=== PATIENT | male | born 1935 | race Caucasian/White ===

== ENCOUNTER → 2016-07-14 | Outpatient (CLI) | payer MEDICARE ==
[~2016-07-14] MED LIST: ANTI-INFLAMMATORY; ASPI-84; ATOR20TA66 PO; B12 SL; CITA10SO PO; E400C PO; HYDR-3730 PO; LIPITOR; LISI1TAB PO; MAGN250T13 PO; NAPR-243 PO; OMEP40CA36 PO; OMG1KC PO; SIMV40TA4 PO
--- NOTE | 2016-07-14 13:23 | Diagnostic Imaging Report ---
PA and lateral views of the chest. INDICATION: Chronic cough. FINDINGS: The lungs are clear. The heart size is normal. No effusion or pneumothorax. The mediastinum and eugene appear unremarkable. There is elevation of the right hemidiaphragm similar to 07/08/2014. IMPRESSION: Elevated right hemidiaphragm. No acute process. Dictated by: Dictated on workstation # [id number]
== END ==
LOC: RAD 11:10
PROVIDERS: ATTEND Internal Medicine
DX: R05 Cough (principal)
CPT/HCPCS: 71020

== ENCOUNTER 2017-07-27 08:41 | Emergency (ER) | payer MEDICARE ==
[~2017-07-27] VITALS: Ht 172.7 cm; Wt 90.7 kg
[2017-07-27] MEDS ORDERED: NS IV 500 ML 500 ML IV ONE (09:08)
[2017-07-27 09:14] LABS: BASOPHILS % (AUTO) 0 % (0-10); EOSINOPHILS # (AUTO) 0.1 10^3/uL (0.0-0.3); EOSINOPHILS % (AUTO) 1 % (0-10); HEMATOCRIT 41 % (40-54); HEMOGLOBIN 14.3 G/DL (13.3-17.7); LYMPHOCYTES # (AUTO) 3.1 X 10^3 (1.0-4.0); LYMPHOCYTES % (AUTO) 30 % (12-44); MEAN CORPUSCULAR HEMOGLOBIN 34 PG (25-34); MEAN CORPUSCULAR HGB CONC 35 G/DL (32-36); MEAN CORPUSCULAR VOLUME 97 FL (80-99); MEAN PLATELET VOLUME 9.2 FL (7.4-10.4); MONOCYTES # (AUTO) 0.9 X 10^3 (0.0-1.0); MONOCYTES % (AUTO) 9 % (0-12); NEUTROPHILS # (AUTO) 6.1 X 10^3 (1.8-7.8); NEUTROPHILS % (AUTO) 60 % (42-75); PLATELET COUNT 254 10^3/uL (130-400); RED BLOOD COUNT 4.16 10^6/uL (4.35-5.85); RED CELL DISTRIBUTION WIDTH 12.7 % (10.0-14.5); WHITE BLOOD COUNT 10.2 10^3/uL (4.3-11.0)
[2017-07-27] MEDS ORDERED: raNItidine 50 MG/2 ML INJ (ZANTAC) IJ ONE (09:15)
[2017-07-27] MEDS ORDERED: ONDANSETRON 4 MG/2 ML (SDV) Z0FRAN IVP ONE (09:15)
[2017-07-27 09:21] LABS: INR 1.1 (0.8-1.4); PROTHROMBIN TIME PATIENT 14.4 SEC (12.2-14.7)
[2017-07-27 09:29] LABS: ALANINE AMINOTRANSFERASE 23 U/L (0-55); ALBUMIN 3.9 GM/DL (3.2-4.5); ALKALINE PHOSPHATASE 67 U/L (40-136); BILIRUBIN,TOTAL 0.7 MG/DL (0.1-1.0); BUN/CREATININE RATIO 22; CALCIUM 9.1 MG/DL (8.5-10.1); CARBON DIOXIDE 21 MMOL/L (21-32); CHLORIDE 106 MMOL/L (98-107); GFR ESTIMATED > 60; GLUCOSE 168 MG/DL (70-105); POTASSIUM 4.4 MMOL/L (3.6-5.0); SODIUM 137 MMOL/L (135-145)
--- NOTE | 2017-07-27 11:20 | ED GI ---
General Chief Complaint: Abdominal/GI Problems Stated Complaint: PASSING ALOT OF BLOOD Nursing Triage Note: STATES AT APPX 0630 TODAY HE WOKE UP AND PASSED A LARGE AMT OF STOOL IN THE TOILET. STATES THIS HAS HAPPENED X6 SO FAR TODAY. Sepsis Screen: No Definite Risk Source of Information: Patient Exam Limitations: No Limitations History of Present Illness Date Seen by Provider: Jul 27, 2017 Time Seen by Provider: 08:57 Initial Comments This 81-year-old gentleman presents to the emergency room with a large amount of gross rectal bleeding starting at around 06:30. He developed some urgency to have a bowel movement this morning and went to the bathroom. He passed a large amount of bright red blood in the toilet. He had multiple episodes. He reports having some diaphoresis, weakness and nausea associated with this. He is afebrile. He reports having another episode years ago for which he was admitted. No significant pathology was found at that time. Review of patient' s chart notes that he had a colonoscopy 2 years ago. Diagnoses found at that included internal hemorrhoids and diverticulosis. He has a history of rectal polyps but no polyps were found with his colonoscopy 2 years ago. Patient denies any pain. He is no longer nauseated. Dr. Beaver is his surgeon. Allergies and Home Medications Allergies Coded Allergies: Diazepam (Unverified Adverse Reaction, SWEAT,, 07/30/10) Home Medications Atorvastatin Calcium 20 Mg Tablet, 20 MG PO DAILY, (Reported) Citalopram Hydrobromide 10 Mg/5 Ml Solution, 10 MG PO DAILY, (Reported) Hctz/Lisinopril 1 Each Tablet, 1 EACH PO DAILY, (Reported) Hydrocodone/Acetaminophen 1 Each Tablet, 1-2 EACH PO Q6H Prescribed by: PAT BEAVER on 11/07/14 0952 Magnesium Oxide 250 Mg Tablet, 250 MG PO DAILY, (Reported) Omeprazole 40 Mg Capsule., 40 MG PO DAILY, (Reported) Patient Home Medication List Home Medication List Reviewed: Yes Review of Systems Constitutional: see HPI EENTM: No Symptoms Reported Respiratory: No Symptoms Reported Cardiovascular: No Symptoms Reported Gastrointestinal: See HPI Genitourinary: No Symptoms Reported Musculoskeletal: no symptoms reported Skin: no symptoms reported Psychiatric/Neurological: No Symptoms Reported Endocrine: No Symptoms Reported Hematologic/Lymphatic: See HPI Past [id number]-Xsvctr Hx Past Med/Social Hx: Reviewed and Corrections made Patient Social History Alcohol Use: Denies Use Recreational Drug Use: No Smoking Status: Former Smoker Recent Foreign Travel: No Contact w/Someone Who Travel: No Recent Infectious Disease Expo: No Recent Hopitalizations: Yes Seasonal Allergies Seasonal Allergies: No Past Medical History Surgeries: Yes (BACK SURGERY; HEMORRHOID SURGERY; ATTEMPTED TO REMOVE LUMP ON BACK) Abdominal (colonoscopy) Respiratory: No Cardiac: Yes Hypertension Neurological: No Reproductive Disorders: No Sexually Transmitted Disease: No HIV/AIDS: No Gastrointestinal: Yes (GI BLEED) Gastroesophageal Reflux, Diverticulosis, Hemorrhoids, Polyps Musculoskeletal: Yes Endocrine: No 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 Psychosocial: No Integumentary: No Blood Disorders: No Adverse Reaction/Blood Tranf: No Physical Exam Vital Signs Vital Signs - First Documented 07/27/17 08:50 Pulse 79 Resp 18 B/P (MAP) 151/90 (110) Pulse Ox 99 O2 Delivery Room Air Capillary Refill : Less Than 3 Seconds General Appearance: WD/WN, no apparent distress HEENT: PERRL/EOMI, normal ENT inspection, pharynx normal Neck: normal inspection Respiratory: lungs clear, normal breath sounds, no respiratory distress, no accessory muscle use Cardiovascular: regular rate, rhythm, no edema, no murmur Gastrointestinal: normal bowel sounds, non tender, soft Rectal: normal rectal tone; No hemorrhoids, No mass, No tenderness; other ( scant red blood on the skin near the rectum and on the glove with digital rectal exam) Extremities: normal inspection, no pedal edema 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, no motor/sensory deficits, alert, normal mood/affect, oriented x 3 Skin: normal color, warm/dry Progress/Results/Core Measures Results/Orders Lab Results Laboratory Tests Test 07/27/17 09:00 Range/Units White Blood Count 10.2 4.3-11.0 10^3/uL Red Blood Count 4.16 L 4.35-5.85 10^6/uL Hemoglobin 14.3 13.3-17.7 G/DL Hematocrit 41 40-54 % Mean Corpuscular Volume 97 80-99 FL Mean Corpuscular Hemoglobin 34 25-34 PG Mean Corpuscular Hemoglobin Concent 35 32-36 G/DL Red Cell Distribution Width 12.7 10.0-14.5 % Platelet Count 254 130-400 10^3/uL Mean Platelet Volume 9.2 7.4-10.4 FL Neutrophils (%) (Auto) 60 42-75 % Lymphocytes (%) (Auto) 30 12-44 % Monocytes (%) (Auto) 9 0-12 % Eosinophils (%) (Auto) 1 0-10 % Basophils (%) (Auto) 0 0-10 % Neutrophils # (Auto) 6.1 1.8-7.8 X 10^3 Lymphocytes # (Auto) 3.1 1.0-4.0 X 10^3 Monocytes # (Auto) 0.9 0.0-1.0 X 10^3 Eosinophils # (Auto) 0.1 0.0-0.3 10^3/uL Basophils # (Auto) 0.0 0.0-0.1 10^3/uL Prothrombin Time 14.4 12.2-14.7 SEC INR Comment 1.1 0.8-1.4 Activated Partial Thromboplast Time 27 24-35 SEC Sodium Level 137 135-145 MMOL/L Potassium Level 4.4 3.6-5.0 MMOL/L Chloride Level 106 98-107 MMOL/L Carbon Dioxide Level 21 21-32 MMOL/L Anion Gap 10 5-14 MMOL/L Blood Urea Nitrogen 24 H 7-18 MG/DL Creatinine 1.10 0.60-1.30 MG/DL Estimat Glomerular Filtration Rate > 60 BUN/Creatinine Ratio 22 Glucose Level 168 H 70-105 MG/DL Calcium Level 9.1 8.5-10.1 MG/DL Total Bilirubin 0.7 0.1-1.0 MG/DL Aspartate Amino Transf (AST/SGOT) 22 5-34 U/L Alanine Aminotransferase (ALT/SGPT) 23 0-55 U/L Alkaline Phosphatase 67 40-136 U/L Total Protein 7.0 6.4-8.2 GM/DL Albumin 3.9 3.2-4.5 GM/DL My Orders Orders - CELSA HATHAWAY MD Cbc With Automated Diff (07/27/17 09:08) Comprehensive Metabolic Panel (07/27/17 09:08) Protime With Inr (07/27/17 09:08) Partial Thromboplastin Time (07/27/17 09:08) Saline Lock/Iv-Start (07/27/17 09:08) Ns Iv 500 Ml (Sodium Chloride 0.9%) (07/27/17 09:08) Ondansetron Injection (Zofran Injectio (07/27/17 09:15) Ranitidine Injection (Zantac Injection) (07/27/17 09:15) Red Cells Leukocytes Reduced (07/27/17 09:20) Type And Screen (07/27/17 09:20) Medications Given in ED Current Medications Medications Dose Ordered Sig/Quynh Route Start Time Stop Time Status Last Admin Dose Admin Ranitidine HCl 50 mg ONCE ONCE IJ 07/27/17 09:15 07/27/17 09:16 DC 07/27/17 09:26 50 MG Sodium Chloride 500 ml @ 0 mls/hr Q0M ONCE IV 07/27/17 09:08 07/27/17 09:10 DC 07/27/17 09:26 0 MLS/HR Vital Signs/I&O 07/27/17 07/27/17 08:50 11:34 Pulse 79 70 Resp 18 18 B/P (MAP) 151/90 (110) 151/87 Pulse Ox 99 98 O2 Delivery Room Air Room Air Blood Pressure Mean: 110 Progress Progress Note : Progress Note Lab work was essentially unremarkable. Patient had no other passage of blood after being roomed. Vital signs remained stable. He was given a 500 mL normal saline bolus due to his lightheadedness and dizziness. He was asymptomatic at the time of dismissal. I discussed the case with Dr. Beaver who recommended outpatient follow-up. Bleeding is likely secondary to diverticulosis and/or hemorrhoids. High fiber diet and plenty of clear liquids was recommended to help keep stools soft. Follow-up in the outpatient setting was recommended. Return precautions were discussed at length with patient and his . Departure Impression Primary Impression: Rectal bleeding Disposition: 01 HOME, SELF-CARE Condition: Improved Departure-Patient Inst. Decision time for Depature: 11:05 Referrals: KARINA MIR MD (PCP/Family) Primary Care Physician Patient Instructions: Gastrointestinal Bleeding Add. Discharge Instructions: Consume a clear liquid diet for the next 24 hours. Clear liquids include water , sports drinks, clear juices, broth, Jell-O, etc. If you are doing well, you may gradually advance your diet to a high-fiber diet starting tomorrow at lunchtime. When you advance your diet eat plenty of fruits, vegetables, and whole grains to keep your dietary fiber up and stool soft. You may add dietary fiber with a supplement such as Metamucil. Call Dr. Beaver's office today to make a follow-up appointment to be seen within the next week. Please notify his staff you were seen in the ER today for rectal bleeding. Return to the emergency room if you have complications such as lightheadedness, dizziness, shortness of breath, significant weakness, or continued bleeding of significant amounts. I do expect you to have some degree of bleeding over the next 48 hours as the blood clears your colon. The amount of blood passed should become less and darker in color with time. All discharge instructions reviewed with patient and/or family. Voiced understanding. Copy Copies To 1: PAT BEAVER MD, JOSHUA T MD Jul 27, 2017 11:20
[2017-07-27 11:34] VITALS: BP 151/87
== END 2017-07-27 11:34 | disposition home or self-care (01) ==
LOC: EDUNIT# 08:41 → ER 08:43
DX: K62.89 Other specified diseases of anus and rectum (principal); I10 Essential (primary) hypertension; K21.9 Gastro-esophageal reflux disease without esophagitis; Z87.19 Personal history of other diseases of the digestive system; Z85.828 Personal history of other malignant neoplasm of skin; Z87.891 Personal history of nicotine dependence; Z88.6 Allergy status to analgesic agent
CPT/HCPCS: 36415; 80053; 85025; 85610; 85730; 86850; 86900; 86901; 86920; 96361; 96374

== ENCOUNTER 2017-08-03 08:39 | Outpatient (CLI) | payer MEDICARE ==
[~2017-08-03] VITALS: Ht 172.7 cm; Wt 90.7 kg
[2017-08-03] MEDS ORDERED: OMEP40CA36 PO (12:40)
[2017-08-03] MEDS ORDERED: LISI1TAB8 PO (12:40)
[2017-08-03] MEDS ORDERED: CITA10TA7 PO (12:40)
== END 2017-08-03 12:41 ==
LOC: PREOP 08:39
PROVIDERS: ATTEND Surgery
DX: Z01.818 Encounter for other preprocedural examination (principal)

== ENCOUNTER → 2017-08-20 | Outpatient (CLI) | payer MEDICARE ==
[~2017-08-20] MED LIST changes: +CITA10TA7 PO; +LISI1TAB8 PO
--- NOTE | 2017-08-20 12:17 | Diagnostic Imaging Report ---
PROCEDURE: CT maxillofacial without contrast. TECHNIQUE: Multiple contiguous axial images were obtained through the facial bones without the use of intravenous contrast. INDICATION: Ladder fell on left side of face four days ago. Blurred vision and pain. FINDINGS: There is a multipart comminuted fracture involving the left orbital floor. There is depression of fracture fragments up to approximately 1 cm. There is herniated fat. While the inferior rectus muscle does not appear significantly entrapped, there is some asymmetric contour deformity and slight tenting about the muscle. There is also slight asymmetric thickening present. There is presence of retrobulbar gas. The globes appear symmetric in position and configuration. The remaining collins intact. Zygomatic arch and pterygoid plates are maintained. Mandible including temporomandibular joints preserved. Small air-fluid level within the left maxillary sinus. Maxillofacial soft tissue swelling around the left orbit. IMPRESSION: 1. Depressed comminuted left orbital floor fracture. While entrapment of the inferior rectus muscle is not demonstrated, there does appear to be some contour deformity and likely some tenting and retraction of the muscle which also appears to be edematous. Dictated by: Dictated on workstation # [id number]
--- NOTE | 2017-08-20 20:21 | Diagnostic Imaging Report ---
PROCEDURE: CT head and CT cervical spine without contrast. TECHNIQUE: Multiple contiguous axial images were obtained through the brain and cervical spine without the use of intravenous contrast. Sagittal and coronal reformations through the cervical spine were then performed. INDICATION: Ladder fell on face and head 4 days ago EXAMINATION: CT brain, CT cervical spine 08/20/2017 No priors available for comparison. FINDINGS: Brain: There is no acute hemorrhage or infarct. No mass, mass effect or midline shift appreciated. Chronic ischemic changes are noted with a focus of prominent extra-axial collection in the right posterior fossa posterior to the cerebellum. This could represent an arachnoid cyst or other cystic lesion which could be better characterized with MRI non-emergently as this is likely a chronic finding for this patient. The calvarium is intact. The known left facial fractures similar to the previous CT maxillofacial study from earlier today. Adjacent persistent soft tissue swelling about the left globe is again noted. The mastoid air cells clear. IMPRESSION: 1. No acute intracranial process with other findings as above. 2. Prominent extra axial collection on the right in the posterior fossa; see above discussion and recommendations. CT cervical spine: There is minimal grade 1 retrolisthesis C3 on C4 which appears due to degenerative change with minimal grade 1 anterolisthesis at C7-T1 likely also degenerative in nature. No fractures appreciated. Multilevel diffuse degenerative change seen throughout the spine. Lung apices are unremarkable. Prevertebral soft tissues demonstrate fairly marked areas of atherosclerotic disease. Nodularity in the thyroid noted poorly characterized and sonography could better evaluate if clinically warranted on a nonemergent basis. IMPRESSION: 1. Marked diffuse degenerative findings throughout the cervical spine with no acute osseous abnormality appreciated. Other findings as noted above. Dictated by: Dictated on workstation # [id number]
== END ==
LOC: RAD 09:51
PROVIDERS: ATTEND Nurse Practitioner Family
DX: S02.32XA Fracture of orbital floor, left side, initial encounter for closed fracture (principal); I67.82 Cerebral ischemia; M47.812 Spondylosis without myelopathy or radiculopathy, cervical region; M41.23 Other idiopathic scoliosis, cervicothoracic region; W20.8XXA Other cause of strike by thrown, projected or falling object, initial encounter
CPT/HCPCS: 70450; 70486; 72125

== ENCOUNTER → 2017-08-29 | Outpatient (CLI) | payer MEDICARE ==
--- NOTE | 2017-08-29 13:11 | Diagnostic Imaging Report ---
PROCEDURE: CT head without contrast. TECHNIQUE: Multiple contiguous axial images were obtained through the brain without the use of intravenous contrast. INDICATION: Recent fall. COMPARISON: 08/20/2017. FINDINGS: No acute intracranial hemorrhage, mass effect or edema is seen. Lugo-white junction appears preserved. There is moderate atrophy. Prominent CSF collection in the posterior fossa on the right is unchanged and may represent an arachnoid cyst or prominent CSF. This is unchanged and not felt to be acute. Diffuse hypodensities in the white matter are likely related to chronic microvascular ischemic change similar to the prior study. No new acute focal lesion is suspected. Fracture through the left orbital floor is again demonstrated. IMPRESSION: There is no evidence of a new or acute intracranial normality. No significant interval change from the prior study. Left orbit fracture again demonstrated. Dictated by: Dictated on workstation # [id number]
== END ==
LOC: RAD 12:23
PROVIDERS: ATTEND Optometrist
DX: S02.32XA Fracture of orbital floor, left side, initial encounter for closed fracture (principal); W19.XXXA Unspecified fall, initial encounter
CPT/HCPCS: 70450

== ENCOUNTER → 2017-11-09 | Outpatient (CLI) | payer MEDICARE ==
--- NOTE | 2017-11-09 16:04 | Diagnostic Imaging Report ---
PROCEDURE: US carotid duplex, bilateral. TECHNIQUE: Multiple real-time grayscale images were obtained over the carotid arteries in various projections, bilaterally. Additional duplex Doppler and color Doppler images were also obtained. INDICATION: Vertigo. FINDINGS: There is mild plaque in both common carotid arteries and bifurcations extending into the proximal internal and external carotid arteries. Velocities are normal bilaterally. No velocity elevation or stenosis is seen. Both vertebral arteries demonstrate antegrade flow. IMPRESSION: Mild bilateral carotid plaque. There is no evidence of a hemodynamically significant stenosis. Parameters based on the consensus panel Lugo-Scale and Doppler ultrasound criteria published December 2002, Radiology, Volume 229. DOPPLER (peak systolic velocity M/S Right Left CCA .93 .74 ICA Proximal .95 .57 ICA Mid .62 .80 ICA Distal .58 .92 RATIO 1.0 1.2 ECA 1.1 .67 VERT .42 .67 Dictated by: Dictated on workstation # [id number]
== END ==
LOC: RAD 12:45
PROVIDERS: ATTEND Nurse Practitioner
DX: I65.23 Occlusion and stenosis of bilateral carotid arteries (principal)
CPT/HCPCS: 93880

== ENCOUNTER 2018-01-17 05:34 | Outpatient (CLI) | payer MEDICARE ==
[~2018-01-17] VITALS: Ht 172.7 cm; Wt 90.7 kg
== END 2018-01-17 11:43 | disposition home or self-care (01) ==
LOC: PREOP 05:34
PROVIDERS: ATTEND Specialist
DX: Z01.818 Encounter for other preprocedural examination (principal)

== ENCOUNTER 2018-01-18 09:30 | Day surgery (SDC) | payer MEDICARE ==
[~2018-01-18] VITALS: Ht 172.7 cm; Wt 90.7 kg
[2018-01-18] MEDS ORDERED: TIMOLOL MALEATE 0.5% 5 ML (TIMOPTIC) BTL OU PRN (09:45)
[2018-01-18] MEDS ORDERED: POVIDONE (BETADINE) OPHTH SOLN 5% 30 ML OP ONE (09:45)
[2018-01-18] MEDS ORDERED: MOXIFLOXACIN OPHTH SOLN 5 MG/ML 0.3 ML SYRINGE OP ONE (09:45)
[2018-01-18] MEDS ORDERED: LIDOCAINE PF 1% 2 ML AMP IR PRN (09:45)
[2018-01-18] MEDS: TETRACAINE 0.5% OPHTH SOLN 4 ML BTL (SINGLE DOSE ONLY) OU PRN ×4 (09:56→10:14)
[2018-01-18] MEDS: PHENYLEPHRINE 10% OPHTH (NEO-SYN) 5 ML BTL OU SCH ×3 (10:02→10:14)
[2018-01-18] MEDS: CYCLOPENTOLATE 1% (CYCLOGYL) 2 ML DROPS OP SCH ×3 (10:02→10:14)
--- OUTSIDE RECORDS SUMMARY | 2018-01-18 10:03 | XMS REPORT | Continuity of Care Document ---
Author Author [facility] Organization [facility] Address Unknown Phone Unavailable Allergies Active Description Code Type Severity Reaction Onset Reported/Identified Relationship to Patient Clinical Status Yes diazepam [id number] Drug Allergy Unknown SWEAT, 07/30/2010 Medications There is no data. Problems Date Dx Coded Attending Type Code Diagnosis Diagnosed By 08/05/2010 Ot 211.4 BENIGN NEOPL RECTUM/ANUS 08/05/2010 Ot 272.0 PURE HYPERCHOLESTEROLEM 08/05/2010 Ot 272.4 HYPERLIPIDEMIA NEC/NOS 08/05/2010 Ot 401.9 HYPERTENSION NOS 08/05/2010 Ot 535.40 OTH SPECIFIED GASTRITIS,W/O MENTION OF H 08/05/2010 Ot 535.60 DUODENITIS, WITHOUT MENTION OF HEMORRHAG 08/05/2010 Ot 562.10 DIVERTICULOSIS COLON (W/O MENT OF HEMORR 08/05/2010 Ot 578.9 GASTROINTEST HEMORR NOS 08/05/2010 Ot 600.00 HYPERTROPHY (BENIGN) OF PROSTATE W/O URI 08/05/2010 Ot V15.82 HISTORY OF TOBACCO USE 07/08/2014 Ot 285.9 08/13/2014 CLARKE JIMÉNEZ, KARINA Barreto Ot 786.2 08/15/2014 KARINA MIR MD Ot 786.2 11/07/2014 PAT BEAVER MD Ot 455.0 INT HEMORRHOID W/O COMPL 11/07/2014 PAT BEAVER MD Ot 455.3 EXT HEMORRHOID W/O COMPL 11/07/2014 PAT BEAVER MD Ot 553.1 UMBILICAL HERNIA 11/07/2014 PAT BEAVER MD Ot 562.10 DIVERTICULOSIS COLON (W/O MENT OF HEMORR 11/07/2014 PAT BEAVER MD Ot V12.72 PERSONAL HISTORY OF COLONIC POLYPS 07/16/2015 Ot 285.9 ANEMIA NOS 07/16/2015 KARINA MIR MD Ot 786.2 COUGH 07/16/2015 PAT BEAVER MD Ot 553.1 UMBILICAL HERNIA 07/16/2015 SARANYA JIMÉNEZ, PAT Ot V12.72 PERSONAL HISTORY OF COLONIC POLYPS 07/16/2015 SARANYA JIMÉNEZ, PAT Ot V72.84 EXAM PRE-OPERATIVE NOS 07/16/2015 SARANYA JIMÉNEZ, PAT Ot V74.8 SCREEN-BACTERIAL DIS NEC 07/18/2015 CLARKE JIMÉNEZ, KARINA Barreto Ot M19.011 PRIMARY OSTEOARTHRITIS, RIGHT SHOULDER 07/18/2015 CLARKE JIMÉNEZ, KARINA Barreto Ot M50.30 OTHER CERVICAL DISC DEGENERATION, [facility] C 07/18/2015 CLARKE JIMÉNEZ, KARINA Barreto Ot W19.XXXA UNSPECIFIED FALL, INITIAL ENCOUNTER 07/18/2015 CLARKE JIMÉNEZ, KARINA Barreto Ot Y99.8 OTHER EXTERNAL CAUSE STATUS 08/07/2015 KARINA MIR MD Ot M19.011 PRIMARY OSTEOARTHRITIS, RIGHT SHOULDER 08/07/2015 CLARKE JIMÉNEZ, KARINA Barreto Ot M50.30 OTHER CERVICAL DISC DEGENERATION, [facility] C 08/07/2015 KARINA MIR MD Ot W19.XXXA UNSPECIFIED FALL, INITIAL ENCOUNTER 08/07/2015 KARINA MIR MD Ot Y99.8 OTHER EXTERNAL CAUSE STATUS 08/16/2015 KARINA MIR MD Ot M19.011 PRIMARY OSTEOARTHRITIS, RIGHT SHOULDER 08/16/2015 CLARKE JIMÉNEZ, KARINA Barreto Ot M50.30 OTHER CERVICAL DISC DEGENERATION, [facility] 08/16/2015 KARINA MIR MD Ot W19.XXXA UNSPECIFIED FALL, INITIAL ENCOUNTER 08/16/2015 KARINA MIR MD Ot Y99.8 OTHER EXTERNAL CAUSE STATUS 08/17/2015 SHEREEN JIMÉNEZ, ZOHRA Lester Ot R19.7 DIARRHEA, UNSPECIFIED 08/17/2015 SHEREEN JIMÉNEZ, ZOHRA Lester Ot T67.5XXA HEAT EXHAUSTION, UNSPECIFIED, INITIAL EN 08/19/2015 SHEREEN JIMÉNEZ, ZOHRA Lester Ot R19.7 DIARRHEA, UNSPECIFIED 08/19/2015 SHEREEN JIMÉNEZ, ZOHRA Lester Ot T67.5XXA HEAT EXHAUSTION, UNSPECIFIED, INITIAL EN 08/22/2015 ADEEL BAIRES DIETETICS TEACHER Ot R19.7 DIARRHEA, UNSPECIFIED 08/22/2015 ADEEL BAIRES DIETETICS TEACHER Ot T67.1XXA HEAT SYNCOPE, INITIAL ENCOUNTER 09/11/2015 ADEEL BAIRES DIETETICS TEACHER Ot R19.7 DIARRHEA, UNSPECIFIED 09/11/2015 ADEEL BAIRES DIETETICS TEACHER Ot T67.1XXA HEAT SYNCOPE, INITIAL ENCOUNTER 07/20/2016 KARINA MIR MD Ot R05 COUGH 08/02/2016 KARINA MIR MD Ot R05 COUGH 08/04/2016 KARINA MIR MD Ot R05 COUGH 07/27/2017 KARINA MIR MD Ot 786.2 COUGH 07/27/2017 PAT BEAVER MD Ot 553.1 UMBILICAL HERNIA 07/27/2017 PAT BEAVER MD Ot V12.72 PERSONAL HISTORY OF COLONIC POLYPS 07/27/2017 PAT BEAVER MD Ot V72.84 EXAM PRE-OPERATIVE NOS 07/27/2017 PAT BEAVER MD Ot V74.8 SCREEN-BACTERIAL DIS NEC 07/27/2017 KARINA MIR MD Ot M19.011 PRIMARY OSTEOARTHRITIS, RIGHT SHOULDER 07/27/2017 KARINA MIR MD Ot M50.30 OTHER CERVICAL DISC DEGENERATION, [facility] C 07/27/2017 KARINA MIR MD Ot W19.XXXA UNSPECIFIED FALL, INITIAL ENCOUNTER 07/27/2017 KARINA MIR MD Ot Y99.8 OTHER EXTERNAL CAUSE STATUS 07/27/2017 ADEEL BAIRES DIETETICS TEACHER Ot R19.7 DIARRHEA, UNSPECIFIED 07/27/2017 ADEEL BAIRES DIETETICS TEACHER Ot T67.1XXA HEAT SYNCOPE, INITIAL ENCOUNTER 07/27/2017 KARINA MIR MD Ot R05 COUGH 07/27/2017 CELSA HATHAWAY MD, Ot I10 ESSENTIAL (PRIMARY) HYPERTENSION 07/27/2017 CELSA HATHAWAY MD Ot K21.9 GASTRO-ESOPHAGEAL REFLUX DISEASE WITHOUT 07/27/2017 CELSA HATHAWAY MD Ot K62.89 OTHER SPECIFIED DISEASES OF ANUS AND REC 07/27/2017 CELSA HATHAWAY MD Ot Z85.828 PERSONAL HISTORY OF OTHER MALIGNANT NEOP 07/27/2017 CELSA HATHAWAY MD Ot Z87.19 PERSONAL HISTORY OF OTHER DISEASES OF TH 07/27/2017 CELSA HATHAWAY MD, Ot Z87.891 PERSONAL HISTORY OF NICOTINE DEPENDENCE 07/27/2017 CELSA HATHAWAY MD, Ot Z88.6 ALLERGY STATUS TO ANALGESIC AGENT STATUS 07/29/2017 CELSA HATHAWAY MD Ot I10 ESSENTIAL (PRIMARY) HYPERTENSION 07/29/2017 CELSA HATHAWAY MD, Ot K21.9 GASTRO-ESOPHAGEAL REFLUX DISEASE WITHOUT 07/29/2017 CELSA HATHAWAY MD Ot K62.89 OTHER SPECIFIED DISEASES OF ANUS AND REC 07/29/2017 CELSA HATHAWAY MD, Ot Z85.828 PERSONAL HISTORY OF OTHER MALIGNANT NEOP 07/29/2017 CELSA HATHAWAY MD, Ot Z87.19 PERSONAL HISTORY OF OTHER DISEASES OF TH 07/29/2017 CELSA HATHAWAY MD Ot Z87.891 PERSONAL HISTORY OF NICOTINE DEPENDENCE 07/29/2017 CELSA HATHAWAY MD, Ot Z88.6 ALLERGY STATUS TO ANALGESIC AGENT STATUS 08/03/2017 PAT BEAVER MD Ot Z01.818 ENCOUNTER FOR OTHER PREPROCEDURAL EXAMIN 08/04/2017 PAT BEAVER MD, Ot Z01.818 ENCOUNTER FOR OTHER PREPROCEDURAL EXAMIN 08/09/2017 PAT BEAVER MD, Ot Z01.818 ENCOUNTER FOR OTHER PREPROCEDURAL EXAMIN 08/23/2017 NADINE CANTU DIETETICS TEACHER Ot I67.82 CEREBRAL ISCHEMIA 08/23/2017 NADINE CANTU DIETETICS TEACHER Ot 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, CERVICOTHORA 08/23/2017 NADINE CANTU DIETETICS TEACHER Ot M47.812 SPONDYLOSIS W/O MYELOPATHY OR RADICULOPA 08/23/2017 NADINE CANTU DIETETICS TEACHER Ot S02.32XA FRACTURE OF ORBITAL FLOOR, LEFT SIDE, IN 08/23/2017 NADINE CANTU DIETETICS TEACHER Ot W20.8XXA OTH CAUSE OF STRIKE BY THROWN, PROJECTED 08/29/2017 NADINE CANTU DIETETICS TEACHER Ot I67.82 CEREBRAL ISCHEMIA 08/29/2017 NADINE CANTU DIETETICS TEACHER Ot 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, CERVICOTHORA 08/29/2017 NADINE CANTU DIETETICS TEACHER Ot M47.812 SPONDYLOSIS W/O MYELOPATHY OR RADICULOPA 08/29/2017 NADINE CANTU DIETETICS TEACHER Ot S02.32XA FRACTURE OF ORBITAL FLOOR, LEFT SIDE, IN 08/29/2017 NADINE CANTU DIETETICS TEACHER Ot W20.8XXA OTH CAUSE OF STRIKE BY THROWN, PROJECTED 08/29/2017 NADINE CANTU DIETETICS TEACHER Ot I67.82 CEREBRAL ISCHEMIA 08/29/2017 NADINE CANTU DIETETICS TEACHER Ot 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, CERVICOTHORA 08/29/2017 NADINE CANTU DIETETICS TEACHER Ot M47.812 SPONDYLOSIS W/O MYELOPATHY OR RADICULOPA 08/29/2017 NADINE CANTU DIETETICS TEACHER Ot S02.32XA FRACTURE OF ORBITAL FLOOR, LEFT SIDE, IN 08/29/2017 NADINE CANTU DIETETICS TEACHER Ot W20.8XXA OTH CAUSE OF STRIKE BY THROWN, PROJECTED 08/30/2017 YINA PINEDA OD Ot S02.32XA FRACTURE OF ORBITAL FLOOR, LEFT SIDE, IN 08/30/2017 YINA PINEDA OD Ot W19.XXXA UNSPECIFIED FALL, INITIAL ENCOUNTER 09/03/2017 NADINE CANTU DIETETICS TEACHER Ot I67.82 CEREBRAL ISCHEMIA 09/03/2017 NADINE CANTU DIETETICS TEACHER Ot 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, CERVICOTHORA 09/03/2017 NADINE CANTU DIETETICS TEACHER Ot M47.812 SPONDYLOSIS W/O MYELOPATHY OR RADICULOPA 09/03/2017 NADINE CANTU DIETETICS TEACHER Ot S02.32XA FRACTURE OF ORBITAL FLOOR, LEFT SIDE, IN 09/03/2017 NADINE CANTU DIETETICS TEACHER Ot W20.8XXA OTH CAUSE OF STRIKE BY THROWN, PROJECTED 09/03/2017 NADINE CANTU DIETETICS TEACHER Ot I67.82 CEREBRAL ISCHEMIA 09/03/2017 NADINE CANTU DIETETICS TEACHER Ot 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, CERVICOTHORA 09/03/2017 NADINE CANTU DIETETICS TEACHER Ot M47.812 SPONDYLOSIS W/O MYELOPATHY OR RADICULOPA 09/03/2017 NADINE CANTU DIETETICS TEACHER Ot S02.32XA FRACTURE OF ORBITAL FLOOR, LEFT SIDE, IN 09/03/2017 NADINE CANTU DIETETICS TEACHER Ot W20.8XXA OTH CAUSE OF STRIKE BY THROWN, PROJECTED 09/08/2017 NADINE CANTU DIETETICS TEACHER Ot I67.82 CEREBRAL ISCHEMIA 09/08/2017 NADINE CANTU DIETETICS TEACHER Ot 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, CERVICOTHORA 09/08/2017 NADINE CANTU DIETETICS TEACHER Ot M47.812 SPONDYLOSIS W/O MYELOPATHY OR RADICULOPA 09/08/2017 ALONDRA PHILIPPEINDIRA Khadijah DIETETICS TEACHER Ot S02.32XA FRACTURE OF ORBITAL FLOOR, LEFT SIDE, IN 09/08/2017 PHILIPPE CANTUINDIRA Khadijah DIETETICS TEACHER Ot W20.8XXA OTH CAUSE OF STRIKE BY THROWN, PROJECTED 09/08/2017 PHILIPPE CANTUINDIRA Khadijah DIETETICS TEACHER Ot I67.82 CEREBRAL ISCHEMIA 09/08/2017 NADINE CANTU DIETETICS TEACHER Ot 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, CERVICOTHORA 09/08/2017 NADINE CANTU DIETETICS TEACHER Ot M47.812 SPONDYLOSIS W/O MYELOPATHY OR RADICULOPA 09/08/2017 NADINE CANTU DIETETICS TEACHER Ot S02.32XA FRACTURE OF ORBITAL FLOOR, LEFT SIDE, IN 09/08/2017 NADINE CANTU DIETETICS TEACHER Ot W20.8XXA OTH CAUSE OF STRIKE BY THROWN, PROJECTED 09/12/2017 NADINE CANTU DIETETICS TEACHER Ot I67.82 CEREBRAL ISCHEMIA 09/12/2017 NADINE CANTU DIETETICS TEACHER Ot 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, CERVICOTHORA 09/12/2017 NADINE CANTU DIETETICS TEACHER Ot M47.812 SPONDYLOSIS W/O MYELOPATHY OR RADICULOPA 09/12/2017 NADINE CANTU DIETETICS TEACHER Ot S02.32XA FRACTURE OF ORBITAL FLOOR, LEFT SIDE, IN 09/12/2017 NADINE CANTU DIETETICS TEACHER Ot W20.8XXA OTH CAUSE OF STRIKE BY THROWN, PROJECTED 09/14/2017 NADINE CANTU DIETETICS TEACHER Ot I67.82 CEREBRAL ISCHEMIA 09/14/2017 NADINE CANTU DIETETICS TEACHER Ot 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, CERVICOTHORA 09/14/2017 NADINE CANTU DIETETICS TEACHER Ot M47.812 SPONDYLOSIS W/O MYELOPATHY OR RADICULOPA 09/14/2017 NADINE CANTU DIETETICS TEACHER Ot S02.32XA FRACTURE OF ORBITAL FLOOR, LEFT SIDE, IN 09/14/2017 NADINE CANTU DIETETICS TEACHER Ot W20.8XXA OTH CAUSE OF STRIKE BY THROWN, PROJECTED 09/14/2017 NADINE CANTU DIETETICS TEACHER Ot I67.82 CEREBRAL ISCHEMIA 09/14/2017 NADINE CANTU DIETETICS TEACHER Ot 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, CERVICOTHORA 09/14/2017 NADINE CANTU DIETETICS TEACHER Ot M47.812 SPONDYLOSIS W/O MYELOPATHY OR RADICULOPA 09/14/2017 NADINE CANTU DIETETICS TEACHER Ot S02.32XA FRACTURE OF ORBITAL FLOOR, LEFT SIDE, IN 09/14/2017 NADINE CANTU DIETETICS TEACHER Ot W20.8XXA OTH CAUSE OF STRIKE BY THROWN, PROJECTED 09/14/2017 NADINE CANTU DIETETICS TEACHER Ot I67.82 CEREBRAL ISCHEMIA 09/14/2017 NADINE CANTU DIETETICS TEACHER Ot 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, CERVICOTHORA 09/14/2017 NADINE CANTU DIETETICS TEACHER Ot M47.812 SPONDYLOSIS W/O MYELOPATHY OR RADICULOPA 09/14/2017 NADINE CANTU DIETETICS TEACHER Ot S02.32XA FRACTURE OF ORBITAL FLOOR, LEFT SIDE, IN 09/14/2017 NADINE CANTU DIETETICS TEACHER Ot W20.8XXA OTH CAUSE OF STRIKE BY THROWN, PROJECTED 09/20/2017 YINA PINEDA OD Ot S02.32XA FRACTURE OF ORBITAL FLOOR, LEFT SIDE, IN 09/20/2017 YINA PINEDA OD Ot W19.XXXA UNSPECIFIED FALL, INITIAL ENCOUNTER 11/09/2017 CLARKE JIMÉNEZ, KARINA Barreto Ot 786.2 COUGH 11/09/2017 SARANYA JIMÉNEZ, PAT Ot 553.1 UMBILICAL HERNIA 11/09/2017 SARANYA JIMÉNEZ, PAT Ot V12.72 PERSONAL HISTORY OF COLONIC POLYPS 11/09/2017 SARANYA JIMÉNEZ, PAT Ot V72.84 EXAM PRE-OPERATIVE NOS 11/09/2017 SARANYA JIMÉNEZ, PAT Ot V74.8 SCREEN-BACTERIAL DIS NEC 11/09/2017 CLARKE JIMÉNEZ, KARINA Barreto Ot M19.011 PRIMARY OSTEOARTHRITIS, RIGHT SHOULDER 11/09/2017 CLARKE JIMÉNEZ, KARINA Barreto Ot M50.30 OTHER CERVICAL DISC DEGENERATION, UNSP C 11/09/2017 KARINA MIR MD Ot W19.XXXA UNSPECIFIED FALL, INITIAL ENCOUNTER 11/09/2017 KARINA MIR MD Ot Y99.8 OTHER EXTERNAL CAUSE STATUS 11/09/2017 ADEEL BAIRES DIETETICS TEACHER Ot R19.7 DIARRHEA, UNSPECIFIED 11/09/2017 ADEEL BAIRES DIETETICS TEACHER Ot T67.1XXA HEAT SYNCOPE, INITIAL ENCOUNTER 11/09/2017 KARINA MIR MD Ot R05 COUGH 11/09/2017 NADINE CANTU DIETETICS TEACHER Ot I67.82 CEREBRAL ISCHEMIA 11/09/2017 NADINE CANTU DIETETICS TEACHER Ot 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, CERVICOTHORA 11/09/2017 NADINE CANTU DIETETICS TEACHER Ot M47.812 SPONDYLOSIS W/O MYELOPATHY OR RADICULOPA 11/09/2017 NADINE CANTU DIETETICS TEACHER Ot S02.32XA FRACTURE OF ORBITAL FLOOR, LEFT SIDE, IN 11/09/2017 NADINE CANTU DIETETICS TEACHER Ot W20.8XXA OTH CAUSE OF STRIKE BY THROWN, PROJECTED 11/09/2017 YINA PINEDA OD Ot S02.32XA FRACTURE OF ORBITAL FLOOR, LEFT SIDE, IN 11/09/2017 YINA PINEDA OD Ot W19.XXXA UNSPECIFIED FALL, INITIAL ENCOUNTER 11/09/2017 NÉSTOR CASTRO DIETETICS TEACHER Ot R42 DIZZINESS AND GIDDINESS 11/10/2017 NÉSTOR CASTRO DIETETICS TEACHER Ot 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 11/30/2017 NÉSTOR CASTRO DIETETICS TEACHER Ot 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 12/08/2017 NÉSTOR CASTRO DIETETICS TEACHER Ot 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 Procedures Code Description Performed By Performed On 45.16 08/05/2010 48.36 08/05/2010 Results Test Result Range Complete blood count (CBC) with automated white blood cell (WBC) differential - 07/27/17 09:00 Blood leukocytes automated count (number/volume) 10.2 10*3/uL 4.3-11.0 Blood erythrocytes automated count (number/volume) 4.16 10*6/uL 4.35-5.85 Venous blood hemoglobin measurement (mass/volume) 14.3 g/dL 13.3-17.7 Blood hematocrit (volume fraction) 41 % 40-54 Automated erythrocyte mean corpuscular volume 97 [foz_us] 80-99 Automated erythrocyte mean corpuscular hemoglobin (mass per erythrocyte) 34 pg 25-34 Automated erythrocyte mean corpuscular hemoglobin concentration measurement ( mass/volume) 35 g/dL 32-36 Automated erythrocyte distribution width ratio 12.7 % 10.0-14.5 Automated blood platelet count (count/volume) 254 10*3/uL 130-400 Automated blood platelet mean volume measurement 9.2 [foz_us] 7.4-10.4 Automated blood neutrophils/100 leukocytes 60 % 42-75 Automated blood lymphocytes/100 leukocytes 30 % 12-44 Blood monocytes/100 leukocytes 9 % 0-12 Automated blood eosinophils/100 leukocytes 1 % 0-10 Automated blood basophils/100 leukocytes 0 % 0-10 Blood neutrophils automated count (number/volume) 6.1 10*3 1.8-7.8 Blood lymphocytes automated count (number/volume) 3.1 10*3 1.0-4.0 Blood monocytes automated count (number/volume) 0.9 10*3 0.0-1.0 Automated eosinophil count 0.1 10*3/uL 0.0-0.3 Automated blood basophil count (count/volume) 0.0 10*3/uL 0.0-0.1 PT panel in platelet poor plasma by coagulation assay - 07/27/17 09:00 Prothrombin time (PT) in platelet poor plasma by coagulation assay 14.4 s 12.2-14.7 INR in platelet poor plasma or blood by coagulation assay 1.1 0.8-1.4 Activated partial thromboplastin time (aPTT) in platelet poor plasma bycoagulation assay - 07/27/17 09:00 Activated partial thromboplastin time (aPTT) in platelet poor plasma bycoagulation assay 27 s 24-35 Comprehensive metabolic panel - 07/27/17 09:00 Serum or plasma sodium measurement (moles/volume) 137 mmol/L 135-145 Serum or plasma potassium measurement (moles/volume) 4.4 mmol/L 3.6-5.0 Serum or plasma chloride measurement (moles/volume) 106 mmol/L 98-107 Carbon dioxide 21 mmol/L 21-32 Serum or plasma anion gap determination (moles/volume) 10 mmol/L 5-14 Serum or plasma urea nitrogen measurement (mass/volume) 24 mg/dL 7-18 Serum or plasma creatinine measurement (mass/volume) 1.10 mg/dL 0.60-1.30 Serum or plasma urea nitrogen/creatinine mass ratio 22 NRG Serum or plasma creatinine measurement with calculation of estimated glomerular filtration rate > NRG Serum or plasma glucose measurement (mass/volume) 168 mg/dL 70-105 Serum or plasma calcium measurement (mass/volume) 9.1 mg/dL 8.5-10.1 Serum or plasma total bilirubin measurement (mass/volume) 0.7 mg/dL 0.1-1.0 Serum or plasma alkaline phosphatase measurement (enzymatic activity/volume) 67 U/L 40-136 Serum or plasma aspartate aminotransferase measurement (enzymatic activity/ volume) 22 U/L 5-34 Serum or plasma alanine aminotransferase measurement (enzymatic activity/volume ) 23 U/L 0-55 Serum or plasma protein measurement (mass/volume) 7.0 g/dL 6.4-8.2 Serum or plasma albumin measurement (mass/volume) 3.9 g/dL 3.2-4.5 RED CELLS LEUKO REDUCED AS1 - 07/27/17 09:41 RED CELLS LEUKO REDUCED AS1 NOT AVAILABLE NRG Blood type T Indirect antibody screen panel - 07/27/17 09:41 ABO+Rh group OP NRG Transfusion band number [id number] NRG Blood group antibody screen NEGATIVE NRG Encounters ACCT No. Visit Date/Time Discharge Status Pt. Type Provider Facility Loc./Unit Complaint [id number] 11/09/2017 12:45:00 11/09/2017 23:59:59 CLS Outpatient NÉSTOR CASTRO APRN [facility] RAD CHRONIC VERTIGO [id number] 08/29/2017 12:23:00 08/29/2017 23:59:59 CLS Outpatient YINA PINEDA OD [facility] RAD FRACTURE OF ORBITAL FLOOR ,LEFT SIDE SEQUELA [id number] 08/20/2017 09:51:00 08/20/2017 23:59:59 CLS Outpatient NADINE CANTU APRN [facility] RAD FACIAL INJURY [id number] 08/05/2017 12:30:00 08/05/2017 23:59:59 CLS Preadmit PAT BEAVER MD [facility] ENDO RECTAL BLEEDING [id number] 08/03/2017 08:39:00 08/03/2017 12:41:00 DIS Outpatient PAT BEAVER MD [facility] PREOP COLONOSCOPY [id number] 07/27/2017 08:43:00 07/27/2017 11:34:00 DIS Emergency CELSA HATHAWAY MD [facility] ER PASSING ALOT OF BLOOD [id number] 07/14/2016 11:10:00 07/14/2016 23:59:59 CLS Outpatient KARINA MIR MD [facility] RAD COUGH [id number] 08/18/2015 09:37:00 08/18/2015 23:59:59 CLS Outpatient ADEEL BAIRES APRN [facility] LAB [id number] 08/17/2015 13:42:00 08/17/2015 16:37:00 DIS Emergency ZOHRA REGAN MD [facility] ER CHILLS/DIARRHEA [id number] 07/16/2015 11:18:00 07/16/2015 23:59:59 CLS Outpatient KARINA MIR MD [facility] RAD PAIN POST FALL [id number] 11/07/2014 06:57:00 11/07/2014 12:45:00 DIS Outpatient PAT BEAVER MD [facility] UMBILICAL HERNIA [id number] 11/06/2014 09:11:00 11/06/2014 23:59:59 CLS Outpatient PAT BEAVER MD [facility] PREOP UMBILICAL HERNIA [id number] 07/08/2014 16:06:00 07/08/2014 23:59:59 CLS Outpatient KARINA MIR MD [facility] RAD COUGH [id number] 01/18/2018 12:30:00 MAGALIE Kim MD [facility] CATARACT RIGHT EYE [id number] 08/10/2010 08:19:00 Document Registration [id number] 07/30/2010 19:11:00 Document Registration [id number] 08/20/2017 08:30:00 08/20/2017 23:59:59 CLS Outpatient [facility]
--- OUTSIDE RECORDS SUMMARY | 2018-01-18 10:03 | XMS REPORT ---
Author Author NADINE CANTU [facility] Address [address] [place] [address] Care Team Providers Care Horse Breeder Name Role Phone NADINE CANTU Unavailable PROBLEMS Unknown Problems ALLERGIES Substance Reaction Event Type Date Status Valium Unknown Drug Allergy Jul, Active ENCOUNTERS Encounter Location Date Diagnosis [facility] [address] [facility] [id number] [phone] Jul, Facial injury, initial encounter S09.93XA and Closed fracture of orbit, initial encounter S02.80XA IMMUNIZATIONS No Known Immunizations SOCIAL HISTORY Never Assessed REASON FOR VISIT sinus pain- fell on [place] PLAN OF CARE Activity Details Follow Up pending CT results Reason:facial injury VITAL SIGNS Weight 202 lbs 2017-08-20 Temperature 98.0 degrees Fahrenheit 2017-08-20 Heart Rate 66 bpm 2017-08-20 Respiratory Rate 20 2017-08-20 Blood pressure systolic 130 mmHg 2017-08-20 Blood pressure diastolic 90 mmHg 2017-08-20 MEDICATIONS Medication Instructions Dosage Frequency Start Date End Date Duration Status Citalopram Hydrobromide 10 MG Orally Once a day 1 tablet 24h Active Omeprazole 20 MG Orally Once a day 1 capsule 24h Active Atorvastatin Calcium 20 MG Orally Once a day 1 tablet 24h Active Augmentin 875-125 MG Orally every 12 hrs 1 tablet 12h Jul, Aug, 07 days Active Magnesium 250 MG Orally Once a day 1 tablet with a meal 24h Active Lisinopril-Hydrochlorothiazide 20-12.5 MG Orally Once a day 1 tablet 24h Active RESULTS Name Result Date Reference Range CT Scan : Face CT Scan : Head/Brain w/o Contrast CT Scan : Spine, Cervical w/o Contrast PROCEDURES No Known procedures INSTRUCTIONS MEDICATIONS ADMINISTERED No Known Medications
[2018-01-18 10:04] VITALS: BP 151/85
[2018-01-18] MEDS ORDERED: acetaZOLAMIDE ER 500 MG CAP (DIAMOX SEQUELS) PO ONE (10:30)
--- NOTE | 2018-01-18 10:39 | Ophthalmologist Pre-Op Note ---
Pre-Operative Progress Note H&P Reviewed The H&P was reviewed, patient examined and no changes noted. Date H&P Reviewed: Jan 18, 2018 Time H&P Reviewed: 10:38 Pre-Op Dx Cataract, Right Eye MAGALIE MENARD MD Jan 18, 2018 10:39
[2018-01-18] MEDS ORDERED: MIDAZOLAM 2 MG/2 ML (VERSED) VIAL ONE (10:44)
--- NOTE | 2018-01-18 11:11 | Ophthalmology Operative Report ---
Cataract removal/placement IOL PREOPERATIVE DIAGNOSIS: Cataract Right Eye POSTOPERATIVE DIAGNOSIS: Cataract Right Eye PROCEDURE: Cataract removal and placement of posterior chamber implant, right eye SURGEON: Alfred Menard ANESTHESIA: Topical with sedation COMPLICATIONS: None ESTIMATED BLOOD LOSS: Minimal DESCRIPTION OF PROCEDURE: After proper informed consent was obtained, the patient, a 82 male, was taken to the Operating Room and the right eye was anesthetized with tetracaine. The right eye was then prepped and draped in the usual manner. A wire lid speculum was placed. A paracentesis was made at the left hand position. Preservative free lidocaine was injected into the anterior chamber followed by viscoelastic. A clear corneal incision was made in the temporal position. A capsulorrhexis was preformed and the central nuclear and cortical material were removed. The posterior capsule was polished and Augustus [id number] 20.5 IOL was placed into the capsular bag. The residual viscoelastic was aspirated and balanced saline solution was injected into the anterior chamber. Moxifloxacin was injected into the anterior chamber. The wound was checked and found to be water tight. The patient tolerated the procedure well without complications. ALFRED MENARD MD Jan 18, 2018 11:11
[2018-01-18 11:20] VITALS: BP 130/84
--- NOTE | 2018-01-18 14:39 | Anesthesia-General Post-Op ---
MAC Patient Condition Mental Status/LOC: Same as Preop Cardiovascular: Satisfactory Nausea/Vomiting: Absent Respiratory: Satisfactory Pain: Controlled Complications: Absent Post Op Complications Complications None Follow Up Care/Instructions Patient Instructions None needed. Anesthesiology Discharge Order Discharge Order Patient is doing well, no complaints, stable vital signs, no apparent adverse anesthesia problems. No complications reported per nursing. VELMA ALCARAZ CRNA Jan 18, 2018 14:39
== END 2018-01-18 11:20 | disposition home or self-care (01) ==
LOC: SDC 09:30
PROVIDERS: ATTEND Specialist
DX: H25.11 Age-related nuclear cataract, right eye (principal); E78.00 Pure hypercholesterolemia, unspecified; I10 Essential (primary) hypertension; E78.5 Hyperlipidemia, unspecified; K21.9 Gastro-esophageal reflux disease without esophagitis; Z87.891 Personal history of nicotine dependence; Z79.899 Other long term (current) drug therapy

== ENCOUNTER → 2018-04-25 | Outpatient (CLI) | payer MEDICARE ==
[~2018-04-25] MED LIST changes: +GADOBUTROL 10 MMOL/10 ML (GADAVIST) VIAL IV ONE
--- NOTE | 2018-04-25 16:50 | Diagnostic Imaging Report ---
PROCEDURE: MR imaging of the brain with and without contrast. TECHNIQUE: Multiplanar, multisequence MR imaging of the brain was performed with and without contrast. INDICATION: Fall in July 2017 with facial fracture. Patient complains of blurred vision. No prior MRI study of the brain is available for comparison. Ventricles and sulci are prominent consistent with patient's age. There is moderate periventricular and subcortical white matter signal abnormality consistent with chronic microvascular ischemia. 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 No diffusion restriction is identified to suggest acute ischemia. The normal expected flow-voids within the carotid siphons are seen. There is no midline shift. No acute intra-axial or extra-axial hemorrhage is identified. No abnormal enhancement is identified following contrast administration. The corpus callosum is unremarkable. The sella and parasellar structures are unremarkable. Bilateral globes and orbits appear unremarkable. IMPRESSION: Chronic and senescent changes. No acute intracranial process is detected. Dictated by: Dictated on workstation # [id number]
== END ==
LOC: RAD 11:57
PROVIDERS: ATTEND Internal Medicine
DX: H53.8 Other visual disturbances (principal); R54 Age-related physical debility
CPT/HCPCS: 70553

== ENCOUNTER 2018-05-02 10:40 | Outpatient (CLI) | payer MEDICARE ==
[~2018-05-02] VITALS: Ht 172.7 cm; Wt 93.0 kg
[~2018-05-02 10:40] MED LIST changes: -GADOBUTROL 10 MMOL/10 ML (GADAVIST) VIAL IV ONE
== END 2018-05-02 12:34 | disposition home or self-care (01) ==
LOC: PREOP 10:40
PROVIDERS: ATTEND Surgery
DX: Z01.818 Encounter for other preprocedural examination (principal)

== ENCOUNTER 2018-05-03 09:07 | Day surgery (SDC) | payer MEDICARE ==
[~2018-05-03] VITALS: Ht 172.7 cm; Wt 93.0 kg
[2018-05-03] MEDS ORDERED: NS IV 500 ML 500 ML ONE (09:11)
--- OUTSIDE RECORDS SUMMARY | 2018-05-03 09:11 | XMS REPORT | Continuity of Care Document ---
Author Author [facility] Organization [facility] Address Unknown Phone Unavailable Allergies Active Description Code Type Severity Reaction Onset Reported/Identified Relationship to Patient Clinical Status Yes diazepam [id number] Drug Allergy Unknown SWEAT, 01/17/2018 Medications There is no data. Problems Date [...] Barreto Ot M50.30 OTHER CERVICAL DISC DEGENERATION, [facility] 07/18/2015 CLARKE JIMÉNEZ, KARINA Barreto Ot W19.XXXA UNSPECIFIED FALL, INITIAL ENCOUNTER 07/18/2015 CLARKE JIMÉNEZ, KARINA Barreto Ot Y99.8 OTHER EXTERNAL CAUSE STATUS 08/07/2015 KARINA MIR MD Ot M19.011 PRIMARY OSTEOARTHRITIS, RIGHT SHOULDER 08/07/2015 CLARKE JIMÉNEZ, KARINA Barreto Ot M50.30 OTHER CERVICAL DISC DEGENERATION, [facility] 08/07/2015 KARINA MIR MD Ot W19.XXXA UNSPECIFIED FALL, INITIAL ENCOUNTER 08/07/2015 KARINA MIR MD Ot Y99.8 OTHER EXTERNAL CAUSE STATUS 08/16/2015 KARINA MIR MD Ot M19.011 PRIMARY OSTEOARTHRITIS, RIGHT SHOULDER 08/16/2015 CLARKE JIMÉNEZ, KARINA Barreto Ot M50.30 OTHER CERVICAL DISC DEGENERATION, [facility] 08/16/2015 KARINA MIR MD Ot W19.XXXA UNSPECIFIED [...] EXHAUSTION, UNSPECIFIED, INITIAL EN 08/22/2015 ADEEL BAIRES RELIEF OPERATOR Ot R19.7 DIARRHEA, UNSPECIFIED 08/22/2015 ADEEL BAIRES RELIEF OPERATOR Ot T67.1XXA HEAT SYNCOPE, INITIAL ENCOUNTER 09/11/2015 ADEEL BAIRES RELIEF OPERATOR Ot R19.7 DIARRHEA, UNSPECIFIED 09/11/2015 ADEEL BAIRES RELIEF OPERATOR Ot T67.1XXA HEAT SYNCOPE, INITIAL ENCOUNTER 07/20/2016 CLARKE JIMÉNEZ, KARINA Barreto Ot R05 COUGH 08/02/2016 KARINA MIR MD [...] OTHER EXTERNAL CAUSE STATUS 07/27/2017 ADEEL BAIRES RELIEF OPERATOR Ot R19.7 DIARRHEA, UNSPECIFIED 07/27/2017 ADEEL BAIRES RELIEF OPERATOR Ot T67.1XXA HEAT SYNCOPE, INITIAL ENCOUNTER 07/27/2017 [...] HISTORY OF NICOTINE DEPENDENCE 07/27/2017 CELSA HATHAWAY MD Ot Z88.6 ALLERGY STATUS TO ANALGESIC AGENT [...] FOR OTHER PREPROCEDURAL EXAMIN 08/23/2017 NADINE CANTU RELIEF OPERATOR Ot I67.82 CEREBRAL ISCHEMIA 08/23/2017 NADINE CANTU RELIEF OPERATOR Ot 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, CERVICOTHORA 08/23/2017 NADINE CANTU RELIEF OPERATOR Ot M47.812 SPONDYLOSIS W/O MYELOPATHY OR RADICULOPA 08/23/2017 NADINE CANTU RELIEF OPERATOR Ot S02.32XA FRACTURE OF ORBITAL FLOOR, LEFT SIDE, IN 08/23/2017 NADINE CANTU RELIEF OPERATOR Ot W20.8XXA OTH CAUSE OF STRIKE BY THROWN, PROJECTED 08/29/2017 NADINE CANTU RELIEF OPERATOR Ot I67.82 CEREBRAL ISCHEMIA 08/29/2017 NADINE CANTU RELIEF OPERATOR Ot 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, CERVICOTHORA 08/29/2017 NADINE CANTU RELIEF OPERATOR Ot M47.812 SPONDYLOSIS W/O MYELOPATHY OR RADICULOPA 08/29/2017 NADINE CANTU RELIEF OPERATOR Ot S02.32XA FRACTURE OF ORBITAL FLOOR, LEFT SIDE, IN 08/29/2017 NADINE CANTU RELIEF OPERATOR Ot W20.8XXA OTH CAUSE OF STRIKE BY THROWN, PROJECTED 08/29/2017 NADINE CANTU RELIEF OPERATOR Ot I67.82 CEREBRAL ISCHEMIA 08/29/2017 NADINE CANTU RELIEF OPERATOR Ot 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, CERVICOTHORA 08/29/2017 NADINE CANTU RELIEF OPERATOR Ot M47.812 SPONDYLOSIS W/O MYELOPATHY OR RADICULOPA 08/29/2017 NADINE CANTU RELIEF OPERATOR Ot S02.32XA FRACTURE OF ORBITAL FLOOR, LEFT SIDE, IN 08/29/2017 NADINE CANTU RELIEF OPERATOR Ot W20.8XXA OTH CAUSE OF STRIKE BY THROWN, PROJECTED 08/30/2017 YINA PINEDA OD Ot S02.32XA FRACTURE OF ORBITAL FLOOR, LEFT SIDE, IN 08/30/2017 YINA PINEDA OD Ot W19.XXXA UNSPECIFIED FALL, INITIAL ENCOUNTER 09/03/2017 NADINE CANTU RELIEF OPERATOR Ot I67.82 CEREBRAL ISCHEMIA 09/03/2017 NADINE CANTU RELIEF OPERATOR Ot 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, CERVICOTHORA 09/03/2017 NADINE CANTU RELIEF OPERATOR Ot M47.812 SPONDYLOSIS W/O MYELOPATHY OR RADICULOPA 09/03/2017 NADINE CANTU RELIEF OPERATOR Ot S02.32XA FRACTURE OF ORBITAL FLOOR, LEFT SIDE, IN 09/03/2017 NADINE CANTU RELIEF OPERATOR Ot W20.8XXA OTH CAUSE OF STRIKE BY THROWN, PROJECTED 09/03/2017 NADINE CANTU RELIEF OPERATOR Ot I67.82 CEREBRAL ISCHEMIA 09/03/2017 NADINE CANTU RELIEF OPERATOR Ot 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, CERVICOTHORA 09/03/2017 NADINE CANTU RELIEF OPERATOR Ot M47.812 SPONDYLOSIS W/O MYELOPATHY OR RADICULOPA 09/03/2017 NADINE CANTU RELIEF OPERATOR Ot S02.32XA FRACTURE OF ORBITAL FLOOR, LEFT SIDE, IN 09/03/2017 NADINE CANTU RELIEF OPERATOR Ot W20.8XXA OTH CAUSE OF STRIKE BY THROWN, PROJECTED 09/08/2017 NADINE CANTU RELIEF OPERATOR Ot I67.82 CEREBRAL ISCHEMIA 09/08/2017 CANTU, JAIMA A RELIEF OPERATOR Ot 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, CERVICOTHORA 09/08/2017 NADINE CANTU RELIEF OPERATOR Ot M47.812 SPONDYLOSIS W/O MYELOPATHY OR RADICULOPA 09/08/2017 NADINE CANTU RELIEF OPERATOR Ot S02.32XA FRACTURE OF ORBITAL FLOOR, LEFT SIDE, IN 09/08/2017 NADINE CANTU RELIEF OPERATOR Ot W20.8XXA OTH CAUSE OF STRIKE BY THROWN, PROJECTED 09/08/2017 NADINE CANTU RELIEF OPERATOR Ot I67.82 CEREBRAL ISCHEMIA 09/08/2017 NADINE CANTU RELIEF OPERATOR Ot 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, CERVICOTHORA 09/08/2017 NADINE CANTU RELIEF OPERATOR Ot M47.812 SPONDYLOSIS W/O MYELOPATHY OR RADICULOPA 09/08/2017 NADINE CANTU RELIEF OPERATOR Ot S02.32XA FRACTURE OF ORBITAL FLOOR, LEFT SIDE, IN 09/08/2017 NADINE CANTU RELIEF OPERATOR Ot W20.8XXA OTH CAUSE OF STRIKE BY THROWN, PROJECTED 09/12/2017 NADINE CANTU RELIEF OPERATOR Ot I67.82 CEREBRAL ISCHEMIA 09/12/2017 NADINE CANTU RELIEF OPERATOR Ot 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, CERVICOTHORA 09/12/2017 NADINE CANTU RELIEF OPERATOR Ot M47.812 SPONDYLOSIS W/O MYELOPATHY OR RADICULOPA 09/12/2017 NADINE CANTU RELIEF OPERATOR Ot S02.32XA FRACTURE OF ORBITAL FLOOR, LEFT SIDE, IN 09/12/2017 NADINE CANTU RELIEF OPERATOR Ot W20.8XXA OTH CAUSE OF STRIKE BY THROWN, PROJECTED 09/14/2017 NADINE CANTU RELIEF OPERATOR Ot I67.82 CEREBRAL ISCHEMIA 09/14/2017 NADINE CANTU RELIEF OPERATOR Ot 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, CERVICOTHORA 09/14/2017 NADINE CANTU RELIEF OPERATOR Ot M47.812 SPONDYLOSIS W/O MYELOPATHY OR RADICULOPA 09/14/2017 NADINE CANTU RELIEF OPERATOR Ot S02.32XA FRACTURE OF ORBITAL FLOOR, LEFT SIDE, IN 09/14/2017 NADINE CANTU RELIEF OPERATOR Ot W20.8XXA OTH CAUSE OF STRIKE BY THROWN, PROJECTED 09/14/2017 NADINE CANTU RELIEF OPERATOR Ot I67.82 CEREBRAL ISCHEMIA 09/14/2017 NADINE CANTU RELIEF OPERATOR Ot 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, CERVICOTHORA 09/14/2017 NADINE CANTU RELIEF OPERATOR Ot M47.812 SPONDYLOSIS W/O MYELOPATHY OR RADICULOPA 09/14/2017 NADINE CANTU RELIEF OPERATOR Ot S02.32XA FRACTURE OF ORBITAL FLOOR, LEFT SIDE, IN 09/14/2017 NADINE CANTU RELIEF OPERATOR Ot W20.8XXA OTH CAUSE OF STRIKE BY THROWN, PROJECTED 09/14/2017 NADINE CANTU RELIEF OPERATOR Ot I67.82 CEREBRAL ISCHEMIA 09/14/2017 NADINE CANTU RELIEF OPERATOR Ot 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, CERVICOTHORA 09/14/2017 NADINE CANTU RELIEF OPERATOR Ot M47.812 SPONDYLOSIS W/O MYELOPATHY OR RADICULOPA 09/14/2017 NADINE CANTU RELIEF OPERATOR Ot S02.32XA FRACTURE OF ORBITAL FLOOR, LEFT SIDE, IN 09/14/2017 NADINE CANTU RELIEF OPERATOR Ot W20.8XXA OTH CAUSE OF STRIKE BY [...] ENCOUNTER 11/09/2017 CLARKE JIMÉNEZ, KARINA Barreto Ot Y99.8 OTHER EXTERNAL CAUSE STATUS 11/09/2017 ADEEL BAIRES RELIEF OPERATOR Ot R19.7 DIARRHEA, UNSPECIFIED 11/09/2017 ADEEL BAIRES RELIEF OPERATOR Ot T67.1XXA HEAT SYNCOPE, INITIAL ENCOUNTER 11/09/2017 KARINA MIR MD Ot R05 COUGH 11/09/2017 NADINE CANTU RELIEF OPERATOR Ot I67.82 CEREBRAL ISCHEMIA 11/09/2017 NADINE CANTU RELIEF OPERATOR Ot 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, CERVICOTHORA 11/09/2017 NADINE CANTU RELIEF OPERATOR Ot M47.812 SPONDYLOSIS W/O MYELOPATHY OR RADICULOPA 11/09/2017 NADINE CANTU RELIEF OPERATOR Ot S02.32XA FRACTURE OF ORBITAL FLOOR, LEFT SIDE, IN 11/09/2017 NADINE CANTU RELIEF OPERATOR Ot W20.8XXA OTH CAUSE OF STRIKE BY THROWN, PROJECTED 11/09/2017 YINA PINEDA OD Ot S02.32XA FRACTURE OF ORBITAL FLOOR, LEFT SIDE, IN 11/09/2017 YINA PINEDA OD Ot W19.XXXA UNSPECIFIED FALL, INITIAL ENCOUNTER 11/09/2017 NÉSTOR CASTRO RELIEF OPERATOR Ot R42 DIZZINESS AND GIDDINESS 11/10/2017 NÉSTOR CASTRO RELIEF OPERATOR Ot 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 11/30/2017 NÉSTOR CASTRO RELIEF OPERATOR Ot 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 12/08/2017 NÉSTOR CASTRO RELIEF OPERATOR Ot 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 01/17/2018 MAGALIE MENARD MD Ot Z01.818 ENCOUNTER FOR OTHER PREPROCEDURAL EXAMIN 01/18/2018 MAGALIE MENARD MD Ot E78.00 PURE HYPERCHOLESTEROLEMIA, UNSPECIFIED 01/18/2018 MAGALIE MENARD MD Ot E78.5 HYPERLIPIDEMIA, UNSPECIFIED 01/18/2018 MAGALIE MENARD MD Ot H25.11 AGE-RELATED NUCLEAR CATARACT, RIGHT EYE 01/18/2018 MAGALIE MENARD MD Ot I10 ESSENTIAL (PRIMARY) HYPERTENSION 01/18/2018 MAGALIE MENARD MD Ot K21.9 GASTRO-ESOPHAGEAL REFLUX DISEASE WITHOUT 01/18/2018 MAGALIE MENARD MD Ot 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 01/18/2018 MAGALIE MENARD MD Ot Z87.891 PERSONAL HISTORY OF NICOTINE DEPENDENCE 01/19/2018 MAGALIE MENARD MD Ot E78.00 PURE HYPERCHOLESTEROLEMIA, UNSPECIFIED 01/19/2018 MAGALIE MENARD MD Ot E78.5 HYPERLIPIDEMIA, UNSPECIFIED 01/19/2018 MAGALIE MENARD MD Ot H25.11 AGE-RELATED NUCLEAR CATARACT, RIGHT EYE 01/19/2018 MAGALIE MENARD MD Ot I10 ESSENTIAL (PRIMARY) HYPERTENSION 01/19/2018 MAGALIE MENARD MD Ot K21.9 GASTRO-ESOPHAGEAL REFLUX DISEASE WITHOUT 01/19/2018 MAGALIE MENARD MD Ot 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 01/19/2018 MAGALIE MENARD MD Ot Z87.891 PERSONAL HISTORY OF NICOTINE DEPENDENCE 04/25/2018 KARINA MIR MD Ot 786.2 COUGH 04/25/2018 PAT BEAVER MD Ot 553.1 UMBILICAL HERNIA 04/25/2018 PAT BEAVER MD Ot V12.72 PERSONAL HISTORY OF COLONIC POLYPS 04/25/2018 PAT BEAVER MD Ot V72.84 EXAM PRE-OPERATIVE NOS 04/25/2018 PAT BEAVER MD Ot V74.8 SCREEN-BACTERIAL DIS NEC 04/25/2018 KARINA MIR MD Ot M19.011 PRIMARY OSTEOARTHRITIS, RIGHT SHOULDER 04/25/2018 KARINA MIR MD Ot M50.30 OTHER CERVICAL DISC DEGENERATION, UNSP C 04/25/2018 KARINA MIR MD Ot W19.XXXA UNSPECIFIED FALL, INITIAL ENCOUNTER 04/25/2018 KARINA MIR MD Ot Y99.8 OTHER EXTERNAL CAUSE STATUS 04/25/2018 ADEEL BAIRES RELIEF OPERATOR Ot R19.7 DIARRHEA, UNSPECIFIED 04/25/2018 ADEEL BAIRES RELIEF OPERATOR Ot T67.1XXA HEAT SYNCOPE, INITIAL ENCOUNTER 04/25/2018 KARINA MIR MD Ot R05 COUGH 04/25/2018 NADINE CANTU APRN Ot I67.82 CEREBRAL ISCHEMIA 04/25/2018 NADINE CANTU APRN Ot 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, CERVICOTHORA 04/25/2018 NADINE CANTU RELIEF OPERATOR Ot M47.812 SPONDYLOSIS W/O MYELOPATHY OR RADICULOPA 04/25/2018 NADINE CANTU RELIEF OPERATOR Ot S02.32XA FRACTURE OF ORBITAL FLOOR, LEFT SIDE, IN 04/25/2018 NADINE CANTU RELIEF OPERATOR Ot W20.8XXA OTH CAUSE OF STRIKE BY THROWN, PROJECTED 04/25/2018 GONZALEZYINA SMITH OD Ot S02.32XA FRACTURE OF ORBITAL FLOOR, LEFT SIDE, IN 04/25/2018 YNIA PINEDA OD Ot W19.XXXA UNSPECIFIED FALL, INITIAL ENCOUNTER 04/25/2018 NÉSTOR CASTRO RELIEF OPERATOR Ot 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 05/02/2018 CALRKE JIMÉNEZ, KARINA Barreto Ot H53.8 OTHER VISUAL DISTURBANCES 05/02/2018 CLARKE JIMÉNEZ, KARINA Barreto Ot R54 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 Procedures Code Description Performed By Performed On [...] ABO+Rh group OP NRG Transfusion band number [id number] NRG Blood group antibody screen NEGATIVE NRG Encounters ACCT No. Visit Date/Time Discharge Status Pt. Type Provider Facility Loc./Unit Complaint [id number] 05/02/2018 10:40:00 05/02/2018 12:34:00 DIS Outpatient PAT BEAVER MD [facility] PREOP COLONOSCOPY/EGD [id number] 04/25/2018 11:57:00 04/25/2018 23:59:59 CLS Outpatient KARINA MIR MD [facility] RAD VISION CHANGE [id number] 01/18/2018 09:30:00 01/18/2018 11:20:00 DIS Outpatient MAGALIE MENARD MD [facility] SDC CATARACT RIGHT EYE [id number] 01/17/2018 05:34:00 01/17/2018 11:43:00 DIS Outpatient MAGALIE MENARD MD [facility] PREOP CATARACT RIGHT [id number] 11/09/2017 12:45:00 11/09/2017 23:59:59 CLS Outpatient ÉNSTOR CASTRO APRN [facility] RAD CHRONIC VERTIGO [id number] 08/29/2017 12:23:00 08/29/2017 23:59:59 CLS Outpatient YINA PINEDA OD [facility] RAD FRACTURE OF ORBITAL FLOOR ,LEFT SIDE SEQUELA [id number] 08/20/2017 09:51:00 08/20/2017 23:59:59 CLS Outpatient NADINE CANTU APRN [facility] RAD FACIAL INJURY [id number] 08/05/2017 12:30:00 08/05/2017 23:59:59 CLS Preadmit PAT BEAVER MD [facility] ENDO RECTAL BLEEDING [id number] 08/03/2017 08:39:00 08/03/2017 12:41:00 DIS Outpatient PAT BEAVER MD [facility] PREOP COLONOSCOPY [id number] 07/27/2017 08:43:00 07/27/2017 11:34:00 DIS Emergency CELSA HATHAWAY MD [facility] ER PASSING ALOT OF BLOOD [id number] 07/14/2016 11:10:00 07/14/2016 23:59:59 CLS Outpatient KARINA MIR MD [facility] RAD COUGH [id number] 08/18/2015 09:37:00 08/18/2015 23:59:59 CLS Outpatient ADEEL BAIRES APRN [facility] LAB [id number] 08/17/2015 13:42:00 08/17/2015 16:37:00 DIS Emergency ZOHRA REGAN MD [facility] ER CHILLS/DIARRHEA [id number] 07/16/2015 11:18:00 07/16/2015 23:59:59 CLS Outpatient KARINA MIR MD [facility] RAD PAIN POST FALL [id number] 11/07/2014 06:57:00 11/07/2014 12:45:00 DIS Outpatient PAT BEAVER MD [facility] SDC UMBILICAL HERNIA [id number] 11/06/2014 09:11:00 11/06/2014 23:59:59 CLS Outpatient PAT BEAVER MD [facility] PREOP UMBILICAL HERNIA [id number] 07/08/2014 16:06:00 07/08/2014 23:59:59 CLS Outpatient KARINA MIR MD [facility] RAD COUGH [id number] 05/03/2018 15:15:00 PEN Preadmit PAT BEAVER MD [facility] ENDO DARK TARRY STOOLS/RECTAL BLEEDING/REFLUX [id number] 08/10/2010 08:19:00 Document Registration [id number] 07/30/2010 19:11:00 Document Registration [id number] 08/20/2017 08:30:00 08/20/2017 23:59:59 [facility] Outpatient [facility]
[2018-05-03 09:15] VITALS: BP 164/101
--- NOTE | 2018-05-03 09:30 | Conscious Sedation/ASA ---
Conscious Sedation Pre-Proced Time 09:30 ASA Score 2 For ASA 3 and 4: Consider anesthesia and medical clearance. Also, for patients with a history of failed moderate sedation consider anesthesia. Airway Lungs Heart ASA score ASA 1: a normal healthy patient ASA 2: a patient with a mild systemic disease (mid diabetes, controlled hypertension, obesity ASA 3: a patient with a severe systemic disease that limits activity (angina , COPD, prior Myocardial infarction) ASA 4: a patient with an incapacitating disease that is a constant threat to life (CHF, renal failure) ASA 5: a moribund patient not expected to survive 24 hrs. (ruptured aneurysm) ASA 6: a declared brain- patient whose organs are being harvested. For emergent operations, add the letter E after the classification Mallampati Classification Grade 2 Sedation Plan Analgesia, Amnesia, Plan communicated to team members, Discussed options with patient/fam, Discussed risks with patient/fam The patient is an appropriate candidate to undergo the planned procedure, sedation, and anesthesia. The patient immediately re-assessed prior to indication. PAT BEAVER MD May 03, 2018 09:30
--- NOTE | 2018-05-03 09:31 | Progress Note-Pre Operative ---
Pre-Operative Progress Note H&P Reviewed The H&P was reviewed, patient examined and no changes noted. Date Seen by Provider: May 03, 2018 Time Seen by Provider: : Date H&P Reviewed: May 03, 2018 Time H&P Reviewed: :30 Pre-Operative Diagnosis: GERD, rectal bleed, dark tarry stools PAT BEAVER MD May 03, 2018 09:31
--- NOTE | 2018-05-03 09:33 | Discharge Inst-Surgical ---
D/C Lap Instructions-SARANYA Follow Up Activity as tolerated High Fiber Diet 25g or more per day Avoid Alcohol, Caffeine, Spicy Nolic and Acid foods. Drink 64 fluid oz or more of fluids per day. Symptoms to Report: Fever over 101 degree F, Nausea/Vomiting If any problems/questions: Contact your physician or go to Emergency Room PAT BEAVER MD May 03, 2018 09:33
[2018-05-03] MEDS ORDERED: ACETAMINOPHEN 325 MG TABLET PO PRN (09:45)
[2018-05-03] MEDS ORDERED: ONDANSETRON 4 MG/2 ML (SDV) Z0FRAN IV PRN (09:45)
[2018-05-03] MEDS ORDERED: HYDROcodone/APAP 5 MG/325 MG (LORTAB) TAB PO PRN (09:45)
[2018-05-03] MEDS ORDERED: morphine INJ 10 MG/ML 1ML (SYR OR VIAL) IV PRN (09:45)
[2018-05-03] MEDS ORDERED: NS IV 500 ML 500 ML IV PRN (09:52)
[2018-05-03 09:58] LABS: BASOPHILS % (AUTO) 0 % (0-10); EOSINOPHILS # (AUTO) 0.1 10^3/uL (0.0-0.3); EOSINOPHILS % (AUTO) 1 % (0-10); HEMATOCRIT 40 % (40-54); HEMOGLOBIN 13.8 G/DL (13.3-17.7); LYMPHOCYTES # (AUTO) 2.3 X 10^3 (1.0-4.0); LYMPHOCYTES % (AUTO) 30 % (12-44); MEAN CORPUSCULAR HEMOGLOBIN 33 PG (25-34); MEAN CORPUSCULAR HGB CONC 34 G/DL (32-36); MEAN CORPUSCULAR VOLUME 97 FL (80-99); MONOCYTES # (AUTO) 0.8 X 10^3 (0.0-1.0); MONOCYTES % (AUTO) 11 % (0-12); NEUTROPHILS # (AUTO) 4.6 X 10^3 (1.8-7.8); NEUTROPHILS % (AUTO) 59 % (42-75); PLATELET COUNT 283 10^3/uL (130-400); RED CELL DISTRIBUTION WIDTH 12.8 % (10.0-14.5); WHITE BLOOD COUNT 7.7 10^3/uL (4.3-11.0)
[2018-05-03] MEDS ORDERED: fentaNYL INJECTION 100 MCG/2 ML AMP IVP ONE (10:00)
[2018-05-03] MEDS ORDERED: MIDAZOLAM 2 MG/2 ML (VERSED) VIAL IVP ONE (10:00)
[2018-05-03] MEDS ORDERED: LIDOCAINE JELLY 2% 6 ML SYRINGE MM PRN (10:00)
[2018-05-03] MEDS ORDERED: HURRICAINE EXT TUBE (BENZOCAINE) XX PRN (10:00)
[2018-05-03] MEDS ORDERED: fentaNYL INJECTION 100 MCG/2 ML AMP ONE ×2 (12:15→13:16)
[2018-05-03] MEDS ORDERED: LIDOCAINE JELLY 2% 6 ML SYRINGE ONE (12:15)
[2018-05-03] MEDS ORDERED: HURRICAINE EXT TUBE (BENZOCAINE) ONE (12:16)
[2018-05-03] MEDS ORDERED: MIDAZOLAM 2 MG/2 ML (VERSED) VIAL ONE ×3 (12:16)
[2018-05-03 14:00] VITALS: BP 110/57
[2018-05-03 14:35] VITALS: BP 109/61
[2018-05-03 14:50] VITALS: BP 109/61
--- NOTE | 2018-05-03 17:52 | Progress Note-Post Operative ---
Post-Operative Progess Note Surgeon (s)/Instructor Ground Services (s) Surgeon PAT BEAVER MD Instructor Ground Services: none Pre-Operative Diagnosis GERD, rectal bleed, dark tarry stools Post-Operative Diagnosis reflux esophagitis(stage2), moderate HH(3cm), mild gastritis. mild chronic stage 2 ext and int hemorrhoids, taylor-diverticulosis with old maroon blood throughout colon and rectum. no active bleeding identified. mild cecal inflammation. Procedure & Operative Findings Date of Procedure 05/03/18 Procedure Performed/Findings EGD with bx. Colonoscopy with bx. Anesthesia Type CS Estimated Blood Loss Estimated blood loss (mL): minimal Specimens/Packing Specimens Removed ge jxn, antrum, cecum PAT BEAVER MD May 03, 2018 17:52
--- NOTE | 2018-05-03 18:50 | OPERATIVE REPORT ---
DATE OF SERVICE: 05/03/2018 ATTENDING PHYSICIAN: Dr. Dewitt. PREOPERATIVE DIAGNOSIS: Rectal bleeding. POSTOPERATIVE DIAGNOSES: Mild chronic stage II external and internal hemorrhoids, pandiverticulosis with old maroon colored blood throughout the entirety of the colon. There did appear to be some mild mucosal inflammatory changes to the cecum; however, not severe. PROCEDURE: Colonoscopy with biopsy. SURGEON: Pat Beaver MD ANESTHESIA: Conscious sedation. ESTIMATED BLOOD LOSS: Minimal. FINDINGS: Mild chronic stage II external and internal hemorrhoids, pandiverticulosis with old maroon colored blood throughout the entirety of the colon. There did appear to be some mild mucosal inflammatory changes to the cecum; however, not severe. DISPOSITION: The patient tolerated the procedure well. INDICATIONS: The patient is an 82-year-old male, who we have seen before in the past. We had seen him in 07/2017 for episode of rectal bleeding. He had reported a similar episode in 2010. He did have a colonoscopy in 2014, which did show some sigmoid diverticulosis as well as hemorrhoids. He states that he developed a headache and took two regular strength aspirin 325 mg on 2 consecutive days. He then developed six episodes of rectal bleeding. He does report some mild abdominal pain, which does move in different quadrants of the abdomen at times. He does not report any fever nor chills. DESCRIPTION OF PROCEDURE: The patient was brought to the endoscopy suite, laid in left lateral decubitus position. After adequate IV pain and sedative medications and conscious sedation anesthesia, the mouthpiece was applied. The endoscope was placed in the mouth, visualizing the pharynx and the hypopharyngeal region. Vocal cords, epiglottis and vallecula identified and appeared to be normal. Endoscope was then gently intubated. The esophageal opening and esophagus insufflated. The endoscope was then advanced through the first, second and third portions of the esophagus. At the level of the GE junction, a reflux esophagitis stage II identified. There were no ulcers or strictures identified in this region. A significant sized hiatal hernia was identified approximately 3 to 4 cm in size. There were no ulcerations or bleeding identified within the herniated stomach. A mild gastritis was noted. No active bleeding identified. Pylorus and duodenum appeared normal with no ulcerations or any active bleeding. A biopsy was taken of the stomach antrum with forceps with visualization of good hemostasis. The endoscope was then advanced through the first and second portion of the duodenum, which appeared normal. The endoscope was then slowly withdrawn with taking a second look and suctioning of residual air with no additional findings. The patient tolerated this portion of the procedure well. It does not appear this is an upper gastrointestinal source of bleeding. We will recommend that he continues his omeprazole 20 mg daily as well as medical management including small and more frequent meals, avoidance of eating at night as well as head elevation while lying supine. If he does have worsening issues of hiatal hernia, which include dysphagia or regurgitation or upper gastrointestinal bleeding, he may benefit from a hiatal hernia repair. Under the same anesthesia, we then proceeded with the colonoscopy portion of procedure. A digital rectal examination was performed, which revealed chronic stage II external and internal hemorrhoids, not actively edematous nor inflamed and no bleeding. Normal sphincter tone was felt and there were no palpable masses. Prostate gland was slightly prominent; however, there were no palpable masses. The endoscope was then intubated to the anus and rectum gently insufflated. Immediately, there were maroon colored stools throughout the entirety of the colon. There was pandiverticulosis; however, there was no active red blood in any of the areas of the diverticulosis to indicate any active diverticular bleeding. We proceeded through the entirety of the sigmoid colon, descending colon, transverse as well as ascending colon to the cecum. With the same consistency and color, blood was identified. There was no red blood throughout the entirety of the colon or rectum. A mild inflammation was noted at the cecum and a biopsy was taken to rule out any inflammatory bowel disease. The endoscope was then slowly withdrawn while taking a second look and suctioning of residual air with no additional findings. The patient tolerated the procedure well. At this time, we were uncertain of the source of bleeding and due to his active bleeding, this bleeding may be detected on a tagged RBC scan, which we will try to schedule for tomorrow. There is a possibility that this may be a small bowel source as well. Job ID: [id number] DocumentID: [id number] Dictated Date: 05/03/2018 13:44:54 Equipment Planner Date: 05/03/2018 18:49:45 Dictated By: PAT BEAVER MD MTDMary Lou
== END 2018-05-03 14:50 | disposition home or self-care (01) ==
LOC: ENDO 09:07
PROVIDERS: ATTEND Surgery
DX: K57.30 Diverticulosis of large intestine without perforation or abscess without bleeding (principal); K64.1 Second degree hemorrhoids; K44.9 Diaphragmatic hernia without obstruction or gangrene; K29.50 Unspecified chronic gastritis without bleeding; I10 Essential (primary) hypertension; E78.00 Pure hypercholesterolemia, unspecified; F32.9 Major depressive disorder, single episode, unspecified; M10.9 Gout, unspecified; Z87.891 Personal history of nicotine dependence; Z79.899 Other long term (current) drug therapy
CPT/HCPCS: 36415; 85025

== ENCOUNTER → 2018-05-04 | Outpatient (CLI) | payer MEDICARE ==
[~2018-05-04] MED LIST changes: +CATHETER FLUSH 10 ML SYR IV PRN; +HEParin (CENTRAL IV FLUSH) 500 UNIT/5 ML SYR ONE
--- NOTE | 2018-05-04 19:58 | Diagnostic Imaging Report ---
INDICATION: Active GI bleed. The patient was administered 31.8 mCi technetium 99m pertechnetate labeled to the patient's red blood cells and imaging of the abdomen was performed. There is physiologic activity within the vascular system and bladder as well as the kidneys. No abnormal accumulation of activity is identified to suggest active GI bleed. IMPRESSION: Normal GI bleeding scan. Dictated by: Dictated on workstation # [id number]
== END ==
LOC: CARD 11:45
PROVIDERS: ATTEND Surgery
DX: K92.2 Gastrointestinal hemorrhage, unspecified (principal)
CPT/HCPCS: 78278

== ENCOUNTER → 2018-07-25 | Outpatient (CLI) | payer MEDICARE ==
[~2018-07-25] MED LIST changes: -CATHETER FLUSH 10 ML SYR IV PRN; -HEParin (CENTRAL IV FLUSH) 500 UNIT/5 ML SYR ONE; +REGADENOSON 0.4 MG/5 ML SYR (LEXISCAN) IV ONE
[2018-07-25] MEDS: CATHETER FLUSH 10 ML SYR IV PRN ×2 (08:28→09:26)
[2018-07-25 09:23] VITALS: BP 145/77
--- NOTE | 2018-07-26 13:43 | STRESS TEST ---
DATE OF SERVICE: 07/25/2018 RESTING AND POST REGADENOSON TECHNETIUM-99M TETROFOSMIN SPECT CT IMAGING ORDERING PHYSICIAN: Dr. Burden. PRIMARY CARE PHYSICIAN: Dr. Dewitt. CLINICAL DIAGNOSES: Malaise, fatigue, bradycardia, hypertension. Baseline images were carried out after injection of 10.44 mCi of technetium-99m Tetrofosmin. This was followed by 0.4 mg of regadenoson and 31.3 mCi of technetium-99m Tetrofosmin for stress imaging. The electrocardiogram showed sinus rhythm at baseline. The electrocardiogram did not change significantly with the regadenoson infusion. The patient tolerated the procedure well. Review of images at rest and following stress does not indicate any significant perfusion defects consistent with significant myocardial ischemia or infarction. Gated images show normal global left ventricular systolic function with normal regional wall motion. Left ventricular ejection fraction is calculated to be 73%. Left ventricular end diastolic volume is 69 mL. TID is absent (1.01). CONCLUSIONS: 1. No evidence of any significant myocardial ischemia or infarction on this study. 2. Normal regional wall motion. 3. Normal global left ventricular systolic function with a calculated ejection fraction of 73%. Job ID: [id number] DocumentID: [id number] Dictated Date: 07/26/2018 12:36:07 [employer] Date: 07/26/2018 13:42:31 Dictated By: CHARANJIT BURDEN MD, MA, FACP, FACC,
== END ==
LOC: CARD 08:14
PROVIDERS: ATTEND Internal Medicine Cardiovascular Disease
DX: I10 Essential (primary) hypertension (principal); R53.81 Other malaise; R00.1 Bradycardia, unspecified
CPT/HCPCS: 78452; 93017

== ENCOUNTER → 2018-07-31 | Outpatient (CLI) | payer MEDICARE ==
[~2018-07-31] MED LIST changes: -REGADENOSON 0.4 MG/5 ML SYR (LEXISCAN) IV ONE
== END ==
LOC: CARD 08:42
PROVIDERS: ATTEND Internal Medicine Cardiovascular Disease
DX: R53.81 Other malaise (principal); R00.1 Bradycardia, unspecified; I10 Essential (primary) hypertension
CPT/HCPCS: 93306

== ENCOUNTER → 2018-09-13 | Outpatient (CLI) | payer MEDICARE ==
[~2018-09-13] VITALS: Ht 172.7 cm; Wt 93.0 kg
[~2018-09-13] MED LIST changes: +ALLO100T PO; +AZIT500T5 PO; +CEPH-507 PO; +NS IV 1000 ML 1,000 ML IV SCH; +OMEP20CA12 PO
[2018-09-13 10:45] VITALS: BP 121/67
== END ==
LOC: SDC 10:34
PROVIDERS: ATTEND Nurse Practitioner
DX: E86.0 Dehydration (principal); E87.1 Hypo-osmolality and hyponatremia
CPT/HCPCS: 96360

== ENCOUNTER 2018-09-14 14:28 | Outpatient (RCR) | payer MEDICARE ==
[~2018-09-14] VITALS: Ht 172.7 cm; Wt 93.0 kg
[~2018-09-14 14:28] MED LIST changes: -ALLO100T PO; -AZIT500T5 PO; -CEPH-507 PO; -NS IV 1000 ML 1,000 ML IV SCH; -OMEP20CA12 PO
[2018-09-14] MEDS ORDERED: NS IV 1000 ML 1,000 ML ONE (14:37)
[2018-09-14 14:56] VITALS: BP 133/77
[2018-09-14] MEDS ORDERED: NS IV 1000 ML 1,000 ML IV SCH (15:00)
[2018-09-14 15:57] VITALS: BP 133/77
[2018-09-17] MEDS ORDERED: OMEP20CA13 PO (04:37)
[2018-09-17] MEDS ORDERED: ALLO100T PO (04:37)
[2018-09-18] MEDS ORDERED: CEPH-507 PO (12:52)
[2018-09-18] MEDS ORDERED: AZIT500T5 PO (12:52)
== END 2018-12-13 | disposition home or self-care (01) ==
LOC: SDC 14:28
PROVIDERS: ATTEND Nurse Practitioner
DX: E86.0 Dehydration (principal); E87.1 Hypo-osmolality and hyponatremia
CPT/HCPCS: 96360

== ENCOUNTER 2018-09-16 21:45 | Inpatient (IN) | payer MEDICARE ==
[~2018-09-16] VITALS: Ht 172.7 cm; Wt 94.8 kg
--- OUTSIDE RECORDS SUMMARY | 2018-09-16 21:54 | XMS REPORT | Continuity of Care Document ---
Author Organization Unknown Address Unknown Phone Unavailable Allergies Active Description Code Type Severity Reaction Onset Reported/Identified Relationship to Patient Clinical Status Yes diazepam [id number] Drug Allergy Unknown SWEAT, 01/17/2018 Medications There [...] BEAVER MD Ot 553.1 UMBILICAL HERNIA 07/16/2015 PAT BEAVER MD Ot V12.72 PERSONAL HISTORY OF COLONIC POLYPS 07/16/2015 SARANYA JIMÉNEZ, PAT Ot V72.84 EXAM PRE-OPERATIVE NOS 07/16/2015 SARANYA JIMÉNEZ, PAT Ot V74.8 SCREEN-BACTERIAL DIS NEC 07/18/2015 CLARKE JIMÉNEZ, KARINA Barreto Ot M19.011 PRIMARY OSTEOARTHRITIS, RIGHT SHOULDER 07/18/2015 CLARKE JIMÉNEZ, KARINA Barreto Ot M50.30 OTHER CERVICAL DISC DEGENERATION, [facility] 07/18/2015 KARINA MIR MD Ot W19.XXXA UNSPECIFIED FALL, INITIAL ENCOUNTER 07/18/2015 KARINA MIR MD Ot Y99.8 OTHER EXTERNAL CAUSE STATUS 08/07/2015 KARINA MIR MD Ot M19.011 PRIMARY OSTEOARTHRITIS, RIGHT SHOULDER 08/07/2015 KARINA MIR MD Ot M50.30 OTHER CERVICAL DISC DEGENERATION, [facility] 08/07/2015 KARINA MIR MD Ot W19.XXXA UNSPECIFIED FALL, INITIAL ENCOUNTER 08/07/2015 KARINA MIR MD Ot Y99.8 OTHER EXTERNAL CAUSE STATUS 08/16/2015 KARINA MIR MD Ot M19.011 PRIMARY OSTEOARTHRITIS, RIGHT SHOULDER 08/16/2015 KARINA MIR MD Ot M50.30 OTHER CERVICAL DISC DEGENERATION, [facility] 08/16/2015 KARINA MIR MD Ot W19.XXXA [...] EXHAUSTION, UNSPECIFIED, INITIAL EN 08/22/2015 ADEEL BAIRES DRY ROOM OPERATOR Ot R19.7 DIARRHEA, UNSPECIFIED 08/22/2015 ADEEL BAIRES DRY ROOM OPERATOR Ot T67.1XXA HEAT SYNCOPE, INITIAL ENCOUNTER 09/11/2015 ADEEL BAIRES DRY ROOM OPERATOR Ot R19.7 DIARRHEA, UNSPECIFIED 09/11/2015 ADEEL BAIRES DRY ROOM OPERATOR Ot T67.1XXA HEAT SYNCOPE, INITIAL ENCOUNTER [...] OTHER EXTERNAL CAUSE STATUS 07/27/2017 ADEEL BAIRES DRY ROOM OPERATOR Ot R19.7 DIARRHEA, UNSPECIFIED 07/27/2017 ADEEL BAIRES DRY ROOM OPERATOR Ot T67.1XXA HEAT SYNCOPE, INITIAL ENCOUNTER [...] OTHER DISEASES OF TH 07/27/2017 CELSA HATHAWAY MD Ot Z87.891 PERSONAL HISTORY OF NICOTINE DEPENDENCE 07/27/2017 CELSA HATHAWAY MD Ot Z88.6 ALLERGY STATUS TO ANALGESIC AGENT STATUS 07/29/2017 CELSA HATHAWAY MD Ot I10 ESSENTIAL (PRIMARY) HYPERTENSION 07/29/2017 CELSA HATHAWAY MD Ot K21.9 GASTRO-ESOPHAGEAL REFLUX DISEASE WITHOUT 07/29/2017 RIVAS JIMNÉEZ, CELSA Lyle Ot K62.89 OTHER SPECIFIED DISEASES OF ANUS AND REC 07/29/2017 CELSA HATHAWAY MD Ot Z85.828 PERSONAL HISTORY OF OTHER MALIGNANT NEOP 07/29/2017 CELSA HATHAWAY MD, Ot Z87.19 PERSONAL HISTORY OF OTHER DISEASES OF TH 07/29/2017 CELSA HATHAWAY MD Ot Z87.891 PERSONAL HISTORY OF NICOTINE DEPENDENCE 07/29/2017 CELSA HATHAWAY MD, Ot Z88.6 ALLERGY STATUS TO ANALGESIC AGENT STATUS 08/03/2017 SARANYA JIMÉNEZ, PAT Ot Z01.818 ENCOUNTER FOR OTHER PREPROCEDURAL EXAMIN 08/04/2017 PAT BEAVER MD Ot Z01.818 ENCOUNTER FOR OTHER PREPROCEDURAL EXAMIN 08/09/2017 PAT BEAVER MD, Ot Z01.818 ENCOUNTER FOR OTHER PREPROCEDURAL EXAMIN 08/23/2017 NADINE CANTU DRY ROOM OPERATOR Ot I67.82 CEREBRAL ISCHEMIA 08/23/2017 NADINE CANTU DRY ROOM OPERATOR Ot 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, CERVICOTHORA 08/23/2017 NADINE CANTU DRY ROOM OPERATOR Ot M47.812 SPONDYLOSIS W/O MYELOPATHY OR RADICULOPA 08/23/2017 NADINE CANTU DRY ROOM OPERATOR Ot S02.32XA FRACTURE OF ORBITAL FLOOR, LEFT SIDE, IN 08/23/2017 NADINE CANTU APRN Ot W20.8XXA OTH CAUSE OF STRIKE BY THROWN, PROJECTED 08/29/2017 NADINE CANTU DRY ROOM OPERATOR Ot I67.82 CEREBRAL ISCHEMIA 08/29/2017 NADINE CANTU DRY ROOM OPERATOR Ot 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, CERVICOTHORA 08/29/2017 NADINE CANTU DRY ROOM OPERATOR Ot M47.812 SPONDYLOSIS W/O MYELOPATHY OR RADICULOPA 08/29/2017 NADINE CANTU DRY ROOM OPERATOR Ot S02.32XA FRACTURE OF ORBITAL FLOOR, LEFT SIDE, IN 08/29/2017 NADINE CANTU APRN Ot W20.8XXA OTH CAUSE OF STRIKE BY THROWN, PROJECTED 08/29/2017 NADINE CANTU DRY ROOM OPERATOR Ot I67.82 CEREBRAL ISCHEMIA 08/29/2017 NADINE CANTU DRY ROOM OPERATOR Ot 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, CERVICOTHORA 08/29/2017 NADINE CANTU DRY ROOM OPERATOR Ot M47.812 SPONDYLOSIS W/O MYELOPATHY OR RADICULOPA 08/29/2017 NADINE CANTU DRY ROOM OPERATOR Ot S02.32XA FRACTURE OF ORBITAL FLOOR, LEFT SIDE, IN 08/29/2017 NADINE CANTU DRY ROOM OPERATOR Ot W20.8XXA OTH CAUSE OF STRIKE BY THROWN, PROJECTED 08/30/2017 YINA PINEDA OD Ot S02.32XA FRACTURE OF ORBITAL FLOOR, LEFT SIDE, IN 08/30/2017 YINA PINEDA OD Ot W19.XXXA UNSPECIFIED FALL, INITIAL ENCOUNTER 09/03/2017 NADINE CANTU DRY ROOM OPERATOR Ot I67.82 CEREBRAL ISCHEMIA 09/03/2017 NADINE CANTU DRY ROOM OPERATOR Ot 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, CERVICOTHORA 09/03/2017 NADINE CANTU DRY ROOM OPERATOR Ot M47.812 SPONDYLOSIS W/O MYELOPATHY OR RADICULOPA 09/03/2017 NADINE CANTU DRY ROOM OPERATOR Ot S02.32XA FRACTURE OF ORBITAL FLOOR, LEFT SIDE, IN 09/03/2017 NADINE CANTU DRY ROOM OPERATOR Ot W20.8XXA OTH CAUSE OF STRIKE BY THROWN, PROJECTED 09/03/2017 NADINE CANTU DRY ROOM OPERATOR Ot I67.82 CEREBRAL ISCHEMIA 09/03/2017 NADINE CANTU DRY ROOM OPERATOR Ot 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, CERVICOTHORA 09/03/2017 NADINE CANTU DRY ROOM OPERATOR Ot M47.812 SPONDYLOSIS W/O MYELOPATHY OR RADICULOPA 09/03/2017 NADINE CANTU DRY ROOM OPERATOR Ot S02.32XA FRACTURE OF ORBITAL FLOOR, LEFT SIDE, IN 09/03/2017 NADINE CANTU DRY ROOM OPERATOR Ot W20.8XXA OTH CAUSE OF STRIKE BY THROWN, PROJECTED 09/08/2017 NADINE CANTU DRY ROOM OPERATOR Ot I67.82 CEREBRAL ISCHEMIA 09/08/2017 NADINE CANTU DRY ROOM OPERATOR Ot 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, CERVICOTHORA 09/08/2017 NADINE CANTU DRY ROOM OPERATOR Ot M47.812 SPONDYLOSIS W/O MYELOPATHY OR RADICULOPA 09/08/2017 NADINE CANTU DRY ROOM OPERATOR Ot S02.32XA FRACTURE OF ORBITAL FLOOR, LEFT SIDE, IN 09/08/2017 NADINE CANTU DRY ROOM OPERATOR Ot W20.8XXA OTH CAUSE OF STRIKE BY THROWN, PROJECTED 09/08/2017 NADINE CANTU DRY ROOM OPERATOR Ot I67.82 CEREBRAL ISCHEMIA 09/08/2017 NADINE CANTU DRY ROOM OPERATOR Ot 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, CERVICOTHORA 09/08/2017 NADINE CANTU DRY ROOM OPERATOR Ot M47.812 SPONDYLOSIS W/O MYELOPATHY OR RADICULOPA 09/08/2017 NADINE CANTU DRY ROOM OPERATOR Ot S02.32XA FRACTURE OF ORBITAL FLOOR, LEFT SIDE, IN 09/08/2017 NADINE CANTU DRY ROOM OPERATOR Ot W20.8XXA OTH CAUSE OF STRIKE BY THROWN, PROJECTED 09/12/2017 NADINE CANTU DRY ROOM OPERATOR Ot I67.82 CEREBRAL ISCHEMIA 09/12/2017 NADINE CANTU DRY ROOM OPERATOR Ot 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, CERVICOTHORA 09/12/2017 NADINE CANTU DRY ROOM OPERATOR Ot M47.812 SPONDYLOSIS W/O MYELOPATHY OR RADICULOPA 09/12/2017 NADINE CANTU DRY ROOM OPERATOR Ot S02.32XA FRACTURE OF ORBITAL FLOOR, LEFT SIDE, IN 09/12/2017 NADINE CANTU DRY ROOM OPERATOR Ot W20.8XXA OTH CAUSE OF STRIKE BY THROWN, PROJECTED 09/14/2017 NADINE CANTU DRY ROOM OPERATOR Ot I67.82 CEREBRAL ISCHEMIA 09/14/2017 NADINE CANTU DRY ROOM OPERATOR Ot 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, CERVICOTHORA 09/14/2017 NADINE CANTU DRY ROOM OPERATOR Ot M47.812 SPONDYLOSIS W/O MYELOPATHY OR RADICULOPA 09/14/2017 NADINE CANTU DRY ROOM OPERATOR Ot S02.32XA FRACTURE OF ORBITAL FLOOR, LEFT SIDE, IN 09/14/2017 NADINE CANTU DRY ROOM OPERATOR Ot W20.8XXA OTH CAUSE OF STRIKE BY THROWN, PROJECTED 09/14/2017 NADINE CANTU DRY ROOM OPERATOR Ot I67.82 CEREBRAL ISCHEMIA 09/14/2017 NADINE CANTU DRY ROOM OPERATOR Ot 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, CERVICOTHORA 09/14/2017 NADINE CANTU DRY ROOM OPERATOR Ot M47.812 SPONDYLOSIS W/O MYELOPATHY OR RADICULOPA 09/14/2017 NADINE CANTU DRY ROOM OPERATOR Ot S02.32XA FRACTURE OF ORBITAL FLOOR, LEFT SIDE, IN 09/14/2017 NADINE CANTU DRY ROOM OPERATOR Ot W20.8XXA OTH CAUSE OF STRIKE BY THROWN, PROJECTED 09/14/2017 NADINE CANTU DRY ROOM OPERATOR Ot I67.82 CEREBRAL ISCHEMIA 09/14/2017 NADINE CANTU DRY ROOM OPERATOR Ot 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, CERVICOTHORA 09/14/2017 NADINE CANTU DRY ROOM OPERATOR Ot M47.812 SPONDYLOSIS W/O MYELOPATHY OR RADICULOPA 09/14/2017 NADINE CANTU DRY ROOM OPERATOR Ot S02.32XA FRACTURE OF ORBITAL FLOOR, LEFT SIDE, IN 09/14/2017 NADINE CANTU DRY ROOM OPERATOR Ot W20.8XXA OTH CAUSE OF STRIKE BY THROWN, PROJECTED 09/20/2017 YINA PINEDA OD Ot S02.32XA FRACTURE OF ORBITAL FLOOR, LEFT SIDE, IN 09/20/2017 YINA PINEDA OD Ot W19.XXXA UNSPECIFIED FALL, INITIAL ENCOUNTER 11/09/2017 CLARKE JIMÉNEZ, KARINA Barreto Ot 786.2 COUGH 11/09/2017 PAT BEAVER MD Ot 553.1 UMBILICAL HERNIA 11/09/2017 PAT BEAVER MD Ot V12.72 PERSONAL HISTORY [...] OTHER EXTERNAL CAUSE STATUS 11/09/2017 ADEEL BAIRES DRY ROOM OPERATOR Ot R19.7 DIARRHEA, UNSPECIFIED 11/09/2017 ADEEL BAIRES DRY ROOM OPERATOR Ot T67.1XXA HEAT SYNCOPE, INITIAL ENCOUNTER 11/09/2017 CLARKE JIMÉNEZ, KARINA Barreto Ot R05 COUGH 11/09/2017 NADINE CANTU DRY ROOM OPERATOR Ot I67.82 CEREBRAL ISCHEMIA 11/09/2017 NADINE CANTU DRY ROOM OPERATOR Ot 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, CERVICOTHORA 11/09/2017 NADINE CANTU DRY ROOM OPERATOR Ot M47.812 SPONDYLOSIS W/O MYELOPATHY OR RADICULOPA 11/09/2017 NADINE CANTU DRY ROOM OPERATOR Ot S02.32XA FRACTURE OF ORBITAL FLOOR, LEFT SIDE, IN 11/09/2017 NADINE CANTU DRY ROOM OPERATOR Ot W20.8XXA OTH CAUSE OF STRIKE BY THROWN, PROJECTED 11/09/2017 YINA PINEDA OD Ot S02.32XA FRACTURE OF ORBITAL FLOOR, LEFT SIDE, IN 11/09/2017 YINA PINEDA OD Ot W19.XXXA UNSPECIFIED FALL, INITIAL ENCOUNTER 11/09/2017 NÉSTOR CASTRO DRY ROOM OPERATOR Ot R42 DIZZINESS AND GIDDINESS 11/10/2017 NÉSTOR CASTRO DRY ROOM OPERATOR Ot 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 11/30/2017 NÉSTOR CASTRO DRY ROOM OPERATOR Ot 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 12/08/2017 NÉSTOR CASTRO DRY ROOM OPERATOR Ot I65.23 OCCLUSION AND STENOSIS OF [...] 01/18/2018 MAGALIE MENARD MD Ot Z79.899 OTHER [facility] (CURRENT) DRUG THERAPY 01/18/2018 MAGALIE MENARD MD [...] 01/19/2018 MAGALIE MENARD MD Ot Z79.899 OTHER [employer] (CURRENT) DRUG THERAPY 01/19/2018 MAGALIE MENARD MD Ot Z87.891 PERSONAL HISTORY OF NICOTINE DEPENDENCE 04/25/2018 KARINA MIR MD Ot 786.2 COUGH 04/25/2018 SARANYA JIMÉNEZ, PAT Ot 553.1 UMBILICAL HERNIA 04/25/2018 SARANYA JIMÉNEZ, PAT Ot V12.72 PERSONAL HISTORY OF COLONIC POLYPS 04/25/2018 SARANYA JIMÉNEZ, PAT Ot V72.84 EXAM PRE-OPERATIVE NOS 04/25/2018 SARANYA JIMÉNEZ, PAT Ot V74.8 SCREEN-BACTERIAL DIS NEC 04/25/2018 KARINA MIR MD Ot M19.011 PRIMARY OSTEOARTHRITIS, RIGHT SHOULDER 04/25/2018 KARINA MIR MD Ot M50.30 OTHER CERVICAL DISC DEGENERATION, [facility] C 04/25/2018 KARINA MIR MD Ot W19.XXXA UNSPECIFIED FALL, INITIAL ENCOUNTER 04/25/2018 KARINA MIR MD Ot Y99.8 OTHER EXTERNAL CAUSE STATUS 04/25/2018 ADEEL BAIRES APRN Ot R19.7 DIARRHEA, UNSPECIFIED 04/25/2018 ADEEL BAIRES APRN Ot T67.1XXA HEAT SYNCOPE, INITIAL ENCOUNTER 04/25/2018 KARINA MIR MD Ot R05 COUGH 04/25/2018 NADINE CANTU DRY ROOM OPERATOR Ot I67.82 CEREBRAL ISCHEMIA 04/25/2018 NADINE CANTU DRY ROOM OPERATOR Ot 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8 OTHER VISUAL DISTURBANCES 05/02/2018 CLARKE JIMÉNEZ, KARINA Barreto Ot R54 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 05/02/2018 PAT BEAVER MD, Ot Z01.818 ENCOUNTER FOR OTHER PREPROCEDURAL EXAMIN 05/03/2018 PAT BEAVER MD, Ot E78.00 PURE HYPERCHOLESTEROLEMIA, UNSPECIFIED 05/03/2018 PAT BEAVER MD, Ot F32.9 MAJOR DEPRESSIVE DISORDER, SINGLE EPISOD 05/03/2018 PAT BEAVER MD Ot I10 ESSENTIAL (PRIMARY) HYPERTENSION 05/03/2018 PAT BEAVER MD, Ot K29.50 UNSPECIFIED CHRONIC GASTRITIS WITHOUT BL 05/03/2018 PAT BEAVER MD, Ot K29.70 GASTRITIS, UNSPECIFIED, WITHOUT BLEEDING 05/03/2018 PAT BEAVER MD, Ot K44.9 DIAPHRAGMATIC HERNIA WITHOUT OBSTRUCTION 05/03/2018 PAT BEAVER MD, Ot K57.30 DVRTCLOS OF LG INT W/O PERFORATION OR AB 05/03/2018 PAT BEAVER MD, Ot K64.1 SECOND DEGREE HEMORRHOIDS 05/03/2018 PAT BEAVER MD, Ot M10.9 GOUT, UNSPECIFIED 05/03/2018 PAT BEAVER MD, Ot Z79.899 OTHER [facility] (CURRENT) DRUG THERAPY 05/03/2018 PAT BEAVER MD, Ot Z87.891 PERSONAL HISTORY OF NICOTINE DEPENDENCE 05/08/2018 PAT BEAVER MD, Ot K92.2 GASTROINTESTINAL HEMORRHAGE, UNSPECIFIED 05/08/2018 PAT BEAVER MD, Ot E78.00 PURE HYPERCHOLESTEROLEMIA, UNSPECIFIED 05/08/2018 PAT BEAVER MD, Ot F32.9 MAJOR DEPRESSIVE DISORDER, SINGLE EPISOD 05/08/2018 PAT BEAVER MD Ot I10 ESSENTIAL (PRIMARY) HYPERTENSION 05/08/2018 PAT BEAVER MD, Ot K29.50 UNSPECIFIED CHRONIC GASTRITIS WITHOUT BL 05/08/2018 PAT BEAVER MD, Ot K44.9 DIAPHRAGMATIC HERNIA WITHOUT OBSTRUCTION 05/08/2018 PAT BEAVER MD, Ot K57.30 DVRTCLOS OF LG INT W/O PERFORATION OR AB 05/08/2018 PAT BEAVER MD, Ot K64.1 SECOND DEGREE HEMORRHOIDS 05/08/2018 PAT BEAVER MD, Ot M10.9 GOUT, UNSPECIFIED 05/08/2018 PAT BEAVER MD, Ot Z79.899 OTHER [employer] (CURRENT) DRUG THERAPY 05/08/2018 PAT BEAVER MD, Ot Z87.891 PERSONAL HISTORY OF NICOTINE DEPENDENCE 05/17/2018 KARINA MIR MD Ot H53.8 OTHER VISUAL DISTURBANCES 05/17/2018 KARINA MIR MD Ot R54 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 05/24/2018 PAT BEAVER MD, Ot K92.2 GASTROINTESTINAL HEMORRHAGE, UNSPECIFIED 05/24/2018 KARINA MIR MD Ot H53.8 OTHER VISUAL DISTURBANCES 05/24/2018 KARINA MIR MD Ot R54 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 06/02/2018 PAT BEAVER MD, Ot K92.2 GASTROINTESTINAL HEMORRHAGE, UNSPECIFIED 07/20/2018 CHARLOTTE JIMÉNEZ FACC, ALI FACP CCDS Ot R00.1 BRADYCARDIA, UNSPECIFIED 08/03/2018 CHARLOTTE JIMÉNEZ FACC, ALI FACP CCDS Ot I10 ESSENTIAL (PRIMARY) HYPERTENSION 08/03/2018 CHARLOTTE JIMÉNEZ FACC, ALI FACP CCDS Ot R00.1 BRADYCARDIA, UNSPECIFIED 08/03/2018 CHARLOTTE JIMÉNEZ FACC, ALI FACP CCDS Ot R53.81 OTHER MALAISE 08/06/2018 CHARLOTTE JIMÉNEZ FACC, ALI FACP CCDS Ot I10 ESSENTIAL (PRIMARY) HYPERTENSION 08/06/2018 CHARLOTTE JIMÉNEZ FACC, ALI FACP CCDS Ot R00.1 BRADYCARDIA, UNSPECIFIED 08/06/2018 CHARLOTTE JIMÉNEZ [facility], ALI FACP CCDS Ot R53.81 OTHER MALAISE 08/16/2018 CHARLOTTE JIMÉNEZ [facility], ALI FACP CCDS Ot I10 ESSENTIAL (PRIMARY) HYPERTENSION 08/16/2018 CHARLOTTE JIMÉNEZ [facility], ALI FACP CCDS Ot R00.1 BRADYCARDIA, UNSPECIFIED 08/16/2018 CHARLOTTE MD [facility], ALI FACP CCDS Ot R53.81 OTHER MALAISE 08/22/2018 CHARLOTTE MD [facility], ALI FACP CCDS Ot I10 ESSENTIAL (PRIMARY) HYPERTENSION 08/22/2018 CHARLOTTE MD [facility], ALI FACP CCDS Ot R00.1 BRADYCARDIA, UNSPECIFIED 08/22/2018 [place] [facility], ALI FACP CCDS Ot R53.81 OTHER MALAISE 08/23/2018 CHARLOTTE JIMÉNEZ [facility], ALI FACP CCDS Ot I10 ESSENTIAL (PRIMARY) HYPERTENSION 08/23/2018 CHARLOTTE JIMÉNEZ [facility], ALI FACP CCDS Ot R00.1 BRADYCARDIA, UNSPECIFIED 08/23/2018 CHARLOTTE MD [facility], ALI FACP CCDS Ot R53.81 OTHER MALAISE 08/30/2018 CHARLOTTE JIMÉNEZ [facility], ALI FACP CCDS Ot I10 ESSENTIAL (PRIMARY) HYPERTENSION 08/30/2018 CHARLOTTE MD [facility], ALI FACP CCDS Ot R00.1 BRADYCARDIA, UNSPECIFIED 08/30/2018 [place] [facility], ALI FACP CCDS Ot R53.81 OTHER MALAISE Procedures Code Description Performed By Performed On [...] Automated erythrocyte mean corpuscular hemoglobin concentration measurement (mass/volume) 35 g/dL 32-36 Automated erythrocyte distribution width ratio 12.7 % 10.0- 14.5 Automated blood platelet count (count/volume) 254 10*3/uL [...] Blood monocytes automated count (number/volume) 0.9 10*3 0.0- 1.0 Automated eosinophil count 0.1 10*3/uL 0.0-0.3 Automated [...] Serum or plasma aspartate aminotransferase measurement (enzymatic activity/volume) 22 U/L 5-34 Serum or plasma alanine aminotransferase measurement (enzymatic activity/volume) 23 U/L 0-55 Serum or plasma protein measurement (mass/volume) 7.0 g/dL 6.4-8.2 Serum or plasma albumin measurement (mass/volume) 3.9 g/dL 3.2-4.5 RED CELLS LEUKO REDUCED AS1 - 07/27/17 09:41 RED CELLS LEUKO REDUCED AS1 NOT AVAILABLE NR Blood type T Indirect antibody screen panel - 07/27/17 09:41 ABO+Rh group OP NR Transfusion band number [id number] [facility] Blood group antibody screen NEGATIVE [facility] Complete blood count (CBC) with automated white blood cell (WBC) differential - 05/03/18 09:40 Blood leukocytes automated count (number/volume) 7.7 10*3/uL 4.3-11.0 Blood erythrocytes automated count (number/volume) 4.17 10*6/uL 4.35-5.85 Venous blood hemoglobin measurement (mass/volume) 13.8 g/dL 13.3-17.7 Blood hematocrit (volume fraction) 40 % 40-54 Automated erythrocyte mean corpuscular volume 97 [foz_us] 80-99 Automated erythrocyte mean corpuscular hemoglobin (mass per erythrocyte) 33 pg 25-34 Automated erythrocyte mean corpuscular hemoglobin concentration measurement (mass/volume) 34 g/dL 32-36 Automated erythrocyte distribution width ratio 12.8 % 10.0- 14.5 Automated blood platelet count (count/volume) 283 10*3/uL 130-400 Automated blood platelet mean volume measurement 9.0 [foz_us] 7.4-10.4 Automated blood neutrophils/100 leukocytes 59 % 42-75 Automated blood lymphocytes/100 leukocytes 30 % 12-44 Blood monocytes/100 leukocytes 11 % 0-12 Automated blood eosinophils/100 leukocytes 1 % 0-10 Automated blood basophils/100 leukocytes 0 % 0-10 Blood neutrophils automated count (number/volume) 4.6 10*3 1.8-7.8 Blood lymphocytes automated count (number/volume) 2.3 10*3 1.0-4.0 Blood monocytes automated count (number/volume) 0.8 10*3 0.0- 1.0 Automated eosinophil count 0.1 10*3/uL 0.0-0.3 Automated blood basophil count (count/volume) 0.0 10*3/uL 0.0-0.1 Encounters ACCT No. Visit Date/Time Discharge Status Pt. Type Provider Facility Loc./Unit Complaint [id number] 09/13/2018 10:34:00 09/13/2018 23:59:59 CLS Outpatient NÉSTOR CASTRO APRN [facility] SDC DEHYDRATION [id number] 07/31/2018 08:42:00 07/31/2018 23:59:59 CLS Outpatient CHARLOTTE JIMÉNEZ FACC, ALI FACP CCDS [facility] CARD MALAISE FATIGUE,BRADYCARDIA,HTN [id number] 07/25/2018 08:14:00 07/25/2018 23:59:59 CLS Outpatient CHARLOTTE JIMÉNEZ FACC, CHARANJIT FACVarsha CCDS [facility] CARD MALAISE FATIGUE,BRADYCARDIA,HTN [id number] 07/13/2018 06:56:00 07/13/2018 23:59:59 CLS Preadmit CHARLOTTE JIMÉNEZ FACC, ALI FACVarsha CCDS [facility] CARD MALAISE FATIGUE,BRADYCARDIA,HTN [id number] 05/04/2018 11:45:00 05/04/2018 23:59:59 CLS Outpatient PAT BEAVER MD [facility] CARD ACTIVE GL BLEED [id number] 05/03/2018 14:29:00 05/03/2018 23:59:59 CLS Preadmit PAT BEAVER MD [facility] CARD ACTIVE GI BLEED [id number] 05/03/2018 09:07:00 05/03/2018 14:50:00 DIS Outpatient PAT BEAVER MD [facility] ENDO DARK TARRY STOOLS/RECTAL BLEEDING/REFLUX [id number] 05/02/2018 10:40:00 05/02/2018 12:34:00 DIS Outpatient PAT BEAVER MD [facility] PREOP COLONOSCOPY/EGD [id number] 04/25/2018 11:57:00 04/25/2018 23:59:59 CLS Outpatient KARINA MIR MD [facility] RAD VISION CHANGE [id number] 01/18/2018 09:30:00 01/18/2018 11:20:00 DIS Outpatient MAGALIE MENARD MD [facility] SDC CATARACT RIGHT EYE [id number] 01/17/2018 05:34:00 01/17/2018 11:43:00 DIS Outpatient MAGALIE MENARD MD [facility] PREOP CATARACT RIGHT [id number] 11/09/2017 12:45:00 11/09/2017 23:59:59 CLS Outpatient NÉSTOR CASTRO DRY ROOM OPERATOR [facility] RAD CHRONIC VERTIGO [id number] 08/29/2017 12:23:00 08/29/2017 23:59:59 CLS Outpatient YINA PINEDA OD [facility] RAD FRACTURE OF ORBITAL FLOOR,LEFT SIDE SEQUELA [id number] 08/20/2017 09:51:00 08/20/2017 23:59:59 CLS Outpatient NADINE CANTU DRY ROOM OPERATOR [facility] RAD FACIAL INJURY [id number] 08/05/2017 12:30:00 08/05/2017 23:59:59 CLS Preadmit PAT BEAVER MD [facility] ENDO RECTAL BLEEDING [id number] 08/03/2017 08:39:00 08/03/2017 12:41:00 DIS Outpatient PAT BEAVER MD [facility] PREOP COLONOSCOPY [id number] 07/27/2017 08:43:00 07/27/2017 11:34:00 DIS Emergency CELSA HATHAWAY MD [facility] ER PASSING ALOT OF BLOOD [id number] 07/14/2016 11:10:00 07/14/2016 23:59:59 CLS Outpatient KARINA MIR MD [facility] RAD COUGH [id number] 08/18/2015 09:37:00 08/18/2015 23:59:59 CLS Outpatient ADEEL BAIRES APRN [facility] LAB [id number] 08/17/2015 13:42:00 08/17/2015 16:37:00 DIS Emergency ZOHRA REGAN MD [facility] ER CHILLS/DIARRHEA [id number] 07/16/2015 11:18:00 07/16/2015 23:59:59 CLS Outpatient KARINA MIR MD [facility] RAD PAIN POST FALL [id number] 11/07/2014 06:57:00 11/07/2014 12:45:00 DIS Outpatient PAT BEAVER MD [facility] UMBILICAL HERNIA [id number] 11/06/2014 09:11:00 11/06/2014 23:59:59 CLS Outpatient PAT BEAVER MD [facility] PREOP UMBILICAL HERNIA [id number] 07/08/2014 16:06:00 07/08/2014 23:59:59 CLS Outpatient KARINA MIR MD [facility] RAD COUGH [id number] 09/14/2018 14:28:00 ACT Outpatient NÉSTOR CASTRO APRN [facility] DEHYDRATION [id number] 08/10/2010 08:19:00 Document Registration [id number] 07/30/2010 19:11:00 Document Registration
[2018-09-16] MEDS ORDERED: LACTATED RINGERS 1,000 ML IV ONE (22:21)
[2018-09-16 22:33] LABS: BASOPHILS % (AUTO) 0 % (0-10); EOSINOPHILS # (AUTO) 0.1 10^3/uL (0.0-0.3); EOSINOPHILS % (AUTO) 2 % (0-10); HEMATOCRIT 37 % (40-54); HEMOGLOBIN 13.4 G/DL (13.3-17.7); LYMPHOCYTES % (AUTO) 31 % (12-44); MEAN CORPUSCULAR HEMOGLOBIN 30 PG (25-34); MEAN CORPUSCULAR HGB CONC 36 G/DL (32-36); MEAN CORPUSCULAR VOLUME 82 FL (80-99); MEAN PLATELET VOLUME 8.8 FL (7.4-10.4); MONOCYTES # (AUTO) 0.6 X 10^3 (0.0-1.0); MONOCYTES % (AUTO) 18 % (0-12); NEUTROPHILS # (AUTO) 1.6 X 10^3 (1.8-7.8); NEUTROPHILS % (AUTO) 49 % (42-75); PLATELET COUNT 222 10^3/uL (130-400); RED CELL DISTRIBUTION WIDTH 13.1 % (10.0-14.5); WHITE BLOOD COUNT 3.3 10^3/uL (4.3-11.0)
[2018-09-16 22:45] LABS: PROTHROMBIN TIME PATIENT 13.2 SEC (12.2-14.7)
[2018-09-16 22:54] LABS: ALANINE AMINOTRANSFERASE 50 U/L (0-55); ALKALINE PHOSPHATASE 68 U/L (40-136); AMYLASE 54 U/L (25-125); BILIRUBIN,TOTAL 0.7 MG/DL (0.1-1.0); BUN/CREATININE RATIO 13; CALCIUM 9.9 MG/DL (8.5-10.1); CARBON DIOXIDE 19 MMOL/L (21-32); CHLORIDE 82 MMOL/L (98-107); GFR ESTIMATED > 60; GLUCOSE 144 MG/DL (70-105); LIPASE 25 U/L (8-78); MAGNESIUM 1.4 MG/DL (1.8-2.4); POTASSIUM 3.6 MMOL/L (3.6-5.0); TOTAL PROTEIN 7.1 GM/DL (6.4-8.2)
[2018-09-16 23:12] LABS: SODIUM 116 MMOL/L (135-145)
[2018-09-16] MEDS ORDERED: NS IV 1000 ML 1,000 ML IV SCH (23:14)
[2018-09-17] VITALS (8 sets, daily range): BP systolic 130–172; BP diastolic 69–84
[2018-09-17 00:15] LABS: BILIRUBIN,URINE NEGATIVE (NEGATIVE); CLARITY,URINE CLEAR; COLOR,URINE YELLOW; GLUCOSE, URINE (UA) NEGATIVE (NEGATIVE); KETONES,URINE 2+ (NEGATIVE); LEUKOCYTE ESTERASE ,URINE NEGATIVE (NEGATIVE); NITRITE,URINE NEGATIVE (NEGATIVE); PH,URINE 6 (5-9); PROTEIN,URINE NEGATIVE (NEGATIVE); UROBILINOGEN,URINE NORMAL (NORMAL)
[2018-09-17 00:30] LABS: BACTERIA,URINE NEGATIVE /HPF; RBC,URINE 0-2 /HPF; SQUAMOUS EPITHELIAL CELL,UR RARE /HPF
[2018-09-17] MEDS: MAGNESIUM 1 GM/100 ML IVPB 100 ML IV SCH ×2 (00:43→01:31)
[2018-09-17] MEDS ORDERED: AZITHROMYCIN INJECTION 500 MG in NS (IVPB) 250 ML IV ONE (01:45)
[2018-09-17] MEDS ORDERED: cefTRIAXone FOR IV USE 1,000 MG in WATER (STERILE) FOR INJECTION 10 ML IV ONE (01:45)
--- NOTE | 2018-09-17 02:42 | ED General ---
General Chief Complaint: General Problems/Pain Stated Complaint: ALLERGIC REACTION Source of Information: Patient, Spouse History of Present Illness Date Seen by Provider: Sep 16, 2018 Time Seen by Provider: 22:10 Initial Comments PT ARRIVES VIA POV FROM HOME MULTIPLE COMPLAINTS POOR MEMORY FOR THE LAST 2 WEEKS C/O NAUSEA, NO VOMITING NO DIARRHEA OR CONSTIPATION NO ABDOMINAL PAIN HAS BEEN BELCHING ALOT THE LAST FEW DAYS C/O DECREASED APPETITE FOR THE LAST 2 WEEKS C/O MUSCLE CRAMPING OF ENTIRE BODY FOR THE LAST FEW DAYS C/O GENERALIZED WEAKNESS C/O SUBJECTIVE FEVER/SWEATS/CHILLS FOR SEVERAL DAYS. DID CHECK TEMP ONE TIME AND IT WAS > 100. HAS HAD A PRODUCTIVE COUGH WITH CLEAR SPUTUM--WORSE FOR THE LAST SEVERAL DAYS NO SHORTNESS OF BREATH HAS HAD SOME MILD INTERMITTENT LEFT UPPER CHEST PAIN--NOT NOW STATES HE HAS HAD SEVERE BURNING ON URINATION FOR THE LAST 2 WEEKS AND DIFFICULTY URINATING STATES THIS HAS BEEN BETTER THE LAST 2 DAYS HAS BEEN SEEN BY MORGAN CASTRO AT DR. MIR'S OFFICE SEVERAL TIMES INITIALLY HAD AN INFECTED "CYST" ON HIS LOWER BACK--WAS STARTED ON BACTRIM AND TOPICAL ANTIBIOTIC THOUGHT BACTRIM WAS MAKING HIM SICK, SO HE STOPPED IT---TOOK THE MEDICATION FROM 08/31-09/05/18 STATES SYMPTOMS HAVE GOTTEN WORSE SINCE HE STOPPED THE BACTRIM STATES HE HAS HAD LAB DONE ON TUESDAY AND TUESDAY THROUGH DR. MIR'S OFFICE THIS WEEK, AND HAD OUTPATIENT IV FLUIDS ON TUESDAY, AND AGAIN ON TUESDAY. STATES HE MOWED THE YARD A WEEK AGO--WAS VERY HOT OUTSIDE THINKS SYMPTOMS GOT WORSE AFTER THAT. PCP: DR. MIR Allergies and Home Medications Allergies Coded Allergies: diazepam (Unverified Adverse Reaction, Unknown, SWEAT,, 01/17/18) Home Medications Atorvastatin Calcium 20 Mg Tablet, 20 MG PO DAILY, (Reported) Citalopram Hydrobromide 10 Mg Tablet, 10 MG PO DAILY, (Reported) Lisinopril/Hydrochlorothiazide 1 Each Tablet, 1 EACH PO DAILY, (Reported) Magnesium Oxide 250 Mg Tablet, 250 MG PO DAILY, (Reported) Omeprazole 40 Mg Capsule., 40 MG PO DAILY, (Reported) Patient Home Medication List Home Medication List Reviewed: Yes Review of Systems Review of Systems Constitutional: see HPI, chills, diaphoresis, fever, malaise, weakness EENTM: no symptoms reported Respiratory: see HPI, cough, phlegm; No short of breath Cardiovascular: see HPI, chest pain; No edema, No palpitations, No syncope Gastrointestinal: see HPI; No abdominal pain, No constipation, No diarrhea; loss of appetite, nausea; No vomiting Genitourinary: see HPI, dysuria, pain Musculoskeletal: back pain (CHRONIC ) Skin: no symptoms reported Psychiatric/Neurological: See HPI; Denies Headache, Denies Numbness, Denies Paresthesia, Denies Seizure, Denies Tingling, Denies Weakness Hematologic/Lymphatic: No Symptoms Reported Immunological/Allergic: no symptoms reported Past Fmcjdew-Ewgiji-Calohc Hx Past Med/Social Hx: Reviewed and Corrections made Patient Social History Alcohol Use: Rarely Uses Recreational Drug Use: No Smoking Status: Former Smoker (2 PPD, QUIT 1984) Type Used: Cigarettes (2 PPD, QUIT 1984) Former Smoker, Quit: Aug 03, 1984 2nd Hand Smoke Exposure: No Recent Foreign Travel: No Contact w/Someone Who Travel: No Recent Hopitalizations: No Immunizations Up To Date Date of Influenza Vaccine: Nov 21, 2017 Seasonal Allergies Seasonal Allergies: No Past Medical History Surgeries: Yes (BACK SURGERY 2002; HEMORRHOID SURGERY 1986; UMBILICAL HERNIA REPAIR 2014; LEFT INGUINAL HERNIA REPAIR 1997; SKIN CANCER REMOVAL; E GD/COLONOSCOPIES; RIGHT ELBOW ULNAR NERVE TRANSPOSITION 2014) Abdominal, Orthopedic, Rectal Respiratory: No Cardiac: Yes High Cholesterol, Hypertension Neurological: No Reproductive Disorders: No Sexually Transmitted Disease: No HIV/AIDS: No Genitourinary: No Gastrointestinal: Yes (GI BLEED; LEFT INGUINAL AND UMBILICAL HERNIA REPAIRS) Abdominal Hernia, Gastroesophageal Reflux, Gastrointestinal Bleed, Diverticulosis, Hemorrhoids, Polyps Musculoskeletal: Yes (S/P BACK SURGERY; RIGHT ULNAR NERVE TRANSPOSITION; ) Arthritis, Chronic Back Pain, Gout Endocrine: No HEENT: No 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 0.0oz. [id number]; 31.2 BMI Method:Stated General Appearance: No Apparent Distress, WD/WN HEENT: PERRL/EOMI Neck: Normal Inspection Respiratory: Normal Breath Sounds, No Accessory Muscle Use, No Respiratory Distress Cardiovascular: Regular Rate, Rhythm, No Edema, No JVD, No Murmur, Normal Martha pheral Pulses Gastrointestinal: Normal Bowel Sounds, No Organomegaly, No Pulsatile Mass, Soft, Tenderness (MILD SUPRAPUBIC TENDERNESS) Back: Normal Inspection, No CVA Tenderness Extremity: Normal Capillary Refill, Normal Inspection, Normal Range of Motion, Non Tender, No Calf Tenderness, No Pedal Edema Neurologic/Psychiatric: Alert, Oriented x3, No Motor/Sensory Deficits, Normal Mood/Affect, supervisor evaporator II-XII Norm as Tested, Other (DOES NOT APPEAR CONFUSED AT THIS TIME. ) Skin: Normal Color, Warm/Dry Focused Exam Lactate Level 09/16/18 22:24: Lactic Acid Level 1.25 Progress/Results/Core Measures Suspected Sepsis SIRS Temperature: Pulse: Respiratory Rate: Laboratory Tests 09/16/18 22:24: White Blood Count 3.3L Blood Pressure / Mean: 09/16/18 22:24: Lactic Acid Level 1.25 Laboratory Tests 09/16/18 22:24: Creatinine 0.90, INR Comment 1.0, Platelet Count 222, Total Bilirubin 0.7 Results/Orders Lab Results Laboratory Tests Test 09/16/18 22:24 09/17/18 00:00 Range/Units White Blood Count 3.3 L 4.3-11.0 10^3/uL Red Blood Count 4.54 4.35-5.85 10^6/uL Hemoglobin 13.4 13.3-17.7 G/DL Hematocrit 37 L 40-54 % Mean Corpuscular Volume 82 80-99 FL Mean Corpuscular Hemoglobin 30 25-34 PG Mean Corpuscular Hemoglobin Concent 36 32-36 G/DL Red Cell Distribution Width 13.1 10.0-14.5 % Platelet Count 222 130-400 10^3/uL Mean Platelet Volume 8.8 7.4-10.4 FL Neutrophils (%) (Auto) 49 42-75 % Lymphocytes (%) (Auto) 31 12-44 % Monocytes (%) (Auto) 18 H 0-12 % Eosinophils (%) (Auto) 2 0-10 % Basophils (%) (Auto) 0 0-10 % Neutrophils # (Auto) 1.6 L 1.8-7.8 X 10^3 Lymphocytes # (Auto) 1.0 1.0-4.0 X 10^3 Monocytes # (Auto) 0.6 0.0-1.0 X 10^3 Eosinophils # (Auto) 0.1 0.0-0.3 10^3/uL Basophils # (Auto) 0.0 0.0-0.1 10^3/uL Prothrombin Time 13.2 12.2-14.7 SEC INR Comment 1.0 0.8-1.4 Activated Partial Thromboplast Time 32 24-35 SEC Sodium Level 116 *L 135-145 MMOL/L Potassium Level 3.6 3.6-5.0 MMOL/L Chloride Level 82 L 98-107 MMOL/L Carbon Dioxide Level 19 L 21-32 MMOL/L Anion Gap 15 H 5-14 MMOL/L Blood Urea Nitrogen 12 7-18 MG/DL Creatinine 0.90 0.60-1.30 MG/DL Estimat Glomerular Filtration Rate > 60 BUN/Creatinine Ratio 13 Glucose Level 144 H 70-105 MG/DL Lactic Acid Level 1.25 0.50-2.00 MMOL/L Calcium Level 9.9 8.5-10.1 MG/DL Corrected Calcium 9.9 8.5-10.1 MG/DL Magnesium Level 1.4 L 1.8-2.4 MG/DL Total Bilirubin 0.7 0.1-1.0 MG/DL Aspartate Amino Transf (AST/SGOT) 49 H 5-34 U/L Alanine Aminotransferase (ALT/SGPT) 50 0-55 U/L Alkaline Phosphatase 68 40-136 U/L Troponin I < 0.028 <0.028 NG/ML Total Protein 7.1 6.4-8.2 GM/DL Albumin 4.0 3.2-4.5 GM/DL Amylase Level 54 25-125 U/L Lipase 25 8-78 U/L Urine Color YELLOW Urine Clarity CLEAR Urine pH 6 5-9 Urine Specific Clay 1.015 L 1.016-1.022 Urine Protein NEGATIVE NEGATIVE Urine Glucose (UA) NEGATIVE NEGATIVE Urine Ketones 2+ H NEGATIVE Urine Nitrite NEGATIVE NEGATIVE Urine Bilirubin NEGATIVE NEGATIVE Urine Urobilinogen NORMAL NORMAL MG/DL Urine Leukocyte Esterase NEGATIVE NEGATIVE Urine RBC (Auto) NEGATIVE NEGATIVE Urine RBC 0-2 /HPF Urine WBC NONE /HPF Urine Squamous Epithelial Cells RARE /HPF Urine Crystals NONE /LPF Urine Bacteria NEGATIVE /HPF Urine Casts NONE /LPF Urine Mucus SMALL H /LPF Urine Culture Indicated NO My Orders Orders - BERTHA ELDRIDGE DO Ed Iv/Invasive Line Start (09/16/18 22:21) Ekg Tracing (09/16/18 22:21) Monitor-Rhythm Ecg Trace Only (09/16/18 22:21) Chest 1 View, Ap/Pa Only (09/16/18 22:21) Amylase (09/16/18 22:21) Cbc With Automated Diff (09/16/18 22:21) Comprehensive Metabolic Panel (09/16/18 22:21) Lactic Acid Analyzer (09/16/18 22:21) Lipase (09/16/18 22:21) Magnesium (09/16/18 22:21) Protime With Inr (09/16/18 22:21) Partial Thromboplastin Time (09/16/18 22:21) Ua Culture If Indicated (09/16/18 22:21) Blood Culture (09/16/18 22:21) Troponin I (09/16/18 22:21) Ed Iv/Invasive Line Start (09/16/18 22:21) Lactated Ringers (Lr 1000 Ml Iv Solution (09/16/18 22:21) Ct Head Wo (09/16/18 22:21) Ed Iv/Invasive Line Start (09/16/18 23:14) Ns Iv 1000 Ml (Sodium Chloride 0.9%) (09/16/18 23:14) Magnesium 1 Gm/100 Ml Ivpb (Magnesium Mckee (09/16/18 23:15) Ceftriaxone For Iv Use (Rocephin For I (09/17/18 01:45) Azithromycin Injection (Zithromax Inject (09/17/18 01:45) Medications Given in ED Current Medications Medications Dose Ordered Sig/Quynh Route Start Time Stop Time Status Last Admin Dose Admin Lactated Ringer's 1,000 ml @ 0 mls/hr Q0M ONCE IV 09/16/18 22:21 09/16/18 22:24 DC 09/16/18 22:42 1,000 MLS/HR Vital Signs/I&O Capillary Refill : Progress Note : Progress Note NO DETERIORATION IN PT'S CONDITION DURING ER STAY ECG Initial ECG Impression Date: Sep 17, 2018 Initial ECG Impression Time: 00:05 Initial ECG Rate: 64 Initial ECG Rhythm: Normal Sinus Initial ECG Comparisson: No Previous ECG Available Diagnostic Imaging Comments CXR--NO ACUTE PROCESS, PENDING RADIOLOGIST REVIEW CT HEAD--NO ACUTE PROCESS, PER [facility] VIA FAX AT [id number] Reviewed: Reviewed by Me Departure Communication (Admissions) [id number]--SPOKE WITH DR. BAINS, HOSPITALIST. ACCEPTS PT FOR ADMIT. Impression Primary Impression: SEVERE HYPONATREMIA Additional Impressions: Altered mental status Bronchitis Hypomagnesemia Disposition: ADMITTED INPATIENT Condition: Stable Admissions Decision to Admit Reason: Admit from ER (General) Decision to Admit/Date: Sep 17, 2018 Time/Decision to Admit Time: 01:20 Departure-Patient Inst. Referrals: KARINA MIR MD (PCP/Family) Primary Care Physician BERTHA ELDRIDGE DO Sep 17, 2018 02:42
--- OUTSIDE RECORDS SUMMARY | 2018-09-17 03:14 | XMS REPORT | Continuity of Care Document ---
Author Organization Unknown Address Unknown Phone Unavailable Allergies Active Description Code Type Severity Reaction Onset Reported/Identified Relationship to Patient Clinical Status Yes diazepam [id number] Drug Allergy Unknown SWEAT, 01/17/2018 Medications There [...] Barreto Ot M50.30 OTHER CERVICAL DISC DEGENERATION, [facility] 07/18/2015 KARINA MIR MD Ot W19.XXXA UNSPECIFIED FALL, INITIAL ENCOUNTER 07/18/2015 KARINA MIR MD Ot Y99.8 OTHER EXTERNAL CAUSE STATUS 08/07/2015 KARINA MIR MD Ot M19.011 PRIMARY OSTEOARTHRITIS, RIGHT SHOULDER 08/07/2015 KARINA MIR MD Ot M50.30 OTHER CERVICAL DISC DEGENERATION, [facility] 08/07/2015 KARINA MIR MD Ot W19.XXXA UNSPECIFIED FALL, INITIAL ENCOUNTER 08/07/2015 KARINA MIR MD Ot Y99.8 OTHER EXTERNAL CAUSE STATUS 08/16/2015 KARINA MIR MD Ot M19.011 PRIMARY OSTEOARTHRITIS, RIGHT SHOULDER 08/16/2015 KARINA MIR MD Ot M50.30 OTHER CERVICAL DISC DEGENERATION, [facility] 08/16/2015 KARINA MIR MD Ot [...] EXHAUSTION, UNSPECIFIED, INITIAL EN 08/22/2015 ADEEL BAIRES OPTOMETRY TEACHER Ot R19.7 DIARRHEA, UNSPECIFIED 08/22/2015 ADEEL BAIRES OPTOMETRY TEACHER Ot T67.1XXA HEAT SYNCOPE, INITIAL ENCOUNTER 09/11/2015 ADEEL BAIRES OPTOMETRY TEACHER Ot R19.7 DIARRHEA, UNSPECIFIED 09/11/2015 ADEEL BAIRES OPTOMETRY TEACHER Ot T67.1XXA HEAT SYNCOPE, INITIAL ENCOUNTER [...] OTHER EXTERNAL CAUSE STATUS 07/27/2017 ADEEL BAIRES OPTOMETRY TEACHER Ot R19.7 DIARRHEA, UNSPECIFIED 07/27/2017 ADEEL BAIRES OPTOMETRY TEACHER Ot T67.1XXA HEAT SYNCOPE, INITIAL ENCOUNTER [...] K21.9 GASTRO-ESOPHAGEAL REFLUX DISEASE WITHOUT 07/29/2017 RIVAS JIMÉNEZ, CELSA Lyle Ot K62.89 OTHER SPECIFIED DISEASES [...] FOR OTHER PREPROCEDURAL EXAMIN 08/23/2017 NADINE CANTU OPTOMETRY TEACHER Ot I67.82 CEREBRAL ISCHEMIA 08/23/2017 NADINE CANTU OPTOMETRY TEACHER Ot 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, CERVICOTHORA 08/23/2017 NADINE CANTU OPTOMETRY TEACHER Ot M47.812 SPONDYLOSIS W/O MYELOPATHY OR RADICULOPA 08/23/2017 NADINE CANTU OPTOMETRY TEACHER Ot S02.32XA FRACTURE OF ORBITAL FLOOR, LEFT SIDE, IN 08/23/2017 NADINE CANTU APRN Ot W20.8XXA OTH CAUSE OF STRIKE BY THROWN, PROJECTED 08/29/2017 NADINE CANTU OPTOMETRY TEACHER Ot I67.82 CEREBRAL ISCHEMIA 08/29/2017 NADINE CANTU OPTOMETRY TEACHER Ot 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, CERVICOTHORA 08/29/2017 NADINE CANTU OPTOMETRY TEACHER Ot M47.812 SPONDYLOSIS W/O MYELOPATHY OR RADICULOPA 08/29/2017 NADINE CANTU OPTOMETRY TEACHER Ot S02.32XA FRACTURE OF ORBITAL FLOOR, LEFT SIDE, IN 08/29/2017 NADINE CANTU APRN Ot W20.8XXA OTH CAUSE OF STRIKE BY THROWN, PROJECTED 08/29/2017 NADINE CANTU OPTOMETRY TEACHER Ot I67.82 CEREBRAL ISCHEMIA 08/29/2017 NADINE CANTU OPTOMETRY TEACHER Ot 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, CERVICOTHORA 08/29/2017 NADINE CANTU OPTOMETRY TEACHER Ot M47.812 SPONDYLOSIS W/O MYELOPATHY OR RADICULOPA 08/29/2017 NADINE CANTU OPTOMETRY TEACHER Ot S02.32XA FRACTURE OF ORBITAL FLOOR, LEFT SIDE, IN 08/29/2017 NADINE CANTU OPTOMETRY TEACHER Ot W20.8XXA OTH CAUSE OF STRIKE BY THROWN, PROJECTED 08/30/2017 YINA PINEDA OD Ot S02.32XA FRACTURE OF ORBITAL FLOOR, LEFT SIDE, IN 08/30/2017 YINA PINEDA OD Ot W19.XXXA UNSPECIFIED FALL, INITIAL ENCOUNTER 09/03/2017 NADINE CANTU OPTOMETRY TEACHER Ot I67.82 CEREBRAL ISCHEMIA 09/03/2017 NADINE CANTU OPTOMETRY TEACHER Ot 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, CERVICOTHORA 09/03/2017 NADINE CANTU OPTOMETRY TEACHER Ot M47.812 SPONDYLOSIS W/O MYELOPATHY OR RADICULOPA 09/03/2017 NADINE CANTU OPTOMETRY TEACHER Ot S02.32XA FRACTURE OF ORBITAL FLOOR, LEFT SIDE, IN 09/03/2017 NADINE CANTU OPTOMETRY TEACHER Ot W20.8XXA OTH CAUSE OF STRIKE BY THROWN, PROJECTED 09/03/2017 NADINE CANTU OPTOMETRY TEACHER Ot I67.82 CEREBRAL ISCHEMIA 09/03/2017 NADINE CANTU OPTOMETRY TEACHER Ot 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, CERVICOTHORA 09/03/2017 NADINE CANTU OPTOMETRY TEACHER Ot M47.812 SPONDYLOSIS W/O MYELOPATHY OR RADICULOPA 09/03/2017 NADIEN CANTU OPTOMETRY TEACHER Ot S02.32XA FRACTURE OF ORBITAL FLOOR, LEFT SIDE, IN 09/03/2017 NADINE CANTU OPTOMETRY TEACHER Ot W20.8XXA OTH CAUSE OF STRIKE BY THROWN, PROJECTED 09/08/2017 NADINE CANTU OPTOMETRY TEACHER Ot I67.82 CEREBRAL ISCHEMIA 09/08/2017 NADINE CANTU OPTOMETRY TEACHER Ot 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, CERVICOTHORA 09/08/2017 NADINE CANTU OPTOMETRY TEACHER Ot M47.812 SPONDYLOSIS W/O MYELOPATHY OR RADICULOPA 09/08/2017 NADINE CANTU OPTOMETRY TEACHER Ot S02.32XA FRACTURE OF ORBITAL FLOOR, LEFT SIDE, IN 09/08/2017 NADINE CANTU OPTOMETRY TEACHER Ot W20.8XXA OTH CAUSE OF STRIKE BY THROWN, PROJECTED 09/08/2017 NADINE CANTU OPTOMETRY TEACHER Ot I67.82 CEREBRAL ISCHEMIA 09/08/2017 NADINE CANTU OPTOMETRY TEACHER Ot 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, CERVICOTHORA 09/08/2017 NADINE CANTU OPTOMETRY TEACHER Ot M47.812 SPONDYLOSIS W/O MYELOPATHY OR RADICULOPA 09/08/2017 NADINE CANTU OPTOMETRY TEACHER Ot S02.32XA FRACTURE OF ORBITAL FLOOR, LEFT SIDE, IN 09/08/2017 NADINE CANTU OPTOMETRY TEACHER Ot W20.8XXA OTH CAUSE OF STRIKE BY THROWN, PROJECTED 09/12/2017 NADINE CANTU OPTOMETRY TEACHER Ot I67.82 CEREBRAL ISCHEMIA 09/12/2017 NADINE CANTU OPTOMETRY TEACHER Ot 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, CERVICOTHORA 09/12/2017 NADINE CANTU OPTOMETRY TEACHER Ot M47.812 SPONDYLOSIS W/O MYELOPATHY OR RADICULOPA 09/12/2017 NADINE CANTU OPTOMETRY TEACHER Ot S02.32XA FRACTURE OF ORBITAL FLOOR, LEFT SIDE, IN 09/12/2017 NADINE CANTU OPTOMETRY TEACHER Ot W20.8XXA OTH CAUSE OF STRIKE BY THROWN, PROJECTED 09/14/2017 NADINE CANTU OPTOMETRY TEACHER Ot I67.82 CEREBRAL ISCHEMIA 09/14/2017 NADINE CANTU OPTOMETRY TEACHER Ot 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, CERVICOTHORA 09/14/2017 NADINE CANTU OPTOMETRY TEACHER Ot M47.812 SPONDYLOSIS W/O MYELOPATHY OR RADICULOPA 09/14/2017 NADINE CANTU OPTOMETRY TEACHER Ot S02.32XA FRACTURE OF ORBITAL FLOOR, LEFT SIDE, IN 09/14/2017 NADINE CANTU OPTOMETRY TEACHER Ot W20.8XXA OTH CAUSE OF STRIKE BY THROWN, PROJECTED 09/14/2017 NADINE CANTU OPTOMETRY TEACHER Ot I67.82 CEREBRAL ISCHEMIA 09/14/2017 NADINE CANTU OPTOMETRY TEACHER Ot 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, CERVICOTHORA 09/14/2017 NADINE CANTU OPTOMETRY TEACHER Ot M47.812 SPONDYLOSIS W/O MYELOPATHY OR RADICULOPA 09/14/2017 NADINE CANTU OPTOMETRY TEACHER Ot S02.32XA FRACTURE OF ORBITAL FLOOR, LEFT SIDE, IN 09/14/2017 NADINE CANTU OPTOMETRY TEACHER Ot W20.8XXA OTH CAUSE OF STRIKE BY THROWN, PROJECTED 09/14/2017 NADINE CANTU OPTOMETRY TEACHER Ot I67.82 CEREBRAL ISCHEMIA 09/14/2017 NADINE CANTU OPTOMETRY TEACHER Ot 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, CERVICOTHORA 09/14/2017 NADINE CANTU OPTOMETRY TEACHER Ot M47.812 SPONDYLOSIS W/O MYELOPATHY OR RADICULOPA 09/14/2017 NADINE CANTU OPTOMETRY TEACHER Ot S02.32XA FRACTURE OF ORBITAL FLOOR, LEFT SIDE, IN 09/14/2017 NADINE CANTU OPTOMETRY TEACHER Ot W20.8XXA OTH CAUSE OF STRIKE [...] OTHER EXTERNAL CAUSE STATUS 11/09/2017 ADEEL BAIRES OPTOMETRY TEACHER Ot R19.7 DIARRHEA, UNSPECIFIED 11/09/2017 ADEEL BAIRES OPTOMETRY TEACHER Ot T67.1XXA HEAT SYNCOPE, INITIAL ENCOUNTER 11/09/2017 CLARKE JIMÉNEZ, KARINA Barreto Ot R05 COUGH 11/09/2017 NADINE CANTU OPTOMETRY TEACHER Ot I67.82 CEREBRAL ISCHEMIA 11/09/2017 NADINE CANTU OPTOMETRY TEACHER Ot 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, CERVICOTHORA 11/09/2017 NADINE CATNU OPTOMETRY TEACHER Ot M47.812 SPONDYLOSIS W/O MYELOPATHY OR RADICULOPA 11/09/2017 NADINE CANTU OPTOMETRY TEACHER Ot S02.32XA FRACTURE OF ORBITAL FLOOR, LEFT SIDE, IN 11/09/2017 NADINE CANTU OPTOMETRY TEACHER Ot W20.8XXA OTH CAUSE OF STRIKE BY THROWN, PROJECTED 11/09/2017 YINA PINEDA OD Ot S02.32XA FRACTURE OF ORBITAL FLOOR, LEFT SIDE, IN 11/09/2017 YINA PINEDA OD Ot W19.XXXA UNSPECIFIED FALL, INITIAL ENCOUNTER 11/09/2017 NÉSTOR CASTRO OPTOMETRY TEACHER Ot R42 DIZZINESS AND GIDDINESS 11/10/2017 NÉSTOR CASTRO OPTOMETRY TEACHER Ot 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 11/30/2017 NÉSTOR CASTRO OPTOMETRY TEACHER Ot 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 12/08/2017 NÉSTOR CASTRO OPTOMETRY TEACHER Ot I65.23 OCCLUSION AND STENOSIS OF [...] 01/18/2018 MAGALIE MENARD MD Ot Z79.899 OTHER CORRECTION (CURRENT) DRUG THERAPY 01/18/2018 MAGALIE MENARD MD [...] 01/19/2018 MAGALIE MENARD MD Ot Z79.899 OTHER HAND BOOKED FOLDER AND STITCHER (CURRENT) DRUG THERAPY 01/19/2018 MAGALIE MENARD MD Ot Z87.891 PERSONAL HISTORY OF NICOTINE DEPENDENCE 04/25/2018 KARINA MIR MD Ot 786.2 COUGH 04/25/2018 SARANYA JIMÉNEZ, PAT Ot 553.1 UMBILICAL HERNIA 04/25/2018 SARANYA JIMÉNEZ, PAT Ot V12.72 PERSONAL HISTORY OF COLONIC POLYPS 04/25/2018 SARANYA JIMÉNEZ, PAT Ot V72.84 EXAM PRE-OPERATIVE NOS 04/25/2018 SARNAYA JIMÉNEZ, PAT Ot V74.8 SCREEN-BACTERIAL DIS NEC [...] MD Ot R05 COUGH 04/25/2018 NADINE CANTU OPTOMETRY TEACHER Ot I67.82 CEREBRAL ISCHEMIA 04/25/2018 NADINE CANTU OPTOMETRY TEACHER Ot 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, CERVICOTHORA 04/25/2018 NADINE CANTU OPTOMETRY TEACHER Ot M47.812 SPONDYLOSIS W/O MYELOPATHY OR RADICULOPA 04/25/2018 NADINE CANTU OPTOMETRY TEACHER Ot S02.32XA FRACTURE OF ORBITAL FLOOR, LEFT SIDE, IN 04/25/2018 NADINE CANTU OPTOMETRY TEACHER Ot W20.8XXA OTH CAUSE OF STRIKE BY THROWN, PROJECTED 04/25/2018 YINA PINEDA R OD Ot S02.32XA FRACTURE OF ORBITAL FLOOR, LEFT SIDE, IN 04/25/2018 YINA PINEDA OD Ot W19.XXXA UNSPECIFIED FALL, INITIAL ENCOUNTER 04/25/2018 NÉSTOR CASTRO OPTOMETRY TEACHER Ot I65.23 OCCLUSION AND STENOSIS OF [...] 05/03/2018 PAT BEAVER MD, Ot Z79.899 OTHER CORRECTION (CURRENT) DRUG THERAPY 05/03/2018 PAT BEAVER MD, [...] 05/08/2018 PAT BEAVER MD, Ot Z79.899 OTHER HAND BOOKED FOLDER AND STITCHER (CURRENT) DRUG THERAPY 05/08/2018 PAT BEAVER MD, [...] Ot R00.1 BRADYCARDIA, UNSPECIFIED 08/06/2018 CHARLOTTE JIMÉNEZ [facility], ALI FACP CCDS Ot R53.81 OTHER MALAISE 08/16/2018 CHARLOTTE JIMÉNEZ [facility], ALI FACP CCDS Ot I10 ESSENTIAL (PRIMARY) HYPERTENSION 08/16/2018 CHARLOTTE JIMÉNEZ [facility], ALI FACP CCDS Ot R00.1 BRADYCARDIA, UNSPECIFIED 08/16/2018 CHARLOTTE MD [facility], ALI FACP CCDS Ot R53.81 OTHER MALAISE 08/22/2018 CHARLOTTE MD [facility], ALI FACP CCDS Ot I10 ESSENTIAL (PRIMARY) HYPERTENSION 08/22/2018 CHARLOTTE MD [facility], ALI FACP CCDS Ot R00.1 BRADYCARDIA, UNSPECIFIED 08/22/2018 CHARLOTTE [facility], ALI FACP CCDS Ot R53.81 OTHER MALAISE 08/23/2018 CHARLOTTE JIMÉNEZ [facility], ALI FACP CCDS Ot I10 ESSENTIAL (PRIMARY) HYPERTENSION 08/23/2018 CHARLOTTE JIMÉNEZ [facility], ALI FACP CCDS Ot R00.1 BRADYCARDIA, UNSPECIFIED 08/23/2018 CHARLOTTE MD [facility], ALI FACP CCDS Ot R53.81 OTHER MALAISE 08/30/2018 CHARLOTTE JIMÉNZE [facility], ALI FACP CCDS Ot I10 ESSENTIAL (PRIMARY) HYPERTENSION 08/30/2018 CHARLOTTE MD [facility], ALI FACP CCDS Ot R00.1 BRADYCARDIA, UNSPECIFIED 08/30/2018 CHARLOTTE [facility], ALI FACP CCDS Ot R53.81 OTHER [...] ABO+Rh group OP NR Transfusion band number [id number] [facility] Blood group antibody screen NEGATIVE [facility] Complete blood count (CBC) with automated white [...] blood basophil count (count/volume) 0.0 10*3/uL 0.0-0.1 Complete blood count (CBC) with automated white blood cell (WBC) differential - 09/16/18 22:24 Blood leukocytes automated count (number/volume) 3.3 10*3/uL 4.3-11.0 Blood erythrocytes automated count (number/volume) 4.54 10*6/uL 4.35-5.85 Venous blood hemoglobin measurement (mass/volume) 13.4 g/dL 13.3-17.7 Blood hematocrit (volume fraction) 37 % 40-54 Automated erythrocyte mean corpuscular volume 82 [foz_us] 80-99 Automated erythrocyte mean corpuscular hemoglobin (mass per erythrocyte) 30 pg 25-34 Automated erythrocyte mean corpuscular hemoglobin concentration measurement (mass/volume) 36 g/dL 32-36 Automated erythrocyte distribution width ratio 13.1 % 10.0- 14.5 Automated blood platelet count (count/volume) 222 10*3/uL 130-400 Automated blood platelet mean volume measurement 8.8 [foz_us] 7.4-10.4 Automated blood neutrophils/100 leukocytes 49 % 42-75 Automated blood lymphocytes/100 leukocytes 31 % 12-44 Blood monocytes/100 leukocytes 18 % 0-12 Automated blood eosinophils/100 leukocytes 2 % 0-10 Automated blood basophils/100 leukocytes 0 % 0-10 Blood neutrophils automated count (number/volume) 1.6 10*3 1.8-7.8 Blood lymphocytes automated count (number/volume) 1.0 10*3 1.0-4.0 Blood monocytes automated count (number/volume) 0.6 10*3 0.0- 1.0 Automated eosinophil count 0.1 10*3/uL 0.0-0.3 Automated blood basophil count (count/volume) 0.0 10*3/uL 0.0-0.1 Blood lactic acid measurement (moles/volume) - 09/16/18 22:24 Blood lactic acid measurement (moles/volume) 1.25 mmol/L 0.50- 2.00 PT panel in platelet poor plasma by coagulation assay - 09/16/18 22:24 Prothrombin time (PT) in platelet poor plasma by coagulation assay 13.2 s 12.2-14.7 INR in platelet poor plasma or blood by coagulation assay 1.0 0.8-1.4 Activated partial thromboplastin time (aPTT) in platelet poor plasma bycoagulation assay - 09/16/18 22:24 Activated partial thromboplastin time (aPTT) in platelet poor plasma bycoagulation assay 32 s 24-35 Comprehensive metabolic panel - 09/16/18 22:24 Serum or plasma sodium measurement (moles/volume) 116 mmol/L 135-145 Serum or plasma potassium measurement (moles/volume) 3.6 mmol/L 3.6-5.0 Serum or plasma chloride measurement (moles/volume) 82 mmol/L 98-107 Carbon dioxide 19 mmol/L 21-32 Serum or plasma anion gap determination (moles/volume) 15 mmol/L 5-14 Serum or plasma urea nitrogen measurement (mass/volume) 12 mg/dL 7-18 Serum or plasma creatinine measurement (mass/volume) 0.90 mg/dL 0.60-1.30 Serum or plasma urea nitrogen/creatinine mass ratio 13 NRG Serum or plasma creatinine measurement with calculation of estimated glomerular filtration rate > NRG Serum or plasma glucose measurement (mass/volume) 144 mg/dL 70-105 Serum or plasma calcium measurement (mass/volume) 9.9 mg/dL 8.5-10.1 Serum or plasma total bilirubin measurement (mass/volume) 0.7 mg/dL 0.1-1.0 Serum or plasma alkaline phosphatase measurement (enzymatic activity/volume) 68 U/L 40-136 Serum or plasma aspartate aminotransferase measurement (enzymatic activity/volume) 49 U/L 5-34 Serum or plasma alanine aminotransferase measurement (enzymatic activity/volume) 50 U/L 0-55 Serum or plasma protein measurement (mass/volume) 7.1 g/dL 6.4-8.2 Serum or plasma albumin measurement (mass/volume) 4.0 g/dL 3.2-4.5 CALCIUM CORRECTED 9.9 mg/dL 8.5-10.1 Magnesium - 09/16/18 22:24 Magnesium 1.4 mg/dL 1.8-2.4 Serum or plasma troponin i.cardiac measurement (mass/volume) - 09/16/18 22:24 Serum or plasma troponin i.cardiac measurement (mass/volume) < ng/mL <0.028 Serum or plasma amylase measurement (enzymatic activity/volume) - 09/16/18 22:24 Serum or plasma amylase measurement (enzymatic activity/volume) 54 U/L 25-125 Lipase - 09/16/18 22:24 Lipase 25 U/L 8-78 Complete urinalysis with reflex to culture - 09/17/18 00:00 Urine color determination YELLOW NRG Urine clarity determination CLEAR NRG Urine pH measurement by test strip 6 5-9 Specific gravity of urine by test strip 1.015 1.016-1.022 Urine protein assay by test strip, semi-quantitative NEGATIVE NEGATIVE Urine glucose detection by automated test strip NEGATIVE NEGATIVE Erythrocytes detection in urine sediment by light microscopy NEGATIVE NEGATIVE Urine ketones detection by automated test strip 2+ NEGATIVE Urine nitrite detection by test strip NEGATIVE NEGATIVE Urine total bilirubin detection by test strip NEGATIVE NEGATIVE Urine urobilinogen measurement by automated test strip (mass/volume) NORMAL NORMAL Urine leukocyte esterase detection by dipstick NEGATIVE NEGATIVE Automated urine sediment erythrocyte count by microscopy (number/high power field) [HPF] NRG Automated urine sediment leukocyte count by microscopy (number/high power field) NONE NRG Bacteria detection in urine sediment by light microscopy NEGATIVE NRG Squamous epithelial cells detection in urine sediment by light microscopy RARE NRG Crystals detection in urine sediment by light microscopy NONE NRG Casts detection in urine sediment by light microscopy NONE NRG Mucus detection in urine sediment by light microscopy SMALL NRG Complete urinalysis with reflex to culture NO NRG Encounters ACCT No. Visit Date/Time Discharge Status Pt. Type Provider Facility Loc./Unit Complaint [id number] 09/13/2018 10:34:00 09/13/2018 23:59:59 CLS Outpatient NÉSTOR CASTRO APRN [facility] SDC DEHYDRATION [id number] 07/31/2018 08:42:00 07/31/2018 23:59:59 CLS Outpatient CHARLOTTE JIMÉNEZ FACC, CHARANJIT KHANNA CCDS [facility] CARD MALAISE FATIGUE,BRADYCARDIA,HTN [id number] 07/25/2018 08:14:00 07/25/2018 23:59:59 CLS Outpatient CHARLOTTE JIMÉNEZ FACC, CHARANJIT KHANNA CCDS [facility] CARD MALAISE FATIGUE,BRADYCARDIA,HTN [id number] 07/13/2018 06:56:00 07/13/2018 23:59:59 CLS Preadmit CHARLOTTE JIMÉNEZ FACMahendra, CHARANJIT KHANNA CCDS [facility] CARD MALAISE FATIGUE,BRADYCARDIA,HTN [id number] 05/04/2018 11:45:00 05/04/2018 23:59:59 CLS Outpatient PAT BEAVER MD [facility] CARD ACTIVE GL BLEED [id number] 05/03/2018 14:29:00 05/03/2018 23:59:59 CLS Preadmit PAT BEAVER MD [facility] CARD ACTIVE GI BLEED [id number] 05/03/2018 09:07:00 05/03/2018 14:50:00 DIS Outpatient PAT BEAVER MD [facility] ENDO DARK TARRY STOOLS/RECTAL BLEEDING/REFLUX [id number] 05/02/2018 10:40:00 05/02/2018 12:34:00 DIS Outpatient PAT BEAVER MD [facility] PREOP COLONOSCOPY/EGD [id number] 04/25/2018 11:57:00 04/25/2018 23:59:59 CLS Outpatient KARINA MIR MD [facility] RAD VISION CHANGE [id number] 01/18/2018 09:30:00 01/18/2018 11:20:00 DIS Outpatient MAGALIE MENARD MD [facility] SDC CATARACT RIGHT EYE [id number] 01/17/2018 05:34:00 01/17/2018 11:43:00 DIS Outpatient MAGALIE MENARD MD [facility] PREOP CATARACT RIGHT [id number] 11/09/2017 12:45:00 11/09/2017 23:59:59 CLS Outpatient NÉSTOR CASTRO APRN [facility] RAD CHRONIC VERTIGO [id number] 08/29/2017 12:23:00 08/29/2017 23:59:59 CLS Outpatient YINA PINEDA OD [facility] RAD FRACTURE OF ORBITAL FLOOR,LEFT SIDE SEQUELA [id number] 08/20/2017 09:51:00 08/20/2017 23:59:59 CLS Outpatient NADINE CANTU OPTOMETRY TEACHER [facility] RAD FACIAL INJURY [id number] 08/05/2017 12:30:00 08/05/2017 23:59:59 CLS Preadmit PAT BEAVER MD [facility] ENDO RECTAL BLEEDING [id number] 08/03/2017 08:39:00 08/03/2017 12:41:00 DIS Outpatient PAT BEAVER MD [facility] PREOP COLONOSCOPY [id number] 07/27/2017 08:43:00 07/27/2017 11:34:00 DIS Emergency RIVAS JIMÉNEZ, CELSA Lyle [facility] ER PASSING ALOT OF BLOOD [id number] 07/14/2016 11:10:00 07/14/2016 23:59:59 CLS Outpatient KARINA MIR MD [facility] RAD COUGH [id number] 08/18/2015 09:37:00 08/18/2015 23:59:59 CLS Outpatient ADEEL BAIRES OPTOMETRY TEACHER [facility] LAB [id number] 08/17/2015 13:42:00 08/17/2015 16:37:00 DIS Emergency ZOHRA REGAN MD [facility] ER CHILLS/DIARRHEA [id number] 07/16/2015 11:18:00 07/16/2015 23:59:59 CLS Outpatient KARINA MIR MD [facility] RAD PAIN POST FALL [id number] 11/07/2014 06:57:00 11/07/2014 12:45:00 DIS Outpatient PAT BEAVER MD [facility] SDC UMBILICAL HERNIA [id number] 11/06/2014 09:11:00 11/06/2014 23:59:59 CLS Outpatient PAT BEAVER MD [facility] PREOP UMBILICAL HERNIA [id number] 07/08/2014 16:06:00 07/08/2014 23:59:59 CLS Outpatient KARINA MIR MD [facility] RAD COUGH [id number] 09/16/2018 22:37:00 Document Registration [id number] 09/14/2018 14:28:00 ACT Outpatient NÉSTOR CASTRO APRN [facility] SDC DEHYDRATION [id number] 08/10/2010 08:19:00 Document Registration [id number] 07/30/2010 19:11:00 Document Registration
[2018-09-17] MEDS ORDERED: NS IV 1000 ML 1,000 ML ONE (03:49)
--- NOTE | 2018-09-17 03:52 | NUR ---
SINDY LEBRON admitted to room 425, with an admitting diagnosis of AMS/HYPONATREMIA/ BRONCITIS , on 09/17/18 from ED via WC, accompanied by STAFF AND FAMILY. SINDY LEBRON introduced to surroundings, call light, bed controls, phone, TV, temperature control, lights, meal times, smoking policy, visitor policy, side rail policy, bathrooms and showers. Patient Rights given to patient in the handbook.SINDY LEBRON verbalizes understanding that [facility] is not responsible for the loss or damage to any personal effects or valuables that are kept in the patients posession during their hospitalization.
[2018-09-17] MEDS: NS IV 1000 ML 1,000 ML IV SCH ×5 (03:55→21:51)
[2018-09-17 04:10] LABS: BASOPHILS % (AUTO) 0 % (0-10); EOSINOPHILS % (AUTO) 1 % (0-10); HEMATOCRIT 34 % (40-54); HEMOGLOBIN 12.4 G/DL (13.3-17.7); LYMPHOCYTES # (AUTO) 1.2 X 10^3 (1.0-4.0); LYMPHOCYTES % (AUTO) 32 % (12-44); MEAN CORPUSCULAR HEMOGLOBIN 30 PG (25-34); MEAN CORPUSCULAR HGB CONC 36 G/DL (32-36); MEAN CORPUSCULAR VOLUME 83 FL (80-99); MEAN PLATELET VOLUME 8.8 FL (7.4-10.4); MONOCYTES # (AUTO) 0.7 X 10^3 (0.0-1.0); MONOCYTES % (AUTO) 18 % (0-12); NEUTROPHILS # (AUTO) 1.9 X 10^3 (1.8-7.8); NEUTROPHILS % (AUTO) 49 % (42-75); PLATELET COUNT 204 10^3/uL (130-400); RED CELL DISTRIBUTION WIDTH 13.2 % (10.0-14.5); WHITE BLOOD COUNT 3.9 10^3/uL (4.3-11.0)
[2018-09-17 04:29] LABS: ALANINE AMINOTRANSFERASE 45 U/L (0-55); ALBUMIN 3.7 GM/DL (3.2-4.5); ALKALINE PHOSPHATASE 61 U/L (40-136); BILIRUBIN,TOTAL 0.5 MG/DL (0.1-1.0); BUN/CREATININE RATIO 12; CALCIUM 9.1 MG/DL (8.5-10.1); CARBON DIOXIDE 19 MMOL/L (21-32); CHLORIDE 86 MMOL/L (98-107); CREATININE SERUM 0.81 MG/DL (0.60-1.30); GFR ESTIMATED > 60; GLUCOSE 113 MG/DL (70-105); POTASSIUM 3.7 MMOL/L (3.6-5.0); TOTAL PROTEIN 6.4 GM/DL (6.4-8.2)
[2018-09-17] MEDS ORDERED: OMEP20CA12 PO ×2 (04:37)
[2018-09-17] MEDS ORDERED: ALLO100T PO ×2 (04:37)
[2018-09-17] MEDS ORDERED: ACETAMINOPHEN 500 MG TAB (TYLENOL) PO PRN (05:00)
[2018-09-17 05:08] LABS: SODIUM 116 MMOL/L (135-145)
[2018-09-17] MEDS ORDERED: RT-ALBUTEROL/IPRATROPIUM 3 ML (DUONEB) VIAL INH PRN (05:15)
[2018-09-17] MEDS: ONDANSETRON 4 MG/2 ML (SDV) Z0FRAN IVP PRN ×2 (08:57→14:30)
--- NOTE | 2018-09-17 09:26 | Diagnostic Imaging Report ---
PROCEDURE: CT head without contrast. TECHNIQUE: Multiple contiguous axial images were obtained through the brain without the use of intravenous contrast. Auto Exposure Controls were utilized during the CT exam to meet ALARA standards for radiation dose reduction. INDICATION: Allergic reaction. Dizziness. COMPARISON: MRI brain without and with IV contrast 04/25/2018. 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 No CT evidence of acute territorial infarction. No intracranial hemorrhage, mass effect, hydrocephalus, or extra-axial fluid collections. Osseous structures are intact. The visualized paranasal sinuses and mastoids are clear. IMPRESSION: No acute intracranial CT findings. Dictated by: Dictated on workstation # [id number]
--- NOTE | 2018-09-17 09:26 | Diagnostic Imaging Report ---
EXAM: CHEST 1 VIEW, AP/PA ONLY INDICATION: Allergic reaction. Shortness of breath. COMPARISON: Chest radiograph 07/14/2016. FINDINGS: Normal heart size and pulmonary vascularity. No dense consolidation, pleural effusion or pneumothorax. No acute osseous findings. IMPRESSION: Negative chest. Dictated by: Dictated on workstation # [id number]
[2018-09-17] MEDS: RT-ALBUTEROL/IPRATROPIUM 3 ML (DUONEB) VIAL INH SCH ×2 (10:22→20:28)
[2018-09-17] MEDS ORDERED: KCL 10 MEQ TAB (MICRO K) PO ONE (14:00)
[2018-09-17] MEDS ORDERED: FUROSEMIDE 40 MG/4 ML INJ (LASIX) IVP ONE (14:00)
--- NOTE | 2018-09-17 14:15 | History & Physical-Hospitalist ---
History of Present Illness HPI/Chief Complaint the patient is an 82-year-old white male who reports he was feeling well up until around 31 August when he noticed an inflamed area on his back that was draining some purulent material. He went into his primary care provider's office and at that time Bactrim DS was initiated. He reported nausea shortly after starting the antibiotic but continued it for a week. He then developed a rash some more around 1 week and therapy. He discontinued the antibiotic but continued to feel weak with significant diminishment in balance as well as strength and some apparent mild confusion. For this reason was brought into the emergency room murmurs noted of the sodium level was 116. He was subsequently admitted for treatment of hyponatremia. There've been no other new medications noted. The patient does chronically take citalopram in addition to lisinopril HCT with of which can contribute to hyponatremia. He reports she been in his usual state of health with negative review of systems up until the onset of the draining sore on his back. He had one previous episode of drainage in the same location a year ago. This did not require antibiotics. He is not aware of any previous utilization of sulfa medications. He states that his rash for the most part on his chest and trunk area has nearly resolved. He denies any mucous membrane involvement sore mouth throat or conjunctivitis symptoms. He has no history of seizure disorder and there has been no reported loss of consciousness confirmed by his at the bedside. He has no previous history of hyponatremia that he is aware of. Date Seen 09/17/18 Time Seen by a Provider: 10:00 Attending Physician Cirilo Dewitt MD PCP Cirilo Dewitt MD Referring Physician Date of Admission Sep 17, 2018 at 01:25 Home Medications & Allergies Home Medications Reviewed patient Home Medication Reconciliation performed by pharmacy medication reconciliations equipment technician and/or nursing. Patients Allergies have been reviewed. Allergies Allergies Coded Allergies diazepam (Unverified Adverse Reaction, Unknown, SWEAT,, 01/17/18) Past Aqgioqt-Scpxat-Kkhwwl Hx Past Med/Social Hx: Reviewed and Corrections made Patient Social History Alcohol Use: Rarely Uses Recreational Drug Use: No Smoking Status: Former Smoker (2 PPD, QUIT 1984) Former Smoker, Quit: Aug 03, 1984 Type Used: Cigarettes (2 PPD, QUIT 1984) 2nd Hand Smoke Exposure: No Recent Foreign Travel: No Contact w/other who traveled: No Recent Hopitalizations: No Recent Infectious Disease Expo: No Immunizations Up To Date Date of Pneumonia Vaccine: Feb 21, 2003 Date of Influenza Vaccine: Nov 21, 2017 Seasonal Allergies Seasonal Allergies: No Past Medical History Surgeries: Abdominal, Orthopedic, Rectal Cardiac: High Cholesterol, Hypertension Reproductive: No Sexually Transmitted Disease: No HIV/AIDS: No Gastrointestinal: Abdominal Hernia, Gastroesophageal Reflux, Gastrointestinal Bleed, Diverticulosis, Hemorrhoids, Polyps Musculoskeletal: Arthritis, Chronic Back Pain, Gout Loss of Vision: Bilateral Hearing Impairment: Bilateral Hearing Aide Cancer: Skin What Type of Treatment Did You: Surgical Intervention Psychosocial: Depression History of Blood Disorders: No Adverse Reaction to Blood Berg: No Family History Patient reports no known family medical history. Review of Systems Constitutional: see HPI Physical Exam Physical Exam Vital Signs Vital Signs - First Documented 09/16/18 21:59 Temp 99.6 Pulse 67 Resp 20 B/P (MAP) 196/104 (134) Pulse Ox 97 O2 Delivery Nasal Cannula Capillary Refill : Less Than 3 Seconds Height, Weight, BMI Height: 5'8.00" Weight: 209lbs. 0.0oz. 94.476029ck; 31.8 BMI Method:Stated General Appearance: No Apparent Distress, WD/WN Neck: Normal Inspection Respiratory: Chest Non Tender, Lungs Clear, Normal Breath Sounds, No Accessory Muscle Use, No Respiratory Distress Cardiovascular: Regular Rate, Rhythm, No Edema, No Gallop, No JVD, No Murmur, Normal Peripheral Pulses Gastrointestinal: Normal Bowel Sounds, No Organomegaly, No Pulsatile Mass, Non Tender, Soft Extremity: Normal Capillary Refill, Normal Inspection, Normal Range of Motion, Non Tender, No Calf Tenderness, Other (trace pedal edema noted no erythema or ulceration.) Neurologic/Psychiatric: Other (fatigued-appearing but alert and oriented 2) Skin: Normal Color, Warm/Dry Lymphatic: No Adenopathy Results Results/Procedures Labs Laboratory Tests 09/16/18 22:24 09/17/18 04:00 Patient resulted labs reviewed. Assessment/Plan Admission Diagnosis 1. Hyponatremia no reported evidence for fluid over consumption but suspect combination of poor by mouth intake from recent sulfa allergy aggravated by lisinopril HCT and possibly citalopram. We'll hold both of these medications continue normal saline at 200 mL/h with Lasix 20 mg IV now and every morning daily. We'll add 10 local was potassium daily monitor fluid intake and the sodium level was not increasing he will need fluid restriction. either history or physical examination or x-ray evaluation suggest paraneoplastic syndrome at this time. 2. History of hypertension holding antihypertensive medication at this time. 3. History of hyperlipidemia continue atorvastatin 20 mg at bedtime. 4. Reported history of gout continue allopurinol 100 mg daily Admission Status: Inpatient Order (span 2 midnights) Reason for Inpatient Admission: See admission diagnosis Clinical Quality Measures DVT/VTE Risk/Contraindication: Risk Factor Score Per Nursin RFS Level Per Nursing on Admit: 2=Moderate ZOHRA BAINS MD Sep 17, 2018 14:15
[2018-09-17] MEDS ORDERED: ATORVASTATIN 40 MG (LIPITOR) TABLET PO SCH (21:00)
[2018-09-17] MEDS ORDERED: ALLOPURINOL 100 MG (ZYLOPRIM) TAB PO SCH (21:00)
[2018-09-18] MEDS ORDERED: cefTRIAXone FOR IV USE 1,000 MG in WATER (STERILE) FOR INJECTION 10 ML IV SCH ×2 (01:45→02:48)
[2018-09-18] MEDS ORDERED: AZITHROMYCIN INJECTION 500 MG in NS (IVPB) 250 ML IV SCH ×2 (01:45→03:57)
[2018-09-18] MEDS: NS IV 1000 ML 1,000 ML IV SCH ×2 (02:35→07:48)
[2018-09-18 04:00] VITALS: BP 142/74
[2018-09-18 05:29] LABS: BASOPHILS % (AUTO) 0 % (0-10); EOSINOPHILS % (AUTO) 1 % (0-10); HEMATOCRIT 33 % (40-54); HEMOGLOBIN 11.4 G/DL (13.3-17.7); LYMPHOCYTES # (AUTO) 1.2 X 10^3 (1.0-4.0); LYMPHOCYTES % (AUTO) 27 % (12-44); MEAN CORPUSCULAR HEMOGLOBIN 30 PG (25-34); MEAN CORPUSCULAR HGB CONC 35 G/DL (32-36); MEAN CORPUSCULAR VOLUME 85 FL (80-99); MEAN PLATELET VOLUME 9.2 FL (7.4-10.4); MONOCYTES # (AUTO) 0.8 X 10^3 (0.0-1.0); MONOCYTES % (AUTO) 19 % (0-12); NEUTROPHILS # (AUTO) 2.2 X 10^3 (1.8-7.8); NEUTROPHILS % (AUTO) 52 % (42-75); PLATELET COUNT 196 10^3/uL (130-400); RED CELL DISTRIBUTION WIDTH 13.4 % (10.0-14.5); WHITE BLOOD COUNT 4.2 10^3/uL (4.3-11.0)
[2018-09-18 05:53] LABS: ALANINE AMINOTRANSFERASE 46 U/L (0-55); ALBUMIN 3.3 GM/DL (3.2-4.5); ALKALINE PHOSPHATASE 49 U/L (40-136); BILIRUBIN,TOTAL 0.5 MG/DL (0.1-1.0); BUN/CREATININE RATIO 9; CALCIUM 8.4 MG/DL (8.5-10.1); CARBON DIOXIDE 20 MMOL/L (21-32); CHLORIDE 100 MMOL/L (98-107); CREATININE SERUM 0.88 MG/DL (0.60-1.30); GFR ESTIMATED > 60; GLUCOSE 91 MG/DL (70-105); POTASSIUM 3.8 MMOL/L (3.6-5.0); SODIUM 128 MMOL/L (135-145); TOTAL PROTEIN 5.6 GM/DL (6.4-8.2)
[2018-09-18] MEDS ORDERED: KCL 10 MEQ TAB (MICRO K) PO SCH (07:00)
[2018-09-18] MEDS: RT-ALBUTEROL/IPRATROPIUM 3 ML (DUONEB) VIAL INH SCH (08:03)
[2018-09-18 08:36] VITALS: BP 147/79
[2018-09-18] MEDS ORDERED: FUROSEMIDE 40 MG/4 ML INJ (LASIX) IVP SCH (09:00)
--- NOTE | 2018-09-18 12:10 | NUR ---
Pt is Ten[facility] and ready for discharge. Property Appraiser offered blessing.
[2018-09-18 12:17] VITALS: BP 110/64
[2018-09-18] MEDS ORDERED: AZIT500T5 PO ×2 (12:52)
[2018-09-18] MEDS ORDERED: CEPH-507 PO ×2 (12:52)
--- NOTE | 2018-09-18 12:56 | Discharge Inst-Simple/Standard ---
Discharge Inst-Standard Discharge Medications New, Converted or Re-Newed RX: Transmitted to Pharmacy Patient Instructions/Follow Up Plan of Care/Instructions/FU: Please continue to take your medications Activity as Tolerated: Yes Discharge Diet: No Restrictions Return to The Hospital For: Shortness of breath, chest pain, confusion, if you feel you are getting worse. CARRIE GALLO MD Sep 18, 2018 12:56
--- NOTE | 2018-09-18 12:57 | Discharge Summary ---
Diagnosis/Chief Complaint Date of Admission Sep 17, 2018 at 01:25 Date of Discharge Discharge Date: Sep 18, 2018 Admission Diagnosis 1. Hyponatremia 2. History of hypertension 3. History of hyperlipidemia 4. Reported history of gout Discharge Summary Discharge Physical Exam Allergies: Coded Allergies: diazepam (Unverified Adverse Reaction, Unknown, SWEAT,, 01/17/18) Vitals & I&Os Vital Signs Date Time Temp Pulse Resp B/P (MAP) Pulse Ox O2 Delivery O2 Flow Rate FiO2 09/18/18 13:41 62 18 110/64 97 Room Air 09/18/18 12:17 97.2 General Appearance: No Apparent Distress, WD/WN Cardiovascular: Regular Rate, Rhythm, No Murmur Neurologic/Psychiatric: Alert, Oriented x3 Hospital Course Pt was admitted for hyponatremia. He was started on IVF and a fluid restriction and his sodium increased from 116- to 128 over two days without complication. On day of discharge he was requesting discharge home. I called and spoke with Joseph Rivas APRN for Dr Mir who patient follows with to inform him of this hospital stay and need for outpatient labs this week. He will follow up this week with Dr Mir's office. Strict return precautions were discussed with patient and his and they expressed understanding. Labs (last 24 hrs) Microbiology 09/16/18 Blood Culture - Preliminary, Resulted No growth Patient resulted labs reviewed. Pending Labs Discussion & Recommendations Discharge Planning: >30 minutes discharge planning Discharge Home Medications: Active Scripts Active Azithromycin 500 Mg Tablet 500 Mg PO DAILY Keflex (Cephalexin) 500 Mg Capsule 500 Mg PO BID Reported Allopurinol 100 Mg Tablet 100 Mg PO DAILY Omeprazole 20 Mg Capsule.dr 20 Mg PO DAILY Citalopram HBr (Citalopram Hydrobromide) 10 Mg Tablet 10 Mg PO DAILY Magnesium (Magnesium Oxide) 250 Mg Tablet 250 Mg PO DAILY Atorvastatin Calcium 20 Mg Tablet 20 Mg PO DAILY Instructions to patient/family Please see electronic discharge instructions given to patient. Clinical Quality Measures DVT/VTE Risk/Contraindication: Risk Factor Score Per Nursin RFS Level Per Nursing on Admit: 2=Moderate Copy Copies To 1: KARINA MIR MD, KATELYN M MD Sep 18, 2018 12:57
[2018-09-18 13:41] VITALS: BP 110/64
[2018-09-19] MEDS ORDERED: AZITHROMYCIN INJECTION 500 MG in NS (IVPB) 250 ML IV SCH (04:00)
== END 2018-09-18 14:10 | disposition home or self-care (01) | DRG 641 ==
LOC: EDUNIT# 21:45 → ER 21:47 → ICU 09-17 01:25 → 4TH 09-17 04:38
PROVIDERS: ADMIT Internal Medicine; ATTEND Internal Medicine
DX: E87.1 Hypo-osmolality and hyponatremia (principal); E83.42 Hypomagnesemia; I10 Essential (primary) hypertension; E78.5 Hyperlipidemia, unspecified; M10.9 Gout, unspecified; R41.82 Altered mental status, unspecified; J40 Bronchitis, not specified as acute or chronic; E78.00 Pure hypercholesterolemia, unspecified; K21.9 Gastro-esophageal reflux disease without esophagitis; M54.9 Dorsalgia, unspecified; M19.91 Primary osteoarthritis, unspecified site; F32.9 Major depressive disorder, single episode, unspecified; Z86.010 Personal history of colon polyps; Z85.828 Personal history of other malignant neoplasm of skin; Z87.19 Personal history of other diseases of the digestive system; Z88.2 Allergy status to sulfonamides; Z87.891 Personal history of nicotine dependence
CPT/HCPCS: 36415; 70450; 71045; 80053; 81000; 82150; 83605; 83690; 83735; 84484; 85025; 85610; 85730; 87040; 93005; 93041; 94640; 94760; 96361; 96365; 96366; 96375

== ENCOUNTER → 2018-09-20 | Outpatient (CLI) | payer MEDICARE ==
[~2018-09-20] MED LIST changes: +ALLO100T PO; +AZIT500T5 PO; +CEPH-507 PO; +OMEP20CA12 PO
--- NOTE | 2018-09-20 11:15 | Diagnostic Imaging Report ---
Patient History: F/U HOSPITALIZATION, COUGH. Technique: Two views of the chest Comparison: 09/16/2018 FINDINGS: The lung volumes are normal. No focal consolidation is seen. No large pleural effusion or pneumothorax is seen. The cardiomediastinal silhouette is normal in size and contour. There is calcified aortic atherosclerotic plaque. No acute osseous abnormality is seen. IMPRESSION: No acute pulmonary abnormality seen. Dictated by: Dictated on workstation # [id number]
== END ==
LOC: RAD 10:38
PROVIDERS: ATTEND Internal Medicine
DX: Z09 Encounter for follow-up examination after completed treatment for conditions other than malignant neoplasm (principal); R05 Cough
CPT/HCPCS: 71046

== ENCOUNTER → 2018-09-20 | Outpatient (CLI) | payer MEDICARE ==
[~2018-09-20] VITALS: Ht 172.7 cm; Wt 94.8 kg
== END | disposition home or self-care (01) ==
LOC: PREOP 05:48
PROVIDERS: ATTEND Specialist
DX: Z01.818 Encounter for other preprocedural examination (principal)

== ENCOUNTER 2018-10-08 13:41 | Emergency (ER) | payer MEDICARE ==
[~2018-10-08] VITALS: Ht 175.3 cm; Wt 87.1 kg
[~2018-10-08 13:41] MED LIST changes: -OMEP20CA12 PO; +OMEP20CA13 PO
--- NOTE | 2018-10-08 13:47 | NUR ---
Per Dr. Cantu, pt is not a candidate for TPA due to NIH of 1 with improving symptoms, and pt reports occassional rectal bleeding.
--- NOTE | 2018-10-08 13:55 | NUR ---
return from CT, portable xray done in room.
--- NOTE | 2018-10-08 14:00 | Diagnostic Imaging Report ---
PROCEDURE: CT head wo r/o stroke. TECHNIQUE: Multiple contiguous axial images were obtained through the brain without the use of intravenous contrast. Auto Exposure Controls were utilized during the CT exam to meet ALARA standards for radiation dose reduction. INDICATION: Left-sided weakness. COMPARISON: Study compared 09/16/2018. 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 There is some atrophy and periventricular white matter small vessel disease stable. There is no ghada hydrocephalus. There is no evidence for intracranial hemorrhage. 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 There is substantial intracranial atherosclerotic vascular calcifications, chronic. No sulcal effacement. No focal or generalized cerebral edema is apparent. An old area of right frontal lobe white matter ischemia is a stable chronic finding. IMPRESSION: Stable chronic findings. No change from previous. No hemorrhage, edema or acute appearing abnormalities identified. Dictated by: Dictated on workstation # [id number]
--- NOTE | 2018-10-08 14:15 | Diagnostic Imaging Report ---
INDICATION: Right-sided weakness. COMPARISON: Exam compared to 09/20/2008. FINDINGS: Elevated right diaphragm, chronic. Some patchy medial basilar opacities as new findings without significant volume loss. While this could be partial atelectasis, developing pneumonia in the appropriate clinical scenario could not be excluded. IMPRESSION: Elevation of the right diaphragm. New basilar pulmonary opacities medially, infiltrates versus atelectasis. No failure pattern. No acute pleural abnormality. Dictated by: Dictated on workstation # [id number]
[2018-10-08 14:18] LABS: BASOPHILS % (AUTO) 1 % (0-10); EOSINOPHILS # (AUTO) 0.2 10^3/uL (0.0-0.3); EOSINOPHILS % (AUTO) 4 % (0-10); HEMATOCRIT 40 % (40-54); HEMOGLOBIN 13.4 G/DL (13.3-17.7); LYMPHOCYTES # (AUTO) 2.1 X 10^3 (1.0-4.0); LYMPHOCYTES % (AUTO) 37 % (12-44); MEAN CORPUSCULAR HEMOGLOBIN 31 PG (25-34); MEAN CORPUSCULAR HGB CONC 33 G/DL (32-36); MEAN CORPUSCULAR VOLUME 93 FL (80-99); MEAN PLATELET VOLUME 8.9 FL (7.4-10.4); MONOCYTES # (AUTO) 0.7 X 10^3 (0.0-1.0); MONOCYTES % (AUTO) 13 % (0-12); NEUTROPHILS # (AUTO) 2.6 X 10^3 (1.8-7.8); NEUTROPHILS % (AUTO) 46 % (42-75); PLATELET COUNT 245 10^3/uL (130-400); RED CELL DISTRIBUTION WIDTH 15.3 % (10.0-14.5); WHITE BLOOD COUNT 5.7 10^3/uL (4.3-11.0)
--- NOTE | 2018-10-08 14:26 | NUR ---
Stroke page activated at [id number]
[2018-10-08 14:29] LABS: FIBRIN DEGRADATION PRODUCTS 0.73 UG/ML (0.00-0.49); INR 1.1 (0.8-1.4); PROTHROMBIN TIME PATIENT 14.2 SEC (12.2-14.7)
[2018-10-08] MEDS ORDERED: IOHEXOL 350 MG/ML 100 ML (OMNIPAQUE 350) VIAL IV ONE (14:30)
[2018-10-08] MEDS ORDERED: HOLD METFORMIN - RECEIVED CONTRAST 20 ML VIAL IV SCH (14:30)
[2018-10-08] MEDS ORDERED: NS 100 ML (IVPB) BAG IV ONE (14:30)
[2018-10-08 14:34] LABS: BILIRUBIN,URINE NEGATIVE (NEGATIVE); CLARITY,URINE CLEAR; COLOR,URINE YELLOW; GLUCOSE, URINE (UA) NEGATIVE (NEGATIVE); KETONES,URINE NEGATIVE (NEGATIVE); LEUKOCYTE ESTERASE ,URINE NEGATIVE (NEGATIVE); NITRITE,URINE NEGATIVE (NEGATIVE); PH,URINE 6 (5-9); PROTEIN,URINE NEGATIVE (NEGATIVE); UROBILINOGEN,URINE NORMAL (NORMAL)
[2018-10-08 14:37] LABS: ALANINE AMINOTRANSFERASE 32 U/L (0-55); ALKALINE PHOSPHATASE 73 U/L (40-136); BILIRUBIN,TOTAL 0.4 MG/DL (0.1-1.0); BUN/CREATININE RATIO 13; CALCIUM 9.3 MG/DL (8.5-10.1); CARBON DIOXIDE 23 MMOL/L (21-32); CHLORIDE 103 MMOL/L (98-107); CREATININE SERUM 1.05 MG/DL (0.60-1.30); GFR ESTIMATED > 60; GLUCOSE 151 MG/DL (70-105); POTASSIUM 3.5 MMOL/L (3.6-5.0); SODIUM 137 MMOL/L (135-145); TOTAL PROTEIN 7.3 GM/DL (6.4-8.2)
--- NOTE | 2018-10-08 14:49 | ED Neurological Problem ---
General Chief Complaint: Neuro-Stroke Like Symptoms Stated Complaint: STROKE LIKE SYMPTOMS Nursing Triage Note: Pt to ED via EMS. EMS reports pt was at [employer] and was reaching for a piece of cake when pt began to feel tightness and L sided weakness with mild facial droop. EMS reports improvement enroute to ED Nursing Sepsis Screen: No Definite Risk Source: patient, family, EMS Exam Limitations: no limitations History of Present Illness Date Seen by Provider: Oct 08, 2018 Time Seen by Provider: 13:42 Initial Comments This 82-year-old gentleman presents to the emergency room via EMS with strokelike symptoms consisting of left sided arm weakness and tightness as if somebody was pulling on his arm. This was accompanied by facial droop on the left. Patient's states his left arm was nearly flaccid. Onset was sudden at approximately 13:00 when he was reaching for a piece of cake at his [employer]. Patient is alert and oriented. Symptoms have been improving since onset and are now very mild. Stroke activation was paged and patient was taken promptly to CT. Allergies and Home Medications Allergies Coded Allergies: sulfamethoxazole (Unverified Allergy, Unknown, 10/08/18) trimethoprim (Unverified Allergy, Unknown, 10/08/18) diazepam (Unverified Adverse Reaction, Unknown, SWEAT,, 01/17/18) Home Medications Allopurinol 100 Mg Tablet, 100 MG PO DAILY, (Reported) Atorvastatin Calcium 20 Mg Tablet, 20 MG PO DAILY, (Reported) Citalopram Hydrobromide 10 Mg Tablet, 10 MG PO DAILY, (Reported) Magnesium Oxide 250 Mg Tablet, 250 MG PO DAILY, (Reported) Omeprazole 20 Mg Capsule.dr, 20 MG PO DAILY, (Reported) Patient Home Medication List Home Medication List Reviewed: Yes Review of Systems Review of Systems Constitutional: no symptoms reported Eyes: No Symptoms Reported Ears, Nose, Mouth, Throat: no symptoms reported Respiratory: no symptoms reported Cardiovascular: no symptoms reported Gastrointestinal: no symptoms reported Genitourinary: no symptoms reported Musculoskeletal: no symptoms reported Skin: no symptoms reported Psychiatric/Neurological: See HPI Endocrine: No Symptoms Reported Hematologic/Lymphatic: No Symptoms Reported Past Qhjcait-Tszhaj-Cphvbb Hx Past Med/Social Hx: Reviewed Nursing Past Med/Soc Hx Patient Social History Alcohol Use: Denies Use Recreational Drug Use: No Type Used: Cigarettes Former Smoker, Quit: Aug 03, 1984 2nd Hand Smoke Exposure: No Recent Foreign Travel: No Contact w/Someone Who Travel: No Recent Infectious Disease Expo: No Recent Hopitalizations: No Physical Abuse: No Sexual Abuse: No Immunizations Up To Date Date of Pneumonia Vaccine: Feb 21, 2003 Date of Influenza Vaccine: Nov 21, 2017 Seasonal Allergies Seasonal Allergies: No Past Medical History Surgeries: Yes Abdominal, Orthopedic, Rectal Respiratory: No Cardiac: Yes High Cholesterol, Hypertension Neurological: No Reproductive Disorders: No Sexually Transmitted Disease: No HIV/AIDS: No Genitourinary: No Gastrointestinal: Yes (GI BLEED; LEFT INGUINAL AND UMBILICAL HERNIA REPAIRS) Abdominal Hernia, Gastroesophageal Reflux, Gastrointestinal Bleed, Diverticulosis, Hemorrhoids, Polyps Musculoskeletal: Yes (S/P BACK SURGERY; RIGHT ULNAR NERVE TRANSPOSITION; ) Arthritis, Chronic Back Pain, Gout Endocrine: No HEENT: No 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 What Type of Treatment Did You: Surgical Intervention Psychosocial: Yes Depression Integumentary: No Blood Disorders: No Adverse Reaction/Blood Tranf: No Family Medical History Patient reports no known family medical history. Physical Exam Vital Signs Vital Signs - First Documented 10/08/18 13:41 Temp 97.4 Pulse 70 Resp 16 B/P (MAP) 186/97 (126) Pulse Ox 98 O2 Delivery Room Air Capillary Refill : Less Than 3 Seconds Height, Weight, BMI Height: 5'9.00" Weight: 192lbs. 1.0oz. 87.629559av; 31.8 BMI Method:Stated General Appearance: WD/WN, no apparent distress HEENT: PERRL/EOMI, normal ENT inspection, pharynx normal, other (facial droop on the left) Neck: normal inspection Respiratory: normal breath sounds, no respiratory distress Cardiovascular: regular rate, rhythm, no edema Gastrointestinal: normal bowel sounds, non tender, soft Extremities: normal inspection Neurologic/Psychiatric: alert, normal mood/affect Crainal Nerves: normal hearing, normal speech, PERRL, facial asymmetry, facial droop Coordination/Gait: normal finger to nose, normal gait Motor/Sensory: no sensory deficit, other (very subtle left upper extremity motor deficit) Skin: normal color, warm/dry Stroke NIH Stroke Scale Assessment Level of Consciousness: 0=Alert (0), Level of Consciousness-Questions: 0=Answers both month/age (0), LOC Commands: 0=Performs both tasks (0), Visual Davis: 0=No visual loss (0), Facial Movement (Facial Paresis): 1=Minor paralysis (1), Motor Function-Arms Right: 0=No drift (0), Motor Function-Arms Left: 0=No drift (0), Motor Function-Legs Right: 0=No drift (0), Motor Function-Legs Left: 0=No drift (0), Limb Ataxia: 0=Absent (0), Sensory: 0=Normal:no loss (0), Best Language: 0=No aphasia (0), Dysarthria: 0=Normal (0), Extinction & Inattention: 0=No abnormality (0), Total: 1 Progress/Results/Core Measures Results/Orders Lab Results Laboratory Tests Test 10/08/18 14:08 10/08/18 14:15 10/08/18 14:25 Range/Units White Blood Count 5.7 4.3-11.0 10^3/uL Red Blood Count 4.32 L 4.35-5.85 10^6/uL Hemoglobin 13.4 13.3-17.7 G/DL Hematocrit 40 40-54 % Mean Corpuscular Volume 93 80-99 FL Mean Corpuscular Hemoglobin 31 25-34 PG Mean Corpuscular Hemoglobin Concent 33 32-36 G/DL Red Cell Distribution Width 15.3 H 10.0-14.5 % Platelet Count 245 130-400 10^3/uL Mean Platelet Volume 8.9 7.4-10.4 FL Neutrophils (%) (Auto) 46 42-75 % Lymphocytes (%) (Auto) 37 12-44 % Monocytes (%) (Auto) 13 H 0-12 % Eosinophils (%) (Auto) 4 0-10 % Basophils (%) (Auto) 1 0-10 % Neutrophils # (Auto) 2.6 1.8-7.8 X 10^3 Lymphocytes # (Auto) 2.1 1.0-4.0 X 10^3 Monocytes # (Auto) 0.7 0.0-1.0 X 10^3 Eosinophils # (Auto) 0.2 0.0-0.3 10^3/uL Basophils # (Auto) 0.0 0.0-0.1 10^3/uL Prothrombin Time 14.2 12.2-14.7 SEC INR Comment 1.1 0.8-1.4 Activated Partial Thromboplast Time 32 24-35 SEC D-Dimer 0.73 H 0.00-0.49 UG/ML Sodium Level 137 135-145 MMOL/L Potassium Level 3.5 L 3.6-5.0 MMOL/L Chloride Level 103 98-107 MMOL/L Carbon Dioxide Level 23 21-32 MMOL/L Anion Gap 11 5-14 MMOL/L Blood Urea Nitrogen 14 7-18 MG/DL Creatinine 1.05 0.60-1.30 MG/DL Estimat Glomerular Filtration Rate > 60 BUN/Creatinine Ratio 13 Glucose Level 151 H 70-105 MG/DL Calcium Level 9.3 8.5-10.1 MG/DL Corrected Calcium 9.3 8.5-10.1 MG/DL Total Bilirubin 0.4 0.1-1.0 MG/DL Aspartate Amino Transf (AST/SGOT) 29 5-34 U/L Alanine Aminotransferase (ALT/SGPT) 32 0-55 U/L Alkaline Phosphatase 73 40-136 U/L Troponin I < 0.028 <0.028 NG/ML Total Protein 7.3 6.4-8.2 GM/DL Albumin 4.0 3.2-4.5 GM/DL Glucometer 159 H 70-110 MG/DL Urine Color YELLOW Urine Clarity CLEAR Urine pH 6 5-9 Urine Specific Harrison 1.010 L 1.016-1.022 Urine Protein NEGATIVE NEGATIVE Urine Glucose (UA) NEGATIVE NEGATIVE Urine Ketones NEGATIVE NEGATIVE Urine Nitrite NEGATIVE NEGATIVE Urine Bilirubin NEGATIVE NEGATIVE Urine Urobilinogen NORMAL NORMAL MG/DL Urine Leukocyte Esterase NEGATIVE NEGATIVE Urine RBC (Auto) NEGATIVE NEGATIVE Urine RBC NONE /HPF Urine WBC NONE /HPF Urine Crystals NONE /LPF Urine Bacteria NEGATIVE /HPF Urine Casts NONE /LPF Urine Mucus NEGATIVE /LPF Urine Culture Indicated NO My Orders Orders - CELSA HATHAWAY MD Ct Head Wo-R/O Stroke (10/08/18 13:44) Chest 1 View, Ap/Pa Only (10/08/18 13:44) Cbc With Automated Diff (10/08/18 13:50) Protime With Inr (10/08/18 13:50) Partial Thromboplastin Time (10/08/18 13:50) Comprehensive Metabolic Panel (10/08/18 13:50) Fibrin Degradation Products (10/08/18 13:50) Troponin I (10/08/18 13:50) Ua Culture If Indicated (10/08/18 13:50) Ekg Tracing (10/08/18 13:50) Nothing By Mouth (10/08/18 Dinner) Accucheck Stat ONCE (10/08/18 13:50) Ed Iv/Invasive Line Start (10/08/18 13:50) Ed Iv/Invasive Line Start (10/08/18 13:50) Vital Signs Stroke Patient Q15M (10/08/18 13:50) O2 (10/08/18 13:50) Intake & Output 06,14,22 (10/08/18 13:50) Monitor-Rhythm Ecg Trace Only (10/08/18 13:50) Dysphagia Screening Tool (10/08/18 13:50) Post Thrombolytic Adminstratio (10/08/18 13:50) Ct Angio Head/Neck (10/08/18 14:24) Iohexol Injection (Omnipaque 350 Mg/Ml 1 (10/08/18 14:30) Received Contrast (Hold Metformin- Contr (10/08/18 14:30) Ns (Ivpb) (Sodium Chloride 0.9% Ivpb Bag (10/08/18 14:30) Medications Given in ED Current Medications Medications Dose Ordered Sig/Quynh Route Start Time Stop Time Status Last Admin Dose Admin Iohexol 75 ml ONCE ONCE IV 10/08/18 14:30 10/08/18 14:31 DC 10/08/18 14:43 75 ML Sodium Chloride 100 ml ONCE ONCE IV 10/08/18 14:30 10/08/18 14:31 DC 10/08/18 14:43 80 ML Vital Signs/I&O 10/08/18 10/08/18 13:41 17:50 Temp 97.4 97.4 Pulse 70 93 Resp 16 16 B/P (MAP) 186/97 (126) 155/82 (106) Pulse Ox 98 98 O2 Delivery Room Air Room Air Blood Pressure Mean: 126 FSBG Bedside Testing Finger Stick Blood Glucose: 159 Blood Glucose Action Taken: rn notified Progress Progress Note #1: Time: 14:44 Progress Note Patient was seen and examined immediately upon arrival. Symptoms were already significantly improved. NIH stroke score was 1 for facial droop. Patient did have some measurable weakness of the left arm but the weakness was not significant enough to register on the NIH scoring. He was able to ambulate independently and safely. He was taken directly to CT upon arrival. Initial CT was negative. I discussed risks and benefits of TPA with the patient and his . Symptoms were relatively minor and improving. NIH stroke score was only 1. The patient and I agree that risks of TPA likely outweigh benefits. Also, patient reports having had some occasional problems with rectal bleeding which would also increase risk with TPA use. Case was discussed with Dr. Hutchinson, stroke neurologist at [facility]. He agrees with the decision to forego thrombolytics at this time. CT angiogram was recommended for further evaluation. This is being performed now. Progress Note #2: Time: 16:52 Progress Note Patient's condition remained stable. His deficits of facial droop and left upper extremity weakness continued to improve and had nearly resolved. However, CT angiogram demonstrated significant internal carotid stenosis bilaterally with is much as 90 percent stenosis on the right. Given this degree of stenosis accompanied by corresponding deficits on the left, further evaluation and a comprehensive stroke center with vascular surgery services was deemed appropr iate. I discussed the situation with the patient and his family. He agrees with transfer. Transfer is pending to [facility] to the service of Dr. Hutchinson. Initial ECG Impression Date: Oct 08, 2018 Initial ECG Impression Time: 14:05 Initial ECG Rate: 68 Initial ECG Rhythm: Normal Sinus Comment Sinus rhythm with no ST elevation or depression. No abnormal intervals. Borderline left axis deviation. Diagnostic Imaging Diagonstic Imaging: CT Plain Films/CT/US/NM/MRI: head Comments CT head viewed by me and report reviewed. See report below: NAME: SINDY LEBRON [facility] REC#: [id number] PT STATUS: REG ER : 1935 PHYSICIAN: CELSA HATHAWAY MD ADMIT DATE: 10/08/18/ER Signed Date of Exam: 10/08/18 CT HEAD WO-R/O STROKE PROCEDURE: CT head wo r/o stroke. TECHNIQUE: Multiple contiguous axial images were obtained through the brain without the use of intravenous contrast. Auto Exposure Controls were utilized during the CT exam to meet ALARA standards for radiation dose reduction. INDICATION: Left-sided weakness. COMPARISON: Study compared 09/16/2018. 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 There is some atrophy and periventricular white matter small vessel disease stable. There is no ghdaa hydrocephalus. There is no evidence for intracranial hemorrhage. 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 There is substantial intracranial atherosclerotic vascular calcifications, chronic. No sulcal effacement. No focal or generalized cerebral edema is apparent. An old area of right frontal lobe white matter ischemia is a stable chronic finding. IMPRESSION: Stable chronic findings. No change from previous. No hemorrhage, edema or acute appearing abnormalities identified. Dictated by: Dictated on workstation # [id number] Dict: 10/08/18 1353 Trans: 10/08/18 143 Interpreted by: CATALINO RAMIREZ Electronically signed by: CATALINO RAMIREZ 10/08/181431 Diagonstic Imaging: Xray Plain Films/CT/US/NM/MRI: chest Comments NAME: SINDY LEBRON MED REC#: [id number] PT STATUS: REG ER : 1935 PHYSICIAN: CELSA HATHAWAY MD ADMIT DATE: 10/08/18/ER Signed Date of Exam: 10/08/18 CHEST 1 VIEW, AP/PA ONLY INDICATION: Right-sided weakness. COMPARISON: Exam compared to 09/20/2008. FINDINGS: Elevated right diaphragm, chronic. Some patchy medial basilar opacities as new findings without significant volume loss. While this could be partial atelectasis, developing pneumonia in the appropriate clinical scenario could not be excluded. IMPRESSION: Elevation of the right diaphragm. New basilar pulmonary opacities medially, infiltrates versus atelectasis. No failure pattern. No acute pleural abnormality. Dictated by: Dictated on workstation # [id number] Dict: 10/08/18 1358 Trans: 10/08/18 143 Interpreted by: CATALINO RAMIREZ Electronically signed by: CATALINO RAMIREZ 10/08/181431 Diagonstic Imaging: CT Plain Films/CT/US/NM/MRI: other (angiogram head and neck) Comments NAME: BERNARDINOSINDY Khadijah MED REC#: [id number] PT STATUS: REG ER : 1935 PHYSICIAN: CELSA HATHAWAY MD ADMIT DATE: 10/08/18/ER Signed Date of Exam: 10/08/18 CT ANGIO HEAD/NECK PROCEDURE: CT angiography of the head and CT angiography of the neck with and without contrast. TECHNIQUE: Contiguous noncontrast images were obtained from the skull base through the vertex. After intravenous contrast administration, helical CT angiography of the neck was performed. Source data was reformatted into 3D MIP projections. Delayed post contrast acquisition was also obtained. Auto Exposure Controls were utilized during the CT exam to meet ALARA standards for radiation dose reduction. INDICATION: Left-sided weakness. FINDINGS: CT angio neck: The branching pattern of the great vessels is normal. Cervical vertebral arteries are nonfocal and relatively codominant. The bilateral common carotid arteries reveal substantial mixed calcified and noncalcified plaque, greatest at the bulbs and bifurcations. This results in roughly 70% left and near 90% right proximal ICA stenoses. Cervical vertebral arteries above that level appeared nonfocal and patent and iso-enhancing. CT angio head: The intradural vertebral arteries are patent. The basilar is patent. The bilateral posterior cerebral arterial segments are patent. There is calcified plaque at the cavernous and supraclinoid segments of the intracranial ICAs. There is near 50% stenosis of the right supraclinoid ICA. The A1 segments bilaterally appeared unremarkable. The anterior cerebral arteries are unremarkable. I am unable to identify the ACOM. The major branches and primary segments of the right middle cerebral artery appeared patent. No large vessel occlusion or intraluminal thrombus. Left middle cerebral arterial segments and primary branches are also patent. No LVO. No aneurysm, branch occlusion, or vascular malformation. There is enhancement of the major intracranial dural venous sinuses. IMPRESSION: 1. Likely bilateral carotid bifurcation and proximal ICA hemodynamically significant stenoses on an atherosclerotic basis, greater right. No cervical arterial occlusion. The posterior circulation is normal. 2. Intracranial atherosclerosis in the anterior circulation but no large vessel occlusion, thrombus, aneurysm, or vascular malformation identified. Dictated by: Dictated on workstation # [id number] Dict: 10/08/18 1503 Trans: 10/08/18 1558 Interpreted by: CATALINO RAMIREZ Electronically signed by: CATALINO RAMIREZ 10/08/18 1558 Departure Impression Primary Impression: Acute CVA (cerebrovascular accident) Additional Impressions: Left arm weakness Facial droop Stenosis of both internal carotid arteries Disposition: 02 XFER SHT-TRM HOSP Condition: Improved Admissions Decision to Admit Reason: Admit from ER (General) Transfer Time Spoke to Accepting Phy: 14:12 Transfer Progress Notes Transfer accepted by Dr. Hutchinson Transfer Time: 17:50 Transfer Facility: [facility] Method of Transfer: EMS Departure-Patient Inst. Referrals: KARINA MIR MD (PCP/Family) Primary Care Physician CELAS HATHAWAY MD Oct 08, 2018 14:48
[2018-10-08 14:51] LABS: BACTERIA,URINE NEGATIVE /HPF
--- NOTE | 2018-10-08 15:36 | NUR ---
Pt denies needs at this time. Pt sitting up in bed talking with family.
--- NOTE | 2018-10-08 15:44 | Diagnostic Imaging Report ---
PROCEDURE: CT angiography of the head and CT angiography of the neck with and without contrast. TECHNIQUE: Contiguous noncontrast images were obtained from the skull base through the vertex. After intravenous contrast administration, helical CT angiography of the neck was performed. Source data was reformatted into 3D MIP projections. Delayed post contrast acquisition was also obtained. Auto Exposure Controls were utilized during the CT exam to meet ALARA standards for radiation dose reduction. INDICATION: Left-sided weakness. FINDINGS: CT angio neck: The branching pattern of the great vessels is normal. Cervical vertebral arteries are nonfocal and relatively codominant. The bilateral common carotid arteries reveal substantial mixed calcified and noncalcified plaque, greatest at the bulbs and bifurcations. This results in roughly 70% left and near 90% right proximal ICA stenoses. Cervical vertebral arteries above that level appeared nonfocal and patent and iso-enhancing. CT angio head: The intradural vertebral arteries are patent. The basilar is patent. The bilateral posterior cerebral arterial segments are patent. There is calcified plaque at the cavernous and supraclinoid segments of the intracranial ICAs. There is near 50% stenosis of the right supraclinoid ICA. The A1 segments bilaterally appeared unremarkable. The anterior cerebral arteries are unremarkable. I am unable to identify the ACOM. The major branches and primary segments of the right middle cerebral artery appeared patent. No large vessel occlusion or intraluminal thrombus. Left middle cerebral arterial segments and primary branches are also patent. No LVO. No aneurysm, branch occlusion, or vascular malformation. There is enhancement of the major intracranial dural venous sinuses. IMPRESSION: 1. Likely bilateral carotid bifurcation and proximal ICA hemodynamically significant stenoses on an atherosclerotic basis, greater right. No cervical arterial occlusion. The posterior circulation is normal. 2. Intracranial atherosclerosis in the anterior circulation but no large vessel occlusion, thrombus, aneurysm, or vascular malformation identified. Dictated by: Dictated on workstation # [id number]
--- NOTE | 2018-10-08 16:50 | NUR ---
Captain called for transportation to by ANAID Huston
--- NOTE | 2018-10-08 16:51 | NUR ---
Dispatch called for transportation to by ANAID Huston.
--- NOTE | 2018-10-08 16:58 | NUR ---
EMS paged out over scanner.
[2018-10-08 17:50] VITALS: BP 155/82
== END 2018-10-08 17:50 | disposition short-term general hospital (02) ==
LOC: EDUNIT# 13:41 → ER 13:42
DX: I63.233 Cerebral infarction due to unspecified occlusion or stenosis of bilateral carotid arteries (principal); I10 Essential (primary) hypertension; E78.00 Pure hypercholesterolemia, unspecified; F32.9 Major depressive disorder, single episode, unspecified; K21.9 Gastro-esophageal reflux disease without esophagitis; M10.9 Gout, unspecified; H54.7 Unspecified visual loss; Z85.828 Personal history of other malignant neoplasm of skin; Z87.19 Personal history of other diseases of the digestive system; Z88.2 Allergy status to sulfonamides; Z88.1 Allergy status to other antibiotic agents; Z88.8 Allergy status to other drugs, medicaments and biological substances; Z87.891 Personal history of nicotine dependence
CPT/HCPCS: 36415; 70450; 70496; 70498; 71045; 80053; 81000; 82962; 84484; 85025; 85379; 85610; 85730; 93005; 93041

== ENCOUNTER 2018-12-21 09:15 | Outpatient (CLI) | payer MEDICARE ==
[~2018-12-21] VITALS: Ht 172 cm; Wt 90.9 kg
== END 2018-12-21 09:27 | disposition home or self-care (01) ==
LOC: PREOP 09:15
PROVIDERS: ATTEND Specialist
DX: Z01.818 Encounter for other preprocedural examination (principal)

== ENCOUNTER 2018-12-22 07:30 | Day surgery (SDC) | payer MEDICARE ==
[~2018-12-22] VITALS: Ht 172.7 cm; Wt 90.9 kg
[~2018-12-22 07:30] MED LIST changes: -AZIT500T5 PO; +AZIT500T9 PO; +LISI1TAB25 PO; -LISI1TAB8 PO; +OMEP-280 PO; -OMEP20CA13 PO; +OMEP40CA27 PO
[2018-12-22 07:55] VITALS: BP 128/71
[2018-12-22] MEDS: TETRACAINE 0.5% OPHTH SOLN 4 ML BTL (SINGLE DOSE ONLY) OU PRN ×3 (07:59→08:09)
[2018-12-22] MEDS ORDERED: PHENYLEPHRINE 10% OPHTH (NEO-SYN) 5 ML BTL OU PRN (08:00)
[2018-12-22] MEDS ORDERED: TROPICAMIDE 1% OPH SOLN (MYDRIACYL) 15 ML BTL OU PRN (08:00)
--- NOTE | 2018-12-22 08:38 | Ophthalmologist Pre-Op Note ---
Pre-Operative Progress Note H&P Reviewed The H&P was reviewed, patient examined and no changes noted. Date H&P Reviewed: Dec 22, 2018 Time H&P Reviewed: 08:38 Pre-Op Dx Secondary Cataract, Right Eye MAGALIE MENARD MD Dec 22, 2018 08:38 POS
[2018-12-22 08:45] VITALS: BP 128/71
--- NOTE | 2018-12-22 08:45 | Ophthalmology Operative Report ---
YAG Capsulotomy PREOPERATIVE DIAGNOSIS: Secondary Cataract Left Eye POSTOPERATIVE DIAGNOSIS: Secondary Cataract Left Eye PROCEDURE: YAG Capsulotomy, left eye SURGEON: Alfred Menard ANESTHESIA: Topical anesthesia COMPLICATIONS: None ESTIMATED BLOOD LOSS: Minimal DESCRIPTION OF PROCEDURE: After proper informed consent was obtained, the patient's, a 83 male left eye received one drop of Tropicamide and one drop of Tetracaine. The patient was then placed at the YAG laser and using a power of [ 3.2] millijoules and [ 11] bursts were used to fashion a central capsulotomy. The patient tolerated the procedure well without complications. ALFRED MENARD MD Dec 22, 2018 08:45 POS
--- OUTSIDE RECORDS SUMMARY | 2019-01-14 21:28 | XMS REPORT | Clinical Summary ---
Author Author [facility] POS Organization [facility] SP Address Unknown SP Phone Unavailable SP Care Team Providers Care Overlock Collar Setter Name Role Phone POS Cirilo Dewitt MD PCP SP Source Comments Some departments are not documenting in the electronic medical record. If you d o not see the information that you expected, contact Release of Information in [facility] Information Management department at [phone] for further assistan ce in locating additional records.[facility] Allergies Comments POS Active Allergy Reactions Severity Noted Date SP SP Patient reports when taking it "made illness worse" Sulfamethoxazole-Trimetho SEE COMMENTS Low 09/21 SP prim SP SP Put patient "in another world", Shaking and sweating. Diazepam SEE COMMENTS Low 2018 SP Medications End Date Status POS Medication Sig Dispensed Refills Start SP Date SP Active SP allopurinol (ZYLOPRIM) Take 100 mg 0 SP 100 mg tablet by mouth SP daily. Take SP with food. SP Active SP citalopram (CELEXA) 10 mg Take 10 mg by 0 SP tablet mouth daily. SP Active SP Magnesium 250 mg tab Take 1 tablet 0 SP by mouth SP daily. SP Active SP biotin 5,000 mcg TbDi Dissolve 1 0 SP tablet by SP mouth daily. SP Active SP Omeprazole (PRILOSEC) 20 Take 20 mg by 0 SP mg tablet mouth daily SP with SP breakfast. SP Active SP Carboxymethylcellulose Apply 1 drop 0 SP Sodium (REFRESH LIQUIGEL) to both eyes SP 1 % dlgl at bedtime SP daily. SP Active SP Carboxymethylcellulose Apply 1 drop 0 SP Sodium (REFRESH TEARS) to both eyes SP 0.5 % drop every 6 hours SP as needed. SP Active SP atorvastatin (LIPITOR) 80 Take one 30 tablet 1 SP mg tablet tablet by 9 SP mouth at SP bedtime SP daily. SP Active SP lisinopril-hydrochlorothi Take two 90 tablet 3 SP azide (PRINZIDE, tablets by 9 SP ZESTORETIC) 20-12.5 mg mouth every SP tablet morning. SP Additional SP information SP Patient SP taking SP differently: SP 1.5 tablet SP Oral EVERY SP MORNING, SP Reported on SP 11/08/2018 SP 10:06 AM SP Active SP aspirin EC 325 mg tablet Take one 90 tablet 3 0 SP tablet by 9 SP mouth daily. SP Take with SP food. SP Active SP tamsulosin (FLOMAX) 0.4 Take one 30 capsule 3 SP mg capsule capsule by 9 SP mouth daily SP after SP breakfast. Do SP not crush, SP chew or open SP capsules. SP Take 30 SP minutes SP following the SP same meal SP each day. SP Active SP finasteride (PROSCAR) 5 Take 5 mg by 0 SP mg tablet mouth daily. 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% (Primary SP 11/08/2018 Office Visit Neurosurgery SP Alessandro Santos MD SP 10/17/2018 Telephone Neurosurgery SP Alessandro Santos MD Surgical Followup SP 10/17/2018 Telephone Neurosurgery SP SP Shane Hutchinson DO Pendurthi, Aparna, MD Ebersole, Koji, MD Stroke (HCC) SP 10/08/2018 Hospital SP - Encounter SP 10/16/2018 SP from Last 3 Months Social History Date POS Tobacco Use Types Packs/Day Years Used SP Quit: 1961 SP Former Smoker Cigarettes SP Smokeless Tobacco: Never SP Used SP Sex Assigned at Date Recorded SP Not on file SP Industry POS Job Start Date Occupation SP Not on file SP Not on file Not on file SP Travel End POS Travel History Travel Start SP No recent travel history available. SP Last Filed Vital Signs Reading Time Taken Comments POS Vital Sign SP 124/67 11/08/2018 9:59 AM CDT SP Blood Pressure SP 58 11/08/2018 9:59 AM CDT SP Pulse SP 37.1 C (98.8 F) 10/16/2018 8:17 AM CDT SP Temperature SP - - SP Respiratory Rate SP 94% 10/16/2018 8:17 AM CDT SP Oxygen Saturation SP - - SP Inhaled Oxygen SP Concentration SP 87.1 kg (192 lb) 11/08/2018 9:59 AM CDT SP Weight SP 175.3 cm (5' 9.02") 10/13/2018 6:00 AM CDT SP Height SP 28.34 10/13/2018 6:00 AM CDT SP Body Mass Index SP Plan of Treatment Health Maintenance Due Date Last Done Comments POS MEDICARE ANNUAL WELLNESS 1935 SP VISIT SP DTAP/TDAP VACCINES (1 - 10/10/1955 SP Tdap) SP PHYSICAL (COMPREHENSIVE) 10/10/1955 SP EXAM SP SHINGLES RECOMBINANT 10/10/1987 SP VACCINE (1 of 2) SP PNEUMONIA (PCV13/PPSV23) 2002 SP VACCINES (1 of 2 - PCV13) SP INFLUENZA VACCINE 09/21/2018 SP Goals Goal Patient Associated Recent Progress Patient-Stat Aut hor POS Goal Type Problems ed? SP GOAL General Yes Radha Bañuelos SP RN SP Note: SP "To stay as healthy as I can SP and as active as I should" SP Implants Device Identifier Shelf Expiration Date Model / Serial / L ot POS Implanted Type Area Manufactur SP er SP 03/23/2020 [id number] (1) / SP [id number] / SP [id number] SP Patch Vascular 75x8x.41mm Hemagard Right: Carotid GE TINGE SP Carotid Bovine Type I - [id number] Artery [facility] SP Implanted: Qty: 1 on 10/13/2018 by [employer] Alessandro Santos MD at [facility] SP Procedures Comments POS Procedure Name Priority Date/Time Associated Diag nosis SP SP IONIZED CALCIUM Routine 10/16/2018 SP 4:55 AM CDT SP SP PHOSPHORUS Routine 10/16/2018 SP 4:55 AM CDT SP SP MAGNESIUM Routine 10/16/2018 SP 4:55 AM CDT SP SP BASIC METABOLIC PANEL Routine 10/16/2018 SP 4:55 AM CDT SP SP CBC Routine 10/16/2018 SP 4:55 AM CDT SP SP IONIZED CALCIUM STAT 10/15/2018 SP 2:36 AM CDT SP SP PHOSPHORUS STAT 10/15/2018 SP 2:36 AM CDT SP SP MAGNESIUM Routine 10/15/2018 SP 2:36 AM CDT SP SP BASIC METABOLIC PANEL STAT 10/15/2018 SP 2:36 AM CDT SP SP CBC STAT 10/15/2018 SP 2:36 AM CDT SP SP IONIZED CALCIUM STAT 10/14/2018 SP 8:06 AM CDT SP SP PHOSPHORUS STAT 10/14/2018 SP 8:00 AM CDT SP SP MAGNESIUM Routine 10/14/2018 SP 8:00 AM CDT SP SP BASIC METABOLIC PANEL STAT 10/14/2018 SP 8:00 AM CDT SP SP CBC STAT 10/14/2018 SP 8:00 AM CDT SP from Last 3 Months Results * CBC (10/16/2018 4:55 AM CDT) Only the most recent of 3 results within the time period is included. Pathologist POS Signature SP White Blood 7.0 4.5 - 11.0 K/UL [facility] SP Cells SP RBC 3.67 (L) 4.4 - 5.5 M/UL [facility] SP Hemoglobin 11.6 (L) 13.5 - 16.5 GM/DL [facility] SP Hematocrit 34.9 (L) 40 - 50 % [facility] SP MCV 94.9 80 - 100 FL [facility] SP MCH 31.7 26 - 34 PG [facility] SP MCHC 33.4 32.0 - 36.0 G/DL [facility] SP RDW 16.8 (H) 11 - 15 % [facility] SP Platelet Count 227 150 - 400 K/UL [facility] SP MPV 7.0 7 - 11 FL [facility] SP Specimen SP Blood SP Performing Organization Address [facility] Ph one Number SP [facility] [address] [place] [address] SP * PHOSPHORUS (10/16/2018 4:55 AM CDT) Only the most recent of 3 results within the time period is included. Pathologist SP Signature SP Phosphorus 2.4Comment: NOTE NEW REFERENCE 2.0 - 4.5 MG/DL [facility] SP RANGES SP Specimen SP Blood SP Performing Organization Address [facility] Ph one Number SP [facility] [address] [place] [address] SP * MAGNESIUM (10/16/2018 4:55 AM CDT) Only the most recent of 3 results within the time period is included. Pathologist SP Signature SP Magnesium 2.0 1.6 - 2.6 mg/dL [facility] SP Specimen SP Blood SP Performing Organization Address [facility] Ph one Number SP [facility] [address] [place] [address] SP * IONIZED CALCIUM (10/16/2018 4:55 AM CDT) Only the most recent of 3 results within the time period is included. Pathologist SP Signature SP Ionized Calcium 1.14 1.0 - 1.3 MMOL/L [facility] SP Specimen SP Blood SP Performing Organization Address [facility] one Number SP [facility] [address] [place] [id number] SP * BASIC METABOLIC PANEL (10/16/2018 4:55 AM CDT) Only the most recent of 3 results within the time period is included. Pathologist SP Signature SP Sodium 137 137 - 147 MMOL/L [facility] SP Potassium 3.8 3.5 - 5.1 MMOL/L [facility] SP Chloride 103 98 - 110 MMOL/L [facility] SP CO2 28 21 - 30 MMOL/L [facility] SP Anion Gap 6 3 - 12 [facility] SP Glucose 114 (H) 70 - 100 MG/DL [facility] SP Blood Urea 9 7 - 25 MG/DL [facility] SP Nitrogen SP Creatinine 0.89 0.4 - 1.24 MG/DL [facility] SP Calcium 8.8 8.5 - 10.6 MG/DL [facility] SP eGFR Non >60 >60 mL/min [facility] SP Comment: SP Ukrainian The eGFR is not validated f or SP use in drug dosing SP adjustments.Continue to SP use SP estimated creatinine SP clearance per dosing reference SP text.Please contact the SP Clinical Pharmacist for SP questions. SP eGFR >60 >60 mL/min [facility] SP Ukrainian Comment: SP The eGFR is not validated for SP use in drug dosing SP adjustments.Continue to SP use SP estimated creatinine SP clearance per dosing reference SP text.Please contact the SP Clinical Pharmacist for SP questions. SP Specimen SP Blood SP Performing Organization Address City/State/Zipcode Ph one Number SP [facility] [address] [place] [address] SP from Last 3 Months Insurance Type POS Payer Benefit Subscriber ID Effective Phone Address SP Plan / Dates SP Group SP Medicare SP MEDICARE MEDICARE xxxxxxxxxxx 2002-P SP PART A AND resent SP B SP Medicare SP BCBS OMAR BCBS xxxxxxxxxxxx 2018-P SP SUPPLEMENT resent SP -[id number] SP Advance Directives Patient Staff Design Engineer Explanation POS Type Date Recorded SP SP Advance 2018 6:48 AM SP Directive/DPOA SP Date Inactivated Comments POS Code Status Date Activated SP 10/16/2018 1:38 PM SP Full Code 10/08/2018 9:25 PM SP Provider has discussed Code Status No, more discussi on SP w/Patient or Family? needed SP
--- OUTSIDE RECORDS SUMMARY | 2019-01-14 21:28 | XMS REPORT | Encounter Summary ---
Author Author [facility] POS Organization [facility] SP Address Unknown SP Phone Unavailable SP Care Team Providers Care Training Developer Name Role Phone POS Cirilo Dewitt MD PCP SP Reason for Visit * Reason Comments POS Surgical Followup SP Encounter Details Care Team Description POS Date Type Department SP SP Alessandro Reyes MD [address] Ortho/[facility] [place] Lvl [address] [place] [address] Surgical Followup SP 10/17/2018 Telephone [facility] SP [address] SP Level [address] [place] [phone] SP [phone] SP Social History Date POS Tobacco Use Types [...] SP No recent travel history available. SP documented as of this encounter Functional Status Date of Assessment POS Functional Status Response SP 2018 SP Does the patient have a hearing impairment: Yes SP documented as of this encounter Plan of Treatment Not on filedocumented as of this encounter Goals Goal Patient Associated Recent Progress Patient-Stat Aut hor POS Goal Type Problems ed? SP GOAL General Yes Radha Bañuelos SP RN SP Note: SP "To stay as healthy as I can SP and as active as I should" SP documented as of this encounter Visit Diagnoses Not on filedocumented in this encounter
--- OUTSIDE RECORDS SUMMARY | 2019-01-14 21:28 | XMS REPORT | Encounter Summary ---
Author Author [facility] POS Organization [facility] SP Address Unknown SP Phone Unavailable SP Care Team Providers Care Shirt Sewer Name Role Phone POS Cirilo Dewitt MD PCP SP Encounter Details Care Team Description POS Date Type Department SP SP Alessandro Reyes MD [address] Ortho[facility]Med [facility] [address]vl [address] [place] [address] SP 10/17/2018 Telephone [facility] SP [address] SP Level 2 [place] [phone] SP [phone] SP Social History Date POS Tobacco Use [...] Yes SP documented as of this encounter Miscellaneous Notes * Telephone Encounter - Betzaida Roy RN - 10/17/2018 1:12 PM CDT Ld returned my phone call, is pleased to say he is doing "just fine" since r eturning home yesterday. He states he had 1 episode of his face feeling hot, li ke his BP was up, only lasted a few minutes but had 30 minutes of nausea afterwa rd. His checked BP and it was fine. He has no questions regarding dischar ge paperwork or recommendations. He states his incision looks fine, no swelling or difficulty swallowing/breathing reported. He is taking it easy until Thursd ay, he will see his PCP regarding voiding trial to d/c hopper catheter. Appointm ents and clinic number provided to patient for future needs. Betzaida Roy RN Clinical Nurse Coordinator Neurosurgery Office: [phone] documented in this encounter Plan of Treatment Not on [...]
--- OUTSIDE RECORDS SUMMARY | 2019-01-14 21:28 | XMS REPORT | Encounter Summary ---
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 SP documented as of this encounter Last Filed Vital Signs Reading Time Taken Comments POS Vital Sign SP 124/67 11/08/2018 9:59 AM CDT SP Blood Pressure SP 58 11/08/2018 9:59 AM CDT SP Pulse SP - - SP Temperature SP - - SP Respiratory Rate SP - - SP Oxygen Saturation SP - - SP Inhaled Oxygen SP Concentration SP 87.1 kg (192 lb) 11/08/2018 9:59 AM CDT SP Weight SP - - SP Height SP 28.34 10/13/2018 6:00 AM CDT SP Body Mass Index SP documented in this encounter Functional Status Date of Assessment POS Functional Status Response SP 2018 SP Does the patient have a hearing impairment: Yes SP documented as of this encounter Progress Notes * Alessandro Reyes MD - 11/08/2018 11:15 AM CDT s/p CEA after stroke right hemisphere. Fortunately stroke symptoms were quite mild and excellent clinical recovery has followed. There has been no new neurologic events. Tolerated CEA without substantial lan, although he reports frustration with h is energy level and aches and pains. Incision well healed. On ASA 325mg daily and medical mgmt for stroke prevention. Carotid US 3-6 months. Please feel free to contact me with any concern regarding the neurosurgical [place] gement of this patient. Dictated but not read. I spent 15 minutes on the care of this patient, over half in direct consultation . * Florence Montejo - 11/08/2018 11:15 AM CDT Ld returns to the clinic for a post operative FUV. No new imaging was ordere d for today's exam. He is s/p RIGHT INTERNAL CAROTID ENDARTERECTOMY (Right) with patch graft on 10/13/18. Incision is C/D/I without redness, swelling, or drainag e. Edges are well approximated. He reports that he is feeling well and has no sp ecific NS complaints. documented in this encounter Miscellaneous Notes * Addendum Note - Florence Montejo - 11/08/2018 11:15 AM CDT Addended by: FLORENCE MONTEJO on: 11/08/2018 10:40 AM Modules accepted: Orders documented in this encounter Plan of Treatment Order Schedule POS Name Type Priority Associated Diag noses SP Expected: 11/08/2018 (Approximate), Expi res: 11/09/2019 SP US DUPLEX SCAN CAROTID Imaging Routine Stenosi s of right carotid SP BILATERAL artery greater than 50% SP documented as of this encounter Goals Goal Patient Associated Recent Progress Patient-Stat Aut hor POS Goal Type Problems ed? SP GOAL General Yes Radha Bañuelos, SP RN SP Note: SP "To stay as healthy as I can SP and as active as I should" SP documented as of this encounter Visit Diagnoses Diagnosis POS Stenosis of right carotid artery greate r than 50% - Primary SP documented in this encounter
--- OUTSIDE RECORDS SUMMARY | 2019-01-14 21:30 | XMS REPORT | Encounter Summary ---
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 Name Role Phone POS Cirilo Dewitt MD PCP SP Reason for Visit * Auth/Cert Referred By Contact Referred To Contact POS Status Reason Specialty Diagnoses / SP Procedures SP SP SP Diagnoses SP Stroke (HCC) SP Stroke SP Encounter Details Care Team Description POS Date Type Department SP SP Shane Hutchinson DO [address] [place] [address] [phone] Barbara Jenkins MD [address] [place] [address] [phone] Alessandro Reyes MD [address] [facility] Ortho/Med Pavilion [address] [place] [address] [phone] Stroke (HCC) SP 10/08/2018 [facility] SP - Encounter Health System SP 10/16/2018 [address] [place] [address] SP [phone] SP Social History Date POS Tobacco Use [...] Time Taken Comments POS Vital Sign SP 110/59 10/16/2018 9:42 AM CDT SP Blood Pressure SP 77 10/16/2018 9:42 AM CDT SP Pulse SP 37.1 C (98.8 F) 10/16/2018 8:17 AM CDT SP Temperature SP - - SP Respiratory Rate SP 94% 10/16/2018 8:17 AM CDT SP Oxygen Saturation SP - - SP Inhaled Oxygen SP Concentration SP 88 kg (194 lb) 10/13/2018 6:00 AM CDT SP Weight SP 175.3 cm (5' 9.02") 10/13/2018 6:00 AM CDT SP Height SP 28.64 10/13/2018 6:00 AM CDT SP Body Mass Index SP documented in this encounter Functional Status Date of Assessment POS Functional Status Response SP 2018 SP Does the patient have a hearing impairment: Yes SP documented as of this encounter Discharge Summaries * Juliann Diallo APRN - 10/16/2018 11:38 AM CDT Physician Discharge Summary Name: Ld Del Toro Date Of : 1935 Age: 82 years Admit date: 10/08/2018 Discharge date: 10/16/2018 Attending Physician: Alessandro Reyes MD Service: Surgery-Neuro Physician Summary completed by: Juliann Diallo APRN Reason for hospitalization: Carotid stenosis Significant PMH: Medical History: Diagnosis Date Anxiety CVA (cerebral vascular accident) (HCC) DM (diabetes mellitus) (HCC) GERD (gastroesophageal reflux disease) HLD (hyperlipidemia) HTN (hypertension) Allergies: Bactrim [sulfamethoxazole-trimethoprim] and Valium [diazepam] Admission Physical Exam notable for: 83yo M w/ PMH HTN, HLD who presents as transfer from OSH with acute onset L side d weakness, L facial droop which rapidly improved (NIHSS 5 initially). CTA perfo rmed at OSH notable for severe carotid artery stenosis (~90% stenosis) so pt was transferred to [facility] for observation and possible neurosurgical intervention. NI HSS on admission 1 for L facial droop. No new imaging was obtained on arrival du e to stable neurologic examination. 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 Admission Lab/Radiology studies notable for: CTA head Brief Hospital Course: The patient was admitted and the following issues were a ddressed during this hospitalization: (with pertinent details). Admitted to hospital by Neurology stroke team 10/08/18. Neurosurgery consulted fo r possible CEA, he was seen in consultation and found to be an appropriate vishal date for surgery. He had resolution of his symptoms upon arrival for admission. OR 10/13/18 Right internal carotid endarterectomy, intraoperatively hemovac drain placed. Drain was removed POD 2 without issue. Patient worked with PT/OT and de monstrated a return to his baseline level of function. Incision remained C/D/I w ithout redness or drainage throughout admission. POD 1 patient experienced urina ry rentention, he was difficult to straight cath, decision made to replace johnson . Nursing staff experienced physical resistance and Urology came to bedside to a ssist, 20FCoude johnson placed. Nurse case management assist with coordinating fol ey prime and pull and voiding trial with the patient's primary care provider-Dr. Hill. Detailed discharge instructions provided to patient and family, all que stions answered. Discharge to home 10/16/18. 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 Moving around can help prevent blood clots, lung infection (pneumonia) an d other problems. Gradually increasing the number of times you are up moving ar ound will help you return to your normal activity level more quickly. Continue to increase the number of times you are up to the chair and walking daily to ret urn to your normal activity level. Begin to work toward your normal activity lev el at discharge. As tolerated; No driving until cleared by your surgeon at [facility] w up appointment. Avoid pulling, pushing or lifting greater than 10 pounds. Stroke Information F.A.S.T. is an easy way to remember the sudden signs of a stroke. F - face drooping A - arm weakness S - speech difficulty T - TIME TO CALL 911 If the person shows any of theses signs, even if the signs go away, call 10-22- I MMEDIATELY. Check the time so you will know when the first sign started. Traits and lifestyle habits that increase your risk for stroke include prior str hector/TIA, age, gender, heredity/race, high blood pressure, carotid or other arter y disease and high cholesterol. Continue your medications as ordered after discharge. These medications will hel p reduce your risk of another stroke. Your most recent cholesterol levels, if taken during your stay, will display bel ow. LDL is called "bad" cholesterol because it can stick to your artery collins an d block blood flow. Your LDL should be below 100. HDL is called the "good" bia sterol. Your HDL should be greater than 40. Your lab results on 2018: HDL 32 MG/DL* (Ref range: >40 MG/DL); LDL 78 MG/DL (Ref range: <100 MG/DL). It is important that you follow-up with your primary care physician 4 to 6 weeks after discharge. Be sure to keep all follow-up appointments. Please bring your discharge instructions with you to your follow-up appointments. Should you have any questions once you have returned home, please feel free to c justinoact the Recycling Attendant at [phone]. Your last blood pressure was BP: 110/59, Your target blood pressure is less than 140/88 If you have diabetes, even if treated, you are at an increased risk of stroke. Many people with diabetes also have high blood pressure, high cholesterol or are overweight. This increases your risk even more. Smoking doubles your risk of stroke. Quitting can greatly reduce your risk. Fo griffin more information on smoking cessation call or visit www.smokefr ee.gov. Report These Signs and Symptoms Please contact your doctor if you have any of the following symptoms: Call if t emperature greater than 101, incision red, drainage or odor noted from incision, pain that is uncontrolled with pain medication, numbness or weakness, vision ch anges, trouble with speech or slurring of speech, or any questions/concerns. Questions About Your Stay For questions or concerns regarding your hospital stay, call [phone]. Discharging attending physician: ALESSANDRO REYES [[id number]] Regular Diet You have no dietary restriction. Please continue with a healthy balanced diet. Incision Care *Keep your incision clean and dry. *May get incision wet, gently wash and pat dry. Keep incision out of the main st ream of the shower water. *Do not submerge incision in tub, pool, hot tub, or gamez for 6 weeks. *Your incision should gradually look better each day. If you notice unusual swel ling, redness, drainage, have increasing pain at the site, or have a fever great er than 100 degrees, notify your physician immediately. Current Discharge Medication List START taking these medications Details aspirin EC 325 mg tablet Take one tablet by mouth daily. Take with food. Qty: 90 tablet, Refills: 3 PRESCRIPTION TYPE: Normal HYDROcodone/acetaminophen (NORCO) 5/325 mg tablet Take one tablet to two tablets by mouth every 6 hours as needed Qty: 15 tablet, Refills: 0 PRESCRIPTION TYPE: Print tamsulosin (FLOMAX) 0.4 mg capsule Take one capsule by mouth daily after breakfa st. Do not crush, chew or open capsules. Take 30 minutes following the same meal each day. Qty: 30 capsule, Refills: 3 PRESCRIPTION TYPE: Normal CONTINUE these medications which have been CHANGED or REFILLED Details atorvastatin (LIPITOR) 80 mg tablet Take one tablet by mouth at bedtime daily. Qty: 30 tablet, Refills: 1 PRESCRIPTION TYPE: Normal lisinopril-hydrochlorothiazide (PRINZIDE, ZESTORETIC) 20-12.5 mg tablet Take two tablets by mouth every morning. Qty: 90 tablet, Refills: 3 PRESCRIPTION TYPE: Normal CONTINUE these medications which have NOT CHANGED Details allopurinol (ZYLOPRIM) 100 mg tablet Take 100 mg by mouth daily. Take with food. PRESCRIPTION TYPE: Historical Med biotin 5,000 mcg TbDi Dissolve 1 tablet by mouth daily. PRESCRIPTION TYPE: Historical Med Carboxymethylcellulose Sodium (REFRESH LIQUIGEL) 1 % dlgl Apply 1 drop to both e yes at bedtime daily. PRESCRIPTION TYPE: Historical Med Carboxymethylcellulose Sodium (REFRESH TEARS) 0.5 % drop Apply 1 drop to both ey es every 6 hours as needed. PRESCRIPTION TYPE: Historical Med citalopram (CELEXA) 10 mg tablet Take 10 mg by mouth daily. PRESCRIPTION TYPE: Historical Med Magnesium 250 mg tab Take 1 tablet by mouth daily. PRESCRIPTION TYPE: Historical Med Omeprazole (PRILOSEC) 20 mg tablet Take 20 mg by mouth daily with breakfast. PRESCRIPTION TYPE: Historical Med Scheduled appointments: Nov 08, 2018 11:15 AM CDT Post - Op with Alessandro Reyes MD [facility] (NeuroSurgery) [address] [place] [address] [phone] Additional appointment instructions: You have an appointment with your primary care physician on , 10/19/18, a t 1015, to have your urinary catheter removed: Also discuss need for cervical MRI to work up your symptoms of bilateral finger numbness and clumsiness. Recommend you continue with the flomax you are being sent home on as you relayed urinary difficulties prior to admission Your lisinopril/hctz was increased during this admission to 2 tabs daily- if you blood pressure is improved at home, or low, please return to your prior to hosp ital dose. Please follow up with Dr. Dewitt of these changes. Dr. Cirilo Dewitt [phone] Pending items needing follow up: none. Signed: Juliann Diallo APRN 10/17/2018 cc: Primary Care Physician: Cirilo Dewitt Verified Referring physicians: Sivakumar Cantu MD Additional provider(s): documented in this encounter Discharge Instructions * Appointments* Juliann Diallo APRN - 10/16/2018 8:21 AM CDT You have an appointment with your primary care physician on , 10/19/18, a t 1015, to have your urinary catheter removed: Also discuss need for cervical MRI to work up your symptoms of bilateral finger numbness and clumsiness. Recommend you continue with the flomax you are being sent home on as you relayed urinary difficulties prior to admission Your lisinopril/hctz was increased during this admission to 2 tabs daily- if you blood pressure is improved at home, or low, please return to your prior to hosp ital dose. Please follow up with Dr. Dewitt of these changes. Dr. Cirilo Dewitt [phone] * Additional Instructions* Betzaida Roy RN - 10/13/2018 3:10 PM CDT Ld Del Toro Right Internal Carotid Endarterectomy with Patch graft on 10/13/[address] Finesse larkin Neurosurgery Discharge Instructions Contact information: ? Please feel free to call Neurosurgery at any time if you have questions or are experiencing problems at discharge [phone]. Post-operative wound care: ? Your incision has dissolvable sutures and glue in place. This can be open to a ir. ? Use baby shampoo to gently cleanse incision daily, pat dry, leave open to air. ? Do not submerge (pool/tub) for 4 weeks. ? Bruising and swelling are normal at incision site. ? Please only touch your incision with clean, dry hands. Activity restrictions: ? Avoid pushing, pulling, lifting or bending more than 10 pounds (about a gallon of milk) until follow up. This includes excessive bending, stooping, or stair climbing for 2 days. ? Do NOT drive if you are taking pain medications or vision is not normal. Post-operative pain and medications: ? Please use your pain medications as prescribed. ? Pain medications can make you constipated. You may take a stool softener with miralax. ? Do NOT take Ibuprofen or NSAIDS until your follow your appointment. ? Take your Aspirin daily, do not miss a dose ? *Please ensure that you are drinking 2 Liters of non-caffeinated beverages jes day* Follow up appointment: ? 11/08/18 @ 11:[address] Reyes for surgical follow up. ? Please update your primary care physician of your surgery and any medication c hanges. Please contact Neurosurgery if you develop any of the following: ? Numbness, abnormal sensations of your face, arms or legs, especially on one si de. These are signs of stroke. Act FAST: Facial droop, Arm weakness, Speech slu rred=Time Call 911, seek immediate medical attention at nearest ER facility. ? Fever 101 or greater. Redness, swelling, continuous oozing, fluid collection, warmth or bad odor near the incision site. ? Difficulty breathing or difficulty swallowing. documented in this encounter Medications at Time of Discharge Start Date End Date POS Medication Sig Dispensed Refills SP SP allopurinol (ZYLOPRIM) Take 100 mg 0 SP 100 mg tablet by mouth SP daily. Take SP with food. SP 10/17/2018 SP aspirin EC 325 mg tablet Take one 90 tablet 3 SP tablet by SP mouth daily. SP Take with SP food. SP 10/16/2018 SP atorvastatin (LIPITOR) 80 Take one 30 tablet 1 SP mg tablet tablet by SP mouth at SP bedtime SP daily. SP SP biotin 5,000 mcg TbDi Dissolve 1 0 SP tablet by SP mouth daily. SP SP Carboxymethylcellulose Apply 1 drop 0 SP Sodium (REFRESH LIQUIGEL) to both eyes SP 1 % dlgl at bedtime SP daily. SP SP Carboxymethylcellulose Apply 1 drop 0 SP Sodium (REFRESH TEARS) to both eyes SP 0.5 % drop every 6 hours SP as needed. SP SP citalopram (CELEXA) 10 mg Take 10 mg by 0 SP tablet mouth daily. SP 10/16/2018 SP lisinopril-hydrochlorothi Take two 90 tablet 3 SP azide (PRINZIDE, tablets by SP ZESTORETIC) 20-12.5 mg mouth every SP tablet morning. SP SP Magnesium 250 mg tab Take 1 tablet 0 SP by mouth SP daily. SP SP Omeprazole (PRILOSEC) 20 Take 20 mg by 0 SP mg tablet mouth daily SP with SP breakfast. SP 10/17/2018 SP tamsulosin (FLOMAX) 0.4 Take one 30 capsule 3 SP mg capsule capsule by SP mouth daily SP after SP breakfast. Do SP not crush, SP chew or open SP capsules. SP Take 30 SP minutes SP following the SP same meal SP each day. SP 10/16/2018 11/08/2018 SP HYDROcodone/acetaminophen Take one 15 tablet 0 SP (NORCO) 5/325 mg tablet tablet to two SP tablets by SP mouth every 6 SP hours as SP needed SP documented as of this encounter Progress Notes * Michelle Shafer RN - 10/16/2018 11:38 AM CDT I have reviewed the notes, assessment, and/or procedures performed by ANAID Lugo and concur with her/his documentation unless otherwise noted. * Brittney Prescott RN - 10/16/2018 11:30 AM CDT RN educated patient on activity, diet, medications, and signs and symptoms to [facility] out for. Patient has been educated on johnson catheter care. Patient verbalize d understanding/signed discharge paperwork. All of the patients questions/concer ns have been addressed and answered. PIV removed without complication. RX given to patient. Patinet has all belongings. Patient left via wheelchair. * Juliann Diallo APRN - 10/16/2018 7:49 AM CDT Neurosurgery Progress Note Admission Date: 10/08/2018 LOS: 8 days S: and daughter at bedside, discussed plan for home today. Voiding trial wi th their PCP discussed. They were with several primary care questions, upon disc ussion has been having difficult time getting stream started for some time with weak stream and low output requiring several ongoing attempts to void. Also ment ions numbness in finger tips, and at times dropping items. 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 Otherwise, doing well and feels ready for discharge. O: Vital Signs: 24 Hour Range BP: (112-169)/(61-84) Temp: [36.6 C (97.8 F)-37.1 C (98.8 F)] Pulse: [74-95] Respirations: [14 PER MINUTE-19 PER MINUTE] SpO2: [92 %-98 %] Physical Exam: Alert and oriented Moving all 4 5/5 Incision CDI no evidence of hematoma -dressing at old drain site removed. A/P: 83 y.o. male Active Problems: Stroke (HCC) OR 10/13 for R CEA Regular diet Normalize BP goals, slightl elevation of blood pressure, dose increased this AM. Education provided to patient and , who checks his blood pressure regularly, discussed follow up with PCP. Also discussed if blood pressure becomes to low at home to reduce to LIC[employer] HEALTH AGENT dosing. Continue johnson. Nursing to provide education prior to dc. Home today Please call [phone] with any questions. Juliann Diallo APRN [id number] or Voalte * Shantelle Martinez RN - 10/15/2018 2:10 PM CDT Patient arrived to room #7101 via wheelchair accompanied by ICU nursing staff. P atient transferred to the chair without assistance. Bedside safety checks comple robbie. Initial patient assessment completed. Refer to flowsheet for details. Admission skin assessment completed with: ANAID Dexter Pressure injury present on arrival?: No 1. Head/Face/Neck: No 2. Trunk/Back: No 3. Upper Extremities: No 4. Lower Extremities: No 5. Pelvic/Coccyx: No 6. Assessed for device associated injury? Yes 7. Malnutrition Screening Tool (Nursing Nutrition Assessment) Completed? Yes See Doc Flowsheet for additional wound details. INTERVENTIONS: None * Dawit Gill MD - 10/15/2018 11:16 AM CDT Neurosurgery Progress Note Admission Date: 10/08/2018 LOS: 7 days S: Patient require replacement of johnson cathter yesterday. Discussed need for pa tient to have BM and cathter removal plan for when patient returns to [place]. Lengthy discussion but patient ultimately agreeable. O: Vital Signs: 24 Hour Range BP: (105-173)/(57-92) Temp: [36.7 C (98.1 F)-36.9 C (98.5 F)] Pulse: [56-80] Respirations: [10 PER MINUTE-24 PER MINUTE] SpO2: [80 %-97 %] Physical Exam: Alert and oriented Moving all 4 5/5 Subjective numbness in the 4th and 5th digits on the right - improved Incision CDI no evidence of hematoma - drain output serosanguenous and minimal A/P: 83 y.o. male Active Problems: Stroke (HCC) OR 10/13 for R CEA Regular diet Normalize BP goals Floor status likely dc tomorrow with johnson plan Speech seen with clearance for regular thins with swallow guidance Please call [phone] with any questions. Dawit Gill MD Pager or Voalte * Sumit Burr RN - 10/14/2018 7:10 PM CDT RN attempted johnson insertion at 1800 due to urinary retention. RN met resistance with ghada red blood in the tube. RN notified Nolan Chaves of Neuro surgery and ordered a coudet catheter to retry insertion. RN was unsuccessful with second cathter insertion attempt and notified Dr.s Hima lewis. Urology was consulted. RN is continuing to monitor. * Dawit Hunt, MARK - 10/14/2018 1:37 PM CDT PHYSICAL THERAPY RE-ASSESSMENT MOBILITY: Progressive Mobility Level: Walk laps Distance Walked (feet): 225 ft Level of Assistance: Assist X1 Assistive Device: None Time Tolerated: 11-30 minutes Activity Limited By: Fatigue SUBJECTIVE: Significant hospital events: 83yo M w/ PMH HTN, HLD who presents as transfer fro m OSH with acute onset L sided weakness, L facial droop which rapidly improved ( NIHSS 5 initially). CTA performed at OSH notable for severe carotid artery steno sis (~90% stenosis). s/p CEA 10/13 Mental / Cognitive Status: Alert;Oriented;Cooperative Pain: Patient has no complaint of pain Ambulation Assist: Independent Mobility in Community without Device Patient Owned Equipment: None Home Situation: Lives with Family Type of Home: House Entry Stairs: 3-5 Stairs;Rail on 1 Side In-Home Stairs: No Stairs Comments: Pt denies any recent falls. Pt reports he does get lightheaded when st anding and has to do so slowly. Pt reports he is otherwise very active at [facility] and likes to work around the home and do yardwork. ROM: ROM Position Assessed: Seated ROM Method: Active LE ROM: WFL STRENGTH: R LE WNL: Yes L LE WNL: Yes Strength Comment: 06/25 bilaterally POSTURE/NEURO: Head Control: Independent Posture: No Postural Deviations LLE Sensation/Proprioception: No Deficits Noted RLE Sensation/Proprioception: No Deficits Noted BED MOBILITY/TRANSFERS: Comments: Pt in bedside chair at beginning and end of session. Transfer Type: Sit to/from Stand Transfer: Assistance Level: Standby Assist;To/From;Bed Side Chair Transfer: Assistive Device: None Transfers: Type Of Assistance: For Safety Considerations End Of Activity Status: Up in Chair;Nursing Notified;Instructed Patient to Reque st Assist with Mobility;Instructed Patient to Use Call Light(bed alarm on) Comments: Pt denies dizziness with transfers. BALANCE: Standing Balance: Dynamic Standing Balance;Standby Assist;No UE support GAIT: Gait Distance: 225 feet Gait: Assistance Level: Minimal Assist(Contact guard assist) Gait: Assistive Device: None Gait: Descriptors: Pace: Normal;Swing-Through Gait;No balance loss;Pathway devia tions Comments: Pt ambulates in [place] with contact guard assist. Swing through gait pat tern with slight unsteadiness but no balance loss noted. Pt able to perform head turns with slowed gait but with no loss of balance. Pt denies dizziness or ligh theadedness throughout. Pt requires minimal verbal cues for pathfinding and redi recting patient to task (pt stated he was going to ambulate to bathroom then sta rted to walk toward the door to room, RN notified and aware). Activity Limited By: Complaint of Fatigue EDUCATION: Persons Educated: Patient Patient Barriers To Learning: None Noted Teaching Methods: Verbal Instruction Patient Response: Verbalized Understanding Topics: Plan/Goals of PT Interventions;Mobility Progression;Up with Assist Only; Importance of Increasing Activity;Ambulate With Nursing;Equipment Recommendation s;Recommend Continued Therapy;Therapy Schedule ASSESSMENT/PROGRESS: Impaired Mobility Due To: Decreased Activity Tolerance;Deconditioning Assessment/Progress: Should Improve w/ Continued PT Comments: Pt limited by decreased muscular endurance, fatigue. Pt will benefit f rom continued skilled therapy to progress endurance. Turning from your back to your side while in a flat bed without using bed rails: None Moving from lying on your back to sitting on the side of a flatbed without using bedrails : None Moving to and from a bed to a chair (including a wheelchair): A Little Standing up from a chair using your arms (e.g. wheelchair, or bedside chair): A Little To walk in hospital room: A Little Climbing 3-5 steps with a railing: A Little Raw Score: 20 Standardized (T-scale) Score: 43.99 Basic Mobility CMS 0-100%: 33.32 CMS G Code Modifier for Basic Mobility: CJ GOALS: Goal Formulation: With Patient/Family Time For Goal Achievement: 3 days Patient Will Go Supine To/From Sit: Independently Patient Will Ambulate: Greater than 200 Feet, w/ No Device, Independently Patient Will Go Up / Down Stairs: 1-2 Flights, Independently PLAN: Treatment Interventions: Mobility Training;Endurance Training Plan Frequency: 3-5 Days per Week PT Plan for Next Visit: Progress ambulation distance, functional gait assessment , dual tasking RECOMMENDATIONS: Recommendation: Home with consistent supervision/assistance Recommendation for Therapy Post Discharge: Home health Patient Currently Requires Supervision For: Mobility Patient Currently Requires Equipment: None Therapist: Dawit Hunt PT, DPT Date: 10/14/2018 * Sumit Burr RN - 10/14/2018 12:01 PM CDT pt retaining 315 ml of urine after voiding 150 at this time. verbal orders given to bladder scan/straight cath in one hour per Jose Fay. RN will continue to monitor. * Sumit Burr RN - 10/14/2018 12:00 PM CDT pt was getting back to his chair after urination at 1145 and stated, "my arm fee ls weak and numb just like when I had the stroke." RN asked the pt to smile. pt more dramatic left sided facial droop than observed at baseline. pt also present ed with drift in his left upper extremity. Neuro ICU and Neuro surgery were page d. pt's BP was 171/78. Upon re-assessment symptoms seemed to have resolved with an NIH of 0. RN will co ntinue to monitor pt especially when urinating for vasovagal response. * Kellen Pena MA,CCC-ASSISTANT KITCHEN MANAGER - 10/14/2018 10:50 AM CDT SPEECH-LANGUAGE PATHOLOGY CLINICAL SWALLOW ASSESSMENT EVALUATION SUMMARY Functional oropharyngeal swallow appreciated this date w/ no overt clinical s/s of aspiration noted w/ any solids or thin liquids this date. Pt does report he has episode of coughing earlier where he felt like he had thick secretions he h ad difficulty clearing, but denies specific globus sensation or difficulty w/ fo ods or liquids. Pt reports that this is the only instance of this, and denies ot her difficulty w/ mucous. Provided instruction to contact physician if he feels like he begins to have coughing or globus sensation w/ PO. Additionally, pt and instructed to let dr know if pain when swallowing worsens. Pt and voic ed understanding. No concerns voiced for changes in cognition or speech/langauge skills at this time. Swallow Recommendations* PO: Regular, Thin Liquids Swallow Strategies: Small Bites/Sips, Slow Rate of Intake, Alternate Solids and Liquids, up in chair for meals Medications by mouth as tolerated No further Speech therapy intervention required at this time, ST to sign-off Oral Stage Summary*: Withdrawal WFL. Mastication and oral transit appears WFL. No anterior spillage or oral residues noted. Functional oral phase appreciated. Pharyngeal Stage Summary*: Palpable laryngeal elevation noted upon deglutition. Swallow appears timely. No overt clinical s/s of aspiration appreciated w/ 8 ou nces of thin liquids, pureed/mechanical soft/regular solids. Pt denies globus s ensation. No change in vocal quality. Functional pharyngeal phase appreciated. Pt continues to reports mild odynophagia w/ deglutition, suspect this is from c oughing in attempt to clear mucous earlier in addition to possible irritation s/ p procedure. Plan: Patient Functioning at Baseline. No Further Speech Therapy Indicated at th is Time. Prognosis: Good NOMS Dysphagia Ratin-Normal -Ability to eat indep not limited by swallow fun ction. Swallow safe/efficient for all consistencies. Compensatory strategies eff ectively used when needed. Results Reported to Physician: Yes(via EMR) Objective* Relevant Med Background: Ld Del Toro is a 83 y.o. male with HTN, HLD, Depre ssion, Gout s/p right internal carotid endarterectomy admitted to NICU on 9. MRI head-10/14/18 IMPRESSION 1. Scattered tiny and small acute or early subacute right cerebral internal and external border zone distribution infarcts, favored for hypoperfusion injury-sequelae of severe right ICA origin stenosis. Right ICA territory embolic infarcts could appear similar. 2. Small old lateral right orbitofrontal and inferior right cerebellar infarcts and old right thalamic and suarez radiata lacunar type infarcts. 3. Mild generalized cerebral volume loss and mild nonspecific white matter disease, likely due to chronic microvascular ischemia. 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 Pt endorses odynopha nneka s/p procedure and following "coughing spell" he had earlier when attempting to cough up phlegm. Left sided lower quadrant facial droop @ rest, reports this has been his baseline for "years" but does report it was worse s/p stroke after initially admitted but has returned to baseline. Equal labial and lingual ROM noted. Strong volitional cough/thoat clear. Natrual dentition. Palate/velum WFL. Swallow Strategies Small Bites and Sips: Effective Slow Rate of Intake: Effective Alternate Solids / Liquids: Effective Education* Persons Educated: Pt/Family Barriers To Learning: Hearing Interventions: Staff Educated, Family Educated, Repetition of Instructions, Prov ided Written Education Teaching Methods: Verbal, Demonstration, Printed Topics: Dysphagia Patient Response: Verbalized Understanding, Return Demonstration Goal Formulation: With Pt/Family Speech Discharge Recommendations Recommendation: No further ST recommended at this time Therapist:Kellen Pena MA,L/CCC-ASSISTANT KITCHEN MANAGER Voalte: [id number] Date:10/14/2018 * Dawit Gill MD - 10/14/2018 8:45 AM CDT Neurosurgery Progress Note Admission Date: 10/08/2018 LOS: 6 days S: Patient doing well is asking about going home. No BM at this time and has no ambulated. Patient notes some difficulty swallowing and left hand numbness in the ulnar distribution O: Vital Signs: 24 Hour Range BP: (105-155)/(62-87) ABP: (121-183)/(39-77) Temp: [36.7 C (98 F)-36.9 C (98.5 F)] Pulse: [62-89] Respirations: [10 PER MINUTE-23 PER MINUTE] SpO2: [90 %-98 %] Physical Exam: Alert and oriented Moving all 4 5/5 Subjective numbness in the 4th and 5th digits on the right\\ Incision CDI no evidence of hematoma - drain output serosanguenous and minimal A/P: 83 y.o. male Active Problems: Stroke (HCC) OR 10/13 for R CEA Regular diet Normalize BP goals Speech to see for swallow To floor today possible discharge soon Please call [phone] with any questions. Dawit Gill MD Pager or Voalte * Toño Ayoub MD - 10/14/2018 8:39 AM CDT Critical Care Progress Note Today's Date: 10/14/2018 Name: Ld Del Toro Admission Date: 10/08/2018 LOS: 6 days Assessment/Plan: Active Problems: Stroke (HCC) 83 yo M with recent CVA and found to have right carotid stenosis and underwent C EA on 10/13. Prior to event he was healthy with history of htn and hld. He was active and functional Neuro: Prn pain meds, having some soreness at surgical site, received norco x1 o vernight for pain. MARIELENA at surgical site. 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 Cardiac: History of hypertension, on home lisinopril and hctz, will resume today . Continuous telemetry, currently sinus rhythm, no bradycardia. Pulmonary: Tolerating room air, continue. FEN: ADAT, bowel regimen. PPI at home, continue ID: No active infection, prophylactic ancef course complete Renal: Johnson removed today, normal baseline kidney functions. Continue to monit or I/Os. Heme: ASA for antiplatelet, SQH for dvt ppx Endo: Glucose well controlled, no history of diabetes. Prophylaxis: HOB>40, PPI, DVT prophylaxis per primary team Disposition/Family: Transition to telemetry today. __ Subjective: Ld Del Toro is a 83 y.o. male. Overnight Events: PRIYANKA overnight. Objective: Medications: Scheduled Meds: aspirin EC tablet 325 mg 325 mg Oral QDAY atorvastatin (LIPITOR) tablet 80 mg 80 mg Oral QDAY citalopram (CELEXA) tablet 10 mg 10 mg Oral QDAY docusate (COLACE) capsule 100 mg 100 mg Oral BID hydroCHLOROthiazide (HYDRODIURIL) tablet 18.75 mg 18.75 mg Oral QDAY lisinopril (PRINIVIL; ZESTRIL) tablet 30 mg 30 mg Oral QDAY omeprazole DR(+) (PRILOSEC) capsule 20 mg 20 mg Oral QDAY after breakfast polyethylene glycol 3350 (MIRALAX) packet 17 g 1 packet Oral QDAY Continuous Infusions: PRN and Respiratory Meds:bisacodyl QDAY PRN, fentaNYL citrate PF Q1H PRN, HYDROc odone/acetaminophen Q6H PRN, labetalol (NORMODYNE; TRANDATE) injection Q1H PRN Vital Signs: Last Filed Vital Signs: 24 Hour Ra nge BP: 140/73 (10/14 08) ABP: 182/71 (10/15 799) Temp: 36.7 C (98 F) (10/15 799) Pulse: 71 (10/15 799) Respirations: 15 PER MINUTE (10/15 799) SpO2: 96 % (10/15 799) BP: (105-155)/(62-87) ABP: (121-183)/(39-77) Temp: [36.7 C (98 F)-36.9 C (98.5 F)] Pulse: [62-89] Respirations: [10 PER MINUTE-23 PER MINUTE] SpO2: [90 %-98 %] Intensity Pain Scale (Self Report): (not recorded) Vitals: 10/08/18 2131 10/09/18 1128 10/13/18 0600 Weight: 88.2 kg (194 lb 7.1 oz) 88 kg (194 lb) 88 kg (194 lb) Critical Care Vitals: ICP Monitoring: PA Catheter: Hemodynamics/Oxycalcs: Intake/Output Summary: (Last 24 hours) Intake/Output Summary (Last 24 hours) at 10/14/2018 0839 Last data filed at 10/14/2018 0700 Gross per 24 hour Intake 2612.5 ml Output 2160 ml Net 452.5 ml Physical Exam: General: no distress, appears stated age, right neck incision c lean ,dry, intact with MARIELENA attached to tube at bottom of incision. Lungs: Clear to auscultation bilaterally CV: RRR Abdomen: Soft, non-tender. Bowel sounds normal. No masses. No organomegaly. Extremities: Extremities normal, atraumatic, no cyanosis or edema Neurologic: CNII - XII intact. PERRL Prophylaxis Review: Lines: DC today Urinary Catheter: DC today Antibiotic Usage: Prophylactic VTE: none Lab Review: Pertinent labs reviewed Point of Care Testing: (Last 24 hours): Glucose: (!) 145 (10/13/18 1115) Radiology and Other Diagnostic Procedures Review: Pertinent radiology reviewed. I have seen, examined and reviewed data concerning this patient. I discussed th e findings and plan of care with the ICU team. Toño Ayoub MD Qa Manager Anesthesiology and Critical Care * Jose Fay APRN - 10/14/2018 7:32 AM CDT Neuro Critical Care Progress Note Ld Del Toro Admission Date: 10/08/2018 LOS: 6 days Full Code ASSESSMENT/PLAN Patient Active Problem List Diagnosis Date Noted Stroke (HCC) 10/08/2018 Ld Del Toro is a 83 y.o. male with HTN, HLD, Depression, Gout s/p right int ernal carotid endarterectomy admitted to NICU on 10/13/18. Hospital and ICU course: 10/13: admitted to NICu post right CEA Neuro: Stenosis of right carotid artery R CEA CVA - CTA head and neck ordered - ASA 325 mg - MARIELENA drain in place, plan to DC per NS - PT/OT Sedation/Pain Management: Anxiety - PRN Fentanyl, PRN [place] - Assess for delirium daily - [employer] Celexa restarted Cardiac: HTN HLD - SBP goal: < 140 - [employer] Lipitor 80 mg restarted - Lisinopril /HCTZ 30/18.75 will restart Respiratory: Former smoker - Stable on RA GI: GERD - [employer] prilosec restarted - Feeding: regular diet - neurosurgery bowel regimen, ensure daily BM Heme: - assess for coagulopathy, maintain platelets above 100k, INR <1.5 - ASA 325 mg ID: - POst op Ancef X 3 doses - aim for normothermia, Temp <38.3 celsius, normothermia protocol if febrile Renal: - Johnson in place, will remove - Aim for normovolemia - I/O +1 lt/24 hours Endocrine: DM - Blood glucose goal 100-180mg/dl FEN: - IVF:will DC - Magnesium goal >2.0, i-Bryson goal > 1.0, Potassium goal >4.0 mEq/L Prophylaxis Review: A)GI: PPI/[id number] B) Lines: will remove C) Urinary Catheter: will remove D) Antibiotic Usage: No E) VTE: Mechanical prophylaxis; Sequential compression device F) Isolation: no G)Seizures: no I) Restraints: Patient assessed for need for restraints. Disposition/Family: ICU care Primary service: NSG Consults: NICU SUBJECTIVE Ld Del Toro is a 83 y.o. male. Overnight Events: No new events noted. OBJECTIVE Vital Signs: Last Filed Vital Signs: 24 Hour Ra nge BP: 123/64 (10/14 599) ABP: 143/58 (10/14 599) Temp: 36.9 C (98.5 F) (10/14 0400) Pulse: 62 (10/14 599) Respirations: 12 PER MINUTE (10/14 599) SpO2: 93 % (10/14 599) BP: (105-155)/(62-87) ABP: (121-183)/(39-77) Temp: [36.7 C (98.1 F)-36.9 C (98.5 F)] Pulse: [62-89] Respirations: [10 PER MINUTE-23 PER MINUTE] SpO2: [90 %-98 %] Intensity Pain Scale (Self Report): (not recorded) Vitals: 10/08/18 2131 10/09/18 1128 10/13/18 0600 Weight: 88.2 kg (194 lb 7.1 oz) 88 kg (194 lb) 88 kg (194 lb) Artificial airway: None Ventilator/ Respiratory Therapy: No Vent weaning trial: Not applicable Lines: Peripheral Line Drains: J-vac Drain: Critical Care Vitals: ICP Monitoring: Hemodynamics/Oxycalcs: Intake/Output Summary: (Last 24 hours) Intake/Output Summary (Last 24 hours) at 10/14/2018 0733 Last data filed at 10/14/2018 0600 Gross per 24 hour Intake 3212.5 ml Output 2110 ml Net 1102.5 ml Physical Exam: Blood pressure 123/64, pulse 62, temperature 36.9 C (98.5 F), height 175.3 c m (69.02"), weight 88 kg (194 lb), SpO2 93 %. [place] coma score: E: 4 - Opens eyes on own M: 6 - Follows simple motor commands V: 5 - Alert and oriented Neuro: Mental Status: alert/oriented X 4. Follows commands in all four ext remities. Motor: RUE: Strength: 4/5; RLE: Strength: 4/5; LUE: Strength: 4/5; LLE: Strength: 4/5; Lungs: clear to auscultation bilaterally Pulmonary: Respiratory status: Stable Heart: regular rate and rhythm, S1, S2 normal, no murmur, click, rub or gallop Abdomen: soft, non-tender. Bowel sounds normal. No masses, no organomegaly Extremities: extremities normal, atraumatic, no cyanosis or edema Skin: Skin color, texture, turgor normal. No rashes or lesions Point of Care Testing: (Last 24 hours) Glucose: (!) 145 (10/13/18 1115) Lab Review: Pertinent labs reviewed Radiology and Other Diagnostic Procedures Review: Pertinent radiologic and diag nostic procedures reviewed. Jose Fay APRN Date: 10/14/[phone] I spent 40 minutes managing the care of this patient. Mr Del Toro is critically i ll s/p CEA. Cares included: detailed neurologic and systems exam, medication rev iew, laboratory data review and interpretation, electrolyte management, review o f available imaging, DVT/PE prophylaxis review, diet review, activity review, an d coordination of care with consulted teams * Toño Ayoub MD - 10/13/2018 10:00 PM CDT Critical Care Progress Note Today's Date: 10/13/2018 Name: Ld Del Toro Admission Date: 10/08/2018 LOS: 5 days Assessment/Plan: Active Problems: Stroke (HCC) 83 yo M with recent CVA and found to have right carotid stenosis and underwent C EA on 10/13. Prior to event he was healthy with history of htn and hld. He was active and functional Neuro: Prn pain meds, having some soreness at surgical site. MARIELENA at surgical site . Monitor for development of stroke symptoms, new neru deficits, hematoma or bl eeding complication from surgery. Cardiac: History of hypertension, on home lisinopril and hctz, currently being h eld. Goal SBP < 140 and can use PRN labetalol and hydralazine, if hypertensive would start PO antihypertensive in the morning. Continuous telemetry, currently sinus rhythm, no bradycardia. Pulmonary: Tolerating room air. FEN: ADAT, bowel regimen. PPI at home, would start here. ID: No active infection, prophylactic ancef Renal: Johnson in place, normal baseline kidney function. Heme: ASA for antiplatelet, SQH for dvt ppx Endo: Glucose well controlled, no history of diabetes. Prophylaxis: HOB>40, PPI, DVT prophylaxis per primary team Disposition/Family: Needs ICU immediately post op from CEA. __ Subjective: Ld Del Toro is a 83 y.o. male. Overnight Events: Admitted post CEA for blo od pressure control, monitoring post op for complications. Objective: Medications: Scheduled Meds: aspirin EC tablet 325 mg 325 mg Oral QDAY atorvastatin (LIPITOR) tablet 80 mg 80 mg Oral QDAY ceFAZolin (ANCEF) IVP 2 g 2 g Intravenous Q8H* citalopram (CELEXA) tablet 10 mg 10 mg Oral QDAY docusate (COLACE) capsule 100 mg 100 mg Oral BID FENTANYL CITRATE (PF) 50 MCG/ML IJ SOLN (Cabinet Override) NOW heparin (porcine) 5,000 Units in sodium chloride 0.9% (NS) 500 mL IJ SOLN Irrig ation Pipe Assembly Worker to OR omeprazole DR(+) (PRILOSEC) capsule 20 mg 20 mg Oral QDAY after breakfast polyethylene glycol 3350 (MIRALAX) packet 17 g 1 packet Oral QDAY Continuous Infusions: niCARdipine (cardENE) 20 mg/NS 200 mL infusion (std conc)(premade) Stopped (10/13/18 1420) sodium chloride 0.9 % infusion Stopped (10/13/18 1159) PRN and Respiratory Meds:bisacodyl QDAY PRN, fentaNYL citrate PF Q1H PRN, HYDROc odone/acetaminophen Q6H PRN, labetalol (NORMODYNE; TRANDATE) injection Q1H PRN Vital Signs: Last Filed Vital Signs: 24 Hour Ra nge BP: 131/70 (10/13 2099) ABP: 173/60 (10/13 2099) Temp: 36.8 C (98.3 F) (10/14 1999) Pulse: 84 (10/13 2099) Respirations: 16 PER MINUTE (10/13 2099) SpO2: 94 % (10/13 2099) Height: 175.3 cm (69.02") (10/13 599) Weight: 88 kg (194 lb) (10/13 599) BP: (105-171)/(64-95) ABP: (121-182)/(39-69) Temp: [36.5 C (97.7 F)-36.8 C (98.3 F)] Pulse: [52-89] Respirations: [10 PER MINUTE-23 PER MINUTE] SpO2: [90 %-99 %] Intensity Pain Scale (Self Report): (not recorded) Vitals: 10/08/18 2131 10/09/18 1128 10/13/18599 Weight: 88.2 kg (194 lb 7.1 oz) 88 kg (194 lb) 88 kg (194 lb) Critical Care Vitals: ICP Monitoring: PA Catheter: Hemodynamics/Oxycalcs: Intake/Output Summary: (Last 24 hours) Intake/Output Summary (Last 24 hours) at 10/13/2018 220 Last data filed at 10/13/2018 2100 Gross per 24 hour Intake 1712.5 ml Output 1110 ml Net 602.5 ml Physical Exam: General: no distress, appears stated age, right neck incision c lean ,dry, intact with MARIELENA attached to tube at bottom of incision. Lungs: Clear to auscultation bilaterally CV: RRR Abdomen: Soft, non-tender. Bowel sounds normal. No masses. No organomegaly. Extremities: Extremities normal, atraumatic, no cyanosis or edema Neurologic: CNII - XII intact. PERRL Prophylaxis Review: Lines: Yes; Arterial Line; Indication: Frequent blood draws and Continuous BP monitoring; Location: Radial Urinary Catheter: Yes; Retain johnson due to: Need for accurate Intake and Outpu t Antibiotic Usage: Prophylactic VTE: none Lab Review: Pertinent labs reviewed Point of Care Testing: (Last 24 hours): Glucose: (!) 145 (10/13/18 1115) Radiology and Other Diagnostic Procedures Review: Pertinent radiology reviewed. I have seen, examined and reviewed data concerning this patient. I discussed th e findings and plan of care with the ICU team. I spent 41 minutes in critical ca re time, excluding procedures today. Toño Ayoub MD Qa Manager Anesthesiology and Critical Care * Juliann Diallo APRN - 10/12/2018 9:23 AM CDT Neurosurgery Progress Note Admission Date: 10/08/2018 LOS: 4 days S: No acute events noted. Feels ready for OR tomorrow O: Vital Signs: 24 Hour Range BP: (142-152)/(57-82) Temp: [36.2 C (97.2 F)-36.6 C (97.9 F)] Pulse: [51-67] Respirations: [16 PER MINUTE-18 PER MINUTE] SpO2: [96 %-99 %] Physical Exam: Alert and oriented Following commands in all extremites A/P: 83 y.o. male Active Problems: Stroke (HCC) Continue current care per primary team Plan for OR on October 13 @ 0715 Pre-op completed Will continue to follow Please call [phone] with any questions. Juliann Diallo APRN Pager [phone] or Voalte * Carlos Mckeon DO - 10/12/2018 8:11 AM CDT Neurology Progress Note Ld Del Toro Admission Date: 10/08/2018 LOS: 4 days Assessment/Plan: Active Problems: Stroke (HCC) - MRI Brain WO= - Scattered tiny and small acute or early subacute rig ht cerebral internal and external border zone distribution infarct s, favored for hypoperfusion injury-sequelae of severe right ICA orig in stenosis. Right ICA territory embolic infarcts could appear similar. -Small old lateral right orbitofrontal and inferior right cerebellar infarcts and old right thalamic and suarez radiata [place] type infarcts. -Mild generalized cerebral volume loss and mild nons pecific white matter disease, likely due to chronic microvascular is chemia. - Permissive HTN (<180/120) - has been within range during hospital stay - 2D echo - no vegetations, nointeratrial shunting -LDL=78 will up atorvastatin to 80 mg - A1C=6.1 - Continue Aspirin - PT/OT/ASSISTANT KITCHEN MANAGER/Rehab Consults -[facility] [place]. Reyes has seen patient.Surgery scheduled for 6:30 a.m tomorrow HTN, HLD - holding [employer] HE[employer] AGENT lisinopril - continue [employer] HE[employer] AGENT atorvastatin, increased to 80 mg Depression - on [employer]ENT citalopram Gout - on [employer] HE[employer]ENT allopurinol FEN: IVF, monitor and replete electrolytes prn, Cardiac Diet (NPO at mid night) Ppx:Heparin Status: Full code Disposition:Intervention for ICA stenosis Patient seen and plan of care discussed with Subjective: Ld Del Torois a 83 y.o.male. Patient seen and examined. No acute overni ght events reported. Patientpresented to from outlying facility where he wa s found to have initial NIHSS of 5 with L sided weakness and L sided facial droo p, CTA was performed and was told he had 90% occlusionof R ICA. On transfer pepper lama states his weakness improved, when he arrived at his NIHSS was 1. No TP A was given. Patient states he is ambulating well compared to baseline. No reoccurrence of nu mbness or weakness on L side. Patient stated that Docusate and Miralax have help ed with his BMs. Had BM last night. No complaints of fever, chills, headache, chest pain, dyspnea, abdominal pain, n ausea, vomiting, diarrhea, constipation. Objective: Vital Signs: Last Filed Vital Signs: 24 Hour Range BP: 144/82 (10/12 542) Temp: 36.6 C (97.8 F) (10/12 542) Pulse: 67 (10/12 542) Respirations: 16 PER MINUTE (10/12 542) SpO2: 99 % (10/12 542) BP: (142-152)/(57-82) Temp: [36.2 C (97.2 F)-36.6 C (97.9 F)] Pulse: [51-67] Respirations: [16 PER MINUTE-18 PER MINUTE] SpO2: [96 %-99 %] Intensity Pain Scale (Self Report): (not recorded) Medications: Scheduled Meds: aspirin EC tablet 325 mg 325 mg Oral QDAY atorvastatin (LIPITOR) tablet 80 mg 80 mg Oral QDAY citalopram (CELEXA) tablet 10 mg 10 mg Oral QDAY docusate (COLACE) capsule 100 mg 100 mg Oral BID heparin (porcine) PF syringe 5,000 Units 5,000 Units Subcutaneous Q8H omeprazole DR(+) (PRILOSEC) capsule 20 mg 20 mg Oral QDAY after breakfast polyethylene glycol 3350 (MIRALAX) packet 17 g 1 packet Oral QDAY Continuous Infusions: PRN and Respiratory Meds:bisacodyl QDAY PRN General Physical Examination: Head/Neck: NC/AT Eyes: no conjunctival injection, no discharge ENT: no rhinorrhea, moist mucus membranes Chest: nonlabored respirations, chest rise equal b/l CV: regular rate and rhythm, no murmur appreciated, strong distal pulses, brisk capillary refill Pulmonary: LCTAB Abdomen: bowel sounds present, soft, nontender, nondistended Psych: appropriate affect Skin: no rash Neurological Exam: Mental status: awake, alert, interacting appropriately, cooperative with exam Speech: Fluent, with normal naming, comprehension, articulation and repetition CN: Visual vega intact. PERRL EOMI, no nystagmus; sensation intact on the face bilaterally; - L sided facial droop hearing is grossly intact; voice is normal, symmetric palatal elevation, uvula is midline; strong shoulder shrug; tongue is midline without fasciculationMotor: normal muscle bulk and tone, normal strength throughout, 5/5. abnormal movements- none. Reflexes: 2+ and symmetric reflexespatellas and ankles; toes are downgoing; no c lonus Sensation: Light touch: grossly intact in the bilateral upper and lower extrem ities Prorprioception: intact Cerebellar function: [id number], heel-meza movements without dysmetria; no pronator drift Gait: normal toe, heel and tandem gait with good balance, normal rise from a sit ting position Laboratory Review: Lab Results Component Value Date HGB 12.5 (L) 10/11/2018 HCT 36.5 (L) 10/11/2018 PLTCT 250 10/11/2018 WBC 4.9 10/11/2018 Lab Results Component Value Date NA 139 10/11/2018 K 3.9 10/11/2018 CL 106 10/11/2018 CO2 27 10/11/2018 GAP 6 10/11/2018 BUN 15 10/11/2018 CR 1.08 10/11/2018 GLU 96 10/11/2018 CA 9.0 10/11/2018 MG 2.0 10/11/2018 PO4 3.0 10/11/2018 Pertinent radiology, labs, and diagnostic testing personally reviewed. Carlos Mckeon Emergency Medicine PGY1 Associated attestation - Barbara Jenkins MD - 10/12/2018 3:33 PM CDT Neurology Attending Attestation Patient has been seen and evaluated on attending rounds; santiago elements of the his tory and physical examination were repeated in order to confirm findings. Goals and plan of care was discussed with the patient. I have reviewed the above note and generally agree with the findings, plan and documentation. I spent a total of 40 minutes in patient care today, with 25 minutes spent counseling the patien t and coordinating care. Stable this AM, plan for CEA at earliest possible availability given his critica l ICA stenosis, likely tomorrow by NSG team--Dr. Reyes. Pt is amenable to malik gical intervention this hospitalization given his acute stroke and risk for deco mpensation. Improved bowel movements with medications, is in good spirits. No neurological f luctuations overnight. NPO at midnight for surgery in AM. All questions answered at bedside with patie nt/. Barbara Jenkins MD Vascular Neurology * Carlos Mckeon DO - 10/11/2018 12:54 PM CDT Neurology Progress Note Ld Del Toro Admission Date: 10/08/2018 LOS: 3 days Assessment/Plan: Active Problems: Stroke (HCC) - MRI Brain WO= - Scattered tiny and small acute or early subacute rig ht cerebral internal and external border zone distribution infarct s, favored for hypoperfusion injury-sequelae of severe right ICA orig in stenosis. Right ICA territory embolic infarcts could appear similar. -Small old lateral right orbitofrontal and inferior right cerebellar infarcts and old right thalamic and suarez radiata lac unar type infarcts. -Mild generalized cerebral volume loss and mild nons pecific white matter disease, likely due to chronic microvascular is chemia. 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 HTN, HLD - holding [employer]ENT lisinopril - continue [employer] HE[employer] AGENT atorvastatin 80 mg Depression - on [employer] HEALTH AGENT citalopram Gout - on [employer] HE[employer] AGENT allopurinol FEN: IVF, monitor and replete electrolytes prn, Cardiac Diet Ppx:Heparin Status: Full code Disposition: Surgery Tuesday.m Patient seen and plan of care discussed with Dr. Jenkins Subjective: Ld Del Toro is a 83 y.o. male. Patient seen and examined. No acute overnigh t events reported. Patient states numbness his L hand from 2 nights ago has completely subsided. Pepper lama reports no difficulty with ambulation. L sided facial droop still present however as documented prior believe this was present prior to recent acute stroke. Unchanged from baseline No complaints of fever, chills, headache, chest pain, dyspnea, abdominal pain, n ausea, vomiting, diarrhea, constipation. Objective: Vital Signs: Last Filed Vital Signs: 24 Hour Range BP: 148/71 (10/11 613) Temp: 36.7 C (98.1 F) (10/11 613) Pulse: 52 (10/11 613) Respirations: 18 PER MINUTE (10/11 613) SpO2: 99 % (10/11 613) BP: (147-173)/(68-82) Temp: [36.2 C (97.1 F)-36.8 C (98.2 F)] Pulse: [48-63] Respirations: [16 PER MINUTE-18 PER MINUTE] SpO2: [96 %-99 %] Intensity Pain Scale (Self Report): (not recorded) Medications: Scheduled Meds: aspirin EC tablet 325 mg 325 mg Oral QDAY atorvastatin (LIPITOR) tablet 80 mg 80 mg Oral QDAY citalopram (CELEXA) tablet 10 mg 10 mg Oral QDAY docusate (COLACE) capsule 100 mg 100 mg Oral BID heparin (porcine) PF syringe 5,000 Units 5,000 Units Subcutaneous Q8H [START ON 10/12/2018] omeprazole DR(+) (PRILOSEC) capsule 20 mg 20 mg Oral QDAY a fter breakfast polyethylene glycol 3350 (MIRALAX) packet 17 g 1 packet Oral QDAY Continuous Infusions: PRN and Respiratory Meds:bisacodyl QDAY PRN General Physical Examination: Head/Neck: NC/AT Eyes: no conjunctival injection, no discharge ENT: no rhinorrhea, moist mucus membranes Chest: nonlabored respirations, chest rise equal b/l CV: regular rate and rhythm, no murmur appreciated, strong distal pulses, brisk capillary refill Pulmonary: LCTAB Abdomen: bowel sounds present, soft, nontender, nondistended Psych: appropriate affect Skin: no rash Neurological Exam: Mental status: awake, alert, interacting appropriately, cooperative with exam Speech: Fluent, with normal naming, comprehension, articulation and repetition CN: Visual vega intact. PERRL EOMI, no nystagmus; sensation intact on the face bilaterally; - L sided facial droop hearing is grossly intact; voice is normal, symmetric palatal elevation, uvula is midline; strong shoulder shrug; tongue is midline without fasciculationMotor: normal muscle bulk and tone, normal strength throughout, 5/5. abnormal movements- none. Reflexes: 2+ and symmetric reflexes at the biceps, triceps, brachioradialis, pat ellas and ankles; toes are downgoing; no clonus Sensation: Light touch: grossly intact in the bilateral upper and lower extrem ities Prorprioception: intact Cerebellar function: [id number], heel-meza movements without dysmetria n ormal rapid alternating movements; no pronator drift Gait: normal toe, heel and tandem gait with good balance, normal rise from a sit ting position Laboratory Review: Lab Results Component Value Date HGB 12.5 (L) 10/11/2018 HCT 36.5 (L) 10/11/2018 PLTCT 250 10/11/2018 WBC 4.9 10/11/2018 Lab Results Component Value Date NA 139 10/11/2018 K 3.9 10/11/2018 CL 106 10/11/2018 CO2 27 10/11/2018 GAP 6 10/11/2018 BUN 15 10/11/2018 CR 1.08 10/11/2018 GLU 96 10/11/2018 CA 9.0 10/11/2018 MG 2.0 10/11/2018 PO4 3.0 10/11/2018 Pertinent radiology, labs, and diagnostic testing personally reviewed. Carlos Mckeon Emergency Medicine PGY1 Associated attestation - Barbara Jenkins MD - 10/12/2018 3:31 PM CDT Neurology Attending Attestation Patient has been seen and evaluated on attending rounds; santiago elements of the his tory and physical examination were repeated in order to confirm findings. Goals and plan of care was discussed with the patient. I have reviewed the above note and generally agree with the findings, plan and documentation. I spent a total of 40 minutes in patient care today, with 25 minutes spent counseling the patien t and coordinating care. Stable this AM, plan for CEA at earliest possible availability given his critica l ICA stenosis, likely this Tuesday by NSG team--Dr. Reyes. Pt is amenable to surgical intervention this hospitalization given his acute stroke and risk for d ecompensation. Notes having bowel issues since last Tuesday, will initiate more a ggressive bowel regimen. All questions answered at bedside with patient/. Barbara Jenkins MD Vascular Neurology * Kalani Duran APRN - 10/11/2018 10:07 AM CDT Neurosurgery Progress Note Admission Date: 10/08/2018 LOS: 3 days S: No acute events noted. Family in room. Updated on OR timing; questions answer ed. O: Vital Signs: 24 Hour Range BP: (147-173)/(68-82) Temp: [36.2 C (97.1 F)-36.8 C (98.2 F)] Pulse: [48-63] Respirations: [16 PER MINUTE-18 PER MINUTE] SpO2: [96 %-99 %] Physical Exam: Alert and oriented Following commands in all extremites A/P: 83 y.o. male Active Problems: Stroke (HCC) Continue current care per primary team Plan for OR on October 13 Will continue to follow Please call [phone] with any questions. Kalani Duran APRN Pager [phone] or Voalte * Giovani Denise PT - 10/11/2018 8:45 AM CDT PHYSICAL THERAPY NOTE Patient endorses no concerns with mobility at this time. Currently, the patient is ambulating on unit without difficulty. Encouraged patient to continue mobilization while in the hospital and discussed the mobility plan with the bedside nursing staff. Physical therapy services will continue to monitor and reevaluate patient following scheduled OR on 10/13. Therapist: Giovani Denise PT, DPT Date: 10/11/2018 * Meliton Bajwa RN - 10/11/2018 5:34 AM CDT I have reviewed the notes, assessment, and/or procedures performed by Griffin Fulton and concur with her/his documentation unless otherwise noted. * Candace Lorenzo - 10/10/2018 1:54 PM CDT CLINICAL NUTRITION Clinical Nutrition Education Summary NAME:Ld Del Toro :1935 AGE: 83 y.o. ADMISSION DATE: 10/08/2018 DAYS ADMITTED: LOS: 2 days Comments: Stroke protocol pt seen today for stroke nutrition therapy. Ld Del Toro is an 83 y.o. male who presents with acute onset L sided weakness, L facial droop. Symptoms began at 1500 while at his [employer]. Pt was eating when he herrera ddenly began to feel weak and mouth began to droop on L side. Symptoms improved after presented to OSH but CTA there revealed 90% stenosis of R ICA. On arrival to NIHSS was 1 for L facial droop. No new images were obtained as pt was stab le on arrival. No obvious signs of TIA or stroke present. Head CT reveals possib le chronic small infarcts likely 2/2 to right ICA stenosis. BMI is 28.65 and LD L WNL at 78. Pt with other staff at visit today. No food allergies noted in EMR. 100% of one documented meal consumed so far this admission. No GI complaints ex pressed. LBM was 8/18. Wt is -0.2 kg since admission. No wt history available in EMR. 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 No pr essure injuries or edema noted. Pt is not currently at nutritional risk. Will co ntinue to monitor. Recommendation: Continue Cardiac diet. SHILPA Camargo-NDTR, [facility] Voalte:[phone] Office: [phone] * Carlos Mckeon DO - 10/10/2018 8:44 AM CDT Neurology Progress Note Ld Del Toro Admission Date: 10/08/2018 LOS: 2 days Assessment/Plan: Active Problems: Stroke (HCC) - MRI Brain WO= - Scattered tiny and small acute or early subacute right cerebral internal and external border zone distribution infarcts, favored fo r hypoperfusion injury-sequelae of severe right ICA origin stenosis. Right ICA territory embolic infarcts could appear similar. -Small old lateral right orbitofrontal and inferior right cerebel lar infarcts and old right thalamic and suarez radiata lacunar type inf arcts. -Mild generalized cerebral volume loss and mild nonspecific white matter disease, likely due to chronic microvascular ischemia. 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 Reyes will be seeing patient today. Agreed with need for surgical intervention. HTN, HLD - holding [employer] HE[employer]ENT lisinopril - continue [employer] HE[employer]ENT atorvastatin, increase to 80 mg Depression - on [employer] HEALTH AGENT citalopram Gout - on [employer] HEALTH AGENT allopurinol FEN: IVF, monitor and replete electrolytes prn, Cardiac Diet (NPO at [facility] t if surgery is scheduled for tomorrow) Ppx: Heparin Status: Full code Disposition: Intervention for ICA stenosis Patient seen and plan of care discussed with Dr. Jenkins Subjective: Ld Del Toro is a 83 y.o. male. Patient seen and examined. No acute overnigh t events reported. [facility] have initial NIHSS of 5 with L sided weakness and L sided facial droop, CTA was performed and was told he had 90% occlusion of R ICA. On transfer patien t states his weakness improved, when he arrived at his NIHSS was 1. No TPA wa s given. Patient states that he feels as if his symptoms have significantly improved. Onl y complains of mild weakness when ambulating. States L sided weakness has improv ed and is back to baseline. Discussed further complaint about memory loss/ foggy thought process, patient st ates this had been going on prior to stroke and cognition is unchanged from base line, and daughter in room agree. L sided facial droop still present however patient and state this was prese nt prior to stroke this weekend. and is unchanged from baseline No complaints of fever, chills, headache, chest pain, dyspnea, abdominal pain, n ausea, vomiting, diarrhea, constipation. Objective: Vital Signs: Last Filed Vital Signs: 24 Hour Range BP: 133/68 (10/10 558) Temp: 36.4 C (97.6 F) (10/10 558) Pulse: 54 (10/10 558) Respirations: 18 PER MINUTE (10/10 558) SpO2: 96 % (10/10 558) Height: 175.3 cm (69") (10/09 1128) BP: (133-174)/(68-106) Temp: [36.2 C (97.2 F)-36.6 C (97.8 F)] Pulse: [49-88] Respirations: [16 PER MINUTE-18 PER MINUTE] SpO2: [96 %-97 %] Intensity Pain Scale (Self Report): (not recorded) Medications: Scheduled Meds: aspirin chewable tablet 81 mg 81 mg Oral QDAY atorvastatin (LIPITOR) tablet 80 mg 80 mg Oral QDAY citalopram (CELEXA) tablet 10 mg 10 mg Oral QDAY heparin (porcine) PF syringe 5,000 Units 5,000 Units Subcutaneous Q8H General Physical Examination: Head/Neck: NC/AT Eyes: no conjunctival injection, no discharge ENT: no rhinorrhea, moist mucus membranes Chest: nonlabored respirations, chest rise equal b/l CV: regular rate and rhythm, no murmur appreciated, strong distal pulses, brisk capillary refill Pulmonary: LCTAB Abdomen: bowel sounds present, soft, nontender, nondistended Psych: appropriate affect Skin: no rash Neurological Exam: Mental status: awake, alert, interacting appropriately, cooperative with exam Speech: Fluent, with normal naming, comprehension, articulation and repetition CN: Visual vega intact. PERRL EOMI, no nystagmus; sensation intact on the face bilaterally; - L sided facial droop hearing is grossly intact; voice is normal, symmetric palatal elevation, uvula is midline; strong shoulder shrug; tongue is midline without fasciculationMotor: normal muscle bulk and tone, normal strength throughout, 5/5. abnormal movements- none. Reflexes: 2+ and symmetric reflexes at the biceps, triceps, brachioradialis, pat ellas and ankles; toes are downgoing; no clonus Sensation: Light touch: grossly intact in the bilateral upper and lower extremities Prorprioception: intact Cerebellar function: [id number]-[id number]-[id number], heel-meza movements without dysmetria n ormal rapid alternating movements; no pronator drift Gait: normal toe, heel and tandem gait with good balance, normal rise from a sit ting position Laboratory Review: Lab Results Component Value Date HGB 12.7 (L) 10/10/2018 HCT 37.8 (L) 10/10/2018 PLTCT 245 10/10/2018 WBC 5.0 10/10/2018 Lab Results Component Value Date NA 138 10/10/2018 K 3.9 10/10/2018 CL 105 10/10/2018 CO2 27 10/10/2018 GAP 6 10/10/2018 BUN 14 10/10/2018 CR 0.98 10/10/2018 GLU 99 10/10/2018 CA 9.0 10/10/2018 MG 2.0 10/10/2018 PO4 3.4 10/10/2018 Pertinent radiology, labs, and diagnostic testing personally reviewed. Carlos Mckeon Emergency Medicine PGY1 Associated attestation - Barbara Jenkins MD - 10/10/2018 2:32 PM CDT Neurology Attending Attestation Patient has been seen and evaluated on attending rounds; santiago elements of the his tory and physical examination were repeated in order to confirm findings. Goals and plan of care was discussed with the patient. I have reviewed the above note and generally agree with the findings, plan and documentation. I spent a total of 40 minutes in patient care today, with 25 minutes spent counseling the patien t and coordinating care. Undergoing NSG evaluation for intervention on his symptomatic severe right ICA s tenosis, discussed with NSG faculty this AM with plans for surgical intervention this hospitalization. ASA 325 daily, high dose atorvastatin regardless of LDL if patient can tolerate given multifocal atherosclerotic disease. All questions answered at bedside this AM. Barbara Jenkins MD Vascular Neurology * Meliton Bajwa RN - 10/10/2018 6:20 AM CDT I have reviewed the notes, assessment, and/or procedures performed by Griffin Fulton and concur with her/his documentation unless otherwise noted. * Katie Jefferson, OT - 2018 10:48 AM CDT OCCUPATIONAL THERAPY NO TREATMENT NOTE Based on discussion with Physical therapy, patient's current level of function s uggests that patient will progress with one discipline. Occupational therapy mayra l sign off at this time. Please re-consult if change in functional status occurs . Therapist: ANA Akins/Wilmer [id number] Date: 2018 * Niesha Barker RN - 2018 10:13 AM CDT BP 176/104. Dr Pace made aware. No new orders at this time. Patient having ECHO at bedside at this time. * Giovani Denise, PT - 2018 9:09 AM CDT PHYSICAL THERAPY ASSESSMENT MOBILITY: Progressive Mobility Level: Walk laps Distance Walked (feet): 500 ft Level of Assistance: Stand by assistance Assistive Device: None Time Tolerated: 11-30 minutes Activity Limited By: Fatigue SUBJECTIVE: Significant hospital events: 83yo M w/ PMH HTN, HLD who presents as transfer fro OSH with acute onset L sided weakness, L facial droop which rapidly improved ( NIHSS 5 initially). CTA performed at OSH notable for severe carotid artery steno sis (~90% stenosis) so pt was transferred to [facility] for observation and possible n eurosurgical intervention. Mental / Cognitive Status: Alert;Oriented;Cooperative Pain: Patient has no complaint of pain Ambulation Assist: Independent Mobility in Community without Device Patient Owned Equipment: None Home Situation: Lives with Family Type of Home: House Entry Stairs: 3-5 Stairs;Rail on 1 Side In-Home Stairs: No Stairs Comments: Patient denies any falls in the last 3 months. He states he has to "ta ke it slow" when standing due to occasional lightheadedness. ROM: ROM Position Assessed: Seated ROM Method: Active LE ROM: WFL STRENGTH: R LE WNL: Yes L LE WNL: Yes POSTURE/NEURO: Head Control: Independent Posture: No Postural Deviations LLE Sensation/Proprioception: No Deficits Noted RLE Sensation/Proprioception: No Deficits Noted Posture/Neuro Comments: Pt reports feeling of numbness of LLE has improved. BED MOBILITY/TRANSFERS: Bed Mobility: Supine to Sit: Standby Assist;Bed Flat;No Rail Bed Mobility: Sit to Supine: Standby Assist;Bed Flat;No Rail Transfer Type: Sit to/from Stand Transfer: Assistance Level: To/From;Bed;Standby Assist Transfer: Assistive Device: None Transfers: Type Of Assistance: For Safety Considerations End Of Activity Status: In Bed;Instructed Patient to Request Assist with Mobilit y;Instructed Patient to Use Call Light(bed alarm on) Comments: Patient denies dizziness with change in position BALANCE: Standing Balance: Dynamic Standing Balance;Standby Assist;No UE support Functional Gait Assessment: Assessed Gait level surface: Normal Change in gait speed: Normal Gait with horizontal head turns: Normal Gait with vertical head turns: Normal Gait and pivot turn: Normal Step over obstacle: Normal Gait with narrow base of support: Mild Impairment Gait with eyes closed: Normal Ambulating backwards: Mild Impairment Steps: Mild Impairment Functional Gait Assessment Score:: 27 GAIT: Gait Distance: 500 feet Gait: Assistance Level: Standby Assist Gait: Assistive Device: None Gait: Descriptors: Pace: Normal;Swing-Through Gait;No balance loss Stairs: Number Climbed: 3 Stairs: Descriptors: Ascend;Descend;Reciprocal Stairs: Assistance Level: Ascend;Descend;Standby Assist Stairs: Assistive Device: One Rail Activity Limited By: Complaint of Fatigue EDUCATION: Persons Educated: Patient Patient Barriers To Learning: None Noted Teaching Methods: Verbal Instruction Patient Response: Verbalized Understanding Topics: Plan/Goals of PT Interventions;Mobility Progression;Up with Assist Only; Importance of Increasing Activity;Ambulate With Nursing;Equipment Recommendation s;Recommend Continued Therapy;Therapy Schedule ASSESSMENT/PROGRESS: Impaired Mobility Due To: Decreased Activity Tolerance;Deconditioning Assessment/Progress: Should Improve w/ Continued PT Comments: Patient is able to complete all mobility activitites with stand by ass ist. He is not a high fall risk, as shown by score on functional gait assessment . The patient will benefit from continued therapy to progress endurance and ensu re safe mobility. Turning from your back to your side while in a flat bed without using bed rails: None Moving from lying on your back to sitting on the side of a flatbed without using bedrails : None Moving to and from a bed to a chair (including a wheelchair): A Little Standing up from a chair using your arms (e.g. wheelchair, or bedside chair): A Little To walk in hospital room: A Little Climbing 3-5 steps with a railing: A Little Raw Score: 20 Standardized (T-scale) Score: 43.99 Basic Mobility CMS 0-100%: 33.32 CMS G Code Modifier for Basic Mobility: CJ GOALS: Goal Formulation: With Patient/Family Time For Goal Achievement: 3 days Patient Will Go Supine To/From Sit: Independently Patient Will Ambulate: Greater than 200 Feet, w/ No Device, Independently Patient Will Go Up / Down Stairs: 1-2 Flights, Independently PLAN: Treatment Interventions: Mobility Training;Endurance Training Plan Frequency: 3-5 Days per Week PT Plan for Next Visit: Progress ambulation distance for endurance RECOMMENDATIONS: Recommendation: Home with intermittent supervision/assistance Patient Currently Requires Supervision For: Mobility Patient Currently Requires Equipment: None Therapist: Giovani Denise PT, DPT Date: 2018 * Lesvia Schmidt - 2018 7:47 AM CDT SPEECH-LANGUAGE PATHOLOGY NO TREATMENT NOTE Per review of EMR and discussion with RN, pt has passed RN stroke dysphagia scre en. Formal swallow evaluation is no longer warranted. ASSISTANT KITCHEN MANAGER will s/o; please re-co nsult if assistance can be provided in the future. Therapist: Wilmer Lamb/STEVE-ASSISTANT KITCHEN MANAGER (Pager [phone]; Voalte: [phone]) Date: 2018 * Carlos Mckeon DO - 2018 7:31 AM CDT Neurology Progress Note Ld Del Toro Admission Date: 10/08/2018 LOS: 1 day Assessment/Plan: Mr. Del Toro is a 83yo M w/ PMH HTN, HLD who presents as transfer from OSH with a cute onset L sided weakness, L facial droop which rapidly improved (NIHSS 5 init ially). CTA performed at OSH notable for severe carotid artery stenosis (~90% st enosis) so pt was transferred to [facility] for observation and possible neurosurgical intervention. NIHSS on admission 1 for L facial droop. Active Problems: Stroke (HCC) Acute Ischemic Stroke - MRI Brain WO= - Scattered tiny and small acute or early subacute right cerebral internal and external border zone distribution infarcts, favored for hypoperfusion injury-sequelae of severe right ICA origin stenosis. Right ICA territory embolic infarcts could appear similar. -Small old lateral right orbitofrontal and inferior right cerebellar infarcts and old right thalamic and suarez radiata lacunar type infarcts. -Mild generalized cerebral volume loss and mild nonspecific white matter disease, likely due to chronic microvascular ischemia. - Permissive HTN (<220/120) - 2D echo - no vegetations, no interatrial shunting - LDL=78 will up atorvastatin to 80 mg - A1C=6.1 - Start Aspirin - PT/OT/ASSISTANT KITCHEN MANAGER/Rehab Consults - Discussed patient with NSG, pending CEA/DIANE evaluation HTN, HLD - holding [employer] HE[employer] AGENT lisinopril - continue [employer] HEALTH AGENT atorvastatin, increase to 80 mg Depression - on L[employer] AND HEALTH AGENT citalopram Gout - on [employer] HEALTH AGENT allopurinol FEN: IVF, monitor and replete electrolytes prn, Cardiac Diet Ppx: Heparin Status: Full code Disposition: Intervention for ICA stenosis Patient seen and plan of care discussed with Dr. Jenkins Subjective: Ld Del Toro is a 83 y.o. male. Patient seen and examined. No acute overnigh t events reported. Patient presented to from outlying facility where he was f ound to have initial NIHSS of 5 with L sided weakness and L sided facial droop, CTA was performed and was told he had 90% occlusion of R ICA. On transfer patien t states his weakness improved, when he arrived at his NIHSS was 1. No TPA wa s given. Patient states that he still feels mild weakness on his L side, but has had sign ificantly improved from yesterday. Able to ambulate. Patient has L sided facial droop however patient states that he thinks he may always have this. No complaints of fever, chills, headache, chest pain, dyspnea, abdominal pain, n ausea, vomiting, diarrhea, constipation. Objective: Vital Signs: Last Filed Vital Signs: 24 Hour Range BP: 174/106 (10/09 1128) Temp: 36.2 C (97.2 F) (10/09 0950) Pulse: 57 (10/09 1010) Respirations: 18 PER MINUTE (10/09 0950) SpO2: 97 % (10/09 0950) Height: 175.3 cm (69") (10/09 1128) BP: (112-174)/(64-106) Temp: [36.2 C (97.2 F)-36.7 C (98 F)] Pulse: [57-90] Respirations: [16 PER MINUTE-18 PER MINUTE] SpO2: [97 %] Intensity Pain Scale (Self Report): (not recorded) Medications: Scheduled Meds: aspirin chewable tablet 81 mg 81 mg Oral QDAY [START ON 10/10/2018] atorvastatin (LIPITOR) tablet 80 mg 80 mg Oral QDAY citalopram (CELEXA) tablet 10 mg 10 mg Oral QDAY heparin (porcine) PF syringe 5,000 Units 5,000 Units Subcutaneous Q8H Continuous Infusions: none General Physical Examination: Head/Neck: NC/AT Eyes: no conjunctival injection, no discharge ENT: no rhinorrhea, moist mucus membranes Chest: nonlabored respirations, chest rise equal b/l CV: regular rate and rhythm, no murmur appreciated, strong distal pulses, brisk capillary refill Pulmonary: LCTAB Abdomen: bowel sounds present, soft, nontender, nondistended Psych: appropriate affect Skin: no rash Neurological Exam: Mental status: awake, alert, interacting appropriately, cooperative with exam Speech: Fluent, with normal naming, comprehension, articulation and repetition CN: ; Visual vega intact. PERRL EOMI, no nystagmus; sensation intact on the fa ce bilaterally; - L sided facial droop hearing is grossly intact; voice is normal, symmetric palatal elevation, uvula is midline; strong shoulder shrug; tongue is midline without fasciculation Motor: normal muscle bulk and tone, normal strength throughout, 5/5. abnormal movements- none. Reflexes: +1 Patellar reflex on L side, +2 on R; toes are downgoing; no clonus Sensation: Light touch: grossly intact in the bilateral upper and lower extremities Prorprioception: intact Cerebellar function: suljez-xgqe-xiwdak, heel-meza movements without dysmetria n ormal rapid alternating movements; no pronator drift Laboratory Review: Lab Results Component Value Date HGB 12.6 (L) 2018 HCT 37.0 (L) 2018 PLTCT 255 2018 WBC 5.7 2018 Lab Results Component Value Date NA 138 2018 K 3.8 2018 CL 105 2018 CO2 26 2018 GAP 7 2018 BUN 11 2018 CR 0.94 2018 GLU 106 (H) 2018 CA 9.1 2018 MG 2.0 2018 PO4 2.9 2018 Pertinent radiology, labs, and diagnostic testing personally reviewed. Carlos Mckeon Emergency Medicine PGY1 Associated attestation - Barbara Jenkins MD - 2018 2:05 PM CDT Neurology Attending Attestation Patient has been seen and evaluated on attending rounds; santiago elements of the his tory and physical examination were repeated in order to confirm findings. Goals and plan of care was discussed with the patient. I have reviewed the above note and generally agree with the findings, plan and documentation. I spent a total of 70 minutes in patient care today, with 35 minutes spent counseling the patien t and coordinating care. 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 -Strongly favor acute intervention during this hospitalization, will consult NSG for CEA. -Pt has rectal bleeding history and notes concern for being on antiplatelet medi cation, though we discussed the minimum of ASA 81 mg started today. -Symptomatically stable, will continue to allow permissive pressures given his s tenosis and hypoperfusion injury. Did discuss with patient and the possibil ity of symptom fluctuations in the next few days. -Already on statin with LDL nearly at goal < 70. Will increase to maximize medical treatment, though this may not be an effective group home strategy as he does endorse history of lower extremity cramping. Barbara Jenkins MD Vascular Neurology documented in this encounter H&P Notes * Alessandro Reyes MD - 10/13/2018 5:40 AM CDT History and Physical Update Note Allergies: Bactrim [sulfamethoxazole-trimethoprim] and Valium [diazepam] Lab/Radiology/Other Diagnostic Tests: 24-hour labs: Results for orders placed or performed during the hospital encounter of 10/08/18 (from the past 24 hour(s)) TYPE & CROSSMATCH Collection Time: 10/12/18 11:30 AM Result Value Ref Range Units Ordered 2 Crossmatch Expires 10/15/2018 Record Check 2ND TYPE REQUIRED ABO/RH(D) O POS Antibody Screen NEG BLOOD TYPE CONFIRMATION - ORDER ONLY IF REQUESTED BY LAB Collection Time: 10/12/18 1:44 PM Result Value Ref Range ABO/RH(D) O POS , Mg and PO4: Lab Results Component Value Date MG 2.0 10/11/2018 and HgbA1C: Lab Results Component Value Date HGBA1C 6.1 10/08/2018 Point of Care Testing: (Last 24 hours): I have examined the patient, and there are no significant changes in their condi tion, from the previous H&P performed on 10/08/18. ASA 325mg replaced 81mg 10/10, as requested for planned surgery today. Patient remains agreeable for surgery today. Juliann Diallo APRN Pager [phone] Neurosurgery Consult History and Physical Examination Ld Del Toro Admission Date: 10/08/2018 Assessment/Plan: Ld Del Toro is a 83 y.o. male who presents with acute onset L sided weaknes s, L facial droop concerning for an acute stroke. -No acute neurosurgical intervention indicated. -CTA performed at OSH notable for severe R ICA stenosis (~90% stenosis) -CT Head today. Demonstrated scattered tiny and small acute or early subacute ri ght cerebral internal and external border zone distribution infarcts, favored f or hypoperfusion injury-sequelae of severe right ICA origin stenosis. -Will review patient's exam imaging with Dr. Reyes. __ Chief Complaint: L weakness and L facial droop concerning for stroke. History of Present Illness: Ld Del Toro is a 83 y.o. male who presents with acute onset L sided weaknes s, L facial droop. Symptoms began at 1500while at his own birthday republican.Pt was eating when he suddenly began to feel weak and mouth began to droop on L miki e.Symptoms improved after presented to OSH but CTA thererevealed 90% stenosi s of R ICA. On arrival to NIHSS was 1 for L facial droop. No new images were obtained as pt was stable on arrival. -Upon examination this morning, patient states that he is doing much better. He has able to ambulate and has no facial droop. He is neurologically intact. No ob vious signs of TIA or stroke present this morning. Head CT obtained this morning reveals possible chronic small infarcts likely 2/2 to right ICA stenosis. Past Medical History: History reviewed. No pertinent past medical history. Past Surgical History: History reviewed. No pertinent surgical history. Social History: Social History Tobacco Use Smoking status: Not on file Substance Use Topics Alcohol use: Not on file Drug use: Not on file Family History: History reviewed. No pertinent family history. Allergies: Patient has no known allergies. Medications: No medications prior to admission. Review of Systems: Full 10 point review of systems negative except for HPI Physical Exam: Vital Signs: Last Filed In 24 Hours Vital Signs: 24 Hour Range BP: 174/106 (10/09 1128) Temp: 36.2 C (97.2 F) (10/09 0950) Pulse: 57 (10/09 1010) Respirations: 18 PER MINUTE (10/09 0950) SpO2: 97 % (10/09 0950) Height: 175.3 cm (69") (10/09 1128) BP: (112-174)/(64-106) Temp: [36.2 C (97.2 F)-36.7 C (98 F)] Pulse: [57-90] Respirations: [16 PER MINUTE-18 PER MINUTE] SpO2: [97 %] General appearance: No acute distress Lungs: Clear to auscultation bilaterally Heart: Regular rate and rhythm Gastrointestinal: Soft, non-tender. Bowel sounds normal. no masses, no organome lisbeth Musculoskeletal: No edema, redness or tenderness in the calves or thighs Skin: Integument intact without major lesion. Psychiatric: Normal affect Neurologic Exam: Mental Status: Awake, alert and oriented x 4, fluent speech, normal cognition, 3 /3 5 min recall Pupils: Pupils equal round and reactive to light Cranial Nerves: CN II-XII individually tested and found to be intact, gag not te sted Motor: AA EF EE WF WE FF FE FA G HF KF KE DF PF EHL Left 5 5 5 5 5 5 5 5 5 5 5 5 5 5 5 Right 5 5 5 5 5 5 5 5 5 5 5 5 5 5 5 Normal muscle bulk and tone No pronator drift Sensation: Sensation intact to light touch, pinprick and proprioception througho ut Deep Tendon Reflexes: Tr Bi Br Pa Ac Left 2 2 2 2 2 Right 2 2 2 2 2 Plantar responses toes downgoing bilaterally No clonus bilaterally No poe's sign bilaterally Gait: Normal gait, with tandem, heel, and toe walk Cerebellar: No dysmetria, No dysdiadochokinesia Rectal: Not assessed Lab Tests: Hematology: Lab Results Component Value Date HGB 12.6 2018 HCT 37.0 2018 PLTCT 255 2018 WBC 5.7 2018 MCV 91.8 2018 MCHC 34.0 2018 MPV 6.8 2018 RDW 16.6 2018 General Chemistry: Lab Results Component Value Date NA 138 2018 K 3.8 2018 CL 105 2018 CO2 26 2018 BUN 11 2018 CR 0.94 2018 GLU 106 2018 CA 9.1 2018 MG 2.0 2018 PO4 2.9 2018 General Chemistry: Lab Results Component Value Date GAP 7 2018 Radiology and other Diagnostics Review: CT Head w/o Contrast (10/09/18) IMPRESSION 1. Scattered tiny and small acute or early subacute right cerebral internal and external border zone distribution infarcts, favored for hypoperfusion injury-s equelae of severe right ICA origin stenosis. Right ICA territory embolic infarc ts could appear similar. 2. Small old lateral right orbitofrontal and inferior right cerebellar infarcts and old right thalamic and suarez radiata lacunar type infarcts. 3. Mild generalized cerebral volume loss and mild nonspecific white matter disease, likely due to chronic microvascular ischemia. Tom Jara MD [id number] documented in this encounter Procedure Notes * Estefanía Vazquez MD - 10/15/2018 8:17 AM CDT Neurology intra-Operating Monitoring report (IOM) Date of procedure:10/13/2018 Diagnosis: Stenosis of right carotid artery Procedure: Right CEA, with patch graft Surgeon: Alessandro Reyes MD Baseline acquisition time: 8:22 Monitoring start time: 8:20 Incision time: 8:29 Closing started at: 11:17 Monitoring stop time: 11:33 Clamp placed :10:03 Clamp off ;11:03 . SSEP: Somatosensory Evoked Potentials: Post induction baseline somatosensory evoked potentials from bilateral ulnar and posterior tibial nerves were obtained and were reproducible with left ulnar kary wing reduced amplitude from the right ulnar, lower were symmetric. There were no changes during the surgery. The data from neurophysiological monitoring of soma tosensory evoked potentials showed no evidence to suggest change in the posterio r column-medial lemniscus cortical pathways as a consequence of this surgery. Repetitive Nerve Stimulation: TO4 (train of 4) was frequently run throughout the procedure to monitor for neur omuscular blockade. A nerve was repetitively stimulation and the compound motor action potentials (CMAPs) recorded from a distal motor group. TO4 was assessed d uring critical periods of surgery and demonstrated that neuromuscular blockade w as not present while monitoring EMGs and TcMEP. EEG: Electroencephalography: Post induction EEG was monitorable with interhemispheric symmetry. EEG was cont inuously monitored throughout the procedure. No significant changes in the EEG w ere observed. I remotely monitored and supervised this case in real-time, online via a secure HIPAA-compliant network. Estefanía Vazquez MD Head Of Ict Department of Neurology documented in this encounter Consult Notes * Sebastian Jean MD - 10/14/2018 7:52 PM CDT Associated Order(s): CONSULT UROLOGY PHYSICIAN [facility] Urology Consult 10/14/2018 Patient: Ld Del Toro Admission Date: 10/08/2018, LOS: 6 days Admission Diagnosis: Stroke (HCC) [I63.9] Date of Service: October 14, 2018 Reason for Consult: "Traumatic johnson insertion failed, now with clotted hematuri a" Referring Provider: Alessandro Reyes MD Attending Surgeon: Jey Holland MD Consult Performed by: Sebastian Jean MD ASSESSMENT: 83 y.o. male with HTN, HLD, Depression, Gout with acute stroke s/p r ight internal carotid endarterectomy admitted to NICU on 10/13/18 now with urinar y retention with difficult johnson. PLAN: - 20Fr Coude placed with ease with 10cc in balloon - immediate return of clear y ellow urine - would recommend maintaining catheter for at least 3 days given recent traumati c catheterization - in general, would recommend limiting any sedating/constipating medications (herrera ch as anticholinergics). - increase activity/ambulation as much as possible to encourage return of bladde r function - recommend bowel regimen to ensure soft, daily bowel movements if constipated. - Will discuss staff regarding follow up with urology as outpatient for voiding trial and evaluation for etiology of urinary retention which could be the result of recent stroke vs BPH - Urology signing off. We will make appointment for patient's follow up with us which will be populated in future appointments and patient will be contacted wit h date and time. Discussed plan of care with staff surgeon, Dr. Holland, who directed plan of care. Sebastian Jean MD URO PGY3 Please page Urology dispersion mixer with questions. __ HPI: Ld Del Toro is a 83 y.o. male with HTN, HLD, Depression, Gout with acu te stroke s/p right internal carotid endarterectomy admitted to NICU on 10/13/18 now with urinary retention with difficult johnson. Patient experienced acute onset L sided weakness, L facial droop at 1500on 10/13 while at his own birthday par ty. Symptoms improved after presented to OSH but CTA thererevealed 90% stenosi s of R ICA. On arrival to NIHSS was 1 for L facial droop. Patient underwent r ight internal carotid endarterectomy and has been having urinary retention after the procedure after catheter was removed. Bladder scan this evening > 500cc. RN on floor unable to place catheter due to resistance around prostate, was getting blood back. Patient reports he's been told he has an enlarged prostate by PCP. Has never been on any medications such as flomax or finasteride. States he voids frequently throughout the day, usually small amounts and with straining at times. ROS: 14 point ROS performed. Pertinent items listed in HPI and PMH. Otherwise negativ e. Medical History: Diagnosis Date Anxiety CVA (cerebral vascular accident) (HCC) DM (diabetes mellitus) (HCC) GERD (gastroesophageal reflux disease) HLD (hyperlipidemia) HTN (hypertension) Surgical History: Procedure Laterality Date BACK SURGERY CATARACT REMOVAL ELBOW SURGERY Medications: No current facility-administered medications on file prior to encounter. Current Outpatient Medications on File Prior to Encounter Medication Sig Dispense Refill allopurinol (ZYLOPRIM) 100 mg tablet Take 100 mg by mouth daily. Take with f ood. atorvastatin (LIPITOR) 40 mg tablet Take 20 mg by mouth at bedtime daily. biotin 5,000 mcg TbDi Dissolve 1 tablet by mouth daily. Carboxymethylcellulose Sodium (REFRESH LIQUIGEL) 1 % dlgl Apply 1 drop to mark th eyes at bedtime daily. Carboxymethylcellulose Sodium (REFRESH TEARS) 0.5 % drop Apply 1 drop to bot h eyes every 6 hours as needed. citalopram (CELEXA) 10 mg tablet Take 10 mg by mouth daily. lisinopril-hydrochlorothiazide (PRINZIDE, ZESTORETIC) 20-12.5 mg tablet Take 1.5 tablets by mouth every morning. Magnesium 250 mg tab Take 1 tablet by mouth daily. Omeprazole (PRILOSEC) 20 mg tablet Take 20 mg by mouth daily with breakfast. Allergies: Bactrim [sulfamethoxazole-trimethoprim] and Valium [diazepam] Social History Socioeconomic History Marital status: Spouse name: Not on file Number of children: Not on file Years of education: Not on file Highest education level: Not on file Occupational History Not on file Tobacco Use Smoking status: Former Smoker Types: Cigarettes Last attempt to quit: 1961 Years since quittin.0 Smokeless tobacco: Never Used Substance and Sexual Activity Alcohol use: Not on file Drug use: Not on file Sexual activity: Not on file Other Topics Concern Not on file Social History Narrative Retired about 30 years ago. Lives with his of 61 years. Used to work as [employer]. Has 3 children. They live in [facility], owusu they spend in [place]. Tr dea with RV History reviewed. No pertinent family history. Vitals: Vital Signs: Last Filed In 24 Hours Vital Signs: 24 Hour Range BP: 173/92 (10/14 1800) Temp: 36.7 C (98.1 F) (10/14 1600) Pulse: 70 (10/14 1900) Respirations: 19 PER MINUTE (10/14 1900) SpO2: 96 % (10/14 1900) SpO2 Pulse: 70 (10/14 1900) BP: (123-173)/(62-92) ABP: (143-183)/(58-77) Temp: [36.7 C (98 F)-36.9 C (98.5 F)] Pulse: [56-89] Respirations: [10 PER MINUTE-23 PER MINUTE] SpO2: [92 %-97 %] Intensity Pain Scale (Self Report): 2 (10/14/18 0000) Physical Exam: General: well nourished, alert and oriented, no acute distress Head/Eyes/Ears/Nose/Throat: normocephalic, atraumatic, extraocular movements int act Cardiovascular: regular rate/rhythm, palpable symmetric radial pulses Abdomen: soft, nontender, nondistended Genito-urinary: blood around meatus from previous catheter attempts Extremities: no clubbing, cyanosis, edema Neuro: cranial nerves III-XII grossly intact, no focal deficits, moves all extre mities Psych: normal mood, affect, and thought process Intake/Output: Intake/Output Summary (Last 24 hours) at 10/14/20181951 Last data filed at 10/14/2018 1830 Gross per 24 hour Intake 1676 ml Output 2695 ml Net -1019 ml Lab/Radiology/Other Diagnostic Tests: Recent Labs 10/13/18 1115 10/14/18 0800 HGB -- 11.8* HCT -- 35.2* WBC -- 9.5 PLTCT -- 261 NA 139 137 K 4.2 3.5 CL -- 103 CO2 -- 25 BUN -- 12 CR -- 0.81 GLU 145* 190* CA -- 8.9 MG -- 1.8 PO4 -- 3.0 Glucose: (!) 190 (10/14/18 0800) Associated attestation - Jey Holland MD - 10/15/2018 8:40 AM CDT ATTESTATION I discussed the case with the resident, and concur with documentation of history , physical examination, assessment, and treatment plan unless otherwise noted. Jey Holland MD 10/15/2018 8:40 AM * Jose Fay APRN - 10/13/2018 1:18 PM CDT Associated Order(s): CONSULT NEURO CRITICAL CARE PHYSICIAN Neuro Critical Care History and Physical Ld Khadijah Warneranda Admission Date: 10/08/2018 LOS: 5 days Full Code ASSESSMENT/PLAN Patient Active Problem List Diagnosis Date Noted Stroke (HCC) 10/08/2018 Ld Del Toro is a 83 y.o. male with HTN, HLD, Depression, Gout s/p right int ernal carotid endarterectomy admitted to NICU on 10/13/18. Hospital and ICU course: 10/13: admitted to NICu post right CEA Neuro: Stenosis of right carotid artery R CEA CVA - CTA head and neck ordered - ASA 325 mg - MARIELENA drain in place - PT/OT Sedation/Pain Management: Anxiety - PRN Fentanyl, PRN [place] - Assess for delirium daily - [employer] Celexa restarted Cardiac: HTN HLD - SBP goal: < 140 - [employer] Lipitor 80 mg restarted - Lisinipril/HCTZ - PRN Cardene gtt Respiratory: Former smoker - Stable on RA GI: GERD - [employer] prilosec restarted - Feeding: regular diet - neurosurgery bowel regimen, ensure daily BM Heme: - assess for coagulopathy, maintain platelets above 100k, INR <1.5 - ASA 325 mg ID: - POst op Ancef X 3 doses - aim for normothermia, Temp <38.3 celsius, normothermia protocol if febrile Renal: - Johnson in place - Aim for normovolemia Endocrine: DM - Blood glucose goal 100-180mg/dl FEN: - IVF: - Magnesium goal >2.0, i-Bryson goal > 1.0, Potassium goal >4.0 mEq/L Prophylaxis Review: A)GI: PPI/N1Jumicry B) Lines: Yes; Arterial Line; Indication: Frequent blood draws; Location: Rad ial C) Urinary Catheter: Yes; Retain johnson due to: Need for accurate Intake and Ou tput D) Antibiotic Usage: No E) VTE: Mechanical prophylaxis; Sequential compression device F) Isolation: no G)Seizures: no I) Restraints: Patient assessed for need for restraints. Disposition/Family: ICU care Primary service: HIREN Consults: NICU SUBJECTIVE Chief Complaint: S/p R CEA History of Present Illness: Ld Del Toro is a 83 y.o. male with HTN, HLD, De pression, Gout s/p right internal carotid endarterectomy admitted to NICU on 09/22 05/09. On 10/08/2018 he was transferred from OSH with acute onset L sided weakness, L fa cial droop with rapid improvement. CTA at OSH showed 90 % stenosis of R ICA. Dec ision was made to perform a right CEA. Medical History: Diagnosis Date Anxiety CVA (cerebral vascular accident) (HCC) DM (diabetes mellitus) (HCC) GERD (gastroesophageal reflux disease) HLD (hyperlipidemia) HTN (hypertension) Surgical History: Procedure Laterality Date BACK SURGERY CATARACT REMOVAL ELBOW SURGERY Family history reviewed; non-contributory Social History Social History Narrative Retired about 30 years ago. Lives with his of 61 years. Used to work as [employer]. Has 3 children. They live in [facility], owusu they spend in [place]. Alden malin with RV Code Status: Full Code Decision Maker: Immunizations (includes history and patient reported): There is no immunization history on file for this patient. Allergies: Bactrim [sulfamethoxazole-trimethoprim] and Valium [diazepam] Medications Prior to Admission Medication Sig allopurinol (ZYLOPRIM) 100 mg tablet Take 100 mg by mouth daily. Take with f ood. atorvastatin (LIPITOR) 40 mg tablet Take 20 mg by mouth at bedtime daily. biotin 5,000 mcg TbDi Dissolve 1 tablet by mouth daily. Carboxymethylcellulose Sodium (REFRESH LIQUIGEL) 1 % dlgl Apply 1 drop to mark th eyes at bedtime daily. Carboxymethylcellulose Sodium (REFRESH TEARS) 0.5 % drop Apply 1 drop to bot h eyes every 6 hours as needed. citalopram (CELEXA) 10 mg tablet Take 10 mg by mouth daily. lisinopril-hydrochlorothiazide (PRINZIDE, ZESTORETIC) 20-12.5 mg tablet Take 1.5 tablets by mouth every morning. Magnesium 250 mg tab Take 1 tablet by mouth daily. Omeprazole (PRILOSEC) 20 mg tablet Take 20 mg by mouth daily with breakfast. Review of Systems: All other systems reviewed and are negative. OBJECTIVE Vital Signs: Last Filed Vital Signs: 24 [facility] BP: 148/78 (10/13 1200) ABP: 127/39 (10/13 1215) Temp: 36.8 C (98.2 F) (10/13 1200) Pulse: 71 (10/13 121) Respirations: 14 PER MINUTE (10/13 121) SpO2: 92 % (10/13 1214) Height: 175.3 cm (69.02") (10/13 06) Weight: 88 kg (194 lb) (10/13 06) BP: (127-171)/(53-95) ABP: (127-135)/(39-40) Temp: [36.3 C (97.4 F)-36.8 C (98.2 F)] Pulse: [52-72] Respirations: [14 PER MINUTE-21 PER MINUTE] SpO2: [92 %-99 %] Intensity Pain Scale (Self Report): (not recorded) Vitals: 10/08/18 2131 10/09/18 1128 10/13/18 0600 Weight: 88.2 kg (194 lb 7.1 oz) 88 kg (194 lb) 88 kg (194 lb) Artificial airway: None Ventilator/ Respiratory Therapy: No Vent weaning trial: Not applicable Lines: Peripheral Line Drains: Jamir-Loaiza Drain: Critical Care Vitals: ICP Monitoring: Hemodynamics/Oxycalcs: Intake/Output Summary: (Last 24 hours) Intake/Output Summary (Last 24 hours) at 10/13/2018 1318 Last data filed at 10/13/2018 1200 Gross per 24 hour Intake 2200 ml Output 655 ml Net 1545 ml Physical Exam: Blood pressure 148/78, pulse 71, temperature 36.8 C (98.2 F), height 175.3 c m (69.02"), weight 88 kg (194 lb), SpO2 92 %. Rashaad coma score: E: 4 - Opens eyes on own M: 6 - Follows simple motor commands V: 5 - Alert and oriented Neuro: Mental Status: alert/oriented X 4. Follows commands in all four extremities. Motor: RUE: Strength: 4/5; RLE: Strength: 4/5; LUE: Strength: 4/5; LLE: Strength: 4/5; Lungs: clear to auscultation bilaterally Pulmonary: Respiratory status: Stable Heart: regular rate and rhythm, S1, S2 normal, no murmur, click, rub or gallop Abdomen: soft, non-tender. Bowel sounds normal. No masses, no organomegaly Extremities: extremities normal, atraumatic, no cyanosis or edema Skin: Skin color, texture, turgor normal. No rashes or lesions Point of Care Testing: (Last 24 hours): Glucose: (!) 145 (10/13/18 1115) Lab Review: Pertinent labs reviewed Radiology and Other Diagnostic Procedures Review: Pertinent radiologic and diag nostic procedures reviewed. Jose Fay, HAT BRIM CURLER Date: 10/13/[phone] I spent 40 minutes managing the care of this patient. Mr Del Toro is critically i ll s/p CEA. Cares included: detailed neurologic and systems exam, medication rev iew, laboratory data review and interpretation, electrolyte management, review o f available imaging, DVT/PE prophylaxis review, diet review, activity review, an d coordination of care with consulted teams * Bravo Omalley DO - 2018 2:03 PM CDT Associated Order(s): CONSULT REHABILITATION MEDICINE PHYSICIAN Physical Medicine & Rehabilitation Consult Note Date of Service: 2018 Ld Del Toro is a 83 y.o. male. : 1935 MRN#: [id number] Primary Insurance: MEDICARE Financial Class: Medicare Date of Admission: 10/08/2018 Referring Physician: Barbara Jenkins MD Reason for Consult: evaluate for Post-Acute Rehab/Placement Precautions: Fall Weight bearing Precautions: WBAT Active Problems Stroke Carotid Stenosis Assessment & Plan Ld Del Toro is a 83 y.o. male admitted to [facility] on 10/08/2018 with the following issues: stroke Post-acute care rehabilitation needs: Patient currently does not have goals or medical complexity to warrant post-acut e care rehabilitation. He is most appropriate for home discharge at this time. S hould patient undergo CEA and develop symptoms post-operatively, please reach ou t to Rehab Consult service to re-evaluate. Bravo Omalley DO Rehab Consult Pager: [phone] History of Present Illness 83yo M w/ PMH HTN, HLD who presents as transfer from OSH with acute onset L miki ed weakness, L facial droop which rapidly improved (NIHSS 5 initially). CTA perf ormed at OSH notable for severe carotid artery stenosis (~90% stenosis). Transfe rred to [facility] for observation and possible neurosurgical intervention. NIHSS on a dmission 1 for L facial droop. MRI Head tiny and small acute/early subacute righ t cerebral internal and external border zone distribution infarcts. NSGY consult w/o need for surgical intervention. Past Medical History History reviewed. No pertinent past medical history. Past Surgical History History reviewed. No pertinent surgical history. Family\\Social History Social History Socioeconomic History Marital status: Spouse name: Not on file Number of children: Not on file Years of education: Not on file Highest education level: Not on file Occupational History Not on file Tobacco Use Smoking status: Former Smoker Types: Cigarettes Last attempt to quit: 1961 Years since quittin.0 Smokeless tobacco: Never Used Substance and Sexual Activity Alcohol use: Not on file Drug use: Not on file Sexual activity: Not on file Other Topics Concern Not on file Social History Narrative Not on file Family history reviewed; non-contributory Medications: aspirin chewable tablet 81 mg 81 mg Oral QDAY [START ON 10/10/2018] atorvastatin (LIPITOR) tablet 80 mg 80 mg Oral QDAY citalopram (CELEXA) tablet 10 mg 10 mg Oral QDAY heparin (porcine) PF syringe 5,000 Units 5,000 Units Subcutaneous Q8H PRN Medications: Allergies: Allergies Allergen Reactions Bactrim [Sulfamethoxazole-Trimethoprim] SEE COMMENTS Patient reports when taking it "made illness worse" Valium [Diazepam] SEE COMMENTS Put patient "in another world", Shaking and sweating. Prior Level of Function Self-Care/ADLs: Overall goal is Independent Mobility: Overall goal is Independent No device Home Environment: Home Situation: Lives with Family (2018 9:00 AM) Patient Owned Equipment: None (2018 9:00 AM) Type of Home: House (2018 9:00 AM) Entry Stairs: 3-5 Stairs;Rail on 1 Side (2018 9:00 AM) In-Home Stairs: No Stairs (2018 9:00 AM) Comments: Patient denies any falls in the last 3 months. He states he has to "ta ke it slow" when standing due to occasional lightheadedness. (2018 9:00 A M) No data recorded Current Level of Function Physical Therapy: BED MOBILITY/TRANSFERS: Bed Mobility: Supine to Sit: Standby Assist;Bed Flat;No Rail Bed Mobility: Sit to Supine: Standby Assist;Bed Flat;No Rail Transfer Type: Sit to/from Stand Transfer: Assistance Level: To/From;Bed;Standby Assist Transfer: Assistive Device: None Transfers: Type Of Assistance: For Safety Considerations End Of Activity Status: In Bed;Instructed Patient to Request Assist with Mobilit y;Instructed Patient to Use Call Light(bed alarm on) Comments: Patient denies dizziness with change in position BALANCE: Standing Balance: Dynamic Standing Balance;Standby Assist;No UE support Functional Gait Assessment: Assessed Gait level surface: Normal Change in gait speed: Normal Gait with horizontal head turns: Normal Gait with vertical head turns: Normal Gait and pivot turn: Normal Step over obstacle: Normal Gait with narrow base of support: Mild Impairment Gait with eyes closed: Normal Ambulating backwards: Mild Impairment Steps: Mild Impairment Functional Gait Assessment Score:: 27 GAIT: Gait Distance: 500 feet Gait: Assistance Level: Standby Assist Gait: Assistive Device: None Gait: Descriptors: Pace: Normal;Swing-Through Gait;No balance loss Stairs: Number Climbed: 3 Stairs: Descriptors: Ascend;Descend;Reciprocal Stairs: Assistance Level: Ascend;Descend;Standby Assist Stairs: Assistive Device: One Rail Activity Limited By: Complaint of Fatigue Occupational Therapy: Based on discussion with Physical therapy, patient's current level of function s uggests that patient will progress with one discipline. Occupational therapy mayra l sign off at this time. Please re-consult if change in functional status occurs . Speech Therapy: Per review of EMR and discussion with RN, pt has passed RN stroke dysphagia scre en. Formal swallow evaluation is no longer warranted. ASSISTANT KITCHEN MANAGER will s/o; please re-co nsult if assistance can be provided in the future. Review of Systems All other systems reviewed and are negative. Physical Exam BP: 150/105 (10/09 1332) Temp: 36.4 C (97.5 F) (10/09 1332) Pulse: 72 (10/09 1332) Respirations: 18 PER MINUTE (10/09 1332) SpO2: 97 % (10/09 1332) Height: 175.3 cm (69") (10/09 1128) Body mass index is 28.65 kg/m. General: No acute distress Head: Non-traumatic Eyes: without scleral icterus, extra ocular movements intact ENT: moist mucous membranes Chest: adequate peripheral perfusion without cyanosis Lungs: not in respiratory distress, no accessory muscle use Abdomen: non-distended Skin: warm and dry Extremities: without clubbing or cyanosis MSK: 5/5 MMT throughout Neuro: CN 2-12 grossly intact, proprioceptive scoring in BLE without impairment, H2S and F2N w/o impairment Intake/Output Summary: Intake/Output Summary (Last 24 hours) at 2018 1404 Last data filed at 2018 1000 Gross per 24 hour Intake 0 ml Output Net 0 ml No data recorded No data recorded No data recorded No data recorded No data recorded No data recorded No data recorded Basic Metabolic Profile Lab Results Component Value Date/Time NA 138 2018 05:19 AM K 3.8 2018 05:19 AM CA 9.1 2018 05:19 AM CL 105 2018 05:19 AM CO2 26 2018 05:19 AM Lab Results Component Value Date/Time BUN 11 2018 05:19 AM CR 0.94 2018 05:19 AM GLU 106 (H) 2018 05:19 AM CBC w diff Lab Results Component Value Date/Time WBC 5.7 2018 05:19 AM RBC 4.02 (L) 2018 05:19 AM HGB 12.6 (L) 2018 05:19 AM HCT 37.0 (L) 2018 05:19 AM MCV 91.8 2018 05:19 AM MCH 31.2 2018 05:19 AM RDW 16.6 (H) 2018 05:19 AM PLTCT 255 2018 05:19 AM MPV 6.8 (L) 2018 05:19 AM No results found for: NEUT, ANC, LYMA, ALC, LUL, AMC, EOSA, AEC, BASA, ABC Radiology: MRI Head 1. Scattered tiny and small acute or early subacute right cerebral internal and external border zone distribution infarcts, favored for hypoperfusion injury-sequelae of severe right ICA origin stenosis. Right ICA territory embolic infarcts could appear similar. 2. Small old lateral right orbitofrontal and inferior right cerebellar infarcts and old right thalamic and suarez radiata lacunar type infarcts. 3. Mild generalized cerebral volume loss and mild nonspecific white matter disease, likely due to chronic microvascular ischemia. Associated attestation - Dio Fitch MD - 10/10/2018 9:38 AM CDT Rehabilitation Medicine Attending Physician Attestation: I personally performed santiago portions of the history and exam. I discussed the diane e with the resident and agree with the resident's documentation of history, phys ical assessment and treatment plan unless otherwise noted. Thank you for allowing us to participate in the care of this patient. Dio Fitch MD 10/10/2018 9:38 AM Attending physician * Tom Jara MD - 2018 11:37 AM CDT Neurosurgery Consult History and Physical Examination Ld Del Toro Admission Date: 10/08/2018 Assessment/Plan: Ld Del Toro is a 83 y.o. male who presents with acute onset L sided weaknes s, L facial droop concerning for an acute stroke. -No acute neurosurgical intervention indicated. -CTA performed at OSH notable for severe R ICA stenosis (~90% stenosis) -CT Head today. Demonstrated scattered tiny and small acute or early subacute ri ght cerebral internal and external border zone distribution infarcts, favored f or hypoperfusion injury-sequelae of severe right ICA origin stenosis. -Will review patient's exam imaging with Dr. Reyes. __ Chief Complaint: L weakness and L facial droop concerning for stroke. History of Present Illness: Ld Del Toro is a 83 y.o. male who presents with acute onset L sided weaknes s, L facial droop. Symptoms began at 1500 while at his own [employer]. Pt wa s eating when he suddenly began to feel weak and mouth began to droop on L side. Symptoms improved after presented to OSH but CTA there revealed 90% stenosis of R ICA. On arrival to NIHSS was 1 for L facial droop. No new images were obta ined as pt was stable on arrival. -Upon examination this morning, patient states that he is doing much better. He has able to ambulate and has no facial droop. He is neurologically intact. No ob vious signs of TIA or stroke present this morning. Head CT obtained this morning reveals possible chronic small infarcts likely 2/2 to right ICA stenosis. Past Medical History: History reviewed. No pertinent past medical history. Past Surgical History: History reviewed. No pertinent surgical history. Social History: Social History Tobacco Use Smoking status: Not on file Substance Use Topics Alcohol use: Not on file Drug use: Not on file Family History: History reviewed. No pertinent family history. Allergies: Patient has no known allergies. Medications: No medications prior to admission. Review of Systems: Full 10 point review of systems negative except for HPI Physical Exam: Vital Signs: Last Filed In 24 Hours Vital Signs: 24 Hour Range BP: 174/106 (10/09 1128) Temp: 36.2 C (97.2 F) (10/09 0950) Pulse: 57 (10/09 1010) Respirations: 18 PER MINUTE (10/09 0950) SpO2: 97 % (10/09 0950) Height: 175.3 cm (69") (10/09 1128) BP: (112-174)/(64-106) Temp: [36.2 C (97.2 F)-36.7 C (98 F)] Pulse: [57-90] Respirations: [16 PER MINUTE-18 PER MINUTE] SpO2: [97 %] General appearance: No acute distress Lungs: Clear to auscultation bilaterally Heart: Regular rate and rhythm Gastrointestinal: Soft, non-tender. Bowel sounds normal. no masses, no organome lisbeth Musculoskeletal: No edema, redness or tenderness in the calves or thighs Skin: Integument intact without major lesion. Psychiatric: Normal affect Neurologic Exam: Mental Status: Awake, alert and oriented x 4, fluent speech, normal cognition, 3 /3 5 min recall Pupils: Pupils equal round and reactive to light Cranial Nerves: CN II-XII individually tested and found to be intact, gag not te sted Motor: AA EF EE WF WE FF FE FA G HF KF KE DF PF EHL Left 5 5 5 5 5 5 5 5 5 5 5 5 5 5 5 Right 5 5 5 5 5 5 5 5 5 5 5 5 5 5 5 Normal muscle bulk and tone No pronator drift Sensation: Sensation intact to light touch, pinprick and proprioception througho ut Deep Tendon Reflexes: Tr Bi Br Pa Ac Left 2 2 2 2 2 Right 2 2 2 2 2 Plantar responses toes downgoing bilaterally No clonus bilaterally No poe's sign bilaterally Gait: Normal gait, with tandem, heel, and toe walk Cerebellar: No dysmetria, No dysdiadochokinesia Rectal: Not assessed Lab Tests: Hematology: Lab Results Component Value Date HGB 12.6 2018 HCT 37.0 2018 PLTCT 255 2018 WBC 5.7 2018 MCV 91.8 2018 MCHC 34.0 2018 MPV 6.8 2018 RDW 16.6 2018 General Chemistry: Lab Results Component Value Date NA 138 2018 K 3.8 2018 CL 105 2018 CO2 26 2018 BUN 11 2018 CR 0.94 2018 GLU 106 2018 CA 9.1 2018 MG 2.0 2018 PO4 2.9 2018 General Chemistry: Lab Results Component Value Date GAP 7 2018 Radiology and other Diagnostics Review: CT Head w/o Contrast (10/09/18) IMPRESSION 1. Scattered tiny and small acute or early subacute right cerebral internal and external border zone distribution infarcts, favored for hypoperfusion injury-s equelae of severe right ICA origin stenosis. Right ICA territory embolic infarc ts could appear similar. 2. Small old lateral right orbitofrontal and inferior right cerebellar infarcts and old right thalamic and suarez radiata lacunar type infarcts. 3. Mild generalized cerebral volume loss and mild nonspecific white matter disease, likely due to chronic microvascular ischemia. Tom Jara MD [id number] Associated attestation - Alessandro Reyes MD - 11/13/2018 10:02 AM CDT I have personally seen and examined the patient and developed the management mike n as above. Symptomatic severe CALISTA stenosis. Revascularization is the consensus recommendation. CEA remains the gold standard. Spoke at length regarding risks and benefits of operation. Patient and family understand and agree. Will arrange OR scheduling. documented in this encounter Miscellaneous Notes * Care Plan - Brittney Prescott RN - 10/16/2018 11:30 AM CDT Problem: Discharge Planning Goal: Participation in plan of care Outcome: Goal Achieved Date Met: 10/16/18 Pt is an active member in plan of care Problem: Neurological Status, Impaired/Altered Goal: Progress toward maximizing functional outcomes Outcome: Goal Achieved Date Met: 10/16/18 Pt has been A&OX4 this shift Problem: Mobility/Activity Intolerance Goal: Maximize functional ADL's and mobility outcomes Outcome: Goal Achieved Date Met: 10/16/18 Pt is moving around the room by himself this shift Problem: Infection, Risk of, Urinary Catheter-Associated Urinary Tract Infection Goal: Absence of urinary catheter-associated infection Outcome: Goal Achieved Date Met: 10/16/18 Pt has been educated on johnson catheter care at home * Case Mgmt DC Plan - Hannah Jarrett RN - 10/16/2018 8:20 AM CDT Case Management Progress Note NAME:Ld Del Toro :[birth year] AGE: 83 y.o. ADMISSION DATE: 10/08/2018 DAYS ADMITTED: LOS: 8 days Todays Date: 10/16/2018 Plan Make appointment for patient Follow up PT/OT recommendations Interventions ? Support * Current PT recommendations: Home with consistent supervision/assistance; Home health * Current OT recommendations: Signed off * Current ST recommendations: Signed off Patient was discussed in AM team meeting, and per MORGAN Humphreys he does not wish to have home health or outpatient PT - WEEKEND CAREGIVER is comfortable with those choices, and pepper lama has consistent supervision/assistance at home. ? Info or Referral Information or Referral to Community Resources: Other(PCP Appointment) NCM was requested by WEEKEND CAREGIVER to make appointment for patient with his PCP, either Tue or Tuesday, to have his urinary catheter removed. * Spoke with Dr. Dewitt's staff, and appointment was scheduled for , 09/22 9, at 1015. * Notified WEEKEND CAREGIVER of appointment; placed in patient's AVS in the Return Appointments tab. * At PCP staff request, faxed clinical and AVS to PCP's office via [employer] at [phone]. ? Discharge Planning ? Medication Needs ? Financial ? Legal ? Other Disposition ? Expected Discharge Date Expected Discharge Date: 10/16/18 Expected Discharge Time: 1200 ? Transportation Does the patient need discharge transport arranged?: No Transportation Name, Phone and Availability #1: Todd Louis (daughter) ? Next Level of Care (Acute Psych discharges only) ? Discharge Disposition Durable Medical Equipment No service has been selected for the patient. Destination No service has been selected for the patient. Home Care No service has been selected for the patient. Dialysis/Infusion No service has been selected for the patient. BRANDI Osei, RN, ACM-felt strip finisher Nurse Salt Plant Operator [phone], *[phone] * Anesthesia Post Op Day 1 - Nell Galvan, ZEE - 10/14/2018 11:50 AM CDT Anesthesia Follow-Up Evaluation: Post-Procedure Day One Name: Ld Del Toro : 1935 Age: 83 y.o. Sex: male Procedure Date: 10/13/2018 Procedure: Procedure(s) with comments: RIGHT INTERNAL CAROTID ENDARTERECTOMY - CASE LENGTH 5 HOURS, NEUROMONITORING, RE QUEST 0715 START Physical Assessment Height: 175.3 cm (69.02") Weight: 88 kg (194 lb) Vital Signs (Last Filed in 24 hours) BP: 164/73 (10/14 1200) Temp: 36.8 C (98.3 F) (10/14 1200) Pulse: 61 (10/14 1200) Respirations: 15 PER MINUTE (10/14 1200) SpO2: 94 % (10/14 1200) SpO2 Pulse: 61 (10/14 1200) Patient History Allergies Allergies Allergen Reactions Bactrim [Sulfamethoxazole-Trimethoprim] SEE COMMENTS Patient reports when taking it "made illness worse" Valium [Diazepam] SEE COMMENTS Put patient "in another world", Shaking and sweating. Medications Scheduled Meds: allopurinol (ZYLOPRIM) tablet 100 mg 100 mg Oral QDAY aspirin EC tablet 325 mg 325 mg Oral QDAY atorvastatin (LIPITOR) tablet 80 mg 80 mg Oral QDAY citalopram (CELEXA) tablet 10 mg 10 mg Oral QDAY docusate (COLACE) capsule 100 mg 100 mg Oral BID hydroCHLOROthiazide (HYDRODIURIL) tablet 18.75 mg 18.75 mg Oral QDAY lisinopril (PRINIVIL; ZESTRIL) tablet 30 mg 30 mg Oral QDAY omeprazole DR(+) (PRILOSEC) capsule 20 mg 20 mg Oral QDAY after breakfast polyethylene glycol 3350 (MIRALAX) packet 17 g 1 packet Oral QDAY Continuous Infusions: PRN and Respiratory Meds:bisacodyl QDAY PRN, fentaNYL citrate PF Q1H PRN, HYDROc odone/acetaminophen Q6H PRN, labetalol (NORMODYNE; TRANDATE) injection Q1H PRN Diagnostic Tests Hematology: Lab Results Component Value Date HGB 11.8 10/14/2018 HCT 35.2 10/14/2018 PLTCT 261 10/14/2018 WBC 9.5 10/14/2018 MCV 93.4 10/14/2018 MCH 31.4 10/14/2018 MCHC 33.6 10/14/2018 MPV 7.1 10/14/2018 RDW 16.9 10/14/2018 General Chemistry: Lab Results Component Value Date NA 137 10/14/2018 K 3.5 10/14/2018 CL 103 10/14/2018 CO2 25 10/14/2018 GAP 9 10/14/2018 BUN 12 10/14/2018 CR 0.81 10/14/2018 GLU 190 10/14/2018 CA 8.9 10/14/2018 OBSCA 1.14 10/14/2018 MG 1.8 10/14/2018 PO4 3.0 10/14/2018 Coagulation: No results found for: PT, PTT, INR Follow-Up Assessment Patient location during evaluation: ICU Anesthetic Complications: Anesthetic complications: The patient did not experience any anesthestic complic ations. Pain: Score: 2 (Surgical site.) Management:satisfactory to patient Level of Consciousness: awake and alert Hydration:acceptable Airway Patency: patent Respiratory Status: acceptable, spontaneous ventilation and room air Cardiovascular Status:acceptable and hemodynamically stable Regional/Neuroaxial: Comments: Pt c/o LEFT arm/hand numbness and tingling; RN @ bedside and on phone with neuro. Pt alert and oriented X4, stable VS. * Care Coordination-Inpatient - Betzaida Roy RN - 10/13/2018 3:09 PM CDT Ld Del Toro Right Internal Carotid Endarterectomy with Patch graft on 10/13/[address] Finesse larkin Neurosurgery Discharge Instructions Contact information: ? Please feel free to call Neurosurgery at any time if you have questions or are experiencing problems at discharge [phone]. Post-operative wound care: ? Your incision has dissolvable sutures and glue in place. This can be open to a ir. ? Use baby shampoo to gently cleanse incision daily, pat dry, leave open to air. ? Do not submerge (pool/tub) for 4 weeks. ? Bruising and swelling are normal at incision site. ? Please only touch your incision with clean, dry hands. Activity restrictions: ? Avoid pushing, pulling, lifting or bending more than 10 pounds (about a gallon of milk) until follow up. This includes excessive bending, stooping, or stair climbing for 2 days. ? Do NOT drive if you are taking pain medications or vision is not normal. Post-operative pain and medications: ? Please use your pain medications as prescribed. ? Pain medications can make you constipated. You may take a stool softener with miralax. ? Do NOT take Ibuprofen or NSAIDS until your follow your appointment. ? Take your Aspirin daily, do not miss a dose ? *Please ensure that you are drinking 2 Liters of non-caffeinated beverages jes* Follow up appointment: ? 11/08/18 @ 11:[address] Reyes for surgical follow up. ? Please update your primary care physician of your surgery and any medication c hanges. Please contact Neurosurgery if you develop any of the following: ? Numbness, abnormal sensations of your face, arms or legs, especially on one si de. These are signs of stroke. Act FAST: Facial droop, Arm weakness, Speech slu rred=Time Call 911, seek immediate medical attention at nearest ER facility. ? Fever 101 or greater. Redness, swelling, continuous oozing, fluid collection, warmth or bad odor near the incision site. ? Difficulty breathing or difficulty swallowing. Betzaida Roy RN Clinical Nurse Coordinator Neurosurgery Office: [phone] * Procedures (Immed Post or Bedside) - Dawit Gill MD - 10/13/2018 11:43 AM CDT Brief Operative Note Name: Ld Del Toro is a 83 y.o. male : 1935 MRN#: [id number] DATE OF OPERATION: 10/13/2018 Date: 10/13/2018 Preoperative Dx: Stenosis of right carotid artery [I65.21] Post-op Diagnosis * Stenosis of right carotid artery [I65.21] Procedure(s) (LRB): RIGHT INTERNAL CAROTID ENDARTERECTOMY (Right) Anesthesia Type: General Surgeon(s) and Role: * Alessandro Reyes MD - Primary * Dawit Gill MD - Resident - Assisting Findings: Large significant R CEA calcified plaque removed with placement of pa tch graft Estimated Blood Loss: 100 ml Specimen(s) Removed/Disposition: * No specimens in log * Complications: None Implants: Hemogard Carotid patch knitted Drains: Jamir-Loaiza Drain: #1=0 mL Disposition: ICU - stable Dawit Gill MD Pager [phone] * Operative Report (Direct Entry) - Alessandro Reyes MD - 10/13/2018 8:27 AM CDT OPERATIVE REPORT Name: Ld Del Toro : 1935 DATE OF OPERATION: 10/13/18 Surgeon(s) and Role: Alessandro Reyes MD - Primary- Attending Dawit Gill MD - Resident - Assisting Preoperative Diagnosis: Stenosis of right carotid artery [I65.21] Post-op Diagnosis: Post-op Diagnosis * Stenosis of right carotid artery [I65.21] Procedure(s) Performed: Procedure(s) (LRB): RIGHT INTERNAL CAROTID ENDARTERECTOMY (Right) with patch graft Anesthesia Type: General Indications for operative procedure: Please see full H&P for further details. Briefly, Ld Del Toro is a 83 y.o. male with recent left sided weakness and was found to have 90% stenosis on the right ICA. Options were given to the patient and all agreed to perform a Right CEA Description and Findings of Operative Procedure: The patient was brought back to the operating room. The patient was intubated b y the anesthesia service and placed under general anesthesia. The patient was t hen connected to neuromonitoring for EEG and SSEP. All readings had good baseli ne data. The right side of the neck was then cleansed with chlorhexidine, alcoh ol, and duraprep. A linear standard carotid endarterectomy incision was then pl anned. The patient was then draped in the standard sterile dressing. A timeout was performed prior to skin incision. The skin was infiltrated with 1% Lidocaine with epinephrine. Skin incision was made with a 10-blade scalpel. Hemostasis was achieved with monopolar electrocau leydi. Dissection was carried down through the subcutaneous tissue to the level of the platysma. The platysma was sharply incised with a 10-blade scalpel. Nex t using a Metzenbaum scissors, sharp and blunt dissection was used to dissect th e plane just medial to the sternocleidal mastoid muscle. The internal jugular a nd facial vein were identified. The facial vein was suture with 2-0 silk ties a nd cut. The internal jugular vein was then reflected laterally. The carotid sh eath was then visible. This was opened with Metzenbaum scissors. The common ca rotid, internal carotid, and external carotid were dissected free using the [place] enbaum scissors.. Care was taken to minimally manipulate the vessel. At comple tion of dissection the hypoglossal, vagus, common carotid, internal carotid, ext ernal carotid, superoir thyroid artery, and ansa were clearly visualized. The A nsa was taken. The patient was given 5000 U of systemic heparin. Next a right angle was used t o dissected 360 degrees surrounding the three vessels. Vessel loops were then p laced around the common carotid, external carotid, and internal carotid. There was a small vessel taking off superiorly from the carotid body, an aneurysm clip was then placed on this vessel. The blood pressure was raised to greater than 170. A vessel clamp was then placed on the internal carotid artery. Next a Fog arty clamp was placed on the common carotid. Careful inspection was taken to id entify the vagus nerve underlying the carotid to prevent injury. Finally a Bull dog clip was placed on the external carotid. An 11-blade scalpel was then used to make an incision in the common carotid. Th is was extended superiorly into the internal carotid. There was significant mike que within the vessel. A 4-[place]or[place] was used to carefully dissect the plaque fr ee from the vessel wall. Next using a Tenotomy scissors, the plaque was cut fro m the common carotid. Next gentle retraction was placed on the plaque going int o the external carotid and this was carefully dissected with a 4-[place] until removed. Finally the plaque was carefully removed from the internal carotid art marcell. Care was taken to be sure the end was feathered. Next using heparinized irrigation, small threads of plaque were carefully remove d. There appeared to be some partially flapping plaque near the end of the inte rnal carotid. Next 6-0 prolene was used to suture the vessel closed with a patc h. The vessel was then covered with gelfoam and Surgicel. The aneurysm clip wa s removed from the small vessel off of the carotid body. The Bulldog was remove d from the ECA. Next the Matti clap was removed from the common carotid. Fin ally the clamp was removed from the ICA. Gentle ressure and irrigation were use d to stop the bleeding. Fibrilar was then placed over the entire area and hemos tasis was achieved with bipolar cautery. Next a 10-[place] Hemovac drain was mike pratima through a separate stab incision. The area was copiously irrigated with nicole itracin irrigation. Next attention was turned to closure. The subcutaneous and platysma layer was closed with interrupted 2-0 Vicryl suture. Finally a subcuticular 4-0 Monocryl with Dermabond was used to close skin. All sponge counts, needle counts, and in strument counts were corrected at the end of the case x2. Estimated Blood Loss: 150 mL Specimen(s) Removed/Disposition: None * No specimens in log * Drains: MARIELENA Implants: Hemogard knitted carotid patch Complications: none. Disposition: ICU - stable Patient was accompanied to the next level of care. A verbal handoff of the eleme nts of the post-procedure note including orders and instructions was completed. Post-operative Instructions: Ancef, SBP < 140, CTA head and neck, ASA 325mg Dictated by: Dawit Gill MD [email or web address] ATTESTATION I performed this procedure with a resident. Staff name: Alessandro Reyes MD Date: 11/03/2018 * Case Mgmt DC Plan - Elena Keyes - 10/13/2018 7:30 AM CDT Case Management Progress Note NAME:Ld Del Toro :[birth year] AGE: 83 y.o. ADMISSION DATE: 10/08/2018 DAYS ADMITTED: LOS: 5 days Todays Date: 10/13/2018 Plan Anticipate d/c home with family assistance this weekend vs Tuesday pending pt sta bildaxa. Interventions SW reviewed EMR and met with Neuro team for huddle. CEA today with [facility]. PT/OT re cs home. ? Support Support: Pt/Family Updates re:POC or DC Plan ? Info or Referral ? Discharge Planning Discharge Planning: Independent/Assisted Living ? Medication Needs ? Financial ? Legal ? Other Disposition ? Expected Discharge Date Expected Discharge Date: 10/15/18 ? Transportation Does the patient need discharge transport arranged?: No Transportation Name, Phone and Availability #1: Todd Louis (daughter) ? Next Level of Care (Acute Psych discharges only) ? Discharge Disposition Durable Medical Equipment No service has been selected for the patient. Destination No service has been selected for the patient. Home Care No service has been selected for the patient. Dialysis/Infusion No service has been selected for the patient. Elena Keyes LMSW Phone: [phone] Pager: [phone] * Case Mgmt DC Plan - Michelle Logan RN - 2018 3:09 PM CDT Case Management Progress Note NAME:Ld Del Toro :[birth year] AGE: 83 y.o. ADMISSION DATE: 10/08/2018 DAYS ADMITTED: LOS: 1 day Todays Date: 2018 Plan Discharge Planning for Home Anticipated PT recommends home with intermittent supervision OT DCd Regular diet Neurosurgery following for possible CEA Interventions ? Support Support: Pt/Family Updates re:POC or DC Plan Reviewed EMR. Discussed plan of care in Neurology huddle. This CM met with pt for assessment on this date. Provided contact information and explanation of SW /NCM roles. Reviewed [facility], Preparing for Discharge, and Preferred Provider Network hand-outs. Provided opportunity for questions and discussion. Pt/family encouraged to contact Case Management team with questions and concern s during hospitalization and until patient is able to transition back to the pat ient's primary care physician. ? Info or Referral CM met with patient and provided Stroke & Brain Injury Resource List for community resources including self-care, support groups, local and national organizations, rehabilitation options, respite care, and financial assistance. Reviewed resource list and provided opportunity for questions. Patient and were encouraged to contact case management with questions and concerns during hospitalization, and until patient is able to transition back to the patient's primary care physician. ? Discharge Planning ? Medication Needs ? Financial ? Legal ? Other Disposition ? Expected Discharge Date Expected Discharge Date: 10/10/18 ? Transportation Does the patient need discharge transport arranged?: No Transportation Name, Phone and Availability #1: Todd Louis (daughter) ? Next Level of Care (Acute Psych discharges only) ? Discharge Disposition Durable Medical Equipment No service has been selected for the patient. Destination No service has been selected for the patient. Home Care No service has been selected for the patient. Dialysis/Infusion No service has been selected for the patient. Michelle Glover RN, BSN, ACM Integrated Nurse Salt Plant Operator Neurology Service Pager: [phone] * Case Mgmt DC Plan - Michelle Logan RN - 2018 3:05 PM CDT Case Management Admission Assessment NAME:Ld Del Toro :[birth year] AGE: 83 y.o. ADMISSION DATE: 10/08/2018 DAYS ADMITTED: LOS: 1 day Todays Date: 2018 Source of Information: Patient, and daughter Todd Problem 83 y.o. male who presents with acute onset L sided weakness, L facial droop concerning for an acute stroke. Plan Plan: Case Management Assessment, Assist PRN with SW/NCM Services, Discharge Miek nning for Home Anticipated PT recommends home with intermittent supervision OT DCd Regular diet Neurosurgery following for possible CEA Patient Address/Phone [facility] [phone] Emergency Contact Extended Emergency Contact Information Primary Emergency Contact: Valeria Del Toro Mobile Relation: Spouse Secondary Emergency Contact: Todd Louis Mobile Relation: Daughter Healthcare Directive Healthcare Directive: No, patient does not have a healthcare directive Would patient like to fill out a (a new) Healthcare Directive?: No, patient decl ined Psych Advance Directive (Psych unit only): No, patient does not have a Psych Adv ance Directive Transportation Does the patient need discharge transport arranged?: No Transportation Name, Phone and Availability #1: Todd Louis (daughter) Expected Discharge Date Expected Discharge Date: 10/10/18 Living Situation Prior to Admission ? Living Arrangements Type of Residence: Home, independent Living Arrangements: Spouse/significant other Bathroom Shower / Tub: Tub/Shower Unit, Walk-in Shower(patient reports he built the house many years ago and made the walk-in shower too small stating it is a 3 2 x 32 inch shower) How many levels in the residence?: 1 Can patient live on one level if needed?: Yes Does residence have entry and/or side stairs?: Yes("a few") Assistance needed prior to admit or anticipated on discharge: No Who provides assistance or could if needed?: is retired and in good health Are they in good health?: Yes Can support system provide 24/7 care if needed?: Yes ? Level of Function Prior level of function: Independent(patient endorses full independence LICENSED LIFE AND HEALTH AGENT; amb ulates without assist, performs all ADLs without assist) ? Cognitive Abilities Cognitive Abilities: Alert and Oriented, Engages in problem solving and planning , Participates in decision making, Recognizes impact of health condition on life style, Understands nature of health condition Financial Resources ? Coverage Primary Insurance: Medicare(A&B) Secondary Insurance: Commercial insurance([facility]) Additional Coverage: None(patient reports having no Rx coverage but his prescrip tions have been affordable and are filled at [facility] in [place]) ? Source of Income Source Of Income: Other long-term income ? Financial Assistance Needed? No Psychosocial Needs ? Mental Health Mental Health History: No(denies all MHI) ? Substance Use History Substance Use History Screen: No ? Other N/a Current/Previous Services ? PCP Dr. Cirilo Dewitt [phone] / fax [phone] Patient last had an appointment with PCP about one week ago. He has been a patient of this provider since Dr. Dewitt took over the service from his [id number]. ? Pharmacy [facility] #[id number] [facility] [address] [facility] [address] [facility] [id number] [facility] [address] [place], [place] [id number] [place] [id number] ? Durable Medical Equipment Durable Medical Equipment at home: Single Point Cane(does not use) ? Home Health Receiving home health: No ? Hemodialysis or Peritoneal Dialysis Undergoing hemodialysis or peritoneal dialysis: No ? Tube/Enteral Feeds Receive tube/enteral feeds: No ? Infusion Receive infusions: No ? Private Duty Private duty help used: No ? Home and Community Based Services Home and community based services: No ? Uriel Reinaldo Uriel White: N/A ? Hospice Hospice: No ? Outpatient Therapy PT: No OT: No ASSISTANT KITCHEN MANAGER: No ? Half-Way Facility/Care Home SNF: No NH: No ? Inpatient Rehab IPR: No ? Long-Term Acute Care Hospital LTACH: No ? Acute Hospital Stay Acute Hospital Stay: In the past Was patient's stay within the last 30 days?: Yes Name of Hospital: Other (comment)(one week ago at [facility]) Michelle Glover RN, BSN, ACM Integrated Nurse Salt Plant Operator Neurology Service Pager: [phone] * Acute Stroke Response - Khadijah Mcrae RN - 10/08/2018 9:52 PM CDT RN Stroke Activation Summary Date of Service: 10/08/2018 Ld Del Toro is a 82 y.o. male. : 1935 Allergies: Patient has no allergy information on record. Clinical Presentation: Left facial droop Total Stroke Scale Score: 1 Signs & Symptoms: Onset of Symptoms Onset of Symptoms - Date: 10/08/18 Onset of Symptoms - Time: 1500 Dysphagia screen: Did Patient Pass The Swallow Screen Part I?: Yes Did Patient Pass The Swallow Screen Part II: Yes Did Patient Pass The Swallow Screen: Yes Assessment & Plan Summary: 82 year old man presented to ED following acute onset of Left sided we akness in upper and lower extremeties and facial droop at around 1500 this after noon. Family noticed symptoms and called EMS. Upon arrival to ED at OSH, NIHSS w as a 1 for facial droop. His left sided weakness had resolved. tPA was not give n r/t to hx. He was transferred to [facility] for further evaluation. CT was only to b e repeated if symptoms were worse and score was greater than 1. When pt arrived, he only had mild facial droop. Stroke RN accompanied resident, EMS and pt to [place] [id number]. Radiology/Interventional Delay Decision to IR: No N/A Plan: Admit to floor for further management of care. Call Completion: 2004 RN handoff: Fredrick WORRELL History of Present Illness No past medical history on file. No past surgical history on file. Social History Socioeconomic History Marital status: Not on file Spouse name: Not on file Number of children: Not on file Years of education: Not on file Highest education level: Not on file Occupational History Not on file Tobacco Use Smoking status: Not on file Substance and Sexual Activity Alcohol use: Not on file Drug use: Not on file Sexual activity: Not on file Other Topics Concern Not on file Social History Narrative Not on file Khadijah Mcrae RN * Advanced Care Planning/Resuscitation Status - Cory Dinero MD - 10/08/2018 9:42 PM CDT Advance Care Planning/Resuscitation Status Conversation Individuals present for advance care planning conversation: patient and resident /fellow physician Pertinent details of conversation (including direct quotes from patient or surro gate): FULL Outcome of conversation: Full Code Documents completed as a result of this conversation: None Other documents present, which outline patient/surrogate wishes: None * Acute Stroke Response - Cory Dinero MD - 10/08/2018 5:24 PM CDT Stroke Activation and H&P Note Admission Date: 10/08/2018 LOS: 0 days [id number] Reason for Stroke Activation: L Sided Weakness, Dysarthria Consult type: H&P ASSESSMENT: Mr. Del Toro is a 83yo M w/ PMH HTN, HLD who presents as transfer from OSH with a cute onset L sided weakness, L facial droop which rapidly improved (NIHSS 5 init ially). CTA performed at OSH notable for severe carotid artery stenosis (~90% st enosis) so pt was transferred to [facility] for observation and possible neurosurgical intervention. NIHSS on admission 1 for L facial droop. No new imaging was obtai bjorn on arrival due to stable neurologic examination. Last Known Well Time: 1500 t-PA Given: no, NIHSS 1 BP on Arrival: 159/90 CTA Head (OSH): 90% stenosis of R ICA Suspected Etiology: small vessel Suspected Localization: L Subcortex Pre-Event mRS: 0 Acute Ischemic Stroke - MRI Brain WO - Permissive HTN (<220/120) - 2D Echocardiogram - obtain HbA1c and Fasting Lipid Panel - Start Aspirin - PT/OT/ASSISTANT KITCHEN MANAGER/Rehab Consults - consult NSG for CEA/DIANE evaluation HTN, HLD - holding LICENSED LIFE AND HEALTH AGENT lisinopril - continue LICENSED LIFE AND HEALTH AGENT atorvastatin Depression - on LICENSED LIFE AND HEALTH AGENT citalopram Gout - on LICENSED LIFE AND HEALTH AGENT allopurinol FEN: NPO until passes bedside swallow, replace lytes PRN PPx: enoxaparin Code: FULL Dispo: admit to stroke Patient discussed with Dr. Evangelina Dinero MD Neurology Resident, PGY-4 *[id number] History of Present Illness: Mr. Del Toro presents with acute onset L sided weakness, L facial droop. Symptoms began at 1500 while at his own birthday republic[employer]. Pt was eating when he suddenly b sneha to feel weak and mouth began to droop on L side. Symptoms improved after pr esented to OSH but CTA there revealed 90% stenosis of R ICA. On arrival to [facility] HSS was 1 for L facial droop. No new images were obtained as pt was stable on ar rival. Pt denies headache, vertigo, double vision, loss of vision, sensory changes, dif ficulty swallowing/speaking. 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 Vital Signs: Last Filed in 24 hours Vital Signs: 24 hour Range BP: 159/90 (10/08 2130) Temp: 36.7 C (98 F) (10/08 2130) Pulse: 68 (10/08 2130) Respirations: 17 PER MINUTE (10/08 2130) SpO2: 97 % (10/08 2130) Height: 175.3 cm (69") (10/08 2130) BP: (159)/(90) Temp: [36.7 C (98 F)] Pulse: [68] Respirations: [17 PER MINUTE] SpO2: [97 %] General Physical Examination: Gen: alert, active, attentive HEENT: normocephalic, eyes open with no discharge, nares patent, oropharynx yessenia r-no lesions, no bruits Chest: normal configuration, chest rise equal b/l, non labored breathing CV: regular rate and rhythm, no murmur, distal pulses palpable Pulmonary: lungs are clear bilaterally, no wheezes/crackles/rales Abd: soft, non-tender, no masses, no organomegaly Neurological Examination: Mental status: Patient is alert and oriented to time, place, person and situatio n. Speech: Fluent, with normal naming, comprehension, articulation and repetition CN II-XII: Visual vega intact to confrontation, PERRL (4->2), EOMI, facial sensation intact. Mild L lower facial droop. Hearing grossly intact. Strong cough, elevates palate, uvula midline. Strong shoulder shrug. Tongue midline. Motor: Normal tone and bulk. No abnormal movement, fasciculation or pronator dri ft. SA EF EE WE WF FF HF KF KE DF PF R 5 5 5 5 5 5 5 5 5 5 5 L 5 5 5 5 5 5 5 5 5 5 5 Sensory: intact light touch, pin prick, proprioception, and vibration. Reflexes: No clonus, chente, cross adductor. Babinski negative. Right Left Triceps 2 2 Biceps 2 2 Brachioradialis 2 2 Patella 2 2 Ankle 2 2 Plantar flexor flexor Coordination/ fine movement: normal finger to nose, heel to meza Gait: deferred NIH Stroke Scale NIH Stroke Scale Item Scoring Definition Score 1a. LOC 0=alert and responsive 1=arousable to minor stimulation 2=arousable only to painful stimulation 3=reflex responses or unrousable 0 1b. LOC questions-as patients age and month. Must be exact. 0=both correct 1=one correct (or dysarthria, intubated, foreign language) 2=neither correct 0 1c. Commands-open/close eyes, fig caprifier and release non-paretic hand (other 1 step co mmands or mimic OK) 0=both correct (ok if impaired by weakness) 1=one correct 2=neither correct 0 2. Best Gaze-horizontal EOM by voluntary or Dolls 0=normal 1=partial gaze palsy (abnormal gaze in one or both eyes) 2=forced eye deviation or total paresis which cannot be overcome by Dolls 0 3. Visual Field-use visual threat if necessary. If monocular, score field of goo d eye 0=no visual loss 1=partial hemianopia, quadrantanopia, extinction 2=complete hemianopia 3=bilateral hemianopia or blindness 0 4. Facial Palsy-if stuporous, check symmetry of grimace to pain 0=normal 1=minor paralysis, flat NLF, asymm smile 2=partial paralysis (lower face=UMN) 3=complete paralysis (upper and lower face) 1 5. Motor Arm-arms outstretched 90 deg (sitting) or 45 deg (supine) for 10 second s. Encourage best effort. 0=no drift x 10 seconds 1=drift but doesnt hit bed 2=some antigravity effort, but cant sustain 3=no antigravity effort, but even minimal mvt counts 4=no movement at all X=unable to assess due to amputation, fusion, etc L/R 0/0 6. Motor Leg-raise leg to 30 degrees supine x 5 seconds 0=no drift x 5 seconds 1=drift but doesnt hit bed 2=some antigravity effort, but cant sustain 3=no antigravity effort, but even minimal mvt counts 4=no movement at all X=unable to assess due to amputation, fusion, etc L/R 0/0 7. Limb Ataxia-check [id number]-pgdy-lkdint; heel-meza; and score only if out of pro portion to paralysis 0=no ataxia (or aphasic, hemiplegic) 1=ataxia in upper or lower extremity 2=ataxia in upper AND lower extremity X=unable to assess due to amputation, fusion, etc L/R 0/0 8. Sensory-use safety pin. Check grimace or withdrawal if stuporous. Score only stroke-related losses 0=normal 1=mild-mod unilateral loss but patient aware of touch or aphasic, confused) 2=total loss, pt unaware of touch. Coma, bilateral loss 0 9. Best Language-describe cookie jar picture, name objects, read sentences. May use repeating, writing, stereognosis 0=normal 1=mild-mod aphasia (diff but partly comprehensible) 2=severe aphasia (almost no info exchanged) 3=mute, global aphasia, coma. No 1 step commands 0 10. Dysarthria-read list of words 0=normal 1=mild-mod; slurred but intelligible 2=severe; unintelligible or mute 0 11. Extinction/Neglect-simultaneously touch patient on both hands, show fingers in both visual vega, ask about deficit, left hand 0=normal, none detected. (vi sual loss alone) 1=neglects or extinguishes to double simult stimulation in any modality 2=profound neglect in more than one modality 0 Score 1 Page Received: 1924 Patient Arrival Time: 1934 Acute Stroke Response Team Arrival: 1934 NIHSS Completion: 1938 Labs: Pertinent Laboratory Findings Were Reviewed and Discussed Above Radiology: Pertinent Imaging Reviewed and Discussed Above Associated attestation - Barbara Jenkins MD - 2018 2:00 PM CDT Neurology Attending Attestation Patient has been seen and evaluated on attending rounds; santiago elements of the his tory and physical examination were repeated in order to confirm findings. Goals and plan of care was discussed with the patient. I have reviewed the above note and generally agree with the findings, plan and documentation. I spent a total of 70 minutes in patient care today, with 35 minutes spent counseling the patien t and coordinating care. 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 -Strongly favor acute intervention during this hospitalization, will consult NSG for CEA. -Pt has rectal bleeding history and notes concern for being on antiplatelet medi cation, though we discussed the minimum of ASA 81 mg started today. -Symptomatically stable, will continue to allow permissive pressures given his s tenosis and hypoperfusion injury. Did discuss with patient and the possibil ity of symptom fluctuations in the next few days. Barbara Jenkins MD Vascular Neurology documented in this encounter Plan of Treatment Not on filedocumented as of this encounter Goals Goal Patient Associated Recent Progress Patient-Stat Aut hor POS Goal Type Problems ed? SP GOAL General Yes Radha Bañuelos SP RN SP Note: SP "To stay as healthy as I can SP and as active as I should" SP documented as of this encounter Procedures Comments POS Procedure Name Priority Date/Time Associated Diag nosis SP SP CBC Routine 10/16/2018 SP 4:55 AM CDT SP SP PHOSPHORUS Routine 10/16/2018 SP 4:55 AM CDT SP SP MAGNESIUM Routine 10/16/2018 SP 4:55 AM CDT SP SP IONIZED CALCIUM Routine 10/16/2018 SP 4:55 AM CDT SP SP BASIC METABOLIC PANEL Routine 10/16/2018 SP 4:55 AM CDT SP SP CBC STAT 10/15/2018 SP 2:36 AM CDT SP SP PHOSPHORUS STAT 10/15/2018 SP 2:36 AM CDT SP SP MAGNESIUM Routine 10/15/2018 SP 2:36 AM CDT SP SP IONIZED CALCIUM STAT 10/15/2018 SP 2:36 AM CDT SP SP BASIC METABOLIC PANEL STAT 10/15/2018 SP 2:36 AM CDT SP SP IONIZED CALCIUM STAT 10/14/2018 SP 8:06 AM CDT SP SP CBC STAT 10/14/2018 SP 8:00 AM CDT SP SP PHOSPHORUS STAT 10/14/2018 SP 8:00 AM CDT SP SP MAGNESIUM Routine 10/14/2018 SP 8:00 AM CDT SP SP BASIC METABOLIC PANEL STAT 10/14/2018 SP 8:00 AM CDT SP SP CTA NECK WO/W Routine 10/13/2018 SP CONTRAST+POST P 8:44 PM CDT SP SP CTA HEAD WO/W CONTR+POST Routine 10/13/2018 SP PRO 8:44 PM CDT SP SP GLUCOSE,BG STAT 10/13/2018 SP 11:15 AM CDT SP SP SODIUM,BG STAT 10/13/2018 SP 11:15 AM CDT SP SP POTASSIUM, BG STAT 10/13/2018 SP 11:15 AM CDT SP SP LACTIC ACID (BG - RAPID STAT 10/13/2018 SP LACTATE) 11:15 AM CDT SP SP IONIZED CALCIUM,BG STAT 10/13/2018 SP 11:15 AM CDT SP SP HEMOGLOBIN & HEMATOCRIT, STAT 10/13/2018 SP BG 11:15 AM CDT SP SP BLOOD GASES, ARTERIAL STAT 10/13/2018 SP 11:15 AM CDT SP SP ENDARTERECTOMY CAROTID 10/13/2018 Stenosis of ri ght carotid SP ARTERY 7:15 AM CDT artery SP Special SP Needs SP 10/10 SP ACCORDING SP TO DEPOT SP HIM SP STATUS, SP SURGEON ON SP SCHEDULING SP HOLD FOR SP OP RPTS, SP SPOKE SP W/DANIELLE IN SP CLINIC - SP CKARLIE JONES RN SP [phone] SP SPOKE SP W/TRANSCRI KARLIE PTIONDR KARLIE SP IS OK TO SP SCHEDULE SP BUT NOT SP AFTER 3 SP P.M. TODAY SP - CKARLIE JONES RN SP [phone]/10 SP PER PHONE SP CONV WITH KARLIE [place] START TIME SP REQUESTING SP [id number] - CKARLIE JONES RN ([id number]) SP SP ECG-SCAN 10/13/2018 SP 12:00 AM CDT SP SP BLOOD TYPE CONFIRMATION - Routine 10/12/2018 SP ORDER ONLY IF REQUESTED 1:44 PM CDT SP BY LAB SP SP TYPE & CROSSMATCH Routine 10/12/2018 SP 11:30 AM CDT SP SP CBC Routine 10/11/2018 SP 6:11 AM CDT SP SP PHOSPHORUS Routine 10/11/2018 SP 6:11 AM CDT SP SP MAGNESIUM Routine 10/11/2018 SP 6:11 AM CDT SP SP BASIC METABOLIC PANEL Routine 10/11/2018 SP 6:11 AM CDT SP SP CBC Routine 10/10/2018 SP 5:49 AM CDT SP SP PHOSPHORUS Routine 10/10/2018 SP 5:49 AM CDT SP SP MAGNESIUM Routine 10/10/2018 SP 5:49 AM CDT SP SP BASIC METABOLIC PANEL Routine 10/10/2018 SP 5:49 AM CDT SP SP CONSULT IV THERAPY TEAM Routine 2018 SP 5:53 PM CDT SP SP 2-D + DOPPLER Routine 2018 SP ECHOCARDIOGRAM 11:28 AM CDT SP SP MRI HEAD WO CONTRAST Routine 2018 SP 6:38 AM CDT SP SP CBC Routine 2018 SP 5:19 AM CDT SP SP PHOSPHORUS Routine 2018 SP 5:19 AM CDT SP SP MAGNESIUM Routine 2018 SP 5:19 AM CDT SP SP LIPID PROFILE Routine 2018 SP 5:19 AM CDT SP SP BASIC METABOLIC PANEL Routine 2018 SP 5:19 AM CDT SP SP CBC Routine 10/08/2018 SP 10:00 PM CDT SP SP PHOSPHORUS Routine 10/08/2018 SP 10:00 PM CDT SP SP MAGNESIUM Routine 10/08/2018 SP 10:00 PM CDT SP SP HEMOGLOBIN A1C Routine 10/08/2018 SP 10:00 PM CDT SP SP BASIC METABOLIC PANEL Routine 10/08/2018 SP 10:00 PM CDT SP SP TELEMETRY STRIPS-SCAN 10/08/2018 SP 12:00 AM CDT SP SP TELEMETRY STRIPS-SCAN 10/08/2018 SP 12:00 AM CDT SP documented in this encounter Results * IONIZED CALCIUM (10/16/2018 4:55 AM CDT) Pathologist POS Signature SP Ionized Calcium 1.14 1.0 - 1.3 MMOL/L [facility] SP Specimen SP Blood SP Performing Organization Address [facility] Ph one Number SP [facility] [address] [place] [address] SP * PHOSPHORUS (10/16/2018 4:55 AM CDT) Pathologist SP Signature SP Phosphorus 2.4Comment: NOTE NEW REFERENCE 2.0 - 4.5 MG/DL [facility] SP RANGES SP Specimen SP Blood SP Performing Organization Address [facility] Ph one Number SP [facility] [address] [place] [address] SP * MAGNESIUM (10/16/2018 4:55 AM CDT) Pathologist SP Signature SP Magnesium 2.0 1.6 - 2.6 mg/dL [facility] SP Specimen SP Blood SP Performing Organization Address [facility] Ph one Number SP [facility] [address] [place] [address] SP * BASIC METABOLIC PANEL (10/16/2018 4:55 AM CDT) Pathologist SP Signature SP Sodium 137 137 [...] mL/min [facility] SP Comment: SP [place] The eGFR is not validated f or SP use in drug dosing SP adjustments.Continue to SP use SP estimated creatinine SP clearance per dosing reference SP text.Please contact the SP Clinical Pharmacist for SP questions. SP eGFR >60 >60 mL/min [facility] SP [place] Comment: SP The eGFR is not validated for SP use in drug dosing SP adjustments.Continue to SP use SP estimated creatinine SP clearance per dosing reference SP text.Please contact the SP Clinical Pharmacist for SP questions. SP Specimen SP Blood SP Performing Organization Address [facility] Ph one Number SP [facility] [address] [place] [address] SP * CBC (10/16/2018 4:55 AM CDT) Pathologist SP Signature SP White Blood 7.0 4.5 - [...] Specimen SP Blood SP Performing Organization Address [facility] one Number SP [facility] [address] [place] [address] SP * IONIZED CALCIUM (10/15/2018 2:36 AM CDT) Pathologist SP Signature SP Ionized Calcium 1.14 1.0 - 1.3 MMOL/L [facility] SP Specimen SP Blood SP Performing Organization Address [facility] Ph one Number SP [facility] [address] [place] [address] SP * PHOSPHORUS (10/15/2018 2:36 AM CDT) Pathologist SP Signature SP Phosphorus 2.8Comment: NOTE NEW REFERENCE 2.0 - 4.5 MG/DL [facility] SP RANGES SP Specimen SP Blood SP Performing Organization Address [facility] Ph one Number SP [facility] [address] [place] [address] SP * MAGNESIUM (10/15/2018 2:36 AM CDT) Pathologist SP Signature SP Magnesium 1.8 1.6 - 2.6 mg/dL [facility] SP Specimen SP Blood SP Performing Organization Address [facility] Ph one Number SP [facility] [address] [place] [address] SP * BASIC METABOLIC PANEL (10/15/2018 2:36 AM CDT) Pathologist SP Signature SP Sodium 135 (L) 137 - 147 MMOL/L [facility] SP Potassium 3.9 3.5 - 5.1 MMOL/L [facility] SP Chloride 103 98 - 110 MMOL/L [facility] SP CO2 27 21 - 30 MMOL/L [facility] SP Anion Gap 5 3 - 12 [facility] SP Glucose 113 (H) 70 - 100 MG/DL [facility] SP Blood Urea 9 7 - 25 MG/DL [facility] SP Nitrogen SP Creatinine 0.85 0.4 - 1.24 MG/DL [facility] SP Calcium 8.8 8.5 - 10.6 MG/DL [facility] SP eGFR Non >60 >60 mL/min [facility] SP Comment: SP [place] The eGFR is not validated f or SP use in drug dosing SP adjustments.Continue to SP use SP estimated creatinine SP clearance per dosing reference SP text.Please contact the SP Clinical Pharmacist for SP questions. SP eGFR >60 >60 mL/min [facility] SP [place] Comment: SP The eGFR is not validated for SP use in drug dosing SP adjustments.Continue to SP use SP estimated creatinine SP clearance per dosing reference SP text.Please contact the SP Clinical Pharmacist for SP questions. SP Specimen SP Blood SP Performing Organization Address City/[facility] Ph one Number SP [facility] [address] [place] [address] SP * CBC (10/15/2018 2:36 AM CDT) Pathologist SP Signature SP White Blood 7.8 4.5 - 11.0 K/UL [facility] SP Cells SP RBC 3.55 (L) 4.4 - 5.5 M/UL [facility] SP Hemoglobin 11.0 (L) 13.5 - 16.5 GM/DL [facility] SP Hematocrit 32.5 (L) 40 - 50 % [facility] SP MCV 91.7 80 - 100 FL [facility] SP MCH 31.1 26 - 34 PG [facility] SP MCHC 33.9 32.0 - 36.0 G/DL [facility] SP RDW 16.5 (H) 11 - 15 % [facility] SP Platelet Count 225 150 - 400 K/UL [facility] SP MPV 6.8 (L) 7 - 11 FL [facility] SP Specimen SP Blood SP Performing Organization Address [facility] Ph one Number SP [facility] [address] [place] [address] SP * IONIZED CALCIUM (10/14/2018 8:06 AM CDT) Pathologist SP Signature SP Ionized Calcium 1.14 1.0 - 1.3 MMOL/L [facility] SP Specimen SP Blood SP Performing Organization Address [facility] Ph one Number SP [facility] [address] [place] [id number] SP * PHOSPHORUS (10/14/2018 8:00 AM CDT) Pathologist SP Signature SP Phosphorus 3.0Comment: NOTE NEW REFERENCE 2.0 - 4.5 MG/DL [facility] SP RANGES SP Specimen SP Blood SP Performing Organization Address [facility] Ph one Number SP [facility] [address] [place] [address] SP * MAGNESIUM (10/14/2018 8:00 AM CDT) Pathologist SP Signature SP Magnesium 1.8 1.6 - 2.6 mg/dL [facility] SP Specimen SP Blood SP Performing Organization Address [facility] Ph one Number SP [facility] [address] [place] [address] SP * BASIC METABOLIC PANEL (10/14/2018 8:00 AM CDT) Pathologist SP Signature SP Sodium 137 137 - 147 MMOL/L [facility] SP Potassium 3.5 3.5 - 5.1 MMOL/L [facility] SP Chloride 103 98 - 110 MMOL/L [facility] SP CO2 25 21 - 30 MMOL/L [facility] SP Anion Gap 9 3 - 12 [facility] SP Glucose 190 (H) 70 - 100 MG/DL [facility] SP Blood Urea 12 7 - 25 MG/DL [facility] SP Nitrogen SP Creatinine 0.81 0.4 - 1.24 MG/DL [facility] SP Calcium 8.9 8.5 - 10.6 MG/DL [facility] SP eGFR Non >60 >60 mL/min [facility] SP Comment: SP [place] The eGFR is not validated f or SP use in drug dosing SP adjustments.Continue to SP use SP estimated creatinine SP clearance per dosing reference SP text.Please contact the SP Clinical Pharmacist for SP questions. SP eGFR >60 >60 mL/min [facility] SP [place] Comment: SP The eGFR is not validated for SP use in drug dosing SP adjustments.Continue to SP use SP estimated creatinine SP clearance per dosing reference SP text.Please contact the SP Clinical Pharmacist for SP questions. SP Specimen SP Blood SP Performing Organization Address City/[facility] Ph one Number SP [facility] [address] [place] [address] SP * CBC (10/14/2018 8:00 AM CDT) Pathologist SP Signature SP White Blood 9.5 4.5 - 11.0 K/UL [facility] SP Cells SP RBC 3.77 (L) 4.4 - 5.5 M/UL [facility] SP Hemoglobin 11.8 (L) 13.5 - 16.5 GM/DL [facility] SP Hematocrit 35.2 (L) 40 - 50 % [facility] SP MCV 93.4 80 - 100 FL [facility] SP MCH 31.4 26 - 34 PG [facility] SP MCHC 33.6 32.0 - 36.0 G/DL [facility] SP RDW 16.9 (H) 11 - 15 % [facility] SP Platelet Count 261 150 - 400 K/UL [facility] SP MPV 7.1 7 - 11 FL [facility] SP Specimen SP Blood SP Performing Organization Address [facility] one Number SP [facility] [address] [place] [address] SP * CTA NECK WO/W CONTRAST+POST P (10/13/2018 8:44 PM CDT) Specimen SP Impressions Performed At SP CTA head: [facility] SP 1.Patent major intracranial arteria l vasculature without focal branch SP occlusion or aneurysm. SP 2.Several scattered small recent ri ght hemispheric infarcts are better SP demonstrated on prior MRI. 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 SP 4.No acute intracranial hemorrhage. SP CTA neck: SP 1.Postsurgical changes of recent ri ght carotid endarterectomy. There is a SP focal luminal irregularity and small fo bryson dissection within the mid to upper SP right common carotid artery which may b e due to postsurgical or due to chronic SP small dissection. SP 2.Marked calcified and noncalcified plaque of the proximal left internal SP carotid artery resulting in 50% luminal diameter stenosis. SP 3.Widely patent bilateral vertebral arteries. SP By my electronic signature, I attest th at I have personally reviewed the images SP for this examination and formulated the interpretations and opinions expressed SP in this report SP Finalized by Leonardo Higgins M.D. on 7:36 AM. Dictated by Joceline Naranjo M.D. on 10/14/2018 6:18 AM. SP Narrative Performed At SP EXAM: CTA HEAD AND NECK [facility] RES[facility] SP HISTORY: SP 83-year-old male, recent right carotid endarterectomy SP TECHNIQUE: Multiple contiguous axial im ages were obtained of the brain and neck SP following the administration of Omnipaq ue 350 IV contrast. Precontrast axial SP images were also obtained of the brain. CTA maximum density projection images SP were obtained of the brain and neck wit h image post processing. SP Comparison: MRI head 2018 SP FINDINGS: SP CTA head: SP Mild generalized cerebral volume loss. Minimal lacey-white matter interface SP blurring within the region of recent in farcts within the right temporoparietal SP occipital junction with several additio nal scattered small recent right SP hemispheric infarcts better demonstrate d on recent MRI. Old right cerebellar SP scattered right hemispheric infarcts. A dditional mild scattered foci of SP low-attenuation throughout the supraten torial white matter. There is no midline SP shift or mass effect. There is no evide nce of acute intracranial hemorrhage. SP basal cisterns are patent. The calvariu m is intact. SP The distal internal carotid, vertebral, and basilar arteries are patent without SP focal narrowing or occlusion. Mild athe rosclerotic calcification of the SP cavernous portions of the internal tiwari tid artery. The anterior, middle, and SP posterior cerebral arteries are patent without focal narrowing. No aneurysm or SP arteriovenous malformation is identifie d. SP There is an old left orbital floor frac ture deformity. SP CTA neck: SP The aortic arch vessel origins are wide ly patent with moderate atherosclerotic SP plaque involving the aortic arch. SP Postsurgical changes of recent right ca rotid endarterectomy with moderate SP subcutaneous gas and a percutaneous malik gical drain in place. There is a focal SP area of luminal irregularity of the rig ht common carotid artery with a small SP anterolateral flap and outpouching (ser ies 3 image 202). Additional minimal SP focal luminal narrowing is noted near t he carotid bulb (series 3 image 230). SP The left common carotid is widely paten t with moderate to marked calcified and SP noncalcified atherosclerotic plaque inv olving the proximal left internal SP artery, which results in approximately 50% stenosis. The cervical portions of SP the vertebral arteries are patent witho ut focal narrowing according to NASCET SP criteria. SP Mild fluid distention of the upper esop hagus. The paranasal sinus and mastoid SP air cells are clear. The lung apices ar e clear. The remaining portions of the SP extracranial internal carotid artery ar e patent. SP Procedure Note POS SP Interface, Radiant Results - 10/14/2018 7:39 AM CDT EXAM: CTA HEAD AND NECK HISTORY: 83-year-old male, recent right carotid e ndarterectomy SP TECHNIQUE: Multiple contiguous axial images were obtained of the brain and neck following the administration of Omnipaque 350 IV contrast. Precontrast axial images were also obtained of the brain. CTA maximum density projection images were obtained of the brain and neck with image post processing. Comparison: MRI head 2018 FINDINGS: CTA head: Mild generalized cerebral volume loss. Minimal lacey-white matter interface blurring within the region of recent infarcts within the right temporoparietal occipital junction with several additional scattered small recent right hemispheric infarcts better demonstrated on recent MRI. Old right cerebellar and scattered right hemispheric infarcts. Additional mild scattered foci of low- attenuation throughout the supratentorial white matter. There is no midline shift or mass effect. There is no evidence of acute intracranial hemorrhage. The basal cisterns are patent. The calvarium is intact. The distal internal carotid, vertebral, and basilar arteries are patent without focal narrowing or occlusion. Mild atherosclerotic calcification of the cavernous portions of the internal carotid artery. The anterior, middle, and posterior cerebral arteries are patent without focal narrowing. No aneurysm or arteriovenous malformation is identified. There is an old left orbital floor fracture deformity. CTA neck: The aortic arch vessel origins are widely patent with moderate atherosclerotic plaque involving the aortic arch. Postsurgical changes of recent right carotid endarterectomy with moderate subcutaneous gas and a percutaneous surgical drain in place. There is a focal area of luminal irregularity of the right common carotid artery with a small anterolateral flap and outpouching (series 3 image 202). Additional minimal focal luminal narrowing is noted near the carotid bulb (series 3 image 230). The left common carotid is widely patent with moderate to marked calcified and noncalcified atherosclerotic plaque involving the proximal left internal carotid artery, which results in approximately 50% stenosis. The cervical portions of the vertebral arteries are patent without focal narrowing according to NASCET criteria. Mild fluid distention of the upper esophagus. The paranasal sinus and mastoid air cells are clear. The lung apices are clear. The remaining portions of the extracranial internal carotid artery are patent. IMPRESSION CTA head: 1. Patent major intracranial arterial v asculature without focal branch SP or aneurysm. 2. Several scattered small recent right hemispheric infarcts are better SP on prior MRI. 3. 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 SP 4. No acute intracranial hemorrhage. SP CTA neck: 1. Postsurgical changes of recent right carotid endarterectomy. There is a SP luminal irregularity and small focal dissection within the mid to upper right common carotid artery which may be due to postsurgical or due to chronic small dissection. 2. Marked calcified and noncalcified pl aque of the proximal left internal SP artery resulting in 50% luminal diameter stenosis. 3. Widely patent bilateral vertebral ar teries. SP By my electronic signature, I attest that I have personally reviewed the images for this examination and formulated the interpretations and opinions expressed in this report Finalized by Leonardo Higgins M.D. on 10/14/2018 7:36 AM. Dictated by Joceline Naranjo M.D. on 10/14/2018 6:18 AM. Performing Organization Address City/State/Zipcode Ph one Number SP [facility] SP * CTA HEAD WO/W CONTR+POST PRO (10/13/2018 8:44 PM CDT) Specimen SP Impressions Performed At CTA head: [facility] SP 1.Patent major intracranial arteria l vasculature without focal branch SP occlusion or aneurysm. SP 2.Several scattered small recent ri ght hemispheric infarcts are better SP demonstrated on prior MRI. 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 SP 4.No acute intracranial hemorrhage. SP CTA neck: SP 1.Postsurgical changes of recent ri ght carotid endarterectomy. There is a SP focal luminal irregularity and small fo bryson dissection within the mid to upper SP right common carotid artery which may b e due to postsurgical or due to chronic SP small dissection. SP 2.Marked calcified and noncalcified plaque of the proximal left internal SP carotid artery resulting in 50% luminal diameter stenosis. SP 3.Widely patent bilateral vertebral arteries. SP By my electronic signature, I attest th at I have personally reviewed the images SP for this examination and formulated the interpretations and opinions expressed SP in this report SP Finalized by Leonardo Higgins M.D. on 7:36 AM. Dictated by Joceline Naranjo M.D. on 10/14/2018 6:18 AM. SP Narrative Performed At SP EXAM: CTA HEAD AND NECK [facility] RES[facility] SP HISTORY: SP 83-year-old male, recent right carotid endarterectomy SP TECHNIQUE: Multiple contiguous axial im ages were obtained of the brain and neck SP following the administration of Omnipaq ue 350 IV contrast. Precontrast axial SP images were also obtained of the brain. CTA maximum density projection images SP were obtained of the brain and neck wit h image post processing. SP Comparison: MRI head 2018 SP FINDINGS: SP CTA head: SP Mild generalized cerebral volume loss. Minimal lacey-white matter interface SP blurring within the region of recent in farcts within the right temporoparietal SP occipital junction with several additio nal scattered small recent right SP hemispheric infarcts better demonstrate d on recent MRI. Old right cerebellar SP scattered right hemispheric infarcts. A dditional mild scattered foci of SP low-attenuation throughout the supraten torial white matter. There is no midline SP shift or mass effect. There is no evide nce of acute intracranial hemorrhage. SP basal cisterns are patent. The calvariu m is intact. SP The distal internal carotid, vertebral, and basilar arteries are patent without SP focal narrowing or occlusion. Mild athe rosclerotic calcification of the SP cavernous portions of the internal twiari tid artery. The anterior, middle, and SP posterior cerebral arteries are patent without focal narrowing. No aneurysm or SP arteriovenous malformation is identifie d. SP There is an old left orbital floor frac ture deformity. SP CTA neck: SP The aortic arch vessel origins are wide ly patent with moderate atherosclerotic SP plaque involving the aortic arch. SP Postsurgical changes of recent right ca rotid endarterectomy with moderate SP subcutaneous gas and a percutaneous malik gical drain in place. There is a focal SP area of luminal irregularity of the rig ht common carotid artery with a small SP anterolateral flap and outpouching (ser ies 3 image 202). Additional minimal SP focal luminal narrowing is noted near t he carotid bulb (series 3 image 230). SP The left common carotid is widely paten t with moderate to marked calcified and SP noncalcified atherosclerotic plaque inv olving the proximal left internal SP artery, which results in approximately 50% stenosis. The cervical portions of SP the vertebral arteries are patent witho ut focal narrowing according to NASCET SP criteria. SP Mild fluid distention of the upper esop hagus. The paranasal sinus and mastoid SP air cells are clear. The lung apices ar e clear. The remaining portions of the SP extracranial internal carotid artery ar e patent. SP Procedure Note POS SP Interface, Radiant Results - 10/14/2018 7:39 AM CDT EXAM: CTA HEAD AND NECK HISTORY: 83-year-old male, recent right carotid e ndarterectomy SP TECHNIQUE: Multiple contiguous axial images were obtained of the brain and neck following the administration of Omnipaque 350 IV contrast. Precontrast axial images were also obtained of the brain. CTA maximum density projection images were obtained of the brain and neck with image post processing. Comparison: MRI head 2018 FINDINGS: CTA head: Mild generalized cerebral volume loss. Minimal lacey-white matter interface blurring within the region of recent infarcts within the right temporoparietal occipital junction with several additional scattered small recent right hemispheric infarcts better demonstrated on recent MRI. Old right cerebellar and scattered right hemispheric infarcts. Additional mild scattered foci of low- attenuation throughout the supratentorial white matter. There is no midline shift or mass effect. There is no evidence of acute intracranial hemorrhage. The basal cisterns are patent. The calvarium is intact. The distal internal carotid, vertebral, and basilar arteries are patent without focal narrowing or occlusion. Mild atherosclerotic calcification of the cavernous portions of the internal carotid artery. The anterior, middle, and posterior cerebral arteries are patent without focal narrowing. No aneurysm or arteriovenous malformation is identified. There is an old left orbital floor fracture deformity. CTA neck: The aortic arch vessel origins are widely patent with moderate atherosclerotic plaque involving the aortic arch. Postsurgical changes of recent right carotid endarterectomy with moderate subcutaneous gas and a percutaneous surgical drain in place. There is a focal area of luminal irregularity of the right common carotid artery with a small anterolateral flap and outpouching (series 3 image 202). Additional minimal focal luminal narrowing is noted near the carotid bulb (series 3 image 230). The left common carotid is widely patent with moderate to marked calcified and noncalcified atherosclerotic plaque involving the proximal left internal carotid artery, which results in approximately 50% stenosis. The cervical portions of the vertebral arteries are patent without focal narrowing according to NASCET criteria. Mild fluid distention of the upper esophagus. The paranasal sinus and mastoid air cells are clear. The lung apices are clear. The remaining portions of the extracranial internal carotid artery are patent. IMPRESSION CTA head: 1. Patent major intracranial arterial v asculature without focal branch SP or aneurysm. 2. Several scattered small recent right hemispheric infarcts are better SP on prior MRI. 3. 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 SP 4. No acute intracranial hemorrhage. SP CTA neck: 1. Postsurgical changes of recent right carotid endarterectomy. There is a SP luminal irregularity and small focal dissection within the mid to upper right common carotid artery which may be due to postsurgical or due to chronic small dissection. 2. Marked calcified and noncalcified pl aque of the proximal left internal SP artery resulting in 50% luminal diameter stenosis. 3. Widely patent bilateral vertebral ar teries. SP By my electronic signature, I attest that I have personally reviewed the images for this examination and formulated the interpretations and opinions expressed in this report Finalized by Leonardo Higgins M.D. on 10/14/2018 7:36 AM. Dictated by Joceline Naranjo M.D. on 10/14/2018 6:18 AM. Performing Organization Address [facility] one Number SP KU RAD RESULTS SP * LACTIC ACID (BG - RAPID LACTATE) (10/13/2018 11:15 AM CDT) Pathologist SP Signature SP Lactic Acid,BG 0.8 0.5 - 2.0 MMOL/L K[facility] MAIN LAB SP Specimen SP Blood SP Performing Organization Address [facility]/Zipcode Ph one Number SP KU MAIN LAB [address] [place] [address] SP * POTASSIUM, BG (10/13/2018 11:15 AM CDT) Pathologist SP Signature SP Potassium 4.2 3.5 - 5.1 MMOL/L K[facility] MAIN LAB SP Specimen SP Blood SP Performing Organization Address City/[facility] Ph one Number SP KU MAIN LAB [address] [place] [address] SP * SODIUM,BG (10/13/2018 11:15 AM CDT) Pathologist SP Signature SP Sodium 139 137 - 147 MMOL/L [facility] MAIN [facility] SP Specimen SP Blood SP Performing Organization Address City/[facility] Ph one Number SP [facility] MA[facility] [address] [place] [address] SP * IONIZED CALCIUM,BG (10/13/2018 11:15 AM CDT) Pathologist SP Signature SP Ionized Calcium 1.22 1.0 - 1.3 MMOL/L [facility]IN [facility] SP Specimen SP Blood SP Performing Organization Address [facility] Ph one Number SP KU MAIN LAB [address] [place] [address] SP * GLUCOSE,BG (10/13/2018 11:15 AM CDT) Pathologist SP Signature SP Glucose 145 (H) 70 - 100 MG/DL [facility]IN [facility] SP Specimen SP Blood SP Performing Organization Address [facility] Ph one Number SP K[facility] MAIN LAB [address] [place] [address] SP * BLOOD GASES, ARTERIAL (10/13/2018 11:15 AM CDT) Pathologist SP Signature SP pH-Arterial 7.36 7.35 - 7.45 [facility] LAB SP pCO2-Arterial 43 35 - 45 MMHG [facility]IN LAB SP pO2-Arterial 127 (H) 80 - 100 MMHG [facility]IN LAB SP Base 1.2 MMOL/L [facility] SP Deficit-Arteria SP l SP O2 Sat-Arterial 98.6 95 - 99 % [facility] SP Bicarbonate-ART 23.4 21 - 28 MMOL/L [facility] MAIN LAB SP -Bryson SP Specimen SP Blood, arterial - Blood SP Performing Organization Address City/[facility] Ph one Number SP [facility] MAIN LAB [address] [place] [address] SP * HEMOGLOBIN & HEMATOCRIT, BG (10/13/2018 11:15 AM CDT) Pathologist SP Signature SP Hemoglobin BG 13.0 (L) 13.5 - 16.5 GM/DL K[facility]IN LAB SP Hematocrit BG 40.0 40 - 50 % [facility] SP Specimen SP Blood SP Performing Organization Address City/[facility] Ph one Number SP MAIN LAB [address] [place] [address] SP * ECG-SCAN (10/13/2018 12:00 AM CDT) Narrative Performed At SP This result has an attachment that is n ot available. SP Ordered by an unspecified provider. SP * BLOOD TYPE CONFIRMATION - ORDER ONLY IF REQUESTED BY LAB (10/12/2018 1:44 PM CDT) Pathologist SP Signature SP ABO/RH(D) O POS MAIN LAB SP Specimen SP Blood SP Performing Organization Address [facility] Ph one Number SP MAIN LAB [address] [place] [address] SP * TYPE & CROSSMATCH (10/12/2018 11:30 AM CDT) Pathologist SP Signature SP Units Ordered 2 [facility] MAIN LAB SP Crossmatch 10/15/2018 K[facility] MAIN LAB SP Expires SP Record Check 2ND TYPE REQUIRED [facility] MAIN LAB SP ABO/RH(D) O POS [facility]IN LAB SP Antibody Screen NEG [facility]IN [facility] SP Specimen SP Blood SP Performing Organization Address City/[facility] Ph one Number SP MAIN LAB [address] [place] [address] SP * PHOSPHORUS (10/11/2018 6:11 AM CDT) Pathologist SP Signature SP Phosphorus 3.0Comment: NOTE NEW REFERENCE 2.0 - 4.5 MG/DL K[facility] MAIN LAB SP RANGES SP Specimen SP Blood SP Performing Organization Address City/[facility] Ph one Number SP MAIN LAB [address] [place] [address] SP * MAGNESIUM (10/11/2018 6:11 AM CDT) Pathologist SP Signature SP Magnesium 2.0 1.6 - 2.6 mg/dL K[facility] MAIN LAB SP Specimen SP Blood SP Performing Organization Address City/[facility] Ph one Number SP K[facility] MAIN LAB [address] [place] [address] SP * BASIC METABOLIC PANEL (10/11/2018 6:11 AM CDT) Pathologist SP Signature SP Sodium 139 137 - 147 MMOL/L [facility] SP Potassium 3.9 3.5 - 5.1 MMOL/L [facility] SP Chloride 106 98 - 110 MMOL/L [facility] SP CO2 27 21 - 30 MMOL/L [facility] SP Anion Gap 6 3 - 12 [facility] SP Glucose 96 70 - 100 MG/DL [facility] SP Blood Urea 15 7 - 25 MG/DL [facility] SP Nitrogen SP Creatinine 1.08 0.4 - 1.24 MG/DL [facility]IN [facility] SP Calcium 9.0 8.5 - 10.6 MG/DL [facility] SP eGFR Non >60 >60 mL/min [facility]IN LAB SP Comment: SP [place] The eGFR is not validated f or SP use in drug dosing SP adjustments.Continue to SP use SP estimated creatinine SP clearance per dosing reference SP text.Please contact the SP Clinical Pharmacist for SP questions. SP eGFR >60 >60 mL/min [facility] MAIN LAB SP [place] Comment: SP The eGFR is not validated for SP use in drug dosing SP adjustments.Continue to SP use SP estimated creatinine SP clearance per dosing reference SP text.Please contact the SP Clinical Pharmacist for SP questions. SP Specimen SP Blood SP Performing Organization Address City/State/Zipcode Ph one Number SP MAIN LAB [address] [place] [address] SP * CBC (10/11/2018 6:11 AM CDT) Pathologist SP Signature SP White Blood 4.9 4.5 - 11.0 K/UL [facility] MAIN LAB SP Cells SP RBC 3.99 (L) 4.4 - 5.5 M/UL [facility] MAIN LAB SP Hemoglobin 12.5 (L) 13.5 - 16.5 GM/DL [facility] MAIN [facility] SP Hematocrit 36.5 (L) 40 - 50 % K[facility] MAIN LAB SP MCV 91.4 80 - 100 FL [facility]IN LAB SP MCH 31.3 26 - 34 PG [facility] MAIN LAB SP MCHC 34.3 32.0 - 36.0 G/DL [facility] SP RDW 16.6 (H) 11 - 15 % [facility] LAB SP Platelet Count 250 150 - 400 K/UL [facility] MAIN LAB SP MPV 6.6 (L) 7 - 11 FL [facility] MAIN LAB SP Specimen SP Blood SP Performing Organization Address [facility] Ph one Number SP K[facility] MAIN LAB [address] [place] [address] SP * PHOSPHORUS (10/10/2018 5:49 AM CDT) Pathologist SP Signature SP Phosphorus 3.4Comment: NOTE NEW REFERENCE 2.0 - 4.5 MG/DL [facility] MAIN [facility] SP RANGES SP Specimen SP Blood SP Performing Organization Address [facility] Ph one Number SP [facility] MAIN LAB [address] [place] [address] SP * MAGNESIUM (10/10/2018 5:49 AM CDT) Pathologist SP Signature SP Magnesium 2.0 1.6 - 2.6 mg/dL [facility] MAIN LAB SP Specimen SP Blood SP Performing Organization Address [facility] one Number SP K[facility] MAIN LAB [address] [place] [address] SP * BASIC METABOLIC PANEL (10/10/2018 5:49 AM CDT) Pathologist SP Signature SP Sodium 138 137 - 147 MMOL/L [facility] SP Potassium 3.9 3.5 - 5.1 MMOL/L [facility] MAIN [facility] SP Chloride 105 98 - 110 MMOL/L [facility] SP CO2 27 21 - 30 MMOL/L [facility] SP Anion Gap 6 3 - 12 [facility] MAIN LAB SP Glucose 99 70 - 100 MG/DL [facility] SP Blood Urea 14 7 - 25 MG/DL [facility] SP Nitrogen SP Creatinine 0.98 0.4 - 1.24 MG/DL [facility] SP Calcium 9.0 8.5 - 10.6 MG/DL [facility] SP eGFR Non >60 >60 mL/min [facility]IN LAB SP Comment: SP [place] The eGFR is not validated f or SP use in drug dosing SP adjustments.Continue to SP use SP estimated creatinine SP clearance per dosing reference SP text.Please contact the SP Clinical Pharmacist for SP questions. SP eGFR >60 >60 mL/min [facility] MAIN LAB SP [place] Comment: SP The eGFR is not validated for SP use in drug dosing SP adjustments.Continue to SP use SP estimated creatinine SP clearance per dosing reference SP text.Please contact the SP Clinical Pharmacist for SP questions. SP Specimen SP Blood SP Performing Organization Address [facility] Ph one Number SP K[facility] MAIN LAB [address] [place] [address] SP * CBC (10/10/2018 5:49 AM CDT) Pathologist SP Signature SP White Blood 5.0 4.5 - 11.0 K/UL [facility] MAIN [facility] SP Cells SP RBC 4.04 (L) 4.4 - 5.5 M/UL [facility] MAIN LAB SP Hemoglobin 12.7 (L) 13.5 - 16.5 GM/DL K[facility] MAIN LAB SP Hematocrit 37.8 (L) 40 - 50 % [facility] MAIN LAB SP MCV 93.5 80 - 100 FL [facility] MAIN LAB SP MCH 31.5 26 - 34 PG [facility] MAIN LAB SP MCHC 33.7 32.0 - 36.0 G/DL [facility] MA[facility] LAB SP RDW 16.4 (H) 11 - 15 % [facility] MA[facility] SP Platelet Count 245 150 - 400 K/UL [facility] MAIN LAB SP MPV 7.3 7 - 11 FL [facility] MAIN LAB SP Specimen SP Blood SP Performing Organization Address City/[facility] Ph one Number SP KU MAIN LAB [address] [place] [id number] SP * 2-D + DOPPLER ECHOCARDIOGRAM (2018 11:28 AM CDT) Pathologist SP Signature SP IVS 1.13 0.6 - 1.0 cm OTHER OUTSIDE SP LAB SP LVIDD 4.02 4.2 - 5.8 cm OTHER OUTSIDE SP LAB SP LVIDS 3.21 2.5 - 4.0 cm OTHER OUTSIDE SP LAB SP PW 1.15 0.6 - 1.0 cm OTHER OUTSIDE SP LAB SP Left Ventricle 127.78 62 - 150 mL OTHER OUTSIDE SP Diastolic LAB SP Volume SP Left Ventricle 61.73 34 - 74 mL OTHER OUTSIDE SP Diastolic LAB SP Volume Index SP Left Ventricle 39.24 21 - 61 mL OTHER OUTSIDE SP Systolic Volume LAB SP Left Ventricle 18.96 11 - 31 mL OTHER OUTSIDE SP Systolic Volume LAB SP Index SP TDI lateral e' 0.14 m/s OTHER OUTSIDE SP LAB SP LA size 4.28 3.0 - 4.0 cm OTHER OUTSIDE SP LAB SP AV peak 1.50 m/s OTHER OUTSIDE SP velocity LAB SP MV Peak A Moreno 0.72 m/s OTHER OUTSIDE SP LAB SP MV Peak E Moreno 0.50 m/s OTHER OUTSIDE SP PW LAB SP Right Heart 2.03 >1.7 cm OTHER OUTSIDE SP Systolic Mmode LAB SP TAPSE SP Right Heart 0.13 m/s OTHER OUTSIDE SP Systolic TDI S' LAB SP Ao root annulus 2.29 2.0 - 3.2 cm OTHER OUTSIDE SP LAB SP Sinus 3.78 2.8 - 4.0 cm OTHER OUTSIDE SP LAB SP STJ 3.12 2.3 - 3.5 cm OTHER OUTSIDE SP LAB SP BSA 2.07 m2 OTHER OUTSIDE SP LAB SP CV ECHO PV ANAID Scherer OTHER OUTSIDE SP PELT SHEARER LAB SP FS 20.15 28 - 44 % OTHER OUTSIDE SP LAB SP EF 34.25 % OTHER OUTSIDE SP LAB SP LV mass 154.59 88 - 224 g OTHER OUTSIDE SP LAB SP RWT 0.57 <=0.42 OTHER OUTSIDE SP LAB SP E/A ratio 0.69 OTHER OUTSIDE SP LAB SP TV rest 26 mmHg OTHER OUTSIDE SP pulmonary LAB SP artery pressure SP Lateral E/E' 3.57 OTHER OUTSIDE SP ratio LAB SP Cardiology Siemens [id number] OTHER OUTSIDE SP Ultrasound LAB SP Machine SP Left Ventricle 74.68 49 - 115 g/m2 OTHER OUTSIDE SP Mass Index LAB SP ECHO EF 60 % OTHER OUTSIDE SP LAB SP Specimen SP Narrative Performed At OTHER OUTSIDE LAB SP LVEF=60%. SP Normal left ventricular size and sys tolic function. SP No LV thrombus. SP Right ventricular size and function are normal. SP Mild left atrial enlargement. SP Bubble study negative for right to l eft interatrial shunt. SP Mild mitral annular calcification wi thout stenosis or regurgitation. SP Aortic valve sclerosis without steno sis. No regurgitation. SP Unremarkable valve structures with n o significant stenosis or SP regurgitation. SP No pericardial effusion. SP Estimated pulmonary artery systolic pressure is 26 mmHg. SP There are no previous studies available for comparison. SP Performing Organization Address City/State/Zipcode Ph one Number SP OTHER OUTSIDE LAB SP * MRI HEAD WO CONTRAST (2018 6:38 AM CDT) Specimen SP Impressions Performed At 1.Scattered tiny and small acute or early subacut e right cerebral internal SPKU RAD RESULTS and external border zone distribution i nfarcts, favored for hypoperfusion SP injury-sequelae of severe right ICA pili gin stenosis. Right ICA territory SP infarcts could appear similar. SP 2.Small old lateral right orbitofro ntal and inferior right cerebellar SP infarcts and old right thalamic and cor vladimir radiata lacunar type infarcts. SP 3.Mild generalized cerebral volume loss and mild nonspecific white matter SP disease, likely due to chronic microvas cular ischemia. SP Discussed with Dr. Sam by telepho ne at 7:50 AM 2018 SP Finalized by Cirilo Brooks M.D. on 2018 8:02 AM. Dictated by KARLIE Albarado M.D. on 2018 7:17 AM. SP Narrative Performed At SP EXAM: MRI BRAIN KU RAD RESULTS SP HISTORY: SP , Stroke within 24 hours, SP TECHNIQUE: Multiplanar and multisequenc e MR imaging of the head was performed. SP SP COMPARISON: Outside CTA head and neck A 2018 SP FINDINGS: SP Dr. Cirilo Brooks M.D. has personally re viewed these images and formulated the SP interpretations and opinions expressed in this report. SP There is a small acute or early subacut e cortical/subcortical infarct involving SP the right temporoparietal occipital kenneth ction. Additional tiny acute or early SP subacute infarcts are scattered through out the cortical/subcortical right SP frontoparietal external border zone, ri ght amygdala, and suarez radiata and SP basal ganglia internal border zones. No abnormal susceptibility on the blood SP sensitive sequence to suggest hemorrhag ic conversion. SP Small old infarcts are noted within the lateral right orbitofrontal region and SP inferior right cerebellar hemisphere. T iny old lacunar infarcts are noted SP the right suarez radiata and right thal amus. There is mild generalized cerebral SP volume loss. Scattered small FLAIR hype rintense foci throughout the SP supratentorial white matter consistent with mild nonspecific white matter SP disease. SP There is no intracranial mass effect. T he vascular flow-voids are unremarkable. SP Procedure Note POS SP Interface, Radiant Results - 2018 8:06 AM CDT EXAM: MRI BRAIN HISTORY: , Stroke within 24 hours, TECHNIQUE: Multiplanar and multisequence MR imaging of the head was performed. COMPARISON: Outside CTA head and neck October 08, 2018 FINDINGS: Dr. Cirilo Brooks M.D. has personally reviewed these images and formulated the interpretations and opinions expressed in this report. There is a small acute or early subacute cortical/subcortical infarct involving the right temporoparietal occipital junction. Additional tiny acute or early subacute infarcts are scattered throughout the cortical/subcortical right frontoparietal external border zone, right amygdala, and suarez radiata and basal ganglia internal border zones. No abnormal susceptibility on the blood sensitive sequence to suggest hemorrhagic conversion. Small old infarcts are noted within the lateral right orbitofrontal region and inferior right cerebellar hemisphere. Tiny old lacunar infarcts are noted within the right suarez radiata and right thalamus. There is mild generalized cerebral volume loss. Scattered small FLAIR hyperintense foci throughout the supratentorial white matter consistent with mild nonspecific white matter disease. There is no intracranial mass effect. The vascular flow-voids are unremarkable. IMPRESSION 1. Scattered tiny and small acute or ea rly subacute right cerebral internal and SPexternal border zone distribution infarcts, favored for hypoperfusion injury- sequelae of severe right ICA origin stenosis. Right ICA territory embolic infarcts could appear similar. 2. Small old lateral right orbitofronta l and inferior right cerebellar infarcts SPand old right thalamic and suarez radiata lacunar type infarcts. 3. Mild generalized cerebral volume los s and mild nonspecific white matter SP likely due to chronic microvascular ischemia. Discussed with Dr. Sam by telephone at 7:50 AM 2018 Finalized by Cirilo Brooks M.D. on 2018 8:02 AM. Dictated by Cirilo Brooks M.D. on 2018 7:17 AM. Performing Organization Address [facility] Ph one Number SP KU RAD RESULTS SP * PHOSPHORUS (2018 5:19 AM CDT) Pathologist SP Signature SP Phosphorus 2.9Comment: NOTE NEW REFERENCE 2.0 - 4.5 MG/DL KU MAIN LAB SP RANGES SP Specimen SP Blood SP Performing Organization Address [facility] Ph one Number SP KU MAIN LAB [address] [place] [address] SP * MAGNESIUM (2018 5:19 AM CDT) Pathologist SP Signature SP Magnesium 2.0 1.6 - 2.6 mg/dL K[facility] MAIN LAB SP Specimen SP Blood SP Performing Organization Address [facility] Ph one Number SP KU MAIN LAB [address] [place] [address] SP * BASIC METABOLIC PANEL (2018 5:19 AM CDT) Pathologist SP Signature SP Sodium 138 137 - 147 MMOL/L K[facility] MAIN LAB SP Potassium 3.8 3.5 - 5.1 MMOL/L [facility] MAIN LAB SP Chloride 105 98 - 110 MMOL/L K[facility] MAIN LAB SP CO2 26 21 - 30 MMOL/L [facility] MAIN LAB SP Anion Gap 7 3 - 12 K[facility] MAIN LAB SP Glucose 106 (H) 70 - 100 MG/DL [facility] MAIN LAB SP Blood Urea 11 7 - 25 MG/DL K[facility] MAIN LAB SP Nitrogen SP Creatinine 0.94 0.4 - 1.24 MG/DL K[facility] MAIN LAB SP Calcium 9.1 8.5 - 10.6 MG/DL K[facility] MAIN LAB SP eGFR Non >60 >60 mL/min K[facility] MAIN LAB SP Comment: SP [place] The eGFR is not validated f or SP use in drug dosing SP adjustments.Continue to SP use SP estimated creatinine SP clearance per dosing reference SP text.Please contact the SP Clinical Pharmacist for SP questions. SP eGFR >60 >60 mL/min KU MAIN LAB SP [place] Comment: SP The eGFR is not validated for SP use in drug dosing SP adjustments.Continue to SP use SP estimated creatinine SP clearance per dosing reference SP text.Please contact the SP Clinical Pharmacist for SP questions. SP Specimen SP Blood SP Performing Organization Address City/[facility] Ph one Number SP MAIN LAB [address] [place] [address] SP * CBC (2018 5:19 AM CDT) Pathologist SP Signature SP White Blood 5.7 4.5 - 11.0 K/UL K[facility] MAIN LAB SP Cells SP RBC 4.02 (L) 4.4 - 5.5 M/UL K[facility] MAIN LAB SP Hemoglobin 12.6 (L) 13.5 - 16.5 GM/DL K[facility] MAIN LAB SP Hematocrit 37.0 (L) 40 - 50 % K[facility] MAIN LAB SP MCV 91.8 80 - 100 FL K[facility] MAIN LAB SP MCH 31.2 26 - 34 PG K[facility] MAIN LAB SP MCHC 34.0 32.0 - 36.0 G/DL K[facility] MAIN LAB SP RDW 16.6 (H) 11 - 15 % K[facility] MAIN LAB SP Platelet Count 255 150 - 400 K/UL K[facility] MAIN LAB SP MPV 6.8 (L) 7 - 11 FL K[facility] MAIN LAB SP Specimen SP Blood SP Performing Organization Address City/[facility] Ph one Number SP K[facility] MAIN LAB [address] [place] [address] SP * LIPID PROFILE (2018 5:19 AM CDT) Pathologist SP Signature SP Cholesterol 118 <200 MG/DL K[facility] MAIN LAB SP Triglycerides 77 <150 MG/DL [facility] MAIN LAB SP HDL 32 (L) >40 MG/DL [facility]IN LAB SP LDL 78 <100 MG/DL [facility] MA[facility] LAB SP VLDL 15 MG/DL [facility] MAIN LAB SP Non HDL 86 MG/DL K[facility] MAIN LAB SP Cholesterol Comment: SP Calculated non-HDL Cholesterol SP (non-HDL-C) indirectly SP measures LDL-C, Lp(a), SP IDL-C, and VLDL-C.It is a SP surrogate marker for SP Apoprotein B.Goal should SP be SP less than 130 mg/dL. SP Specimen SP Blood SP Performing Organization Address City/[facility] Ph one Number SP KU MAIN LAB [address] [place] [address] SP * PHOSPHORUS (10/08/2018 10:00 PM CDT) Pathologist SP Signature SP Phosphorus 3.5Comment: NOTE NEW REFERENCE 2.0 - 4.5 MG/DL K[facility] MAIN LAB SP RANGES SP Specimen SP Blood SP Performing Organization Address [facility] Ph one Number SP KU MAIN LAB [address] [place] [address] SP * MAGNESIUM (10/08/2018 10:00 PM CDT) Pathologist SP Signature SP Magnesium 1.9 1.6 - 2.6 mg/dL K[facility] MAIN LAB SP Specimen SP Blood SP Performing Organization Address [facility] Ph one Number SP KU MAIN LAB [address] [place] [address] SP * BASIC METABOLIC PANEL (10/08/2018 10:00 PM CDT) Pathologist SP Signature SP Sodium 137 137 - 147 MMOL/L K[facility] MAIN LAB SP Potassium 3.6 3.5 - 5.1 MMOL/L [facility] MA[facility] LAB SP Chloride 103 98 - 110 MMOL/L K[facility] MAIN LAB SP CO2 24 21 - 30 MMOL/L [facility] MAIN LAB SP Anion Gap 10 3 - 12 K[facility] MAIN LAB SP Glucose 106 (H) 70 - 100 MG/DL [facility] MAIN LAB SP Blood Urea 13 7 - 25 MG/DL K[facility] MAIN LAB SP Nitrogen SP Creatinine 0.95 0.4 - 1.24 MG/DL K[facility] MAIN LAB SP Calcium 9.2 8.5 - 10.6 MG/DL [facility] MAIN LAB SP eGFR Non >60 >60 mL/min K[facility] MAIN LAB SP Comment: SP [place] The eGFR is not validated f or SP use in drug dosing SP adjustments.Continue to SP use SP estimated creatinine SP clearance per dosing reference SP text.Please contact the SP Clinical Pharmacist for SP questions. SP eGFR >60 >60 mL/min K[facility] MAIN LAB SP [place] Comment: SP The eGFR is not validated for SP use in drug dosing SP adjustments.Continue to SP use SP estimated creatinine SP clearance per dosing reference SP text.Please contact the SP Clinical Pharmacist for SP questions. SP Specimen SP Blood SP Performing Organization Address City/[facility] Ph one Number SP KU MAIN LAB [address] [place] [address] SP * CBC (10/08/2018 10:00 PM CDT) Pathologist SP Signature SP White Blood 6.5 4.5 - 11.0 K/UL K[facility] MAIN LAB SP Cells SP RBC 4.15 (L) 4.4 - 5.5 M/UL K[facility] MAIN LAB SP Hemoglobin 12.9 (L) 13.5 - 16.5 GM/DL K[facility] MAIN LAB SP Hematocrit 37.7 (L) 40 - 50 % K[facility] MAIN LAB SP MCV 90.8 80 - 100 FL K[facility] MAIN LAB SP MCH 31.0 26 - 34 PG K[facility] MAIN LAB SP MCHC 34.2 32.0 - 36.0 G/DL K[facility] MAIN LAB SP RDW 16.5 (H) 11 - 15 % K[facility] MAIN LAB SP Platelet Count 265 150 - 400 K/UL K[facility] MAIN LAB SP MPV 6.8 (L) 7 - 11 FL [facility] MAIN LAB SP Specimen SP Blood SP Performing Organization Address [facility] Ph one Number SP KU MAIN LAB [address] [place] [address] SP * HEMOGLOBIN A1C (10/08/2018 10:00 PM CDT) Pathologist SP Signature SP Hemoglobin A1C 6.1 (H) 4.0 - 6.0 % K[facility] MAIN LAB SP Comment: SP The ADA recommends that most SP patients with type 1 and type SP 2 diabetes maintain SP an A1c level <7%. SP Specimen SP Blood SP Performing Organization Address City/[facility] Ph one Number SP KU MAIN LAB [address] [place] [address] SP * TELEMETRY STRIPS-SCAN (10/08/2018 12:00 AM CDT) Narrative Performed At This result has an attachment that is n ot available. SP Ordered by an unspecified provider. SP * TELEMETRY STRIPS-SCAN (10/08/2018 12:00 AM CDT) Narrative Performed At This result has an attachment that is n ot available. SP Ordered by an unspecified provider. 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 SP documented in this encounter Admitting Diagnoses Diagnosis POS Stroke (HCC) SP Unspecified cerebral artery occlusion w ith cerebral infarction SP documented in this encounter Administered Medications Action Date Dose Rate Site POS Medication Order MAR Action SP 10/16/2018 8:10 AM CDT 100 mg SP allopurinol (ZYLOPRIM) tablet 100 mg Given SP 100 mg, Oral, DAILY, First dose on Tue SP 10/14/18 at 0945, Until Discontinued SP 10/10/2018 8:15 AM CDT 81 mg SP aspirin chewable tablet 81 mg Given SP 81 mg, Oral, DAILY, First dose on Tue SP 10/09/18 at 0900, Until Discontinued, If SP pt received Alteplase, DO NOT give this SP medication until 24 hours after infusio n SP completed., SP 81 mg SP Given 2018 SP 11:25 AM CDT SP 10/16/2018 8:06 AM CDT 325 mg SP aspirin EC tablet 325 mg Given SP 325 mg, Oral, DAILY, First dose on Tue SP 10/10/18 at 1545, Until Discontinued SP 325 mg SP Given 10/15/2018 SP 9:45 AM CDT SP 325 mg SP Given 10/14/2018 SP 8:08 AM CDT SP 2018 11:24 AM CDT 40 mg SP atorvastatin (LIPITOR) tablet 40 mg Given SP 40 mg, Oral, DAILY, First dose on Tue10/09/18 at 0900, Until Discontinued SP 10/16/2018 8:05 AM CDT 80 mg SP atorvastatin (LIPITOR) tablet 80 mg Given SP 80 mg, Oral, DAILY, First dose on Tue10/10/18 at 0900, Until Discontinued SP 80 mg SP Given 10/15/2018 SP 9:45 AM CDT SP 80 mg SP Given 10/14/2018 SP 8:08 AM CDT SP bisacodyl (DULCOLAX) rectal suppository SP 10 mg SP 10 mg, Rectal, DAILY PRN, Starting Tue10/11/18 at 0836, Until Tue10/16/18 at SP 1338, Constipation TN, Hold for loose SP stools, SP 10/14/2018 8:08 AM CDT 2 g SP ceFAZolin (ANCEF) IVP 2 g Given SP 2 g, Intravenous, EVERY 8 HOURS, 3 SP doses, First dose on Tue10/13/18 at SP 1630, Last dose on Tue10/14/18 at 0830, SP IV PUSH -- RECONSTITUTE each 1 g vial b y SP adding 10 mL 0.9% NACL, SP 2 g SP Given 10/14/2018 SP 12:11 AM CDT SP 2 g SP Given 10/13/2018 SP 5:28 PM CDT SP 10/16/2018 8:05 AM CDT 10 mg SP citalopram (CELEXA) tablet 10 mg Given SP 10 mg, Oral, DAILY, First dose on Tue10/09/18 at 0900, Until Discontinued SP 10 mg SP Given 10/15/2018 SP 9:44 AM CDT SP 10 mg SP Given 10/14/2018 SP 8:07 AM CDT SP 10/16/2018 8:03 AM CDT 100 mg SP docusate (COLACE) capsule 100 mg Given SP 100 mg, Oral, TWICE DAILY, First dose o n SP Tue10/11/18 at 0945, Until Discontinued , SP Hold for loose stools, SP 100 mg SP Given 10/15/2018 SP 8:43 PM CDT SP 100 mg SP Given 10/15/2018 SP 9:44 AM CDT SP 10/13/2018 2:18 PM CDT 25 mcg SP fentaNYL citrate PF (SUBLIMAZE) Given SP injection 25-50 mcg SP 25-50 mcg, Intravenous, EVERY 1 HOUR SP PRN, Starting 10/13/18 at 1250, Unti l SP 10/14/18 at 2359, Pain Injectable SP 50 mcg SP Given 10/13/2018 SP 12:53 PM CDT SP 10/12/2018 6:11 AM CDT 5,000 Units Abdomina l Tissue SP heparin (porcine) PF syringe 5,000 Units Given SP 5,000 Units, Subcutaneous, EVERY 8 SP HOURS, First dose on Tue10/09/18 at SP 1400, Until Discontinued, NOTE: This is SP a HIGH ALERT Medication., SP 5,000 Units Abdominal Tissue SP Given 10/11/2018 SP 9:00 PM CDT SP 5,000 Units Abdominal Tissue SP Given 10/11/2018 SP 1:58 PM CDT SP 10/12/2018 9:00 PM CDT 5,000 Units Abdomen: LLQ SP heparin (porcine) PF syringe 5,000 Units Given SP 5,000 Units, Subcutaneous, EVERY 8 SP HOURS, 2 doses, First dose on Marisabel SP 10/12/18 at 1400, Last dose on Tue SP 10/12/18 at 2200, NOTE: This is a HIGH SP ALERT Medication., SP 5,000 Units Abdominal Tissue SP Given 10/12/2018 SP 1:59 PM CDT SP 10/16/2018 6:08 AM CDT 5,000 Units Abdomina l Tissue SP heparin (porcine) PF syringe 5,000 Units Given SP 5,000 Units, Subcutaneous, EVERY 8 SP HOURS, First dose on Tue10/15/18 at SP 1400, Until Discontinued, NOTE: This is SP a HIGH ALERT Medication., SP 5,000 Units Abdominal Tissue SP Given 10/15/2018 SP 8:43 PM CDT SP 5,000 Units Abdominal Tissue SP Given 10/15/2018 SP 2:25 PM CDT SP 10/15/2018 9:44 AM CDT 18.75 mg SP hydroCHLOROthiazide (HYDRODIURIL) tablet Given SP 18.75 mg SP 18.75 mg, Oral, DAILY, First dose on SP 10/14/18 at 0900, Until Discontinued SP 18.75 mg SP Given 10/14/2018 SP 8:08 AM CDT SP 10/16/2018 8:06 AM CDT 25 mg SP hydroCHLOROthiazide (HYDRODIURIL) tablet Given SP 25 mg SP 25 mg, Oral, DAILY, First dose on Tue SP 10/16/18 at 0900, Until Discontinued SP 10/14/2018 10:35 PM CDT 1 tablet SP HYDROcodone/acetaminophen (NORCO) 5/325 Given SP mg tablet 1-2 tablet SP 1-2 tablet, Oral, EVERY 6 HOURS PRN, SP Starting Tue10/13/18 at 1251, Until Tue10/16/18 at 1338, Pain PO, TOTAL SP ACETAMINOPHEN DOSE NOT TO EXCEED 4GM SP DAILY NOTE: This is a HIGH ALERT SP Medication., SP 1 tablet SP Given 10/14/2018 SP 12:15 AM CDT SP 1 tablet SP Given 10/13/2018 SP 7:57 PM CDT SP 10/13/2018 8:45 PM CDT 65 mL SP iohexol (OMNIPAQUE-350) 350 mg/mL Given SP injection 65 mL SP 65 mL, Intravenous, ONCE, 1 dose, Tue10/13/18 at 2045, NOTE: This is a HIGH SP ALERT Medication., SP 10/16/2018 6:20 AM CDT 10 mg SP labetalol (NORMODYNE) injection 10 mg Given SP 10 mg, Intravenous, EVERY 1 HOUR PRN, SP Starting Tue10/13/18 at 2028, Until Tue10/16/18 at 1338, Systolic Blood SP Pressure..., SBP >140, Hold for heart SP rate < 60 bpm or systolic BP < 100, SP 10 mg SP Given 10/14/2018 SP 2:59 AM CDT SP 10 mg SP Given 10/13/2018 SP 8:57 PM CDT SP 10/14/2018 7:47 PM CDT SP lidocaine (XYLOCAINE) 2 % jelly Given SP (URO-JET) SP Topical, NEEDED, Starting Sat 9 SP at 1934, Until Tue10/16/18 at 1338, Nicholas n SP non-opioid: may be used alone or in SP combination with opioid analgesia SP SP Given 10/14/2018 SP 6:47 PM CDT SP 10/15/2018 9:44 AM CDT 30 mg SP lisinopril (PRINIVIL; ZESTRIL) tablet 30 Given SP mg SP 30 mg, Oral, DAILY, First dose on Sat SP 10/14/18 at 0900, Until Discontinued SP 30 mg SP Given 10/14/2018 SP 8:07 AM CDT SP 10/16/2018 8:05 AM CDT 40 mg SP lisinopril (PRINIVIL; ZESTRIL) tablet 40 Given SP mg SP 40 mg, Oral, DAILY, First dose on Tue SP 10/16/18 at 0900, Until Discontinued SP 10/15/2018 9:52 AM CDT 10 mL SP milk of magnesia (CONC) oral suspension Given SP 10 mL SP 10 mL, Oral, ONCE, 1 dose, [place] 10/15/18 SP at 0945, 10 mL CONC=30 mL MOM, SP 10/13/2018 12:05 PM CDT 5 mg/hr 50 mL/hr SP niCARdipine (cardENE) 20 mg/NS 200 mL Given - New SP infusion (std conc)(premade) Bag SP 200 mL, 5-15 mg/hr (50-150 mL/hr), at SP 50-150 mL/hr, Intravenous, TITRATE A S SP DIRECTED , Starting Tue10/13/18 at SP 1215, Until 10/14/18 at 0741, SP Initiate at 5 mg/hr Titrate to keep: SB P SP < 140 mmHg Call MD if patient's dose is SP 5 mg/hr and able to tolerate oral SP medications. Std Conc=0.1 mg/ml, SP 10/11/2018 8:34 AM CDT [address](+) (PRILOSEC) capsule 20 Given SP mg SP 20 mg, Oral, DAILY BEFORE BREAKFAST, SP First dose on Tue10/11/18 at 0700, Unti l SP Discontinued SP 10/15/2018 9:45 AM CDT [address](+) (PRILOSEC) capsule 20 Given SP mg SP 20 mg, Oral, DAILY AFTER BREAKFAST, SP First dose on Tue10/12/18 at 0900, Unti l SP Discontinued SP 20 mg SP Given 10/14/2018 SP 8:08 AM CDT SP 20 mg SP Clinic Administered - Patient Supplied 10/12/2018 SP 8:57 AM CDT SP 10/16/2018 10:05 AM CDT 4 mg SP ondansetron (ZOFRAN) injection 4 mg Given SP 4 mg, Intravenous, ONCE, 1 dose, [facility] 10/16/18 at 1000 SP 2018 10:35 AM CDT 2 Diluted mL SP perflutren lipid microspheres (DEFINITY) Given SP injection 1-20 Diluted mL SP 1-20 Diluted mL, Intravenous, ONCE PRN, SP 1 dose, Starting Tue10/09/18 at 1020, SP Until Tue10/09/18 at 1035, For SP Procedure, A dry kiln feeder may only SP administer Definity through a saline SP lock. If IV is in use or a port, PICC, SP or central line is being used a nurse SP must administer. NOTE: This is a HIGH SP ALERT Medication., MAC Procedure Area SP Only - Medications SP 10/16/2018 8:03 AM CDT 17 g SP polyethylene glycol 3350 (MIRALAX) Given SP packet 17 g SP 17 g (1 packet), Oral, DAILY, First dos e SP on Tue10/11/18 at 0945, Until SP Discontinued, 8.5 GRAMS=0.5 PACKET 17 SP GRAMS=1 PACKET 34 GRAMS=2 PACKETS, SP 17 g SP Given 10/15/2018 SP 9:52 AM CDT SP 17 g SP Given 10/14/2018 SP 8:08 AM CDT SP 10/13/2018 7:13 AM CDT 1,000 mL 20 mL/hr SP sodium chloride 0.9 % infusion Given - New SP 1,000 mL, 1,000 mL, Intravenous, at 20 Bag SP mL/hr, CONTINUOUS, Starting Tue10/13/18 SP at 0545, Until 10/14/18 at 0747, SP Pre-Op SP 10/14/2018 1:46 PM CDT 88 mL/hr SP sodium chloride 0.9 % infusion Given - New SP 1,000 mL, Intravenous, at 88 mL/hr, Bag SP CONTINUOUS, Starting 10/14/18 at SP 1300, Until 10/15/18 at 0659 SP SODIUM CHLORIDE 0.9 % IV SOLP (Cabinet SP Override) SP NOW, 1 dose, Tue10/13/18 at 0600, SP Created by cabinet override, Created by SP cabinet override, SP 10/13/2018 8:45 PM CDT 50 mL SP sodium chloride PF 0.9% injection 50 mL Given SP 50 mL, Intravenous, ONCE, 1 dose, Fri SP 10/13/18 at 2045, DO NOT SEND this SP medication unless it is requested. This SP med is usually available in floor SP stock., Intra-procedure (IR) SP 10/16/2018 8:05 AM CDT 0.4 mg SP tamsulosin (FLOMAX) capsule 0.4 mg Given SP 0.4 mg, Oral, DAILY AFTER BREAKFAST, SP First dose on 10/14/18 at 1830, Unti l SP Discontinued, NURSING: Please educate SP patient and document: Give 1/2 hour SP following same meal everyday. Do not SP crush, chew or open the capsule. , SP 0.4 mg SP Given 10/15/2018 SP 9:44 AM CDT SP 0.4 mg SP Given 10/14/2018 SP 8:05 PM CDT SP documented in this encounter
--- OUTSIDE RECORDS SUMMARY | 2019-01-14 21:32 | XMS REPORT | Encounter Summary ---
Author Author [facility] POS Organization [facility] SP Address Unknown SP Phone Unavailable SP Care Team Providers Care Farm Reporter Name Role Phone POS Cirilo Dewitt MD PCP SP Reason for Visit * Auth/Cert Referred By Contact Referred To Contact POS Status Reason Specialty Diagnoses / SP Procedures SP SP SP Diagnoses SP Stroke (HCC) SP Stroke SP Encounter Details Care Team Description POS Date Type Department SP SP Alessandro Reyes MD [address] Orth[facility] [address] [place] [address] [phone] RIGHT INTERNAL CAROTID ENDARTERECTOMY SP 10/13/2018 Surgery [facility] SP OR SP [address] [place] [address] SP [phone] SP Social History Date POS Tobacco Use [...] (~90% stenosis) so pt was transferred to [facility] for observation and possible neurosurgical intervention. NI [...] Fasting Lipid Panel - Start Aspirin - PT/OT/PAYABLE MANAGER/Rehab Consults - consult NSG for CEA/DIANE [...] driving [facility]. Avoid pulling, pushing or lifting greater than 10 pounds. Stroke Information F.A.S.T. is an easy way to remember the sudden signs of a stroke. F - face drooping A - arm weakness S - speech difficulty T - TIME TO CALL 911 If the person shows any of theses signs, even if the signs go away, call I MMEDIATELY. Check the time so you [...] returned home, please feel free to c samanta the Chief Petroleum Engineer at [phone]. Your last blood pressure was BP: 110/59, Your target blood pressure is less than 140/88 If you have diabetes, even if treated, you are at an increased risk of stroke. Many people with diabetes also have high blood pressure, high cholesterol or are overweight. This increases your risk even more. Smoking doubles your risk of stroke. Quitting can greatly reduce your risk. Fo r more information on smoking cessation call or [...] or concerns regarding your hospital stay, call [phone]. Discharging attending physician: ALESSANDRO REYES [[id number]] Regular Diet You have no dietary restriction. [...] - Op with Alessandro Reyes MD [facility] (NeuroSurgery) [address] [facility] [id number] Additional appointment instructions: You have an appointment [...] Dewitt of these changes. Dr. Cirilo Dewitt [phone] Pending items needing follow up: none. Signed: [...] Dewitt of these changes. Dr. Cirilo Dewitt [phone] * Additional Instructions* eBtzaida Roy RN - 10/13/2018 3:10 PM CDT Ld Del Toro Right Internal Carotid Endarterectomy with Patch graft on 10/13/[address] Finesse larkin Neurosurgery Discharge Instructions Contact information: ? Please feel free to call Neurosurgery at any time if you have questions or are experiencing problems at discharge [phone]. Post-operative wound care: ? Your incision has [...] drinking 2 Liters of non-caffeinated beverages jes * Follow up appointment: ? 11/08/18 @ 11:15 [...] diet, medications, and signs and symptoms to [facility] out for. Patient has been educated on johnson catheter care. Patient verbalize d understanding/signed discharge paperwork. All of the patients questions/concer ns have been addressed and answered. PIV removed without complication. RX given to patient. Patinet has all belongings. Patient left via wheelchair. * Melyssa Dialloe, LAM - 10/16/2018 7:49 AM CDT Neurosurgery Progress [...] to low at home to reduce to MEDICAL REVIEW SPECIALIST dosing. Continue johnson. Nursing to provide education prior to dc. Home today Please call [phone] with any questions. Juliann Diallo APRN [id number] or Voalte * Shantelle Martinez RN - [...] removal plan for when patient returns to [facility]. Lengthy discussion but patient ultimately agreeable. O: [...] regular thins with swallow guidance Please call [phone] with any questions. Dawit Gill MD Pager [...] is continuing to monitor. * Dawit Hunt, PT - 10/14/2018 1:37 PM CDT PHYSICAL THERAPY [...] he is otherwise very active at [employer] and likes to work around the home and do yardwork. ROM: ROM Position Assessed: Seated ROM Method: Active LE ROM: WFL STRENGTH: R LE WNL: Yes L LE WNL: Yes Strength Comment: / bilaterally POSTURE/NEURO: Head Control: Independent Posture: No [...] Patient Currently Requires Equipment: None Therapist: Dawit Hunt, PT, DPT Date: 10/14/2018 * Sumit Burr [...] urinating for vasovagal response. * Kellen Pena MA,CCC-PAYABLE MANAGER - 10/14/2018 10:50 AM CDT SPEECH-LANGUAGE [...] ST recommended at this time Therapist:Kellen Pena MA, L/CCC-PAYABLE MANAGER Voalte: [phone] Date:10/14/2018 * Dawit Gill MD - 10/14/2018 [...] floor today possible discharge soon Please call [phone] with any questions. Dawit Gill MD Pager [...] for pain. MARIELENA at surgical site. Resumed MEDICAL REVIEW SPECIALIST celexa. Cardiac: History of hypertension, on home [...] 24 Hour Ra nge BP: 140/73 (10/14 0800) ABP: 182/71 (10/15 799) Temp: 36.7 C [...] with the ICU team. Toño Ayoub MD Operater Anesthesiology and Critical Care * Jose Fay [...] Sedation/Pain Management: Anxiety - PRN Fentanyl, PRN Ganado - Assess for delirium daily - MEDICAL REVIEW SPECIALIST Celexa restarted Cardiac: HTN HLD - SBP goal: < 140 - MEDICAL REVIEW SPECIALIST Lipitor 80 mg restarted - Lisinopril /HCTZ .75 will restart Respiratory: Former smoker - Stable on RA GI: GERD - MEDICAL REVIEW SPECIALIST prilosec restarted - Feeding: regular diet - [...] Potassium goal >4.0 mEq/L Prophylaxis Review: A)GI: PPI/D0Retreba B) Lines: will remove C) Urinary Catheter: [...] 88 kg (194 lb), SpO2 93 %. [place] coma score: E: 4 - Opens eyes [...] procedures reviewed. Jose Fay APRN Date: 10/14/[phone] I spent 40 minutes managing the care [...] (NS) 500 mL IJ SOLN Irrig ation Tax Economist to OR omeprazole DR(+) (PRILOSEC) capsule 20 [...] Signs: 24 Hour Ra nge BP: 131/70 (08/23 2100) ABP: 173/60 (10/13 2099) Temp: 36.8 C [...] hours) Intake/Output Summary (Last 24 hours) at 10/13/20182199 Last data filed at 10/13/2018 2100 Gross [...] time, excluding procedures today. Toño Ayoub MD Operater Anesthesiology and Critical Care * Juliann Diallo [...] completed Will continue to follow Please call [phone] with any questions. Juliann Diallo APRN Pager [phone] or Voalte * Carlos Mckeon DO - [...] mg - A1C=6.1 - Continue Aspirin - PT/OT/PAYABLE MANAGER/Rehab Consults -Discussed patient withNS, Dr. Reyes has seen patient.Surgery scheduled for 6:30 a.m tomorrow HTN, HLD - holding MEDICAL REVIEW SPECIALIST lisinopril - continue MEDICAL REVIEW SPECIALIST atorvastatin, increased to 80 mg Depression - on MEDICAL REVIEW SPECIALIST citalopram Gout - on MEDICAL REVIEW SPECIALIST allopurinol FEN: IVF, monitor and replete electrolytes prn, Cardiac Diet (NPO at mid night) Ppx:Heparin Status: Full code Disposition:Intervention for ICA stenosis Patient seen and plan of care discussed with Subjective: Ld Warenrshruthikodak a 83 y.o.male. Patient seen and examined. [...] Vital Signs: 24 Hour Range BP: 144/82 (08/22 0543) Temp: 36.6 C (97.8 F) (10/12 542) [...] lower extrem ities Prorprioception: intact Cerebellar function: agcgri-hpev-autavo, heel-meza movements without dysmetria; no pronator drift [...] mg - A1C=6.1 - Start Aspirin - PT/OT/PAYABLE MANAGER/Rehab Consults -Discussed patient withNSG, surgery scheduled for Tuesday a.m. HTN, HLD - holding MEDICAL REVIEW SPECIALIST lisinopril - continue MEDICAL REVIEW SPECIALIST atorvastatin 80 mg Depression - on MEDICAL REVIEW SPECIALIST citalopram Gout - on MEDICAL REVIEW SPECIALIST allopurinol FEN: IVF, monitor and replete electrolytes prn, Cardiac Diet Ppx:Heparin Status: Full code Disposition: Surgery Tuesday a.m Patient seen and plan of care discussed [...] lower extrem ities Prorprioception: intact Cerebellar function: zspxzh-fwun-iojucn, heel-meza movements without dysmetria n ormal rapid [...] 13 Will continue to follow Please call [phone] with any questions. Kalani Duran APRN Pager [phone] or Voalte * Giovani Denise, PT - 10/11/2018 8:45 AM CDT PHYSICAL [...] Denise PT, DPT Date: 10/11/2018 * Meliton Bajwa, ANAID - 10/11/2018 5:34 AM CDT I have [...] at 1500 while at his own birthday democr[employer]. Pt was eating when he herrera ddenly [...] No GI complaints ex pressed. LBM was 10/08. Wt is -0.2 kg since admission. No wt history available in EMR. Per MST screening score pt denied wt loss or decreased appetite MEDICAL REVIEW SPECIALIST. No pr essure injuries or edema noted. Pt is not currently at nutritional risk. Will co ntinue to monitor. Recommendation: Continue Cardiac diet. SHILPA Camargo-NDTR, [facility] Voalte:[phone] Office: [phone] * Carlos Mckeon, - 10/10/2018 8:44 AM CDT Neurology Progress [...] mg - A1C=6.1 - Start Aspirin - PT/OT/PAYABLE MANAGER/Rehab Consults - Discussed patient with NSG, Dr. Reyes will be seeing patient today. Agreed with need for surgical intervention. HTN, HLD - holding MEDICAL REVIEW SPECIALIST lisinopril - continue MEDICAL REVIEW SPECIALIST atorvastatin, increase to 80 mg Depression - on MEDICAL REVIEW SPECIALIST citalopram Gout - on MEDICAL REVIEW SPECIALIST allopurinol FEN: IVF, monitor and replete electrolytes prn, Cardiac Diet (NPO at [facility] t if surgery is scheduled for tomorrow) [...] and lower extremities Prorprioception: intact Cerebellar function: hrluai-uucy-wvzbtk, heel-meza movements without dysmetria n ormal rapid [...] labs, and diagnostic testing personally reviewed. Carlos casey Emergency Medicine PGY1 Associated attestation - Barbara [...] her/his documentation unless otherwise noted. * Katie Jefferson OT - 2018 10:48 AM CDT OCCUPATIONAL THERAPY NO TREATMENT NOTE Based on discussion with Physical therapy, patient's current level of function s uggests that patient will progress with one discipline. Occupational therapy mayra l sign off at this time. Please re-consult if change in functional status occurs . Therapist: ANA Akins/Wilmer [id number] Date: 2018 * Niesha Barker, RN - 2018 10:13 AM CDT BP [...] (~90% stenosis) so pt was transferred to [facility] for observation and possible n eurosurgical intervention. [...] Formal swallow evaluation is no longer warranted. PAYABLE MANAGER will s/o; please re-co nsult if assistance can be provided in the future. Therapist: Wilmer Lamb/CCC-PAYABLE MANAGER (Pager [phone]; Voalte: [phone]) Date: 2018 * Carlos Mckeon DO - [...] st enosis) so pt was transferred to [facility] for observation and possible neurosurgical intervention. NIHSS [...] mg - A1C=6.1 - Start Aspirin - PT/OT/PAYABLE MANAGER/Rehab Consults - Discussed patient with NSG, pending CEA/DIANE evaluation HTN, HLD - holding MEDICAL REVIEW SPECIALIST lisinopril - continue MEDICAL REVIEW SPECIALIST atorvastatin, increase to 80 mg Depression - on MEDICAL REVIEW SPECIALIST citalopram Gout - on MEDICAL REVIEW SPECIALIST allopurinol FEN: IVF, monitor and replete electrolytes prn, Cardiac Diet Ppx: Heparin Status: Full code Disposition: Intervention for ICA stenosis Patient seen and plan of care discussed with Dr. Jenkins Subjective: Ld Del Toro is a 83 y.o. male. Patient seen and examined. No acute overnigh t events reported. Patient presented to from [facility] where he was f ound to [...] and lower extremities Prorprioception: intact Cerebellar function: vaalwl-trzm-olkdkf, heel-meza movements without dysmetria n ormal rapid [...] though this may not be an effective [place] [facility] strategy as he does endorse history of [...] for surgery today. Juliann Diallo APRN Pager [phone] Neurosurgery Consult History and Physical Examination Ld [...] began at 1500while at his own birthday democrat.Pt was eating when he suddenly began to [...] a secure HIPAA-compliant network. Estefanía Vazquez MD [address] Reporter Department of Neurology documented in this encounter [...] Jean MD URO PGY3 Please page Urology melon packer with questions. __ HPI: Ld Del Toro [...] of 63 years. Used to work as [employer]. Has 3 children. They live in [facility] [place], owusu they spend in [place]. Alden malin with RV History reviewed. No pertinent family history. Vitals: Vital Signs: Last Filed In 24 Hours Vital Signs: 24 Hour Range BP: 173/92 (10/14 1800) Temp: 36.7 C (98.1 F) (10/14 1600) Pulse: 70 (10/14 1900) Respirations: 19 PER MINUTE (10/14 190) SpO2: 96 % (10/14 1899) SpO2 Pulse: 70 (10/14 190) BP: (123-173)/(62-92) ABP: (143-183)/(58-77) Temp: [36.7 C [...] Neuro Critical Care History and Physical Ld Del Toro Admission Date: 10/08/2018 LOS: 5 days Full [...] Sedation/Pain Management: Anxiety - PRN Fentanyl, PRN Ganado - Assess for delirium daily - MEDICAL REVIEW SPECIALIST Celexa restarted Cardiac: HTN HLD - SBP goal: < 140 - MEDICAL REVIEW SPECIALIST Lipitor 80 mg restarted - Lisinipril/HCTZ - PRN Cardene gtt Respiratory: Former smoker - Stable on RA GI: GERD - MEDICAL REVIEW SPECIALIST prilosec restarted - Feeding: regular diet - [...] Potassium goal >4.0 mEq/L Prophylaxis Review: A)GI: PPI/I4Bkqstay B) Lines: Yes; Arterial Line; Indication: Frequent blood draws; Location: Rad ial C) Urinary Catheter: Yes; Retain johnson due to: Need for accurate Intake and Ou tput D) Antibiotic Usage: No E) VTE: Mechanical prophylaxis; Sequential compression device F) Isolation: no G)Seizures: no I) Restraints: Patient assessed for need for restraints. Disposition/Family: ICU care Primary service: NSG Consults: NICU SUBJECTIVE Chief Complaint: S/p R [...] of 63 years. Used to work as [employer]. Has 3 children. They live in [facility], [place] they spend in [place]. Tr dea with RV Code Status: Full Code Decision [...] Vital Signs: 24 Hour Ra nge BP: 148/78 (10/13 1200) ABP: 127/39 (10/13 1215) Temp: 36.8 C (98.2 F) (10/13 1200) Pulse: 71 (10/13 1215) Respirations: 14 PER MINUTE (10/13 1215) SpO2: 92 % (10/13 1215) Height: 175.3 cm (69.02") (10/13 599) Weight: 88 kg (194 lb) (10/13 599) BP: (127-171)/(53-95) ABP: (127-135)/(39-40) Temp: [36.3 C (97.4 F)-36.8 C (98.2 F)] Pulse: [52-72] Respirations: [14 PER MINUTE-21 PER MINUTE] SpO2: [92 %-99 %] Intensity Pain Scale (Self Report): (not recorded) Vitals: 10/08/18 2131 10/09/18 1128 10/13/18 06 Weight: 88.2 kg (194 lb 7.1 oz) [...] 88 kg (194 lb), SpO2 92 %. [place] coma score: E: 4 - Opens eyes [...] and diag nostic procedures reviewed. Jose Fay, CERTIFIED SCRUM MASTER Date: 10/13/[phone] I spent 40 minutes managing the care [...] 83 y.o. male. : 1935 MRN#: [id number] Primary Insurance: MEDICARE Financial Class: Medicare Date of Admission: 10/08/2018 Referring Physician: Barbara Jenkins MD Reason for Consult: evaluate for Post-Acute Rehab/Placement Precautions: Fall Weight bearing Precautions: WBAT Active Problems Stroke Carotid Stenosis Assessment & Plan Ld Del Toro is a 83 y.o. male admitted to [facility] on 10/08/2018 with the following issues: stroke Post-acute care rehabilitation needs: Patient currently does not have goals or medical complexity to warrant post-acut e care rehabilitation. He is most appropriate for home discharge at this time. S hould patient undergo CEA and develop symptoms post-operatively, please reach ou t to Rehab Consult service to re-evaluate. Bravo Omalley DO Rehab Consult Pager: [phone] History of Present Illness 83yo M w/ PMH HTN, HLD who presents as transfer from OSH with acute onset L miki ed weakness, L facial droop which rapidly improved (NIHSS 5 initially). CTA perf ormed at OSH notable for severe carotid artery stenosis (~90% stenosis). Transfe rred to [facility] for observation and possible neurosurgical intervention. NIHSS [...] Formal swallow evaluation is no longer warranted. PAYABLE MANAGER will s/o; please re-co nsult if assistance can be provided in the future. Review of Systems All other systems reviewed and are negative. Physical Exam BP: 150/105 (10/09 133) Temp: 36.4 C (97.5 F) (10/09 133) Pulse: 72 (10/09 133) Respirations: 18 PER MINUTE (10/09 133) SpO2: 97 % (10/09 133) Height: 175.3 cm (69") (10/09 1128) Body [...] at 1500 while at his own birthday democrat. Pt wa s eating when he suddenly began to feel weak and mouth began to droop on L side. Symptoms improved after presented to OSH but CTA there revealed 90% stenosis of R ICA. On arrival to [facility] NIHSS was 1 for L facial droop. [...] to chronic microvascular ischemia. Tom Jara MD [id number] Associated attestation - Alessandro Reyes MD - [...] discussed in AM team meeting, and per INSTRUMENT REPAIRER HELPER Juliann he does not wish to have home health or outpatient PT - INSTRUMENT REPAIRER HELPER is comfortable with those choices, and pepper lama has consistent supervision/assistance at home. ? Info or Referral Information or Referral to Community Resources: Other(PCP Appointment) NCM was requested by INSTRUMENT REPAIRER HELPER to make appointment for patient with his PCP, either Tue or Tuesday, to have his urinary catheter removed. * Spoke with Dr. Dewitt's staff, and appointment was scheduled for , 09/22 9, at 1015. * Notified INSTRUMENT REPAIRER HELPER of appointment; placed in patient's AVS in the Return Appointments tab. * At PCP staff request, faxed clinical and AVS to PCP's office via [employer] at 10 45. ? Discharge Planning ? [...] service has been selected for the patient. [facility] Destination No service has been selected for the patient. Home Care No service has been selected for the patient. Dialysis/Infusion No service has been selected for the patient. BRANDI Osei, RN, ACM-imaging nurse Nurse Improvement Rn [phone], *[phone] * Anesthesia Post Op Day 1 - Nell Galvan SRNA - 10/14/2018 11:50 AM CDT Anesthesia Follow-Up [...] questions or are experiencing problems at discharge [phone]. Post-operative wound care: ? Your incision has [...] Roy RN Clinical Nurse Coordinator Neurosurgery Office: [phone] * Procedures (Immed Post or Bedside) - Dawit Gill MD - 10/13/2018 11:43 AM CDT Brief Operative Note Name: Ld Del Toro is a 83 y.o. male : 1935 MRN#: [id number] DATE OF OPERATION: 10/13/2018 Date: 10/13/2018 Preoperative [...] ICU - stable Dawit Gill MD Pager [phone] * Operative Report (Direct Entry) - Alessandro [...] external carotid were dissected free using the Nolberto enbaum scissors.. Care was taken to minimally [...] significant mike que within the vessel. A 4-Dixon was used to carefully dissect the plaque fr ee from the vessel wall. Next using a Tenotomy scissors, the plaque was cut fro m the common carotid. Next gentle retraction was placed on the plaque going int o the external carotid and this was carefully dissected with a 4-Dixon until removed. Finally the plaque was carefully [...] was achieved with bipolar cautery. Next a 10-Greenlandic Hemovac drain was mike pratima through a [...] ASA 325mg Dictated by: Dawit Gill MD [email or web address] ATTESTATION I performed this procedure with a resident. Staff name: Alessandro Reyes MD Date: 11/03/2018 * Case Mgmt DC Plan - Elena Keyes - 10/13/2018 7:30 AM CDT Case Management Progress Note NAME:Ld Del Toro :[birth year] AGE: 83 y.o. ADMISSION DATE: 10/08/2018 DAYS ADMITTED: LOS: 5 days Todays Date: 10/13/2018 Plan Anticipate d/c home with family assistance this vs Tuesday pending pt sta bildaxa. Interventions [...] for the patient. Elena Keyes LMSW Phone: [phone] Pager: [phone] * Case Mgmt DC Plan - Michelle [...] is able to transition back to the [facility] ient's primary care physician. ? Info or [...] Michelle Glover RN, BSN, ACM Integrated Nurse Improvement Rn Neurology Service Pager: [phone] * Case Mgmt DC Plan - Michelle [...] Assessment, Assist PRN with SW/NCM Services, Discharge Mike nning for Home Anticipated PT recommends home with intermittent supervision OT DCd Regular diet Neurosurgery following for possible CEA Patient Address/Phone [address] [place] [address] Emergency Contact Extended Emergency Contact Information Primary Emergency Contact: AlanaValeria hawkins Mobile Relation: Spouse Secondary Emergency Contact: Todd [...] level of function: Independent(patient endorses full independence MEDICAL REVIEW SPECIALIST; amb ulates without assist, performs all ADLs without assist) ? Cognitive Abilities Cognitive Abilities: Alert and Oriented, Engages in problem solving and planning , Participates in decision making, Recognizes impact of health condition on life style, Understands nature of health condition Financial Resources ? Coverage Primary Insurance: Medicare(A&B) Secondary Insurance: Commercial insurance([facility]) Additional Coverage: None(patient reports having no Rx coverage but his prescrip tions have been affordable and are filled at [facility] in [place]) ? Source of Income Source Of Income: Other usp income ? Financial Assistance Needed? No Psychosocial Needs ? Mental Health Mental Health History: No(denies all MHI) ? Substance Use History Substance Use History Screen: No ? Other N/a Current/Previous Services ? PCP Dr. Cirilo Dewitt [phone] / fax [phone] Patient last had an appointment with PCP about one week ago. He has been a patient of this provider since Dr. Dewitt took over the service from his vfwivw-yo-vmd. ? Pharmacy [facility] #[id number] [facility] [address] [facility] [address] [place] [id number] [facility] [address] [place] [id number] ? Durable Medical Equipment Durable Medical Equipment [...] and community based services: No ? Uriel White Uriel White: N/A ? Hospice Hospice: No ? Outpatient Therapy PT: No OT: No PAYABLE MANAGER: No ? Long-Term Facility/Alf SNF: No NH: No ? Inpatient Rehab IPR: No ? Long-Term Acute Care Hospital LTACH: No ? Acute Hospital Stay Acute Hospital Stay: In the past Was patient's stay within the last 30 days?: Yes Name of Hospital: Other (comment)(one week ago at [facility]) Michelle Glover RN, BSN, ACM Integrated Nurse Improvement Rn Neurology Service Pager: [phone] * Acute Stroke Response - Khadijah Mcrae [...] tPA was not give n r/t to . He was transferred to [facility] for further evaluation. CT was only to b e repeated if symptoms were worse and score was greater than 1. When pt arrived, he only had mild facial droop. Stroke RN accompanied resident, EMS and pt to [place] [facility]. Radiology/Interventional Delay Decision to IR: No N/A [...] Note Admission Date: 10/08/2018 LOS: 0 days [id number] Reason for Stroke Activation: L Sided Weakness, [...] st enosis) so pt was transferred to [facility] for observation and possible neurosurgical intervention. NIHSS [...] Fasting Lipid Panel - Start Aspirin - PT/OT/PAYABLE MANAGER/Rehab Consults - consult NSG for CEA/DIANE evaluation HTN, HLD - holding MEDICAL REVIEW SPECIALIST lisinopril - continue MEDICAL REVIEW SPECIALIST atorvastatin Depression - on MEDICAL REVIEW SPECIALIST citalopram Gout - on MEDICAL REVIEW SPECIALIST allopurinol FEN: NPO until passes bedside swallow, replace lytes PRN PPx: enoxaparin Code: FULL Dispo: admit to stroke Patient discussed with Dr. Evangelina Dinero MD Neurology Resident, PGY-4 *[id number] History of Present Illness: Mr. Del Toro presents with acute onset L sided weakness, L facial droop. Symptoms began at 1500 while at his own birthday democrat. Pt was eating when he suddenly b sneha to feel weak and mouth began to droop on L side. Symptoms improved after pr esented to OSH but CTA there revealed 90% stenosis of R ICA. On arrival to [facility] HSS was 1 for L facial droop. [...] language) 2=neither correct 0 1c. Commands-open/close eyes, food safety scientist and release non-paretic hand (other 1 step [...] fusion, etc L/R 0/0 7. Limb Ataxia-check vrtgcv-jhvx-vlmvyq; heel-meza; and score only if out of [...] SPOKE SP W/DANIELLE IN SP CLINIC - KARLIE GARRETT RN SP [phone] SP SPOKE SP W/TRANSCRI SP PTION, DR KARLIE REYES SP IS OK TO SP SCHEDULE SP BUT NOT SP AFTER 3 SP P.M. TODAY SP - CKARLIE JONES RN SP [phone] SP PER PHONE SP CONV WITH KARLIE AUSTIN START TIME SP REQUESTING SP [id number] - CKARLIE JONES RN ([id number]) SP SP ECG-SCAN 10/13/2018 SP 12:00 AM [...] Specimen SP Blood SP Performing Organization Address [facility] Ph one Number SP [facility] [address] [place] [address] SP * PHOSPHORUS (10/16/2018 4:55 AM CDT) Pathologist SP Signature SP Phosphorus 2.4Comment: NOTE NEW REFERENCE 2.0 - 4.5 MG/DL [facility] SP RANGES SP Specimen SP Blood SP Performing Organization Address [facility] Ph one Number SP [facility] [address] [place] [address] SP * MAGNESIUM (10/16/2018 4:55 AM CDT) Pathologist SP Signature SP Magnesium 2.0 1.6 - 2.6 mg/dL [facility] SP Specimen SP Blood SP Performing Organization Address [facility] one Number SP [facility] [address] [place] [address] SP * BASIC METABOLIC PANEL (10/16/2018 4:55 [...] mL/min [facility] SP Comment: SP Samoan The eGFR is not validated f or SP use in drug dosing SP adjustments.Continue to SP use SP estimated creatinine SP clearance per dosing reference SP text.Please contact the SP Clinical Pharmacist for SP questions. SP eGFR >60 >60 mL/min [facility] SP Samoan Comment: SP The eGFR is not validated for SP use in drug dosing SP adjustments.Continue to SP use SP estimated creatinine SP clearance per dosing reference SP text.Please contact the SP Clinical Pharmacist for SP questions. SP Specimen SP Blood SP Performing Organization Address [facility] Ph one Number SP [facility] [address] [place] [address] SP * CBC (10/16/2018 4:55 AM CDT) [...] Specimen SP Blood SP Performing Organization Address [facility] Ph one Number SP [facility] [address] [place] [address] SP * IONIZED CALCIUM (10/15/2018 2:36 AM CDT) Pathologist SP Signature SP Ionized Calcium 1.14 1.0 - 1.3 MMOL/L [facility] SP Specimen SP Blood SP Performing Organization Address [facility] Ph one Number SP [facility] [address] [place] [address] SP * PHOSPHORUS (10/15/2018 2:36 AM CDT) Pathologist SP Signature SP Phosphorus 2.8Comment: NOTE NEW REFERENCE 2.0 - 4.5 MG/DL [facility] SP RANGES SP Specimen SP Blood SP Performing Organization Address [facility] Ph one Number SP [facility] [address] [place] [address] SP * MAGNESIUM (10/15/2018 2:36 AM CDT) Pathologist SP Signature SP Magnesium 1.8 1.6 - 2.6 mg/dL [facility] SP Specimen SP Blood SP Performing Organization Address [facility] SP [facility] [address] [place] [address] SP * BASIC METABOLIC PANEL (10/15/2018 2:36 [...] mL/min [facility] SP Comment: SP Samoan The eGFR is not validated f or SP use in drug dosing SP adjustments.Continue to SP use SP estimated creatinine SP clearance per dosing reference SP text.Please contact the SP Clinical Pharmacist for SP questions. SP eGFR >60 >60 mL/min [facility] SP Samoan Comment: SP The eGFR is not validated for SP use in drug dosing SP adjustments.Continue to SP use SP estimated creatinine SP clearance per dosing reference SP text.Please contact the SP Clinical Pharmacist for SP questions. SP Specimen SP Blood SP Performing Organization Address [facility]/State[facility] one Number SP MAIN LAB [address] [place] [address] SP * CBC (10/15/2018 2:36 AM CDT) [...] Specimen SP Blood SP Performing Organization Address City/[facility] SP [facility] [address] [place] [address] SP * IONIZED CALCIUM (10/14/2018 8:06 AM CDT) Pathologist SP Signature SP Ionized Calcium 1.14 1.0 - 1.3 MMOL/L [facility] SP Specimen SP Blood SP Performing Organization Address City/[facility] Number SP [facility] [address] [place] [address] SP * PHOSPHORUS (10/14/2018 8:00 AM CDT) Pathologist SP Signature SP Phosphorus 3.0Comment: NOTE NEW REFERENCE 2.0 - 4.5 MG/DL [facility] SP RANGES SP Specimen SP Blood SP Performing Organization Address [facility] Ph one Number SP [facility] [address] [place] [address] SP * MAGNESIUM (10/14/2018 8:00 AM CDT) Pathologist SP Signature SP Magnesium 1.8 1.6 - 2.6 mg/dL [facility] SP Specimen SP Blood SP Performing Organization Address [facility] Ph one Number SP [facility] [address] [place] [address] SP * BASIC METABOLIC PANEL (10/14/2018 8:00 [...] mL/min [facility] SP Comment: SP Samoan The eGFR is not validated f or SP use in drug dosing SP adjustments.Continue to SP use SP estimated creatinine SP clearance per dosing reference SP text.Please contact the SP Clinical Pharmacist for SP questions. SP eGFR >60 >60 mL/min [facility] SP Samoan Comment: SP The eGFR is not validated for SP use in drug dosing SP adjustments.Continue to SP use SP estimated creatinine SP clearance per dosing reference SP text.Please contact the SP Clinical Pharmacist for SP questions. SP Specimen SP Blood SP Performing Organization Address City/[facility] Ph one Number SP [facility] [address] [place] [address] SP * CBC (10/14/2018 8:00 AM CDT) [...] Specimen SP Blood SP Performing Organization Address [facility] Ph one Number SP [facility] [address] [place] [address] SP * CTA NECK WO/W CONTRAST+POST P [...] on 10/14/2018 6:18 AM. Performing Organization Address [facility] Ph one Number SP RAD RESULTS SP * LACTIC ACID (BG - RAPID LACTATE) (10/13/2018 11:15 AM CDT) Pathologist SP Signature SP Lactic Acid,BG 0.8 0.5 - 2.0 MMOL/L [facility] SP Specimen SP Blood SP Performing Organization Address [facility] Ph one Number SP MAIN LAB [address] [place] [address] SP * POTASSIUM, BG (10/13/2018 11:15 AM CDT) Pathologist SP Signature SP Potassium 4.2 3.5 - 5.1 MMOL/L [facility] SP Specimen SP Blood SP Performing Organization Address [facility] Ph one Number SP [facility] [address] [place] [address] SP * SODIUM,BG (10/13/2018 11:15 AM CDT) Pathologist SP Signature SP Sodium 139 137 - 147 MMOL/L [facility] SP Specimen SP Blood SP Performing Organization Address City/[facility] Number SP [facility] [address] [place] [address] SP * IONIZED CALCIUM,BG (10/13/2018 11:15 AM CDT) Pathologist SP Signature SP Ionized Calcium 1.22 1.0 - 1.3 MMOL/L [facility] SP Specimen SP Blood SP Performing Organization Address City/[facility] Ph one Number SP [facility] [address] [place] [address] SP * GLUCOSE,BG (10/13/2018 11:15 AM CDT) Pathologist SP Signature SP Glucose 145 (H) 70 - 100 MG/DL [facility] SP Specimen SP Blood SP Performing Organization Address [facility] Ph one Number SP [facility] [address] [place] [address] SP * BLOOD GASES, ARTERIAL (10/13/2018 11:15 [...] arterial - Blood SP Performing Organization Address [facility] Ph one Number SP [facility] [address] [place] [address] SP * HEMOGLOBIN & HEMATOCRIT, BG (10/13/2018 11:15 AM CDT) Pathologist SP Signature SP Hemoglobin BG 13.0 (L) 13.5 - 16.5 GM/DL [facility] SP Hematocrit BG 40.0 40 - 50 % [facility] SP Specimen SP Blood SP Performing Organization Address [facility]/Zipcode Ph one Number SP [facility] [address] [place] [address] SP * ECG-SCAN (10/13/2018 12:00 AM CDT) Narrative Performed At This result has an attachment that is n ot available. SP Ordered by an unspecified provider. SP * BLOOD TYPE CONFIRMATION - ORDER ONLY IF REQUESTED BY LAB (10/12/2018 1:44 PM CDT) Pathologist SP Signature SP ABO/RH(D) O POS [facility] SP Specimen SP Blood SP Performing Organization Address City/[facility] Ph one Number SP [facility] [address] [place] [address] SP * TYPE & CROSSMATCH (10/12/2018 11:30 AM CDT) Pathologist SP Signature SP Units Ordered 2 [facility] SP Crossmatch 10/15/2018 [facility] SP Expires SP Record Check 2ND TYPE REQUIRED [facility] SP ABO/RH(D) O POS [facility] SP Antibody Screen NEG [facility] SP Specimen SP Blood SP Performing Organization Address [facility] one Number SP [facility] [address] [place] [address] SP * PHOSPHORUS (10/11/2018 6:11 AM CDT) Pathologist SP Signature SP Phosphorus 3.0Comment: NOTE NEW REFERENCE 2.0 - 4.5 MG/DL [facility] SP RANGES SP Specimen SP Blood SP Performing Organization Address [facility] Ph one Number SP [facility] [address] [place] [address] SP * MAGNESIUM (10/11/2018 6:11 AM CDT) Pathologist SP Signature SP Magnesium 2.0 1.6 - 2.6 mg/dL [facility] SP Specimen SP Blood SP Performing Organization Address City/[facility] one Number SP [facility] [address] [place] [address] SP * BASIC METABOLIC PANEL (10/11/2018 6:11 [...] mL/min [facility] SP Comment: SP Samoan The eGFR is not validated f or SP use in drug dosing SP adjustments.Continue to SP use SP estimated creatinine SP clearance per dosing reference SP text.Please contact the SP Clinical Pharmacist for SP questions. SP eGFR >60 >60 mL/min [facility] SP Samoan Comment: SP The eGFR is not validated for SP use in drug dosing SP adjustments.Continue to SP use SP estimated creatinine SP clearance per dosing reference SP text.Please contact the SP Clinical Pharmacist for SP questions. SP Specimen SP Blood SP Performing Organization Address [facility] Ph one Number SP [facility] [address] [place] [address] SP * CBC (10/11/2018 6:11 AM CDT) [...] Specimen SP Blood SP Performing Organization Address City/[facility] Ph one Number SP [facility] [address] [place] [address] SP * PHOSPHORUS (10/10/2018 5:49 AM CDT) Pathologist SP Signature SP Phosphorus 3.4Comment: NOTE NEW REFERENCE 2.0 - 4.5 MG/DL [facility] SP RANGES SP Specimen SP Blood SP Performing Organization Address [facility] Ph one Number SP [facility] [address] [place] [address] SP * MAGNESIUM (10/10/2018 5:49 AM CDT) Pathologist SP Signature SP Magnesium 2.0 1.6 - 2.6 mg/dL [facility] SP Specimen SP Blood SP Performing Organization Address [facility] Ph one Number SP [facility] [address] [place] [address] SP * BASIC METABOLIC PANEL (10/10/2018 5:49 [...] mL/min [facility] SP Comment: SP Samoan The eGFR is not validated f or SP use in drug dosing SP adjustments.Continue to SP use SP estimated creatinine SP clearance per dosing reference SP text.Please contact the SP Clinical Pharmacist for SP questions. SP eGFR >60 >60 mL/min [facility] SP Samoan Comment: SP The eGFR is not validated for SP use in drug dosing SP adjustments.Continue to SP use SP estimated creatinine SP clearance per dosing reference SP text.Please contact the SP Clinical Pharmacist for SP questions. SP Specimen SP Blood SP Performing Organization Address [facility] Ph one Number SP [facility] [address] [place] [address] SP * CBC (10/10/2018 5:49 AM CDT) [...] one Number SP [facility] [address] [place] [address] SP * 2-D + DOPPLER ECHOCARDIOGRAM (2018 [...] ECHO PV ANAID [employer] OTHER OUTSIDE SP GENERAL DOC LAB SP FS 20.15 28 - 44 [...] OUTSIDE SP ratio LAB SP Cardiology Siemens [id number] OTHER OUTSIDE SP Ultrasound LAB SP Machine [...] available for comparison. SP Performing Organization Address City/State[facility] Ph one Number SP OTHER OUTSIDE LAB [...] on 2018 8:02 AM. Dictated by KARLIE Albraado M.D. on 2018 7:17 AM. SP Narrative Performed At SP EXAM: MRI BRAIN KU RAD RESULTS SP HISTORY: SP , Stroke within 24 hours, SP TECHNIQUE: Multiplanar and multisequenc e MR imaging of the head was performed. SP SP COMPARISON: Outside CTA head [facility] neck [facility] 2018 SP FINDINGS: SP Dr. Cirilo Brooks [...] on 2018 7:17 AM. Performing Organization Address [facility] Ph one Number KU RAD RESULTS SP * PHOSPHORUS (2018 5:19 AM CDT) Pathologist [facility] SP Phosphorus 2.9Comment: NOTE NEW REFERENCE 2.0 - 4.5 MG/DL [facility] SP RANGES SP Specimen SP Blood SP Performing Organization Address [facility] one Number SP [facility] [address] [place] [address] SP * MAGNESIUM (2018 5:19 AM CDT) Pathologist [facility] SP Magnesium 2.0 1.6 - 2.6 mg/dL [facility] SP Specimen SP Blood SP Performing Organization Address [facility] one Number [facility] [address] [place] [address] SP * BASIC METABOLIC PANEL (2018 5:19 [...] mL/min [facility] SP Comment: SP Samoan The eGFR is not validated f or SP use in drug dosing SP adjustments.Continue to SP use SP estimated creatinine SP clearance per dosing reference SP text.Please contact the SP Clinical Pharmacist for SP questions. SP eGFR >60 >60 mL/min [facility] SP Samoan Comment: SP The eGFR is not validated for SP use in drug dosing SP adjustments.Continue to SP use SP estimated creatinine SP clearance per dosing reference SP text.Please contact the SP Clinical Pharmacist for SP questions. SP Specimen SP Blood SP Performing Organization Address City/[facility] Ph one Number SP [facility] [address] [place] [address] SP * CBC (2018 5:19 AM CDT) [...] Specimen SP Blood SP Performing Organization Address City/[facility]/Zipcode Ph one Number SP [facility] [address] [place] [address] SP * LIPID PROFILE (2018 5:19 AM [...] Specimen SP Blood SP Performing Organization Address City/[facility] Ph one Number SP [facility] [address] [place] [address] SP * PHOSPHORUS (10/08/2018 10:00 PM CDT) Pathologist SP Signature SP Phosphorus 3.5Comment: NOTE NEW REFERENCE 2.0 - 4.5 MG/DL [facility] SP RANGES SP Specimen SP Blood SP Performing Organization Address [facility] Ph one Number SP [facility] [address] [place] [address] SP * MAGNESIUM (10/08/2018 10:00 PM CDT) Pathologist SP Signature SP Magnesium 1.9 1.6 - 2.6 mg/dL [facility] SP Specimen SP Blood SP Performing Organization Address [facility] Ph one Number SP [facility] [address] [place] [address] SP * BASIC METABOLIC PANEL (10/08/2018 10:00 [...] mL/min [facility] SP Comment: SP Samoan The eGFR is not validated f or SP use in drug dosing SP adjustments.Continue to SP use SP estimated creatinine SP clearance per dosing reference SP text.Please contact the SP Clinical Pharmacist for SP questions. SP eGFR >60 >60 mL/min [facility] SP Samoan Comment: SP The eGFR is not validated for SP use in drug dosing SP adjustments.Continue to SP use SP estimated creatinine SP clearance per dosing reference SP text.Please contact the SP Clinical Pharmacist for SP questions. SP Specimen SP Blood SP Performing Organization Address [facility] Ph one Number SP [facility] [address] [place] [address] SP * CBC (10/08/2018 10:00 PM CDT) [...] Specimen SP Blood SP Performing Organization Address [facility] one Number SP [facility] [address] [place] [address] SP * HEMOGLOBIN A1C (10/08/2018 10:00 PM CDT) Pathologist SP Signature SP Hemoglobin A1C 6.1 (H) 4.0 - 6.0 % [facility] SP Comment: SP The ADA recommends that most SP patients with type 1 and type SP 2 diabetes maintain SP an A1c level <7%. SP Specimen SP Blood SP Performing Organization Address [facility] one Number SP [facility] [address] [place] [address] SP * TELEMETRY STRIPS-SCAN (10/08/2018 12:00 AM CDT) Narrative Performed At SP [...] Diagnosis POS Stenosis of right carotid artery SP Occlusion and stenosis of carotid arter y without mention of cerebral infarction SP documented in this encounter Admitting Diagnoses [...] SP 10/14/18 at 0945, Until Discontinued SP 10/16/2018 8:06 AM CDT 325 mg SP aspirin EC tablet 325 mg Given SP 325 mg, Oral, DAILY, First dose on Tue SP 10/10/18 at 1545, Until Discontinued SP 325 mg SP Given 10/15/2018 SP 9:45 AM CDT SP 325 mg SP Given 10/14/2018 SP 8:08 AM CDT SP 10/16/2018 8:05 AM CDT 80 mg SP atorvastatin (LIPITOR) tablet 80 mg Given SP 80 mg, Oral, DAILY, First dose on Tue SP 10/10/18 at 0900, Until Discontinued SP 80 mg SP Given 10/15/2018 SP 9:45 AM CDT SP 80 mg SP Given 10/14/2018 SP 8:08 AM CDT SP 10/13/2018 8:44 AM CDT 500 mL SP bacitracin (BACIIM) 50,000 Units in Given SP Ringer's 500 mL irrigation bottle SP 500 mL, INTRA-PROCEDURE MED, Starting SP Tue10/13/18 at 0844, Until Tue10/13/18 SP at 1158, Intra-op SP bisacodyl (DULCOLAX) rectal suppository SP 10 mg SP 10 mg, Rectal, DAILY PRN, Starting Tue10/11/18 at 0836, Until Tue10/16/18 at SP 1338, Constipation OH, Hold for loose SP stools, SP 10/16/2018 8:05 AM CDT 10 mg [...] TWICE DAILY, First dose o n SP 10/11/18 at 0945, Until Discontinued , SP Hold for loose stools, SP 100 mg SP Given 10/15/2018 SP 8:43 PM CDT SP 100 mg SP Given 10/15/2018 SP 9:44 AM CDT SP 10/13/2018 8:44 AM CDT 500 mL SP heparin (porcine) 5,000 Units in sodium Given SP chloride 0.9% (NS) 500 mL IJ SOLN SP 500 mL, INTRA-PROCEDURE MED, Starting SP Tue10/13/18 at 0844, Until Tue10/13/18 SP at 1158, Intra-op SP 10/16/2018 6:08 AM CDT 5,000 Units [...] Given 10/15/2018 SP 2:25 PM CDT SP 10/16/2018 8:06 AM CDT 25 mg SP hydroCHLOROthiazide (HYDRODIURIL) tablet Given SP 25 mg SP 25 mg, Oral, DAILY, First dose on Tue10/16/18 at 0900, Until Discontinued SP 10/14/2018 10:35 [...] Given 10/13/2018 SP 7:57 PM CDT SP 10/16/2018 6:20 AM CDT 10 mg SP labetalol (NORMODYNE) injection 10 mg Given SP 10 mg, Intravenous, EVERY 1 HOUR PRN, SP Starting Tue10/13/18 at 2028, Until Mon SP 10/16/18 at 1338, Systolic Blood SP Pressure..., SBP [...] Given 10/14/2018 SP 6:47 PM CDT SP 10/13/2018 8:25 AM CDT 7 mL SP lidocaine 1 % (10mg/mL) injection Given SP INTRA-PROCEDURE MED, Starting Tue10/13/18 at 0825, Until Tue10/13/18 at SP 1158, Intra-op SP 10/16/2018 8:05 AM CDT 40 mg SP lisinopril (PRINIVIL; ZESTRIL) tablet 40 Given SP mg SP 40 mg, Oral, DAILY, First dose on Tue10/16/18 at 0900, Until Discontinued SP 10/15/2018 9:45 AM CDT [address](+) (PRILOSEC) capsule 20 Given SP mg SP 20 mg, Oral, DAILY AFTER BREAKFAST, SP First dose on Marisabel 10/12/18 at 0900, Unti l SP Discontinued SP 20 mg SP Given 10/14/2018 SP 8:08 AM CDT SP 20 mg SP Clinic Administered - Patient Supplied 10/12/2018 SP 8:57 AM CDT SP 10/16/2018 8:03 AM CDT 17 g [...] 10/14/2018 SP 8:08 AM CDT SP 10/16/2018 8:05 AM CDT 0.4 mg [...] Given 10/14/2018 SP 8:05 PM CDT SP 10/13/2018 8:45 AM CDT 5,000 Units SP thrombin 5,000 unit topical solution Given SP INTRA-PROCEDURE MED, Starting Tue SP 10/13/18 at 0845, Until Tue10/13/18 at SP 1158, Intra-op SP documented in this encounter
--- OUTSIDE RECORDS SUMMARY | 2019-01-14 21:33 | XMS REPORT | Encounter Summary ---
Author Author [facility] POS Organization [facility] SP Address Unknown SP Phone Unavailable SP Care Team Providers Care Bail Attacher Name Role Phone POS PCP Unavailable SP Encounter Details Care Team Description POS Date Type Department SP SP 10/08/2018 [facility] SP Encounter Health System SP [address] [place] [address] [place] [address] SP [phone] SP Social History Date POS Tobacco Use Types Packs/Day Years Used SP SP Never Assessed SP Sex Assigned at Date Recorded SP Not on file SP Industry POS Job Start Date Occupation SP Not on file SP Not on file Not on file SP Travel End POS Travel History Travel Start SP No recent travel history available. SP documented as of this encounter Medications at Time of Discharge [...] same meal SP each day. SP 10/16/2018 SP atorvastatin (LIPITOR) 40 Take 20 mg by 0 SP mg tablet mouth at SP bedtime SP daily. SP 10/16/2018 11/08/2018 SP HYDROcodone/acetaminophen Take one 15 tablet 0 SP (NORCO) 5/325 mg tablet tablet to two SP tablets by SP mouth every 6 SP hours as SP needed SP 10/16/2018 SP lisinopril-hydrochlorothi Take 1.5 0 SP azide (PRINZIDE, tablets by SP ZESTORETIC) 20-12.5 mg mouth every SP tablet morning. SP documented as of this encounter Plan [...] Procedure Name Priority Date/Time Associated Diag nosis KARLIE SP CT NECK EXTERNAL IMAGING Routine 10/08/2018 Diagn osis unknown SP 12:00 AM CDT SP documented in this encounter Results * CT NECK EXTERNAL IMAGING (10/08/2018 12:00 AM CDT) Specimen POS Narrative Performed At This order has been auto finalized and does not contain a result. SP documented in this encounter Visit Diagnoses Diagnosis POS Diagnosis unknown SP Other unknown and unspecified cause of morbidity or mortality SP documented in this encounter
--- OUTSIDE RECORDS SUMMARY | 2019-01-14 21:33 | XMS REPORT | Encounter Summary ---
Author Author [facility] POS Organization [facility] SP Address Unknown SP Phone Unavailable SP Care Team Providers Care Assemblies And Installations Inspector Name Role Phone POS Cirilo Dewitt MD PCP SP Encounter Details Care Team Description POS Date Type Department SP SP Juliann Diallo APRN [address] Orth[facility] [address] [place], [place] [id number] SP 10/10/2018 Prep for Case [facility] SP [address] [place] [address] SP Social History Date POS Tobacco Use [...]
--- OUTSIDE RECORDS SUMMARY | 2019-01-14 21:33 | XMS REPORT | Encounter Summary ---
Author Author [facility] POS Organization [facility] SP Address Unknown SP Phone Unavailable SP Care Team Providers Care Client Account Specialist Name Role Phone POS Cirilo Dewitt MD PCP SP Encounter Details Care Team Description POS Date Type Department SP SP Juliann Diallo APRN [address] Ortho[facility] [address] [place], [place] [id number] Stenosis of right carotid artery (Primar y Dx) SP 10/10/2018 Prep for Case [facility] SP [address] [place] [address] SP Social History Date POS Tobacco Use [...] ed? SP GOAL General Yes Radha Bañuelos, KARLIE RN SP Note: SP "To stay as healthy as I can SP and as active as I should" SP documented as of this encounter Visit Diagnoses Diagnosis POS Stenosis of right carotid artery - Prim king SP Occlusion and stenosis of carotid arter y without mention of cerebral infarction SP documented in this encounter
--- OUTSIDE RECORDS SUMMARY | 2019-01-14 21:33 | XMS REPORT | Encounter Summary ---
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 Name Role Phone POS Cirilo Dewitt MD PCP SP Reason for Visit * Auth/Cert Referred By Contact Referred To Contact POS Status Reason Specialty Diagnoses / SP Procedures SP SP SP Diagnoses SP Stroke (HCC) SP Stroke SP Encounter Details Care Team Description POS Date Type Department SP SP Roger Garcia MD [id number] [place] [address] [phone] lAissa Johnson, ZEE SP 10/13/2018 Anesthesia [facility] [place] SP OR SP [address] [place] [address] SP [phone] SP Anesthesia Record Responsible Anesthesiologist Anesthesia Start Time Anesthesi a Stop Time POS Procedure Name Roger Ramirez MD 10/13/18 0715 10/13/18 1200 SP RIGHT INTERNAL CAROTID SP ENDARTERECTOMY (Right SP Neck) SP Date Time Event Comment SP 648 AN Equip Check SP 2018 SP 0659 SP 0714 Out of Pre SP Procedure SP 0715 Anes Start SP 0715 An Start Data SP 0715 In Room SP 0721 An Induction The patient was ree valuated immediately before moderate or SPdeep sedation use and before anesthesia induction. SP 0722 IV Placed SP 0724 An Intubation SP 0728 Art Line SP 0730 Anesthesia SP Ready SP 0823 Antibiotic SP Given SP 0827 Proc Start SP 0955 Quick Note Surgeon request SBP >170 SP 1001 An Carotid On SP 1103 An Carotid Off SP 1105 Quick Note New SBP goal 120 - 150 per surgeon SP 1144 An Extubation SP 1152 Transport SP 1200 an stop data SP 1200 Handoff to RN I completed my SBAR handoff to the receiving nurse. SP 1200 An Stop SP Meds SP Name Total SP lidocaine (2%) 200 mg/10mL Injection 100 mg SP syringe SP propofol (DIPRIVAN) 200 mg/ 20 mL 100 mg SP injection (VIAL) SP rocuronium (ZEMURON) injection 80 mg SP ondansetron (ZOFRAN) injection 4 mg SP dexamethasone (DECADRON) 4 mg/mL 4 mg SP injection SP propofol (DIPRIVAN) infusion 2,763.64 mg SP remifentanil (ULTIVA) 1 mg/3 mL 1,000 1,177.44 mcg SP mcg in sodium chloride 0.9% (NS) 20 mL SP Injection SP phenylephrine (PAULINA-SYNEPHRINE) 0.1 mg/mL 100 mcg SP injection (SYRINGE) SP dextran 70/hypromellose (GENTEAL TEARS; 1 drop SP BION TEARS) ophthalmic solution SP norepinephrine (LEVOPHED) 4 mg in 0.75 mg SP dextrose 5% (D5W) 250 mL IV drip (std SP conc) SP glycopyrrolate (ROBINUL) 0.2mg/mL 1 mg SP injection SP ceFAZolin (ANCEF) injection 2 g SP heparin (porcine) 1,000 units/mL 7,000 Units SP injection SP HYDROmorphone injection (DILAUDID) 2 0.4 mg SP mg syringe SP neostigmine (PROSTIGMINE) 1 mg/mL 3 mg SP injection (VIAL) SP nitroGLYCERIN 200 mcg in dextrose 5% 100 mcg SP (D5W) syringe SP labetalol (NORMODYNE; TRANDATE) 5mg/mL 20 mg SP 20 mg injection (SYRINGE) SP hydrALAZINE (APRESOLINE) injection 5 mg SP sodium chloride 0.9 % infusion 900 mL SP electrolyte-A (PLASMA-LYTE A PH 7.4) 700 mL SP infusion SP * Name POS O2 SP N2O Inspired SP * No blood administrations on file. SP Removal POS Type Details Placement SP SP Wounds 10/13/18; 1030; Anterior, Right; Neck; 10/13/18 1030 by KARLIE Mortensen (NOT for Surgical Incision ANAID Gonzales SP Pressure SP Injuries) SP SP Wounds 10/13/18; 1113; Right; Neck 10/13/18 1 113 by KARLIE Mortensen (NOT for ANAID Gonzales Pressure SP Injuries) SP 10/16/18 1058 by Brittney Prescott RN SP Peripheral 10/09/18; 1819; IV Therapy; L; Inner; 10/09/18 1819 by KARLIE Hammond IV Forearm; 20 G; 0 cm; No; Ultrasound; 1; ANAID West 1.25 inches; 10/16/18; 1058 SP 10/16/18 1058 by Brittney Prescott RN SP Peripheral 10/13/18; 0722; Provider; L; Anterior; 10/13/18 0722 by KARLIE IV Hand; 16 G; 1; 10/16/18; 1058 Sandi Chen MD SP 10/13/18 1144 by Sandi Chen MD SP ETT 10/13/18; 0724; Ventilated by mask (1); 10/13/18 0724 by KARLIE Direct laryngoscopy, Stylet; Sandi Chen MD SP Single-Lumen, Cuffed; 7.5mm; Mac; 3; SP Oral; 2a-Partial view of the glottis; 1 SP insertion attempt; Auscultation, ETCO2 SP Detector; 22 centimeters; 10/13/18; 114 4 SP 10/14/18 0909 by Sumit Burr RN SP Arterial 10/13/18; 0728 (created via procedure 10/13/18 0728 by SP Line documentation); 20 G; 10/14/18; 0909 S Sandi velasquez MD SP 10/14/18 0909 by Sumit Burr RN SP Indwelling 10/13/18; 1029; 16 FR; Regular 9 1029 by KARLIE Mortensen Urinary (Two-way); 10/14/18; 0909 ANAID Gonzales Catheter SP 10/14/18 1115 by Sumit Burr RN SP Jamir 10/13/18; 1112; Right; Neck; Other 1112 by KARLIE Mortensen Loaiza (Comment) (7 FR); 10/14/18; 1115 ANAID Gonzales Drain SP documented in this encounter Social History Date POS Tobacco Use Types [...] Yes SP documented as of this encounter OR Notes * Anesthesia Procedure Notes - Roger Garcia MD - 10/13/2018 8:17 AM CDT Associated Order(s): A-LINE INSERTION Anesthesia Procedure: Arterial Line Placement A-LINE INSERTION Date/Time: 10/13/2018 7:28 AM Patient location: OR Indications: multiple ABGs, frequent labs and hemodynamic monitoring Preprocedure checklist performed: 2 patient identifiers, risks & benefits discussed, patient evaluated, timeout performed, consent obtained, patient being monitored and sterile drape Sterile technique: - Proper hand washing - Cap, mask - Sterile gloves - Skin prep for antisepsis Arterial Line Procedure Patient sedated: yes (see MAR) Sedation type: general; Artery prepped with chlorhexidine; skin prep agent completely dried prior to pro cedure. Location: radial artery Laterality: left Technique: palpation Needle gauge: 20 G Number of attempts: 1 Procedure Outcome Catheter secured with adhesive dressing applied Events: no complications noted during insertion and skin intact, warm, and dry Additional notes: ATTESTATION I was present during the entire procedure performed by a resident Staff name: Roger Garcia MD Date: 10/16/2018 Performed by: Sandi Chen MD Authorized by: Roger Garcia MD * Anesthesia Preprocedure Evaluation - Roger Garcia MD - 10/12/2018 2:34 PM CDT Anesthesia Pre-Procedure Evaluation Name: Ld Del Toro : 1935 Age: 83 y.o. Sex: male Procedure Date: 10/13/2018 Procedure: Procedure(s) with comments: RIGHT INTERNAL CAROTID ENDARTERECTOMY - CASE LENGTH 5 HOURS, NEUROMONITORING, RE QUEST 0715 START Physical Assessment Vital Signs (last filed in past 24 hours): BP: 171/95 (10/13 599) Temp: 36.5 C (97.7 F) (10/13 599) Pulse: 52 (10/12 2341) Respirations: 17 PER MINUTE (10/13 599) SpO2: 98 % (10/13 599) Height: 175.3 cm (69.02") (10/13 599) Weight: 88 kg (194 lb) (10/13 599) Patient History Allergies Allergen Reactions Bactrim [Sulfamethoxazole-Trimethoprim] SEE COMMENTS Patient reports when taking it "made illness worse" Valium [Diazepam] SEE COMMENTS Put patient "in another world", Shaking and sweating. Current Medications Medication Directions allopurinol (ZYLOPRIM) 100 mg tablet Take 100 mg by mouth daily. Take with food. atorvastatin (LIPITOR) 40 mg tablet Take 20 mg by mouth at bedtime daily. biotin 5,000 mcg TbDi Dissolve 1 tablet by mouth daily. Carboxymethylcellulose Sodium (REFRESH LIQUIGEL) 1 % dlgl Apply 1 drop to both e yes at bedtime daily. Carboxymethylcellulose Sodium (REFRESH TEARS) 0.5 % drop Apply 1 drop to both ey es every 6 hours as needed. citalopram (CELEXA) 10 mg tablet Take 10 mg by mouth daily. lisinopril-hydrochlorothiazide (PRINZIDE, ZESTORETIC) 20-12.5 mg tablet Take 1.5 tablets by mouth every morning. Magnesium 250 mg tab Take 1 tablet by mouth daily. Omeprazole (PRILOSEC) 20 mg tablet Take 20 mg by mouth daily with breakfast. Review of Systems/Medical History Patient summary reviewed Nursing notes reviewed Pertinent labs reviewed PONV Screening: Non-smoker No history of anesthetic complications No family history of anesthetic complications Pulmonary Former smoker: Quit in 1984 Cardiovascular Exercise tolerance: >4 METS Beta Bambi therapy: No Beta blockers within 24 hours: n/a Hypertension, well controlled GI/Hepatic/Renal GERD, well controlled Neuro/Psych CVA Psychiatric history Anxiety At OSH, pt presented with NIHSS of 5- L sided weakness and L sided facial dr oop. 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 Tx to [facility]. NIHSS score at [facility] w as 1. No TPA given. Pt ambulatory status at baseline per notes. Pt ambulating wi th at the time of assessment and states his neuro function has returned to baseline. Musculoskeletal Arthritis (States neck is sore during ROM, states he has arthritis to the ne ck. ) Endocrine/Other Diabetes, well controlled A1C 6.1 Constitution - negative Physical Exam Airway Findings Mallampati: III TM distance: >3 FB Neck ROM: limited Mouth opening: good Airway patency: adequate Dental Findings: Cardiovascular Findings: Negative Pulmonary Findings: Decreased breath sounds. Diagnostic Tests Hematology: Lab Results Component Value Date HGB 12.5 10/11/2018 HCT 36.5 10/11/2018 PLTCT 250 10/11/2018 WBC 4.9 10/11/2018 MCV 91.4 10/11/2018 MCH 31.3 10/11/2018 MCHC 34.3 10/11/2018 MPV 6.6 10/11/2018 RDW 16.6 10/11/2018 General Chemistry: Lab Results Component Value Date NA 139 10/11/2018 K 3.9 10/11/2018 CL 106 10/11/2018 CO2 27 10/11/2018 GAP 6 10/11/2018 BUN 15 10/11/2018 CR 1.08 10/11/2018 GLU 96 10/11/2018 CA 9.0 10/11/2018 MG 2.0 10/11/2018 PO4 3.0 10/11/2018 Coagulation: No results found for: PT, PTT, INR Anesthesia Plan ASA score: 3 Plan: general and invasive monitoring Special equipment/procedures: Art line Induction method: intravenous NPO status: acceptable Informed Consent Anesthetic plan and risks discussed with patient and spouse. Use of blood products discussed with patient and spouse Blood Consent: consented Plan discussed with: anesthesiologist and resident. Comments: (Consent signed and placed in chart. ) documented in this encounter Plan of Treatment Not on filedocumented as of this encounter Goals Goal Patient Associated Recent Progress Patient-Stat Aut hor POS Goal Type Problems ed? SP GOAL General Yes Rahda Bañuelos SP RN SP Note: SP "To stay as healthy as I can SP and as active as I should" SP documented as of this encounter Procedures Comments POS Procedure Name Priority Date/Time Associated Diag nosis SP SP ANESTHESIA ARTERIAL LINE Routine 10/13/2018 SP INSERTION 8:17 AM CDT SP documented in this encounter Results * A-LINE INSERTION (10/13/2018 8:17 AM CDT) Narrative Performed At POS Roger Garcia MD 10/16/2018 7:50 AM SP Anesthesia Procedure: Arterial Line Mike cement SP A-LINE INSERTION SP Date/Time: 10/13/2018 7:28 AM SP Patient location: OR SP Indications: multiple ABGs, frequent la bs and hemodynamic monitoring SP Preprocedure checklist performed: 2 pat ient identifiers, risks & benefits SP discussed, patient evaluated, timeout p erformed, consent obtained, patient SP being monitored and sterile drape SP Sterile technique: SP - Proper hand washing SP - Cap, mask SP - Sterile gloves SP - Skin prep for antisepsis SP Arterial Line Procedure SP Patient sedated: yes (see MAR) SP Sedation type: general; SP Artery prepped with chlorhexidine; skin prep agent completely dried prior SP to procedure. SP Location: radial artery SP Laterality: left SP Technique: palpation SP Needle gauge: 20 G SP Number of attempts: 1 SP Procedure Outcome SP Catheter secured with adhesive dressing applied SP Events: no complications noted during i nsertion and skin intact, warm, and SP dry SP Additional notes: SP ATTESTATION SP I was present during the entire procedu re performed by a resident SP Staff name:Roger Garcia MD Date: 10/16/2018 SP Performed by: Sandi Chen MD SP Authorized by: Roger Garcia MD SP Procedure Note POS SP Roger Garcia MD - 10/13/2018 8:17 AM CDT Anesthesia Procedure: Arterial Line Placement A-LINE INSERTION Date/Time: 10/13/2018 7:28 AM Patient location: OR Indications: multiple ABGs, frequent labs and hemodynamic monitoring Preprocedure checklist performed: 2 patient identifiers, risks & benefits discussed, patient evaluated, timeout performed, consent obtained, patient being monitored and sterile drape Sterile technique: - Proper hand washing SP - Cap, mask SP - Sterile gloves SP - Skin prep for antisepsis SP Arterial Line Procedure Patient sedated: yes (see MAR) Sedation type: general; Artery prepped with chlorhexidine; skin prep agent completely dried prior to procedure. Location: radial artery Laterality: left Technique: palpation Needle gauge: 20 G Number of attempts: 1 Procedure Outcome Catheter secured with adhesive dressing applied Events: no complications noted during insertion and skin intact, warm, and dry Additional notes: ATTESTATION I was present during the entire procedure performed by a resident Staff name: Roger Garcia MD Date: 10/16/2018 Performed by: Sandi Chen MD Authorized by: Roger Garcia MD documented in this encounter Visit Diagnoses Not on filedocumented in this encounter Administered Medications Action Date Dose Rate Site POS Medication Order MAR Action 10/13/2018 8:23 AM CDT 2 g SP ceFAZolin (ANCEF) injection Given SP INTRA-PROCEDURE MED, Starting Tue10/13/18 at 0823, Until Tue10/13/18 at SP 1208, Anesthesia Intra-op 10/13/2018 8:21 AM CDT 4 mg SP dexamethasone (DECADRON) injection Given SP Intravenous, INTRA-PROCEDURE MED, SP Starting Tue10/13/18 at 0821, Until Tue10/13/18 at 1208, Anesthesia Intra-op 10/13/2018 7:25 AM CDT 1 drop SP dextran 70/hypromellose (GENTEAL TEARS; Given SP BION TEARS) ophthalmic solution SP INTRA-PROCEDURE MED, Starting Tue10/13/18 at 0725, Until Tue10/13/18 at SP 1208, Anesthesia Intra-op 10/13/2018 8:00 AM CDT SP electrolyte-A (PLASMA-LYTE A PH 7.4) Given - New SP injection Bag SP INTRA-PROCEDURE MED(CONT), Starting Tue10/13/18 at 0800, Until Tue10/13/18 at SP 1208, Anesthesia Intra-op SP 10/13/2018 11:30 AM CDT 0.6 mg SP glycopyrrolate (ROBINUL) injection Given SP INTRA-PROCEDURE MED, Starting Tue10/13/18 at 0738, Until Tue10/13/18 at SP 1208, Anesthesia Intra-op SP 0.2 mg SP Given 10/13/2018 SP 8:14 AM CDT SP 0.2 mg SP Given 10/13/2018 SP 7:39 AM CDT SP 10/13/2018 10:45 AM CDT 1,000 Units SP heparin (porcine) injection Given SP INTRA-PROCEDURE MED, Starting Tue10/13/18 at 0954, Until Tue10/13/18 at SP 1208, Anesthesia Intra-op SP 6,000 Units SP Given 10/13/2018 SP 9:54 AM CDT SP 10/13/2018 11:50 AM CDT 5 mg SP hydrALAZINE (APRESOLINE) injection Given SP INTRA-PROCEDURE MED, Starting Tue10/13/18 at 1150, Until Tue10/13/18 at SP 1208, Anesthesia Intra-op SP 10/13/2018 11:42 AM CDT 0.2 mg SP HYDROmorphone injection (DILAUDID) Given SP INTRA-PROCEDURE MED, Starting Tue10/13/18 at 1128, Until Tue10/13/18 at SP 1208, Anesthesia Intra-op SP 0.2 mg SP Given 10/13/2018 SP 11:28 AM CDT SP 10/13/2018 11:40 AM CDT 20 mg SP labetalol (NORMODYNE) injection Given SP INTRA-PROCEDURE MED, Starting Tue10/13/18 at 1140, Until Tue10/13/18 at SP 1208, Anesthesia Intra-op SP 10/13/2018 7:21 AM CDT 100 mg SP lidocaine (PF) injection Given SP INTRA-PROCEDURE MED, Starting Tue10/13/18 at 0721, Until Tue10/13/18 at SP 1208, Anesthesia Intra-op SP 10/13/2018 11:30 AM CDT 3 mg SP neostigmine (PROSTIGMINE) injection Given SP INTRA-PROCEDURE MED, Starting Tue10/13/18 at 1130, Until Tue10/13/18 at SP 1208, Anesthesia Intra-op SP 10/13/2018 11:44 AM CDT 40 mcg SP nitroGLYCERIN 200 mcg in dextrose 5% Bolus SP (D5W) syringe SP 10 mL, INTRA-PROCEDURE MED(CONT), SP Starting Tue10/13/18 at 1139, Until Tue10/13/18 at 1208, Anesthesia Intra-op SP 40 mcg SP Bolus 10/13/2018 SP 11:40 AM CDT SP 20 mcg SP Given - New Bag 10/13/2018 SP 11:39 AM CDT SP 10/13/2018 11:12 AM CDT 2 mcg SP norepinephrine (LEVOPHED) 4 mg in Bolus SP dextrose 5% (D5W) 250 mL IV drip (std SP conc) SP 250 mL, INTRA-PROCEDURE MED(CONT), SP Starting Tue10/13/18 at 0733, Until Tue10/13/18 at 1208, Anesthesia Intra-op SP 0.01 mcg/kg/min 3.3 mL/hr SP Infusion Restarted 10/13/2018 SP 11:11 AM CDT SP 0.01 mcg/kg/min 3.3 mL/hr SP Dose/Rate Change 10/13/2018 SP 11:05 AM CDT SP 10/13/2018 11:18 AM CDT 4 mg SP ondansetron (ZOFRAN) injection Given SP Intravenous, INTRA-PROCEDURE MED, SP Starting Tue10/13/18 at 1118, Until Tue10/13/18 at 1208, Anesthesia Intra-op SP 10/13/2018 7:30 AM CDT 100 mcg SP phenylephrine in NS injection syringe Given SP Intravenous, INTRA-PROCEDURE MED, SP Starting Tue10/13/18 at 0730, Until Tue SP 10/13/18 at 1208, Anesthesia Intra-op SP 10/13/2018 11:20 AM CDT 50 mcg/kg/min 26.4 mL/hr SP propofol (DIPRIVAN) infusion Dose/Rate SP 100 mL, Intravenous, INTRA-PROCEDURE Change SP MED(CONT), Starting Tue10/13/18 at 0721 , SP Until Tue10/13/18 at 1208, Anesthesia SP Intra-op SP 100 mcg/kg/min 52.8 mL/hr SP Dose/Rate Change 10/13/2018 SP 11:11 AM CDT SP 120 mcg/kg/min 63.4 mL/hr SP Dose/Rate Change 10/13/2018 SP 10:42 AM CDT SP 10/13/2018 7:21 AM CDT 100 mg SP propofol (DIPRIVAN) injection Given SP Intravenous, INTRA-PROCEDURE MED, SP Starting Tue10/13/18 at 0721, Until Tue10/13/18 at 1208, Anesthesia Intra-op SP 10/13/2018 11:04 AM CDT 0.05 mcg/kg/min 5.3 mL/hr SP remifentanil (ULTIVA) 1 mg/3 mL 1,000 Dose/Rate SP mcg in sodium chloride 0.9% (NS) 20 mL Change SP Injection SP Intravenous, INTRA-PROCEDURE MED(CONT), SP Starting Tue10/13/18 at 0728, Until Tue SP 10/13/18 at 1208, Anesthesia Intra-op SP 0.06 mcg/kg/min 6.3 mL/hr SP Dose/Rate Change 10/13/2018 SP 10:21 AM CDT SP 0.07 mcg/kg/min 7.4 mL/hr SP Dose/Rate Change 10/13/2018 SP 9:03 AM CDT SP 10/13/2018 10:38 AM CDT 10 mg SP rocuronium (ZEMURON) injection Given SP Intravenous, INTRA-PROCEDURE MED, SP Starting Tue10/13/18 at 0722, Until Tue SP 10/13/18 at 1208, Anesthesia Intra-op SP 10 mg SP Given 10/13/2018 SP 9:17 AM CDT SP 60 mg SP Given 10/13/2018 SP 7:22 AM CDT SP documented in this encounter
--- OUTSIDE RECORDS SUMMARY | 2019-01-14 21:34 | XMS REPORT | Continuity of Care Document ---
Author Organization Unknown POS Address Unknown SP Phone Unavailable SP Allergies Active Description Code Type Severity POS Reaction Onset Reported/Identified POS to Patient Clinical Status POS Yes diazepam [id number] Drug Allergy SP SWEAT, 12/21/2018 SP Yes sulfamethoxazole [id number] Drug Allergy SP Unknown N/A 12/21/2018 SP SP Yes trimethoprim [id number] Drug Allergy SP Unknown N/A 12/21/2018 SP Medications There is no data. 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 SP 08/05/2010 Ot V15.82 HIS TORY OF SP USE SP 07/08/2014 Ot 285.9 SP 08/13/2014 KARINA MIR MD Ot 786.2 SP SP 08/15/2014 KARINA MIR MD Ot 786.2 SP SP 11/07/2014 PAT BEAVER MD Ot 455.0 INT SPHEMORRHOID W/O COMPL SP 11/07/2014 PAT BEAVER MD Ot 455.3 EXT SPHEMORRHOID W/O COMPL SP 11/07/2014 PAT BEAVER MD Ot 553.1 SP HERNIA SP 11/07/2014 PAT BEAVER MD Ot 562.10 SP COLON (W/O MENT OF HEMORR SP 11/07/2014 SARANYA JIMÉNEZ, PAT Ot V12.72 SP HISTORY OF COLONIC POLYPS SP 07/16/2015 Ot 285.9 ANEM IA NOS SP SP 07/16/2015 CLARKE JIMÉNEZ, KARINA Barreto Ot 786.2 SP SP 07/16/2015 PAT BEAVER MD Ot 553.1 SP HERNIA SP 07/16/2015 SARANYA JIMÉNEZ, PAT Ot V12.72 SP HISTORY OF COLONIC POLYPS SP 07/16/2015 SARANYA JIMÉNEZ, PAT Ot V72.84 SP PRE-OPERATIVE NOS SP 07/16/2015 SARANYA JIMÉNEZ, PAT Ot 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 SP 07/18/2015 CLARKE JIMÉNEZ, KARINA Barreto Ot M19.0 11 SP OSTEOARTHRITIS, RIGHT SHOULDER SP 07/18/2015 CLARKE JIMÉNEZ, KARINA Barreto Ot M50.3 0 SP CERVICAL DISC DEGENERATION, UNSP C SP 07/18/2015 KARINA MIR MD Ot W19.XXXA SP UNSPECIFIED FALL, INITIAL ENCOUNTER SP 07/18/2015 CLARKE JIMÉNEZ, KARINA Barreto Ot Y99.8 SP EXTERNAL CAUSE STATUS SP 08/07/2015 KARINA MIR MD Ot M19.0 11 SP OSTEOARTHRITIS, RIGHT SHOULDER SP 08/07/2015 CLARKE JIMÉNEZ, KARINA Barreto Ot M50.3 0 SP CERVICAL DISC DEGENERATION, UNSP C SP 08/07/2015 CLARKE JIMÉNEZ, KARINA Barreto Ot W19.XXXA SP UNSPECIFIED FALL, INITIAL ENCOUNTER SP 08/07/2015 KARINA MIR MD Ot Y99.8 SP EXTERNAL CAUSE STATUS SP 08/16/2015 KARINA MIR MD Ot M19.0 11 SP OSTEOARTHRITIS, RIGHT SHOULDER SP 08/16/2015 CLARKE JIMÉNEZ, KARINA Barreto Ot M50.3 0 SP CERVICAL DISC DEGENERATION, UNSP C SP 08/16/2015 KARINA MIR MD Ot W19.XXXA SP UNSPECIFIED FALL, INITIAL ENCOUNTER SP 08/16/2015 KARINA MIR MD Ot Y99.8 SP EXTERNAL CAUSE STATUS SP 08/17/2015 SHEREEN JIMÉNEZ, ZOHRA Lester Ot R19. 7 SP UNSPECIFIED SP 08/17/2015 SHEREEN JIMÉNEZ, ZOHRA Lester Ot T67.5XXA SP HEAT EXHAUSTION, UNSPECIFIED, INITIAL EN SP 08/19/2015 SHEREEN JIMÉNEZ, ZOHRA Lester Ot R19. 7 SP UNSPECIFIED SP 08/19/2015 SHEREEN JIMÉNEZ, ZOHRA Lester Ot T67.5XXA SP HEAT EXHAUSTION, UNSPECIFIED, INITIAL EN SP 08/22/2015 ADEEL BAIRES INSPECTION SUPERVISOR Ot R19 .7 SP UNSPECIFIED SP 08/22/2015 ADEEL BAIRES INSPECTION SUPERVISOR Ot T67.1XXA SP HEAT SYNCOPE, INITIAL ENCOUNTER SP 09/11/2015 ADEEL BAIRES INSPECTION SUPERVISOR Ot R19 .7 SP UNSPECIFIED SP 09/11/2015 ADEEL BAIRES INSPECTION SUPERVISOR Ot T67.1XXA SP HEAT SYNCOPE, INITIAL ENCOUNTER SP 07/20/2016 CLARKE JIMÉNEZ, KARINA Barreto Ot R05 SP SP 08/02/2016 CLARKE JIMÉNEZ, KARINA Barreto Ot R05 SP SP 08/04/2016 CLARKE JIMÉNEZ, KARINA Barreto Ot R05 SP SP 07/27/2017 CLARKE JIMÉNEZ, KARINA Barreto Ot 786.2 SP SP 07/27/2017 SARANYA JIMÉNEZ, PAT Ot 553.1 SP HERNIA SP 07/27/2017 SARANYA JIMÉNEZ, PAT Ot V12.72 SP HISTORY OF COLONIC POLYPS SP 07/27/2017 SARANYA JIMÉNEZ, PAT Ot V72.84 SP PRE-OPERATIVE NOS SP 07/27/2017 SARANYA JIMÉNEZ, PAT Ot 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 SP 07/27/2017 CLARKE JIMÉNEZ, KARINA Barreto Ot M19.0 11 SP OSTEOARTHRITIS, RIGHT SHOULDER SP 07/27/2017 CLARKE JIMÉNEZ, KARINA Barreto Ot M50.3 0 SP CERVICAL DISC DEGENERATION, UNSP C SP 07/27/2017 CLARKE JIMÉNEZ, KARINA Barreto Ot W19.XXXA SP UNSPECIFIED FALL, INITIAL ENCOUNTER SP 07/27/2017 CLARKE JIMÉNEZ, KARINA Barreto Ot Y99.8 SP EXTERNAL CAUSE STATUS SP 07/27/2017 ADEEL BAIRES INSPECTION SUPERVISOR Ot R19 .7 SP UNSPECIFIED SP 07/27/2017 ADEEL BAIRES INSPECTION SUPERVISOR Ot T67.1XXA SP HEAT SYNCOPE, INITIAL ENCOUNTER SP 07/27/2017 CLARKE JIMÉNEZ, KARINA Barreto Ot R05 SP SP 07/27/2017 RIVAS JIMÉNEZ, CELSA Lyle Ot I10 SP ESSENTIAL (PRIMARY) HYPERTENSION SP 07/27/2017 RIVAS JIMÉNEZ, CELSA Lyle Ot K21.9 SP GASTRO-ESOPHAGEAL REFLUX DISEASE WITHOUT SP 07/27/2017 RIVAS JIMÉNEZ, CELSA Lyle Ot K62.89 SP OTHER SPECIFIED DISEASES OF ANUS AND REC SP 07/27/2017 CELSA HATHAWAY MD T Ot Z85.828 SP PERSONAL HISTORY OF OTHER MALIGNANT NEOP SP 07/27/2017 CELSA HATHAWAY MD T Ot Z87.19 SP PERSONAL HISTORY OF OTHER DISEASES OF TH SP 07/27/2017 CELSA HATHAWAY MD Ot 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 SP 07/27/2017 CELSA HATHAWAY MD Ot Z88.6 SP ALLERGY STATUS TO ANALGESIC AGENT STATUS SP 07/29/2017 CELSA HATHAWAY MD Ot I10 SP ESSENTIAL (PRIMARY) HYPERTENSION SP 07/29/2017 CELSA HATHAWAY MD Ot K21.9 SP GASTRO-ESOPHAGEAL REFLUX DISEASE WITHOUT SP 07/29/2017 CELSA HATHAWAY MD Ot K62.89 SP OTHER SPECIFIED DISEASES OF ANUS AND REC SP 07/29/2017 CELSA HATHAWAY MD Ot Z85.828 SP PERSONAL HISTORY OF OTHER MALIGNANT NEOP SP 07/29/2017 CELSA HATHAWAY MD Ot Z87.19 SP PERSONAL HISTORY OF OTHER DISEASES OF TH SP 07/29/2017 CELSA HATHAWAY MD Ot 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 SP 07/29/2017 CELSA HATHAWAY MD Ot Z88.6 SP ALLERGY STATUS TO ANALGESIC AGENT STATUS SP 08/03/2017 PAT BEAVER MD Ot Z01.81 8 SP FOR OTHER PREPROCEDURAL EXAMIN SP 08/04/2017 PAT BEAVER MD Ot Z01.81 8 SP FOR OTHER PREPROCEDURAL EXAMIN SP 08/09/2017 PAT BEAVER MD Ot Z01.81 8 SP FOR OTHER PREPROCEDURAL EXAMIN SP 08/23/2017 NADINE CANTU INSPECTION SUPERVISOR Ot 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 SP 08/23/2017 NADINE CANTU INSPECTION SUPERVISOR Ot 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, CERVICOTHORA SP 08/23/2017 NADINE CANTU INSPECTION SUPERVISOR Ot 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 SP 08/23/2017 NADINE CANTU INSPECTION SUPERVISOR Ot S02.32XA SP FRACTURE OF ORBITAL FLOOR, LEFT SIDE, IN SP 08/23/2017 ALONDRANADINE Khadijah INSPECTION SUPERVISOR Ot W20.8XXA SP OTH CAUSE OF STRIKE BY THROWN, PROJECTED 08/29/2017 ALONDRANADINE Khadijah INSPECTION SUPERVISOR Ot 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 SP 08/29/2017 ALONDRA NADINE Vitale INSPECTION SUPERVISOR Ot 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, CERVICOTHORA SP 08/29/2017 NADINE CANTU INSPECTION SUPERVISOR Ot 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 SP 08/29/2017 ALONDRA NADINE Vitale INSPECTION SUPERVISOR Ot S02.32XA SP FRACTURE OF ORBITAL FLOOR, LEFT SIDE, IN SP 08/29/2017 ALONDRA PHILIPPEINDIRA Khadijah INSPECTION SUPERVISOR Ot W20.8XXA SP OTH CAUSE OF STRIKE BY THROWN, PROJECTED SP 08/29/2017 NADINE CANTU INSPECTION SUPERVISOR Ot 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 SP 08/29/2017 NADINE CANTU INSPECTION SUPERVISOR Ot 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, CERVICOTHORA SP 08/29/2017 NADINE CANTU INSPECTION SUPERVISOR Ot 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 SP 08/29/2017 NADINE CANTU INSPECTION SUPERVISOR Ot S02.32XA SP FRACTURE OF ORBITAL FLOOR, LEFT SIDE, IN SP 08/29/2017 NADINE CANTU INSPECTION SUPERVISOR Ot W20.8XXA SP OTH CAUSE OF STRIKE BY THROWN, PROJECTED 08/30/2017 YINA PINEDA OD Ot S02.32XA SP FRACTURE OF ORBITAL FLOOR, LEFT SIDE, IN 08/30/2017 YINA PINEDA OD Ot W19.XXXA SP UNSPECIFIED FALL, INITIAL ENCOUNTER SP 09/03/2017 NADINE CANTU INSPECTION SUPERVISOR Ot 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 SP 09/03/2017 NADINE CANTU INSPECTION SUPERVISOR Ot 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, CERVICOTHORA SP 09/03/2017 NADINE CANTU INSPECTION SUPERVISOR Ot 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 SP 09/03/2017 NADINE CANTU INSPECTION SUPERVISOR Ot S02.32XA SP FRACTURE OF ORBITAL FLOOR, LEFT SIDE, IN SP 09/03/2017 CANTUNADINE GAO INSPECTION SUPERVISOR Ot W20.8XXA SP OTH CAUSE OF STRIKE BY THROWN, PROJECTED 09/03/2017 CANTUNADINE GAO INSPECTION SUPERVISOR Ot 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 SP 09/03/2017 ALONDRANADINE INSPECTION SUPERVISOR Ot 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, CERVICOTHORA SP 09/03/2017 ALONDRANADINE INSPECTION SUPERVISOR Ot 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 SP 09/03/2017 ALONDRANADINE INSPECTION SUPERVISOR Ot S02.32XA SP FRACTURE OF ORBITAL FLOOR, LEFT SIDE, IN SP 09/03/2017 ALONDRANADINE INSPECTION SUPERVISOR Ot W20.8XXA SP OTH CAUSE OF STRIKE BY THROWN, PROJECTED 09/08/2017 ALONDRA PHILIPPEINDIRA Khadijah INSPECTION SUPERVISOR Ot 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 SP 09/08/2017 ALONDRANADINE INSPECTION SUPERVISOR Ot 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, CERVICOTHORA SP 09/08/2017 ALONDRANADINE INSPECTION SUPERVISOR Ot 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 SP 09/08/2017 ALONDRANADINE INSPECTION SUPERVISOR Ot S02.32XA SP FRACTURE OF ORBITAL FLOOR, LEFT SIDE, IN SP 09/08/2017 ALONDRANADINE INSPECTION SUPERVISOR Ot W20.8XXA SP OTH CAUSE OF STRIKE BY THROWN, PROJECTED SP 09/08/2017 ALONDRANADINE INSPECTION SUPERVISOR Ot 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 SP 09/08/2017 ALONDRANADINE INSPECTION SUPERVISOR Ot 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, CERVICOTHORA SP 09/08/2017 ALONDRANADINE INSPECTION SUPERVISOR Ot 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 SP 09/08/2017 ALONDRANADINE INSPECTION SUPERVISOR Ot S02.32XA SP FRACTURE OF ORBITAL FLOOR, LEFT SIDE, IN SP 09/08/2017 ALONDRANADINE INSPECTION SUPERVISOR Ot W20.8XXA SP OTH CAUSE OF STRIKE BY THROWN, PROJECTED 09/12/2017 ALONDRA, JAIMA A INSPECTION SUPERVISOR Ot 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 SP 09/12/2017 CANTUNADINE GAO INSPECTION SUPERVISOR Ot 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, CERVICOTHORA SP 09/12/2017 CANTUNADINE GAO A INSPECTION SUPERVISOR Ot 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 SP 09/12/2017 CANTUNADINE INSPECTION SUPERVISOR Ot S02.32XA SP FRACTURE OF ORBITAL FLOOR, LEFT SIDE, IN SP 09/12/2017 ALONDRANADINE INSPECTION SUPERVISOR Ot W20.8XXA SP OTH CAUSE OF STRIKE BY THROWN, PROJECTED SP 09/14/2017 CANTUNADINE INSPECTION SUPERVISOR Ot 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 SP 09/14/2017 ALONDRANADINE INSPECTION SUPERVISOR Ot 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, CERVICOTHORA SP 09/14/2017 ALONDRANADINE A INSPECTION SUPERVISOR Ot 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 SP 09/14/2017 ALONDRANADINE A INSPECTION SUPERVISOR Ot S02.32XA SP FRACTURE OF ORBITAL FLOOR, LEFT SIDE, IN SP 09/14/2017 ALONDRANADINE INSPECTION SUPERVISOR Ot W20.8XXA SP OTH CAUSE OF STRIKE BY THROWN, PROJECTED SP 09/14/2017 ALONDRANADINE INSPECTION SUPERVISOR Ot 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 SP 09/14/2017 CANTUNADINE GAO A INSPECTION SUPERVISOR Ot 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, CERVICOTHORA SP 09/14/2017 PHILIPPE CANTUINDIRA Khadijah INSPECTION SUPERVISOR Ot 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 SP 09/14/2017 ALONDRANADINE A INSPECTION SUPERVISOR Ot S02.32XA SP FRACTURE OF ORBITAL FLOOR, LEFT SIDE, IN SP 09/14/2017 ALONDRANADINE INSPECTION SUPERVISOR Ot W20.8XXA SP OTH CAUSE OF STRIKE BY THROWN, PROJECTED 09/14/2017 ALONDRANADINE INSPECTION SUPERVISOR Ot 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 SP 09/14/2017 ALONDRANADINE A INSPECTION SUPERVISOR Ot 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, CERVICOTHORA SP 09/14/2017 ALONDRA NADINE A INSPECTION SUPERVISOR Ot 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 SP 09/14/2017 NADINE CANTU INSPECTION SUPERVISOR Ot S02.32XA SP FRACTURE OF ORBITAL FLOOR, LEFT SIDE, IN SP 09/14/2017 NADINE CANTU INSPECTION SUPERVISOR Ot W20.8XXA SP OTH CAUSE OF STRIKE BY THROWN, PROJECTED SP 09/20/2017 YINA PINEDA R OD Ot S02.32XA SP FRACTURE OF ORBITAL FLOOR, LEFT SIDE, IN SP 09/20/2017 YINA PINEDA OD Ot W19.XXXA SP UNSPECIFIED FALL, INITIAL ENCOUNTER SP 11/09/2017 CLARKE JIMÉNEZ, KARINA Barreto Ot 786.2 SP SP 11/09/2017 SARANYA JIMÉNEZ, PAT Ot 553.1 SP HERNIA SP 11/09/2017 SARANYA JIMÉNEZ, PAT Ot V12.72 SP HISTORY OF COLONIC POLYPS SP 11/09/2017 SARANYA JIMÉNEZ, PAT Ot V72.84 SP PRE-OPERATIVE NOS SP 11/09/2017 SARANYA JIMÉNEZ, PAT Ot 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 SP 11/09/2017 CLARKE JIMÉNEZ, KARINA Barreto Ot M19.0 11 SP OSTEOARTHRITIS, RIGHT SHOULDER SP 11/09/2017 CLARKE JIMÉNEZ, KARINA Barreto Ot M50.3 0 SP CERVICAL DISC DEGENERATION, UNSP C SP 11/09/2017 CLARKE JIMÉNEZ, KARINA aBrreto Ot W19.XXXA SP UNSPECIFIED FALL, INITIAL ENCOUNTER SP 11/09/2017 CLARKE JIMÉNEZ, KARINA Barreto Ot Y99.8 SP EXTERNAL CAUSE STATUS SP 11/09/2017 ADEEL BAIRES INSPECTION SUPERVISOR Ot R19 .7 SP UNSPECIFIED SP 11/09/2017 ADEEL BAIRES INSPECTION SUPERVISOR Ot T67.1XXA SP HEAT SYNCOPE, INITIAL ENCOUNTER SP 11/09/2017 CLARKE JIMÉNEZ, KARINA Barreto Ot R05 SP SP 11/09/2017 NADINE CANTU INSPECTION SUPERVISOR Ot 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 SP 11/09/2017 NADINE CANTU INSPECTION SUPERVISOR Ot 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, CERVICOTHORA SP 11/09/2017 NADINE CANTU INSPECTION SUPERVISOR Ot 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 SP 11/09/2017 NADINE CANTU INSPECTION SUPERVISOR Ot S02.32XA SP FRACTURE OF ORBITAL FLOOR, LEFT SIDE, IN SP 11/09/2017 NADINE CANTU INSPECTION SUPERVISOR Ot W20.8XXA SP OTH CAUSE OF STRIKE BY THROWN, PROJECTED SP 11/09/2017 GONZALEZLUIS YINA Moya OD Ot S02.32XA SP FRACTURE OF ORBITAL FLOOR, LEFT SIDE, IN SP 11/09/2017 YINA PINEDA OD Ot W19.XXXA SP UNSPECIFIED FALL, INITIAL ENCOUNTER SP 11/09/2017 NÉSTOR CASTRO INSPECTION SUPERVISOR Ot R 42 SP AND GIDDINESS SP 11/10/2017 NÉSTOR CASTRO INSPECTION SUPERVISOR Ot I65.23 SP OCCLUSION AND STENOSIS OF BILATERAL PACHECO SP 11/30/2017 NÉSTOR CASTRO INSPECTION SUPERVISOR Ot I65.23 SP OCCLUSION AND STENOSIS OF BILATERAL PACHECO SP 12/08/2017 NÉSTOR CASTRO INSPECTION SUPERVISOR Ot I65.23 SP OCCLUSION AND STENOSIS OF BILATERAL PACHECO SP 01/17/2018 DERIAN JIMÉNEZ, MAGALIE Guillen Ot Z01.818 SP ENCOUNTER FOR OTHER PREPROCEDURAL EXAMIN SP 01/18/2018 MAGALIE MENARD MD Ot E78.00 SP PURE HYPERCHOLESTEROLEMIA, UNSPECIFIED SP 01/18/2018 MAGALIE MENARD MD Ot E78 .5 SP UNSPECIFIED SP 01/18/2018 MAGALIE MENARD MD L Ot 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, RIGHT EYE SP 01/18/2018 MAGALIE MENARD MD L Ot I10 SP (PRIMARY) HYPERTENSION SP 01/18/2018 MAGALIE MENARD MD L Ot K21 .9 SPESOPHAGEAL REFLUX DISEASE WITHOUT SP 01/18/2018 MAGALIE MENARD MD L Ot Z79.899 SP OTHER [facility] (CURRENT) DRUG THERAPY SP 01/18/2018 MAGALIE MENARD MD L Ot 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 SP 01/19/2018 MAGALIE MENARD MD Ot E78.00 SP PURE HYPERCHOLESTEROLEMIA, UNSPECIFIED SP 01/19/2018 MAGALIE MENARD MD Ot E78 .5 SP UNSPECIFIED SP 01/19/2018 MAGALIE MENARD MD L Ot 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, RIGHT EYE SP 01/19/2018 MAGALIE MENARD MD L Ot I10 SP (PRIMARY) HYPERTENSION SP 01/19/2018 DERIAN JIMÉNEZ, MAGALIE Guillen Ot K21 .9 SPESOPHAGEAL REFLUX DISEASE WITHOUT SP 01/19/2018 DERIAN JIMÉNEZ, MAGALIE Guillen Ot Z79.899 SP OTHER [facility] (CURRENT) DRUG THERAPY SP 01/19/2018 DERIAN JIMÉNEZ, MAGALIE Guillen Ot 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 SP 04/25/2018 CLARKE JIMÉNEZ, KARINA Barreto Ot 786.2 SP SP 04/25/2018 SARANYA JIMÉNEZ, PAT Ot 553.1 SP HERNIA SP 04/25/2018 SARANYA JIMÉNEZ, PAT Ot V12.72 SP HISTORY OF COLONIC POLYPS SP 04/25/2018 SARANYA JIMÉNEZ, PAT Ot V72.84 SP PRE-OPERATIVE NOS SP 04/25/2018 SARANYA JIMÉNEZ, PAT Ot 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 SP 04/25/2018 CLARKE JIMÉNEZ, KARINA Barreto Ot M19.0 11 SP OSTEOARTHRITIS, RIGHT SHOULDER SP 04/25/2018 CLARKE JIMÉNEZ, KARINA Barreto Ot M50.3 0 SP CERVICAL DISC DEGENERATION, UNSP C SP 04/25/2018 CLARKE JIMÉNEZ, KARINA Barreto Ot W19.XXXA SP UNSPECIFIED FALL, INITIAL ENCOUNTER SP 04/25/2018 KARINA MIR MD Ot Y99.8 SP EXTERNAL CAUSE STATUS SP 04/25/2018 ADEEL BAIRES APRN Ot R19 .7 SP UNSPECIFIED SP 04/25/2018 ADEEL BAIRES INSPECTION SUPERVISOR Ot T67.1XXA SP HEAT SYNCOPE, INITIAL ENCOUNTER SP 04/25/2018 CLARKE JIMÉNEZ, KARINA Barreto Ot R05 SP SP 04/25/2018 NADINE CANTU APRN Ot 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 SP 04/25/2018 NADINE CANTU INSPECTION SUPERVISOR Ot 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, CERVICOTHORA SP 04/25/2018 NADINE CANTU INSPECTION SUPERVISOR Ot 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 SP 04/25/2018 NADINE CANTU INSPECTION SUPERVISOR Ot S02.32XA SP FRACTURE OF ORBITAL FLOOR, LEFT SIDE, IN SP 04/25/2018 NADINE CANTU INSPECTION SUPERVISOR Ot W20.8XXA SP OTH CAUSE OF STRIKE BY THROWN, PROJECTED SP 04/25/2018 KANNARR, YINA R OD Ot S02.32XA SP FRACTURE OF ORBITAL FLOOR, LEFT SIDE, IN SP 04/25/2018 YINA PINEDA OD Ot W19.XXXA SP UNSPECIFIED FALL, INITIAL ENCOUNTER SP 04/25/2018 MATTHEWNÉSTOR INSPECTION SUPERVISOR Ot I65.23 SP OCCLUSION AND STENOSIS OF BILATERAL [place] SP 05/02/2018 CLARKE JIMÉNEZ, KARINA Barreto Ot H53.8 SP VISUAL DISTURBANCES SP 05/02/2018 CLARKE JIMÉNEZ, KARINA Barreto Ot R54 AGE- SP PHYSICAL DEBILITY SP 05/02/2018 PAT BEAVER MD Ot Z01.81 8 SP FOR OTHER PREPROCEDURAL EXAMIN SP 05/03/2018 PAT BEAVER MD Ot E78.00 SP HYPERCHOLESTEROLEMIA, UNSPECIFIED SP 05/03/2018 PAT BEAVER MD Ot F32.9 SP DEPRESSIVE DISORDER, SINGLE EPISOD SP 05/03/2018 PAT BEAVER MD Ot I10 SP (PRIMARY) HYPERTENSION SP 05/03/2018 PAT BEAVER MD Ot K29.50 SP CHRONIC GASTRITIS WITHOUT BL SP 05/03/2018 PAT BEAVER MD Ot K29.70 SP UNSPECIFIED, WITHOUT BLEEDING SP 05/03/2018 PAT BEAVER MD Ot K44.9 SP HERNIA WITHOUT OBSTRUCTION SP 05/03/2018 PAT BEAVER MD Ot 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 SP 05/03/2018 APT BEAVER MD Ot K64.1 SP DEGREE HEMORRHOIDS SP 05/03/2018 PAT BEAVER MD Ot M10.9 SP UNSPECIFIED SP 05/03/2018 PAT BEAVER MD Ot Z79.89 9 SP PHOTOGRAPHER FINISH (CURRENT) DRUG THERAPY SP 05/03/2018 PAT BEAVER MD Ot Z87.89 1 SP HISTORY OF NICOTINE DEPENDENCE SP 05/08/2018 PAT BEAVER MD Ot K92.2 SP HEMORRHAGE, UNSPECIFIED SP 05/08/2018 PAT BEAVER MD Ot E78.00 SP HYPERCHOLESTEROLEMIA, UNSPECIFIED SP 05/08/2018 PAT BEAVER MD Ot F32.9 SP DEPRESSIVE DISORDER, SINGLE EPISOD SP 05/08/2018 PAT BEAVER MD Ot I10 SP (PRIMARY) HYPERTENSION SP 05/08/2018 PAT BEAVER MD Ot K29.50 SP CHRONIC GASTRITIS WITHOUT BL SP 05/08/2018 PAT BEAVER MD Ot K44.9 SP HERNIA WITHOUT OBSTRUCTION SP 05/08/2018 PAT BEAVER MD Ot 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 SP 05/08/2018 PAT BEAVER MD Ot K64.1 SP DEGREE HEMORRHOIDS SP 05/08/2018 PAT BEAVER MD Ot M10.9 SP UNSPECIFIED SP 05/08/2018 PAT BEAVER MD Ot Z79.89 9 SP PHOTOGRAPHER FINISH (CURRENT) DRUG THERAPY SP 05/08/2018 PAT BEAVER MD, Ot Z87.89 1 SP HISTORY OF NICOTINE DEPENDENCE SP 05/17/2018 CLARKE JIMÉNEZ, KARINA Barreto Ot H53.8 SP VISUAL DISTURBANCES SP 05/17/2018 CLARKE JIMÉNEZ, KARINA Barreto Ot R54 AGE- SP PHYSICAL DEBILITY SP 05/24/2018 PAT BEAVER MD Ot K92.2 SP HEMORRHAGE, UNSPECIFIED SP 05/24/2018 KARINA MIR MD Ot H53.8 SP VISUAL DISTURBANCES SP 05/24/2018 CLARKE JIMÉNEZ, KARINA Barreto Ot R54 AGE- SP PHYSICAL DEBILITY SP 06/02/2018 PAT BEAVER MD Ot K92.2 SP HEMORRHAGE, UNSPECIFIED SP 07/20/2018 CHARLOTTE JIMÉNEZ FACC, ALI FACP CCDS Ot R00.1 SP BRADYCARDIA, UNSPECIFIED SP 08/03/2018 CHARLOTTE JIMÉNEZ FACC, ALI FACP CCDS Ot I10 SP ESSENTIAL (PRIMARY) HYPERTENSION SP 08/03/2018 CHARLOTTE JIMÉNEZ FACC, ALI FACP CCDS Ot R00.1 SP BRADYCARDIA, UNSPECIFIED SP 08/03/2018 CHARLOTTE JIMÉNEZ FACC, ALI FACP CCDS Ot R53.81 SP OTHER [facility] SP 08/06/2018 CHARLOTTE JIMÉNEZ FACC, ALI FACP CCDS Ot I10 SP ESSENTIAL (PRIMARY) HYPERTENSION SP 08/06/2018 CHARLOTTE JIMÉNEZ FACC, ALI FACP CCDS Ot R00.1 SP BRADYCARDIA, UNSPECIFIED SP 08/06/2018 CHARLOTTE JIMÉNEZ FACC, ALI FACP CCDS Ot R53.81 SP OTHER MALAISE SP 08/16/2018 CHARLOTTE JIMÉNEZ FACC, ALI FACP CCDS Ot I10 SP ESSENTIAL (PRIMARY) HYPERTENSION SP 08/16/2018 CHARLOTTE JIMÉNEZ FACC, ALI FACP CCDS Ot R00.1 SP BRADYCARDIA, UNSPECIFIED SP 08/16/2018 CHARLOTTE JIMÉNEZ FAC, ALI FACP CCDS Ot R53.81 SP OTHER MALAISE SP 08/22/2018 CHARLOTTE JIMÉNEZ [facility], ALI FACP CCDS Ot I10 SP ESSENTIAL (PRIMARY) HYPERTENSION SP 08/22/2018 CHARLOTTE JIMÉNEZ [facility], ALI FACP CCDS Ot R00.1 SP BRADYCARDIA, UNSPECIFIED SP 08/22/2018 CHARLOTTE JIMÉNEZ [facility], ALI FACP CCDS Ot R53.81 SP OTHER MALAISE SP 08/23/2018 CHARLOTTE JIMÉNEZ [facility], ALI FACP CCDS Ot I10 SP ESSENTIAL (PRIMARY) HYPERTENSION SP 08/23/2018 CHARLOTTE JIMÉNEZ [facility], ALI FACP CCDS Ot R00.1 SP BRADYCARDIA, UNSPECIFIED SP 08/23/2018 CHARLOTTE JIMÉNEZ [facility], ALI FACP CCDS Ot R53.81 SP OTHER MALAISE SP 08/30/2018 CHARLOTTE JIMÉNEZ [facility], ALI FACP CCDS Ot I10 SP ESSENTIAL (PRIMARY) HYPERTENSION SP 08/30/2018 CHARLOTTE JIMÉNEZ [facility], ALI FACP CCDS Ot R00.1 SP BRADYCARDIA, UNSPECIFIED SP 08/30/2018 CHARLOTTE JIMÉNEZ [facility], ALI FACP CCDS Ot R53.81 SP OTHER MALAISE SP 09/18/2018 NÉSTOR CASTRO INSPECTION SUPERVISOR Ot E86.0 SP DEHYDRATION SP 09/18/2018 NÉSTOR CASTRO INSPECTION SUPERVISOR Ot E87.1 SP HYPO-OSMOLALITY AND HYPONATREMIA SP 09/18/2018 KARINA MIR MD Ot E78.0 0 SP HYPERCHOLESTEROLEMIA, UNSPECIFIED SP 09/18/2018 KARINA MIR MD Ot E78.5 SP UNSPECIFIED SP 09/18/2018 KARINA MIR MD Ot E83.4 2 SP SP 09/18/2018 KARINA MIR MD Ot E87.1 SPOSMOLALITY AND HYPONATREMIA SP 09/18/2018 KARINA MIR MD Ot F32.9 SP DEPRESSIVE DISORDER, SINGLE EPISOD SP 09/18/2018 KARINA MIR MD Ot I10 SP (PRIMARY) HYPERTENSION SP 09/18/2018 KARINA MIR MD Ot J40 SP NOT SPECIFIED ACUTE OR CH SP 09/18/2018 KARINA MIR MD Ot K21.9 SPESOPHAGEAL REFLUX DISEASE WITHOUT SP 09/18/2018 KARINA MIR MD Ot M10.9 SP UNSPECIFIED SP 09/18/2018 KARINA MIR MD Ot M19.9 1 SP OSTEOARTHRITIS, UNSPECIFIED SITE SP 09/18/2018 KARINA MIR MD Ot M54.9 SP UNSPECIFIED SP 09/18/2018 KARINA MIR MD Ot R41.8 2 SP MENTAL STATUS, UNSPECIFIED SP 09/18/2018 KARINA MIR MD Ot Z85.8 28 SP HISTORY OF OTHER MALIGNANT NEOP SP 09/18/2018 KARINA MIR MD Ot Z86.0 10 SP HISTORY OF COLONIC POLYPS SP 09/18/2018 KARINA MIR MD Ot Z87.1 9 SP HISTORY OF OTHER DISEASES OF TH SP 09/18/2018 KARINA MIR MD Ot Z87.8 91 SP HISTORY OF NICOTINE DEPENDENCE SP 09/18/2018 KARINA MIR MD Ot Z88.2 SP STATUS TO SULFONAMIDES STATUS SP 09/22/2018 KARINA MIR MD Ot R05 SP SP 09/22/2018 KARINA MIR MD Ot Z09 SP FOR F/U EXAM AFT TRTMT FOR COND O SP 09/26/2018 KARINA MIR MD Ot R05 SP SP 09/26/2018 KARINA MIR MD Ot Z09 SP FOR F/U EXAM AFT TRTMT FOR COND O SP 10/06/2018 NÉSTOR CASTRO INSPECTION SUPERVISOR Ot E86.0 SP DEHYDRATION SP 10/06/2018 NÉSTOR CASTRO INSPECTION SUPERVISOR Ot E87.1 SP HYPO-OSMOLALITY AND HYPONATREMIA SP 10/08/2018 RIVAS JIMÉNEZ, CELSA Lyle Ot E78.00 SP PURE HYPERCHOLESTEROLEMIA, UNSPECIFIED SP 10/08/2018 RIVAS JIMÉNEZ, CELSA Lyle Ot F32.9 SP MAJOR DEPRESSIVE DISORDER, SINGLE EPISOD SP 10/08/2018 CELSA HATHAWAY MD Ot H54.7 SP UNSPECIFIED VISUAL LOSS SP 10/08/2018 RIAVS JIMÉNEZ, CELSA Lyle Ot I10 SP ESSENTIAL (PRIMARY) HYPERTENSION SP 10/08/2018 CELSA HATHAWAY MD Ot 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 SP 10/08/2018 CELSA HATHAWAY MD Ot K21.9 SP GASTRO-ESOPHAGEAL REFLUX DISEASE WITHOUT SP 10/08/2018 RIVAS JIMÉNEZ, CELSA Lyle Ot M10.9 SP GOUT, UNSPECIFIED SP 10/08/2018 RIVAS JIMÉNEZ, CELSA Lyle Ot R29.810 SP FACIAL WEAKNESS SP 10/08/2018 RIVAS JIMÉNEZ, CELSA Lyle Ot Z85.828 SP PERSONAL HISTORY OF OTHER MALIGNANT NEOP SP 10/08/2018 RIVAS JIMÉNEZ, CELSA Lyle Ot Z87.19 SP PERSONAL HISTORY OF OTHER DISEASES OF TH SP 10/08/2018 RIVAS JIMÉNEZ, CELSA Lyle Ot 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 SP 10/08/2018 RIVAS JIMÉNEZ, CELSA Lyle Ot Z88.1 SP ALLERGY STATUS TO OTHER ANTIBIOTIC AGENT SP 10/08/2018 RIVAS JIMÉNEZ, CELSA Lyle Ot Z88.2 SP ALLERGY STATUS TO SULFONAMIDES STATUS SP 10/08/2018 RVIAS JIMÉNEZ, CELSA Lyle Ot Z88.8 SP ALLERGY STATUS TO OTH DRUG/MEDS/BIOL SUB SP 10/08/2018 CHARLOTTE JIMÉNEZ FACC, CHARANJIT FACP CCDS Ot R00.1 SP BRADYCARDIA, UNSPECIFIED SP 10/10/2018 CLARKE JIMÉNEZ, KARINA Barreto Ot R05 SP SP 10/10/2018 CLARKE JIMÉNEZ, KARINA Barreto Ot Z09 SP FOR F/U EXAM AFT TRTMT FOR COND O SP 10/11/2018 RIVAS JIMÉNEZ, CELSA Lyle Ot E78.00 SP PURE HYPERCHOLESTEROLEMIA, UNSPECIFIED SP 10/11/2018 RIVAS JIMÉNEZ, CELSA Lyle Ot F32.9 SP MAJOR DEPRESSIVE DISORDER, SINGLE EPISOD SP 10/11/2018 RIVAS JIMÉNEZ, CELSA Lyle Ot H54.7 SP UNSPECIFIED VISUAL LOSS SP 10/11/2018 RIVAS JIMÉNEZ, CELSA Lyle Ot I10 SP ESSENTIAL (PRIMARY) HYPERTENSION SP 10/11/2018 RIVAS JIMÉNEZ, CELSA Lyle Ot 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 SP 10/11/2018 RIVAS JIMÉNEZ, CELSA Lyle Ot K21.9 SP GASTRO-ESOPHAGEAL REFLUX DISEASE WITHOUT SP 10/11/2018 CELSA HATHAWAY MD Ot M10.9 SP GOUT, UNSPECIFIED SP 10/11/2018 RIVAS JIMÉNEZ, CELSA Lyle Ot R29.810 SP FACIAL WEAKNESS SP 10/11/2018 RIVAS JIMÉNEZ, CELSA Lyle Ot Z85.828 SP PERSONAL HISTORY OF OTHER MALIGNANT NEOP SP 10/11/2018 RIVAS JIMÉNEZ, CELSA Lyle Ot Z87.19 SP PERSONAL HISTORY OF OTHER DISEASES OF TH SP 10/11/2018 CELSA HATHAWAY MD Ot 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 SP 10/11/2018 RIVAS JIMÉNEZ, CELSA Lyle Ot Z88.1 SP ALLERGY STATUS TO OTHER ANTIBIOTIC AGENT SP 10/11/2018 RIVAS JIMÉNEZ, CELSA Lyle Ot Z88.2 SP ALLERGY STATUS TO SULFONAMIDES STATUS SP 10/11/2018 RIVAS JIMÉNEZ, CELSA Lyle Ot Z88.8 SP ALLERGY STATUS TO OTH DRUG/MEDS/BIOL SUB SP 10/11/2018 NÉSTOR CASTRO INSPECTION SUPERVISOR Ot E86.0 SP DEHYDRATION SP 10/11/2018 NÉSTOR CASTRO INSPECTION SUPERVISOR Ot E87.1 SP HYPO-OSMOLALITY AND HYPONATREMIA SP 11/24/2018 CHARLOTTE JIMÉNEZ [facility], ALI FACP CCDS Ot I10 SP ESSENTIAL (PRIMARY) HYPERTENSION SP 11/24/2018 CHARLOTTE JIMÉNEZ [facility], ALI FACP CCDS Ot R00.1 SP BRADYCARDIA, UNSPECIFIED SP 11/24/2018 CHARLOTTE JIMÉNEZ [facility], ALI FACP CCDS Ot R53.81 SP OTHER MALAISE SP 12/13/2018 NÉSTOR CASTRO INSPECTION SUPERVISOR Ot E86.0 SP DEHYDRATION SP 12/13/2018 NÉSTOR CASTRO INSPECTION SUPERVISOR Ot E87.1 SP HYPO-OSMOLALITY AND HYPONATREMIA SP 12/14/2018 NÉSTOR CASTRO INSPECTION SUPERVISOR Ot E86.0 SP DEHYDRATION SP 12/14/2018 NÉSTOR CASTRO INSPECTION SUPERVISOR Ot E87.1 SP HYPO-OSMOLALITY AND HYPONATREMIA SP 12/20/2018 MAGALIE MENARD MD Ot Z01.818 SP ENCOUNTER FOR OTHER PREPROCEDURAL EXAMIN SP 12/21/2018 CHARLOT[place] JIMÉNEZ [facility], ALI FACP CCDS Ot R00.1 SP BRADYCARDIA, UNSPECIFIED SP 12/21/2018 MAGALIE MENARD MD Ot Z01.818 SP ENCOUNTER FOR OTHER PREPROCEDURAL EXAMIN SP 12/21/2018 OLGA JIMÉNEZ, NILES Mccray Ot 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 SP 12/21/2018 NÉSTOR CASTRO INSPECTION SUPERVISOR Ot E86.0 SP DEHYDRATION SP 12/21/2018 NÉSTOR CASTRO INSPECTION SUPERVISOR Ot E87.1 SP HYPO-OSMOLALITY AND HYPONATREMIA SP 12/21/2018 MAGALIE MENARD MD Ot Z01.818 SP ENCOUNTER FOR OTHER PREPROCEDURAL EXAMIN SP 12/22/2018 MAGALIE MENARD MD Ot E78.00 SP PURE HYPERCHOLESTEROLEMIA, UNSPECIFIED SP 12/22/2018 MAGALIE MENARD MD Ot 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, LEFT EYE SP 12/22/2018 MAGALIE MENARD MD Ot M19.90 SP UNSPECIFIED OSTEOARTHRITIS, UNSPECIFIED SP 12/22/2018 MAGALIE MENARD MD Ot Z79.899 SP OTHER PHOTOGRAPHER FINISH (CURRENT) DRUG THERAPY SP 12/22/2018 MAGALIE MENARD MD Ot Z88 .1 SP STATUS TO OTHER ANTIBIOTIC AGENT SP 12/22/2018 MAGALIE MENARD MD Ot Z88 .2 SP STATUS TO SULFONAMIDES STATUS SP 12/22/2018 MAGALIE MENARD MD Ot Z88 .8 SP STATUS TO OTH DRUG/MEDS/BIOL SUB SP 12/26/2018 MAGALIE MENARD MD Ot E78.00 SP PURE HYPERCHOLESTEROLEMIA, UNSPECIFIED SP 12/26/2018 MAGALIE MENARD MD Ot 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, LEFT EYE SP 12/26/2018 MAGALIE MENARD MD Ot M19.90 SP UNSPECIFIED OSTEOARTHRITIS, UNSPECIFIED SP 12/26/2018 MAGALIE MENARD MD Ot Z79.899 SP OTHER PHOTOGRAPHER FINISH (CURRENT) DRUG THERAPY SP 12/26/2018 MAGALIE MENARD MD Ot Z88 .1 SP STATUS TO OTHER ANTIBIOTIC AGENT SP 12/26/2018 MAGALIE MENARD MD Ot Z88 .2 SP STATUS TO SULFONAMIDES STATUS SP 12/26/2018 MAGALIE MENARD MD Ot Z88 .8 SP STATUS TO OTH DRUG/MEDS/BIOL SUB SP 12/27/2018 MAGALIE MENARD MD Ot Z01.818 SP ENCOUNTER FOR OTHER PREPROCEDURAL EXAMIN SP Procedures Code Description Performed By Per formed On POS 45.16 SP 08/05/2010 SP 48.36 SP 08/05/2010 SP Results Test Result Range POS Complete blood count (CBC) with automate d white blood cell (WBC) differential - POS 09:00 Blood leukocytes automated count (number/volume) 10.2 10*3/uL POS 4.3-11.0 SP Blood erythrocytes automated count (number/volume) 4.16 10*6/uL SP 4.35-5.85 SP Venous blood hemoglobin measurement (mass/volume) 14.3 g/dL SP17.7 Blood hematocrit (volume fraction) 41 % 40-54 SP Automated erythrocyte mean corpuscular volume 97 [ foz_us] SP99 Automated erythrocyte mean corpuscular h emoglobin (mass per erythrocyte) SP 34 pg 25-34 SP Automated erythrocyte mean corpuscular h emoglobin concentration measurement SP 35 g/dL 32-36 SP Automated erythrocyte distribution width ratio 12. 7 % 10.0- SP Automated blood platelet count (count/volume) 254 10*3/uL SP400 Automated blood platelet mean volume measurement 9.2 [foz_us] SP 7.4-10.4 SP Automated blood neutrophils/100 leukocytes 60 % 42-75 SP Automated blood lymphocytes/100 leukocytes 30 % 12-44 SP Blood monocytes/100 leukocytes 9 % 0-12 SP Automated blood eosinophils/100 leukocytes 1 % 0-10 SP Automated blood basophils/100 leukocytes 0 % 0-10 SP Blood neutrophils automated count (number/volume) 6.1 10*3 SP7.8 Blood lymphocytes automated count (number/volume) 3.1 10*3 SP4.0 Blood monocytes automated count (number/volume) 0. 9 10*3 SP1.0 Automated eosinophil count 0.1 10*3/uL 0 .0-0.3 SP Automated blood basophil count (count/volume) 0.0 10*3/uL SP0.1 PT panel in platelet poor plasma by coag ulation assay - 07/27/17 09:00 POS Prothrombin time (PT) in platelet poor plasma by coagu lation assay SP s 12.2-14.7 SP INR in platelet poor plasma or blood by coagulation as say 1.1 SP 0.8-1.4 SP Activated partial thromboplastin time (a PTT) in platelet poor plasma POS assay - 07/27/17 09:00 Activated partial thromboplastin time (a PTT) in platelet poor plasma POS assay 27 s 24-35 SP Comprehensive metabolic panel - 07/27/17 09:00 POS Serum or plasma sodium measurement (moles/volume) 137 mmol/L SP 135-145 SP Serum or plasma potassium measurement (moles/volume) 4.4 mmol/L SP 3.6-5.0 SP Serum or plasma chloride measurement (moles/volume) 106 mmol/L SP 98-107 SP Carbon dioxide 21 mmol/L 21-32 SP Serum or plasma anion gap determination (moles/volume) 10 mmol/L SP 5-14 SP Serum or plasma urea nitrogen measurement (mass/volume ) 24 mg/dL SP 7-18 SP Serum or plasma creatinine measurement (mass/volume) 1.10 mg/dL SP 0.60-1.30 SP Serum or plasma urea nitrogen/creatinine mass ratio 22 NRG SP Serum or plasma creatinine measurement w ith calculation of estimated glomerular SP rate > NRG SP Serum or plasma glucose measurement (mass/volume) 168 mg/dL SP105 Serum or plasma calcium measurement (mass/volume) 9.1 mg/dL SP10.1 Serum or plasma total bilirubin measurement (mass/volu me) 0.7 mg/dL SP 0.1-1.0 SP Serum or plasma alkaline phosphatase julio césar surement (enzymatic activity/volume) SP 67 U/L 40-136 SP Serum or plasma aspartate aminotransfera se measurement (enzymatic SP 22 U/L 5-34 SP Serum or plasma alanine aminotransferase measurement (enzymatic activity/volume) SP 23 U/L 0-55 SP Serum or plasma protein measurement (mass/volume) 7.0 g/dL SP8.2 Serum or plasma albumin measurement (mass/volume) 3.9 g/dL SP4.5 RED CELLS LEUKO REDUCED AS1 - 07/27/17 0 9:41 POS RED CELLS LEUKO REDUCED AS1 N OT AVAILABLE SP NRG SP Blood type T Indirect antibody screen pa [place] - 07/27/17 09:41 POS ABO+Rh group OP NRG SP Transfusion band number [id number] NRG SP Blood group antibody screen NEGATIVE NR G SP Complete blood count (CBC) with automate d white blood cell (WBC) differential - POS 09:40 Blood leukocytes automated count (number/volume) 7.7 10*3/uL POS 4.3-11.0 SP Blood erythrocytes automated count (number/volume) 4.17 10*6/uL SP 4.35-5.85 SP Venous blood hemoglobin measurement (mass/volume) 13.8 g/dL SP17.7 Blood hematocrit (volume fraction) 40 % 40-54 SP Automated erythrocyte mean corpuscular volume 97 [ foz_us] SP99 Automated erythrocyte mean corpuscular h emoglobin (mass per erythrocyte) SP 33 pg 25-34 SP Automated erythrocyte mean corpuscular h emoglobin concentration measurement SP 34 g/dL 32-36 SP Automated erythrocyte distribution width ratio 12. 8 % 10.0- SP Automated blood platelet count (count/volume) 283 10*3/uL SP400 Automated blood platelet mean volume measurement 9.0 [foz_us] SP 7.4-10.4 SP Automated blood neutrophils/100 leukocytes 59 % 42-75 SP Automated blood lymphocytes/100 leukocytes 30 % 12-44 SP Blood monocytes/100 leukocytes 11 % 0-12 SP Automated blood eosinophils/100 leukocytes 1 % 0-10 SP Automated blood basophils/100 leukocytes 0 % 0-10 SP Blood neutrophils automated count (number/volume) 4.6 10*3 SP7.8 Blood lymphocytes automated count (number/volume) 2.3 10*3 SP4.0 Blood monocytes automated count (number/volume) 0. 8 10*3 SP1.0 Automated eosinophil count 0.1 10*3/uL 0 .0-0.3 SP Automated blood basophil count (count/volume) 0.0 10*3/uL SP0.1 Complete blood count (CBC) with automate d white blood cell (WBC) differential - POS 22:24 Blood leukocytes automated count (number/volume) 3.3 10*3/uL POS 4.3-11.0 SP Blood erythrocytes automated count (number/volume) 4.54 10*6/uL SP 4.35-5.85 SP Venous blood hemoglobin measurement (mass/volume) 13.4 g/dL SP17.7 Blood hematocrit (volume fraction) 37 % 40-54 SP Automated erythrocyte mean corpuscular volume 82 [ foz_us] SP99 Automated erythrocyte mean corpuscular h emoglobin (mass per erythrocyte) SP 30 pg 25-34 SP Automated erythrocyte mean corpuscular h emoglobin concentration measurement SP 36 g/dL 32-36 SP Automated erythrocyte distribution width ratio 13. 1 % 10.0- SP Automated blood platelet count (count/volume) 222 10*3/uL SP400 Automated blood platelet mean volume measurement 8.8 [foz_us] SP 7.4-10.4 SP Automated blood neutrophils/100 leukocytes 49 % 42-75 SP Automated blood lymphocytes/100 leukocytes 31 % 12-44 SP Blood monocytes/100 leukocytes 18 % 0-12 SP Automated blood eosinophils/100 leukocytes 2 % 0-10 SP Automated blood basophils/100 leukocytes 0 % 0-10 SP Blood neutrophils automated count (number/volume) 1.6 10*3 SP7.8 Blood lymphocytes automated count (number/volume) 1.0 10*3 SP4.0 Blood monocytes automated count (number/volume) 0. 6 10*3 SP1.0 Automated eosinophil count 0.1 10*3/uL 0 .0-0.3 SP Automated blood basophil count (count/volume) 0.0 10*3/uL SP0.1 Blood lactic acid measurement (moles/vol ume) - 09/16/18 22:24 POS Blood lactic acid measurement (moles/volume) 1.25 mmol/L SP2.00 PT panel in platelet poor plasma by coag ulation assay - 09/16/18 22:24 POS Prothrombin time (PT) in platelet poor plasma by coagu lation assay SP s 12.2-14.7 SP INR in platelet poor plasma or blood by coagulation as say 1.0 SP 0.8-1.4 SP Activated partial thromboplastin time (a PTT) in platelet poor plasma POS assay - 09/16/18 22:24 Activated partial thromboplastin time (a PTT) in platelet poor plasma POS assay 32 s 24-35 SP Comprehensive metabolic panel - 09/16/18 22:24 POS Serum or plasma sodium measurement (moles/volume) 116 mmol/L SP 135-145 SP Serum or plasma potassium measurement (moles/volume) 3.6 mmol/L SP 3.6-5.0 SP Serum or plasma chloride measurement (moles/volume) 82 mmol/L SP 98-107 SP Carbon dioxide 19 mmol/L 21-32 SP Serum or plasma anion gap determination (moles/volume) 15 mmol/L SP 5-14 SP Serum or plasma urea nitrogen measurement (mass/volume ) 12 mg/dL SP 7-18 SP Serum or plasma creatinine measurement (mass/volume) 0.90 mg/dL SP 0.60-1.30 SP Serum or plasma urea nitrogen/creatinine mass ratio 13 NRG SP Serum or plasma creatinine measurement w ith calculation of estimated glomerular SP rate > NRG SP Serum or plasma glucose measurement (mass/volume) 144 mg/dL SP105 Serum or plasma calcium measurement (mass/volume) 9.9 mg/dL SP10.1 Serum or plasma total bilirubin measurement (mass/volu me) 0.7 mg/dL SP 0.1-1.0 SP Serum or plasma alkaline phosphatase julio césar surement (enzymatic activity/volume) SP 68 U/L 40-136 SP Serum or plasma aspartate aminotransfera se measurement (enzymatic SP 49 U/L 5-34 SP Serum or plasma alanine aminotransferase measurement (enzymatic activity/volume) SP 50 U/L 0-55 SP Serum or plasma protein measurement (mass/volume) 7.1 g/dL SP8.2 Serum or plasma albumin measurement (mass/volume) 4.0 g/dL SP4.5 CALCIUM CORRECTED 9.9 mg/dL 8.5-10.1 SP Magnesium - 09/16/18 22:24 POS Magnesium 1.4 mg/dL 1.8-2.4 SP Serum or plasma troponin i.cardiac measu rement (mass/volume) - 09/16/18 22:24 POS Serum or plasma troponin i.cardiac measurement (mass/v olume) < ng/mL POS <0.028 SP Serum or plasma amylase measurement (enz ymatic activity/volume) - 09/16/18 22:24 POS Serum or plasma amylase measurement (enzymatic activit y/volume) 54 U/L POS 25-125 SP Lipase - 09/16/18 22:24 POS Lipase 25 U/L 8-78 SP Bacterial blood culture - 09/16/18 22:24 POS Bacterial blood culture NG NRG SP Bacterial blood culture - 09/16/18 22:52 POS Bacterial blood culture NG NRG SP Complete urinalysis with reflex to cultu re - 09/17/18 00:00 POS Urine color determination YELLOW NRG SP Urine clarity determination CLEAR NR G SP Urine pH measurement by test strip 6 5-9 SP Specific gravity of urine by test strip 1.015 1.016-1.022 SP Urine protein assay by test strip, semi-quantitative NEGATIVE SP NEGATIVE SP Urine glucose detection by automated test strip NE GATIVE SP Erythrocytes detection in urine sediment by light micr oscopy NEGATIVE SP NEGATIVE SP Urine ketones detection by automated test strip 2+ NEGATIVE SP Urine nitrite detection by test strip NEGATIVE NEGATIVE SP Urine total bilirubin detection by test strip NEGA TIVE SP Urine urobilinogen measurement by automated test strip (mass/volume) SP NORMAL SP Urine leukocyte esterase detection by dipstick NEG ATIVE SP Automated urine sediment erythrocyte cou nt by microscopy (number/high power SP [HPF] NRG SP Automated urine sediment leukocyte count by microscopy (number/high power field) SP NONE NRG SP Bacteria detection in urine sediment by light microsco py NEGATIVE SP NRG SP Squamous epithelial cells detection in u rine sediment by light microscopy SP RARE NRG SP Crystals detection in urine sediment by light microsco py NONE SP NRG SP Casts detection in urine sediment by light microscopy NONE SP Mucus detection in urine sediment by light microscopy SMALL SP NRG SP Complete urinalysis with reflex to culture NO NRG SP Complete blood count (CBC) with automate d white blood cell (WBC) differential - POS 04:00 Blood leukocytes automated count (number/volume) 3.9 10*3/uL POS 4.3-11.0 SP Blood erythrocytes automated count (number/volume) 4.14 10*6/uL SP 4.35-5.85 SP Venous blood hemoglobin measurement (mass/volume) 12.4 g/dL SP17.7 Blood hematocrit (volume fraction) 34 % 40-54 SP Automated erythrocyte mean corpuscular volume 83 [ foz_us] SP99 Automated erythrocyte mean corpuscular h emoglobin (mass per erythrocyte) SP 30 pg 25-34 SP Automated erythrocyte mean corpuscular h emoglobin concentration measurement SP 36 g/dL 32-36 SP Automated erythrocyte distribution width ratio 13. 2 % 10.0- SP Automated blood platelet count (count/volume) 204 10*3/uL SP400 Automated blood platelet mean volume measurement 8.8 [foz_us] SP 7.4-10.4 SP Automated blood neutrophils/100 leukocytes 49 % 42-75 SP Automated blood lymphocytes/100 leukocytes 32 % 12-44 SP Blood monocytes/100 leukocytes 18 % 0-12 SP Automated blood eosinophils/100 leukocytes 1 % 0-10 SP Automated blood basophils/100 leukocytes 0 % 0-10 SP Blood neutrophils automated count (number/volume) 1.9 10*3 SP7.8 Blood lymphocytes automated count (number/volume) 1.2 10*3 SP4.0 Blood monocytes automated count (number/volume) 0. 7 10*3 SP1.0 Automated eosinophil count 0.0 10*3/uL 0 .0-0.3 SP Automated blood basophil count (count/volume) 0.0 10*3/uL SP0.1 Comprehensive metabolic panel - 09/17/18 04:00 POS Serum or plasma sodium measurement (moles/volume) 116 mmol/L SP 135-145 SP Serum or plasma potassium measurement (moles/volume) 3.7 mmol/L SP 3.6-5.0 SP Serum or plasma chloride measurement (moles/volume) 86 mmol/L SP 98-107 SP Carbon dioxide 19 mmol/L 21-32 SP Serum or plasma anion gap determination (moles/volume) 11 mmol/L SP 5-14 SP Serum or plasma urea nitrogen measurement (mass/volume ) 10 mg/dL SP 7-18 SP Serum or plasma creatinine measurement (mass/volume) 0.81 mg/dL SP 0.60-1.30 SP Serum or plasma urea nitrogen/creatinine mass ratio 12 NRG SP Serum or plasma creatinine measurement w ith calculation of estimated glomerular SP rate > NRG SP Serum or plasma glucose measurement (mass/volume) 113 mg/dL SP105 Serum or plasma calcium measurement (mass/volume) 9.1 mg/dL SP10.1 Serum or plasma total bilirubin measurement (mass/volu me) 0.5 mg/dL SP 0.1-1.0 SP Serum or plasma alkaline phosphatase julio césar surement (enzymatic activity/volume) SP 61 U/L 40-136 SP Serum or plasma aspartate aminotransfera se measurement (enzymatic SP 44 U/L 5-34 SP Serum or plasma alanine aminotransferase measurement (enzymatic activity/volume) SP 45 U/L 0-55 SP Serum or plasma protein measurement (mass/volume) 6.4 g/dL SP8.2 Serum or plasma albumin measurement (mass/volume) 3.7 g/dL SP4.5 CALCIUM CORRECTED 9.3 mg/dL 8.5-10.1 SP Complete blood count (CBC) with automate d white blood cell (WBC) differential - POS 05:00 Blood leukocytes automated count (number/volume) 4.2 10*3/uL POS 4.3-11.0 SP Blood erythrocytes automated count (number/volume) 3.84 10*6/uL SP 4.35-5.85 SP Venous blood hemoglobin measurement (mass/volume) 11.4 g/dL SP17.7 Blood hematocrit (volume fraction) 33 % 40-54 SP Automated erythrocyte mean corpuscular volume 85 [ foz_us] SP99 Automated erythrocyte mean corpuscular h emoglobin (mass per erythrocyte) SP 30 pg 25-34 SP Automated erythrocyte mean corpuscular h emoglobin concentration measurement SP 35 g/dL 32-36 SP Automated erythrocyte distribution width ratio 13. 4 % 10.0- SP Automated blood platelet count (count/volume) 196 10*3/uL SP400 Automated blood platelet mean volume measurement 9.2 [foz_us] SP 7.4-10.4 SP Automated blood neutrophils/100 leukocytes 52 % 42-75 SP Automated blood lymphocytes/100 leukocytes 27 % 12-44 SP Blood monocytes/100 leukocytes 19 % 0-12 SP Automated blood eosinophils/100 leukocytes 1 % 0-10 SP Automated blood basophils/100 leukocytes 0 % 0-10 SP Blood neutrophils automated count (number/volume) 2.2 10*3 SP7.8 Blood lymphocytes automated count (number/volume) 1.2 10*3 SP4.0 Blood monocytes automated count (number/volume) 0. 8 10*3 SP1.0 Automated eosinophil count 0.0 10*3/uL 0 .0-0.3 SP Automated blood basophil count (count/volume) 0.0 10*3/uL SP0.1 Comprehensive metabolic panel - 09/18/18 05:00 POS Serum or plasma sodium measurement (moles/volume) 128 mmol/L SP 135-145 SP Serum or plasma potassium measurement (moles/volume) 3.8 mmol/L SP 3.6-5.0 SP Serum or plasma chloride measurement (moles/volume) 100 mmol/L SP 98-107 SP Carbon dioxide 20 mmol/L 21-32 SP Serum or plasma anion gap determination (moles/volume) 8 mmol/L SP 5-14 SP Serum or plasma urea nitrogen measurement (mass/volume ) 8 mg/dL SP 7-18 SP Serum or plasma creatinine measurement (mass/volume) 0.88 mg/dL SP 0.60-1.30 SP Serum or plasma urea nitrogen/creatinine mass ratio 9 NRG SP Serum or plasma creatinine measurement w ith calculation of estimated glomerular SP rate > NRG SP Serum or plasma glucose measurement (mass/volume) 91 mg/dL SP105 Serum or plasma calcium measurement (mass/volume) 8.4 mg/dL SP10.1 Serum or plasma total bilirubin measurement (mass/volu me) 0.5 mg/dL SP 0.1-1.0 SP Serum or plasma alkaline phosphatase julio césar surement (enzymatic activity/volume) SP 49 U/L 40-136 SP Serum or plasma aspartate aminotransfera se measurement (enzymatic SP 44 U/L 5-34 SP Serum or plasma alanine aminotransferase measurement (enzymatic activity/volume) SP 46 U/L 0-55 SP Serum or plasma protein measurement (mass/volume) 5.6 g/dL SP8.2 Serum or plasma albumin measurement (mass/volume) 3.3 g/dL SP4.5 CALCIUM CORRECTED 9.0 mg/dL 8.5-10.1 SP Complete blood count (CBC) with automate d white blood cell (WBC) differential - POS 14:08 Blood leukocytes automated count (number/volume) 5.7 10*3/uL POS 4.3-11.0 SP Blood erythrocytes automated count (number/volume) 4.32 10*6/uL SP 4.35-5.85 SP Venous blood hemoglobin measurement (mass/volume) 13.4 g/dL SP17.7 Blood hematocrit (volume fraction) 40 % 40-54 SP Automated erythrocyte mean corpuscular volume 93 [ foz_us] SP99 Automated erythrocyte mean corpuscular h emoglobin (mass per erythrocyte) SP 31 pg 25-34 SP Automated erythrocyte mean corpuscular h emoglobin concentration measurement SP 33 g/dL 32-36 SP Automated erythrocyte distribution width ratio 15. 3 % 10.0- SP Automated blood platelet count (count/volume) 245 10*3/uL SP400 Automated blood platelet mean volume measurement 8.9 [foz_us] SP 7.4-10.4 SP Automated blood neutrophils/100 leukocytes 46 % 42-75 SP Automated blood lymphocytes/100 leukocytes 37 % 12-44 SP Blood monocytes/100 leukocytes 13 % 0-12 SP Automated blood eosinophils/100 leukocytes 4 % 0-10 SP Automated blood basophils/100 leukocytes 1 % 0-10 SP Blood neutrophils automated count (number/volume) 2.6 10*3 SP7.8 Blood lymphocytes automated count (number/volume) 2.1 10*3 SP4.0 Blood monocytes automated count (number/volume) 0. 7 10*3 SP1.0 Automated eosinophil count 0.2 10*3/uL 0 .0-0.3 SP Automated blood basophil count (count/volume) 0.0 10*3/uL SP0.1 PT panel in platelet poor plasma by coag ulation assay - 10/08/18 14:08 POS Prothrombin time (PT) in platelet poor plasma by coagu lation assay SP s 12.2-14.7 SP INR in platelet poor plasma or blood by coagulation as say 1.1 SP 0.8-1.4 SP Activated partial thromboplastin time (a PTT) in platelet poor plasma POS assay - 10/08/18 14:08 Activated partial thromboplastin time (a PTT) in platelet poor plasma POS assay 32 s 24-35 SP Fibrin D-dimer FEU measurement in platel et poor plasma (mass/volume) - 10/08/18 POS Fibrin D-dimer FEU measurement in platelet poor plasma (mass/volume) POS ug/mL 0.00-0.49 SP Comprehensive metabolic panel - 10/08/18 14:08 POS Serum or plasma sodium measurement (moles/volume) 137 mmol/L SP 135-145 SP Serum or plasma potassium measurement (moles/volume) 3.5 mmol/L SP 3.6-5.0 SP Serum or plasma chloride measurement (moles/volume) 103 mmol/L SP 98-107 SP Carbon dioxide 23 mmol/L 21-32 SP Serum or plasma anion gap determination (moles/volume) 11 mmol/L SP 5-14 SP Serum or plasma urea nitrogen measurement (mass/volume ) 14 mg/dL SP 7-18 SP Serum or plasma creatinine measurement (mass/volume) 1.05 mg/dL SP 0.60-1.30 SP Serum or plasma urea nitrogen/creatinine mass ratio 13 NRG SP Serum or plasma creatinine measurement w ith calculation of estimated glomerular SP rate > NRG SP Serum or plasma glucose measurement (mass/volume) 151 mg/dL SP105 Serum or plasma calcium measurement (mass/volume) 9.3 mg/dL SP10.1 Serum or plasma total bilirubin measurement (mass/volu me) 0.4 mg/dL SP 0.1-1.0 SP Serum or plasma alkaline phosphatase julio césar surement (enzymatic activity/volume) SP 73 U/L 40-136 SP Serum or plasma aspartate aminotransfera se measurement (enzymatic SP 29 U/L 5-34 SP Serum or plasma alanine aminotransferase measurement (enzymatic activity/volume) SP 32 U/L 0-55 SP Serum or plasma protein measurement (mass/volume) 7.3 g/dL SP8.2 Serum or plasma albumin measurement (mass/volume) 4.0 g/dL SP4.5 CALCIUM CORRECTED 9.3 mg/dL 8.5-10.1 SP Serum or plasma troponin i.cardiac measu rement (mass/volume) - 10/08/18 14:08 POS Serum or plasma troponin i.cardiac measurement (mass/v olume) < ng/mL POS <0.028 SP Capillary blood glucose measurement by g lucometer (mass/volume) - 10/08/18 14:15 POS Capillary blood glucose measurement by glucometer (mas s/volume) 159 POS 70-110 SP Complete urinalysis with reflex to cultu re - 10/08/18 14:25 POS Urine color determination YELLOW NRG SP Urine clarity determination CLEAR NR G SP Urine pH measurement by test strip 6 5-9 SP Specific gravity of urine by test strip 1.010 1.016-1.022 SP Urine protein assay by test strip, semi-quantitative NEGATIVE SP NEGATIVE SP Urine glucose detection by automated test strip NE GATIVE SP Erythrocytes detection in urine sediment by light micr oscopy NEGATIVE SP NEGATIVE SP Urine ketones detection by automated test strip NE GATIVE SP Urine nitrite detection by test strip NEGATIVE NEGATIVE SP Urine total bilirubin detection by test strip NEGA TIVE SP Urine urobilinogen measurement by automated test strip (mass/volume) SP NORMAL SP Urine leukocyte esterase detection by dipstick NEG ATIVE SP Automated urine sediment erythrocyte cou nt by microscopy (number/high power SP NONE NRG SP Automated urine sediment leukocyte count by microscopy (number/high power field) SP NONE NRG SP Bacteria detection in urine sediment by light microsco py NEGATIVE SP NRG SP Crystals detection in urine sediment by light microsco py NONE SP NRG SP Casts detection in urine sediment by light microscopy NONE SP Mucus detection in urine sediment by light microscopy NEGATIVE SP NRG SP Complete urinalysis with reflex to culture NO NRG SP Encounters ACCT No. Visit Date/Time Discharge Status POS Pt. Type Provider Facility Loc./Un it POS Complaint POS [id number] 12/22/2018 07:30:00 08:45:00 SP DIS Outpatient MAGALIE MENARD MD Via [facility] YAG SP [id number] 12/21/2018 09:15:00 09:27:00 SP DIS Outpatient MAGALIE MENARD MD Via [facility] PREOP YAG SP [id number] 12/14/2018 00:13:00 23:59:59 SP CLS Preadmit NÉSTOR CASTRO INSPECTION SUPERVISOR Via [facility] DEHYDRATION SP [id number] 09/14/2018 14:28:00 00:01:00 SP DIS Outpatient NÉSTOR CASTRO INSPECTION SUPERVISOR Via [facility] DEHYDRATION SP [id number] 12/12/2018 13:38:00 23:59:59 SP CLS Preadmit OLGA JIMÉNEZ, NILES Mccray Via [facility] RAD STENOSIS OF RIGHT CAROTID AR FRANKIE SP [id number] 10/08/2018 13:42:00 17:50:00 SP DIS Emergency CELSA HATHAWAY MD Via [facility] ER STROKE LIKE SYMPTOMS SP [id number] 09/22/2018 07:30:00 23:59:59 SP CLS Preadmit MAGALIE MENARD MD Via [facility] YAG SP [id number] 09/20/2018 10:38:00 23:59:59 SP CLS Outpatient KARINA MIR MD Via [facility] RAD COUGH SP [id number] 09/20/2018 05:48:00 23:59:59 SP CLS Outpatient MAGALIE MENARD MD Via [facility] PREOP YAG SP [id number] 09/17/2018 01:25:00 14:10:00 SP DIS Inpatient KARINA MIR MD Via [facility] 4TH ALTERED MENTAL STATUS; HYPON ATREMIA; SP [id number] 09/13/2018 10:34:00 23:59:59 SP CLS Outpatient NÉSTOR CASTRO INSPECTION SUPERVISOR Via [facility] SDC DEHYDRATION SP [id number] 07/31/2018 08:42:00 23:59:59 SP CLS Outpatient CHARLOTTE JIMÉNEZ FAC, ALI FACP CC DS SP [facility] CARD MALAISE SP [id number] 07/25/2018 08:14:00 23:59:59 SP CLS Outpatient CHARLOTTE JIMÉNEZ [facility], ALI FACP CC DS SP [facility] CARD MALAISE SP [id number] 07/13/2018 06:56:00 23:59:59 SP CLS Preadmit CHARLOTTE JIMÉNEZ [facility], CHARANJIT KHANNA CCDS Via [facility] CARD MALAISE SP [id number] 05/04/2018 11:45:00 23:59:59 SP CLS Outpatient PAT BEAVER MD Via [facility] CARD ACTIVE GL BLEED SP [id number] 05/03/2018 14:29:00 23:59:59 SP CLS Preadmit PAT BEAVER MD a [facility] CARD ACTIVE GI BLEED SP [id number] 05/03/2018 09:07:00 14:50:00 SP DIS Outpatient PAT BEAVER MD Via [facility] ENDO DARK TARRY STOOLS/RECTAL BLE EDING/REFLUX SP [id number] 05/02/2018 10:40:00 12:34:00 SP DIS Outpatient PAT BEAVER MD Via [facility] PREOP COLONOSCOPY/EGD KARLIE [id number] 04/25/2018 11:57:00 23:59:59 SP CLS Outpatient KARINA MIR MD Via [facility] RAD VISION CHANGE SP [id number] 01/18/2018 09:30:00 11:20:00 SP DIS Outpatient MAGALIE MENARD MD Via [facility] SDC CATARACT RIGHT EYE SP [id number] 01/17/2018 05:34:00 018 11:43:00 SP DIS Outpatient MAGALIE MENARD MD Via [facility] PREOP CATARACT RIGHT SP [id number] 11/09/2017 12:45:00 018 23:59:59 SP CLS Outpatient NÉSTOR CASTRO INSPECTION SUPERVISOR Via [facility] RAD CHRONIC VERTIGO SP [id number] 08/29/2017 12:23:00 018 23:59:59 SP CLS Outpatient YINA PINEDA OD Via [facility] RAD FRACTURE OF ORBITAL F KHARI,LEFT SP SEQUELA [id number] 08/20/2017 09:51:00 018 23:59:59 SP CLS Outpatient NADINE CANTU INSPECTION SUPERVISOR Via [facility] RAD FACIAL INJURY SP [id number] 08/05/2017 12:30:00 018 23:59:59 SP CLS Preadmit SARANYA JIMÉNEZ, PAT vitale [facility] ENDO RECTAL BLEEDING SP [id number] 08/03/2017 08:39:00 018 12:41:00 SP DIS Outpatient PAT BEAVER MD Via [facility] PREOP COLONOSCOPY SP [id number] 07/27/2017 08:43:00 018 11:34:00 SP DIS Emergency CELSA HATHAWAY MD Via [facility] ER PASSING ALOT OF BLOO D SP [id number] 07/14/2016 11:10:00 017 23:59:59 SP CLS Outpatient KARINA MIR MD Via [facility] RAD COUGH SP [id number] 08/18/2015 09:37:00 016 23:59:59 SP CLS Outpatient ADEEL BAIRES INSPECTION SUPERVISOR Via [facility] LAB SP [id number] 08/17/2015 13:42:00 016 16:37:00 SP DIS Emergency SHEREEN JIMÉNEZ, ZOHRA Lester Via [facility] ER CHILLS/DIARRHEA SP [id number] 07/16/2015 11:18:00 016 23:59:59 SP CLS Outpatient KARINA MIR MD Via [facility] RAD PAIN POST FALL SP [id number] 11/07/2014 06:57:00 015 12:45:00 SP DIS Outpatient PAT BEAVER MD Via [facility] SDC UMBILICAL HERNIA SP [id number] 11/06/2014 09:11:00 015 23:59:59 SP CLS Outpatient PAT BEAVER MD Via [facility] PREOP UMBILICAL HERNIA SP [id number] 07/08/2014 16:06:00 015 23:59:59 SP CLS Outpatient KARINA MIR MD Via [facility] RAD COUGH SP [id number] 08/10/2010 08:19:00 SP Registration SP [id number] 07/30/2010 19:11:00 SP Registration SP
== END 2018-12-22 08:45 | disposition home or self-care (01) ==
LOC: SDC 07:30
PROVIDERS: ATTEND Specialist
DX: H26.492 Other secondary cataract, left eye (principal); M19.90 Unspecified osteoarthritis, unspecified site; E78.00 Pure hypercholesterolemia, unspecified; Z88.1 Allergy status to other antibiotic agents; Z88.2 Allergy status to sulfonamides; Z88.8 Allergy status to other drugs, medicaments and biological substances; Z79.899 Other long term (current) drug therapy

== ENCOUNTER → 2019-01-22 | Outpatient (CLI) | payer MEDICARE ==
[~2019-01-22] MED LIST changes: +AZIT500T5 PO; -AZIT500T9 PO; -LISI1TAB25 PO; +LISI1TAB8 PO; -OMEP-280 PO; +OMEP20CA13 PO; -OMEP40CA27 PO
--- NOTE | 2019-01-22 14:08 | Diagnostic Imaging Report ---
CLINICAL INDICATION: Patient with stenosis of the right carotid artery. Patient had endarterectomy on the right. COMPARISON: Ultrasound of the carotid arteries dated 11/09/2017. CT angiogram of the head/neck dated 10/08/2018. EXAM: Real-time carotid Doppler duplex imaging is performed bilaterally. Peak systolic velocity, ICA/CCA peak systolic ratio, spectral analysis, and vascular morphology are studied. FINDINGS: ARTERY VELOCITY Right Left CCA 0.83 m/s 0.69 m/s ICA 0.67 m/s 0.63 m/s ECA 0.88 m/s 0.84 m/s ICA/CCA 0.81 0.91 VERT.ART Antegrade Antegrade Compared to the prior CT angiogram, there is interval endarterectomy change of the proximal cervical right ICA with no significant stenosis present. There is mild bilateral carotid artery atherosclerotic disease with no grayscale evidence of significant stenosis. IMPRESSION: 1: Interval endarterectomy of the right cervical ICA with no significant stenosis present. 2: There is mild bilateral carotid artery atherosclerotic disease with no grayscale or Doppler evidence of significant vascular stenosis. Dictated by: Dictated on workstation # [id number]
== END ==
LOC: RAD 12:30
PROVIDERS: ATTEND Neurological Surgery
DX: I65.23 Occlusion and stenosis of bilateral carotid arteries (principal)
CPT/HCPCS: 93880

== ENCOUNTER 2021-07-17 05:34 | Outpatient (CLI) | payer MEDICARE ==
[~2021-07-17] VITALS: Ht 175 cm; Wt 89.0 kg
[~2021-07-17 05:34] MED LIST changes: -AZIT500T5 PO; +AZIT500T9 PO; -CITA10TA7 PO; +CITA10TA9 PO; +LISI1TAB46 PO; -LISI1TAB8 PO; -OMEP20CA13 PO; +OMEP20CA18 PO; +OMEP40CA6 PO
[2021-07-17] MEDS ORDERED: TMSL.4C PO (08:32)
[2021-07-17] MEDS ORDERED: ASPI81TA16 PO (08:32)
[2021-07-17] MEDS ORDERED: FINA5TAB6 PO (08:32)
[2021-07-17] MEDS ORDERED: LISI1TAB46 PO (08:32)
[2021-07-17] MEDS ORDERED: ATOR80TA76 PO (08:32)
== END 2021-07-17 08:50 | disposition home or self-care (01) ==
LOC: PREOP 05:34
PROVIDERS: ATTEND Surgery
DX: Z01.818 Encounter for other preprocedural examination (principal)

== ENCOUNTER 2021-07-21 06:30 | Day surgery (SDC) | payer MEDICARE, OTHER ==
[~2021-07-21] VITALS: Ht 175 cm; Wt 89.0 kg
[2021-07-21] VITALS (10 sets, daily range): BP systolic 118–164; BP diastolic 53–101
[~2021-07-21 06:30] MED LIST changes: +ASPI81TA16 PO; +ATOR80TA76 PO; +FINA5TAB6 PO; +TMSL.4C PO
[2021-07-21] MEDS: LACTATED RINGERS 1,000 ML IV PRN ×2 (06:50→09:26)
[2021-07-21] MEDS ORDERED: fentaNYL INJ 100 MCG/2 ML AMP ONE (07:06)
[2021-07-21] MEDS ORDERED: proPOfol 200 MG/20 ML (DIPRIVAN) VIAL IV ONE (07:06)
[2021-07-21] MEDS ORDERED: LIDOCAINE PF 2% 5 ML (XYLOCAINE) VIAL ONE ×2 (07:06→07:08)
[2021-07-21] MEDS ORDERED: NEOSTIGMINE 3 MG/3 ML VIAL ONE (07:06)
[2021-07-21] MEDS ORDERED: MIDAZOLAM 2 MG/2 ML (VERSED) VIAL ONE ×2 (07:06→07:08)
[2021-07-21] MEDS ORDERED: ONDANSETRON 4 MG/2 ML (SDV) Z0FRAN ONE (07:06)
[2021-07-21] MEDS ORDERED: GLYCOPYRROLATE 0.2 MG/ML (ROBINUL) 2 ML VIAL ONE (07:06)
[2021-07-21] MEDS ORDERED: ROCURONIUM 50 MG/5 ML (ZEMURON) VIAL IV ONE ×2 (07:07→08:47)
[2021-07-21] MEDS ORDERED: PROPOFOL INJECTION 50 ML IV ONE (07:08)
[2021-07-21] MEDS ORDERED: LIDOCAINE/EPI 2% 1:200,00 (XYLOCAINE) 20 ML VIAL ONE (07:27)
[2021-07-21] MEDS ORDERED: ceFAZolin 2 GM IV Premixed 50 ML ONE (07:51)
--- NOTE | 2021-07-21 07:54 | Progress Note-Pre Operative ---
Pre-Operative Progress Note H&P Reviewed The H&P was reviewed, patient examined and no changes noted. Time Seen by Provider: 07:49 Date H&P Reviewed: July 21, 2021 Time H&P Reviewed: 07:49 Pre-Operative Diagnosis: Incarcerated [facility], site marked FRANKLIN LATHAM DO July 21, 2021 07:54
[2021-07-21] MEDS ORDERED: SEVOFLURANE (ULTANE) 15 ML INHAL SOLN ONE (10:05)
[2021-07-21] MEDS ORDERED: ONDANSETRON 4 MG/2 ML (SDV) Z0FRAN IVP PRN (10:30)
[2021-07-21] MEDS ORDERED: morphine INJ 10 MG/ML 1ML (SYR OR VIAL) IVP ONE (10:30)
[2021-07-21] MEDS ORDERED: HYDROmorphone 2 MG/ML VIAL (DILAUDID) IV ONE (10:30)
--- NOTE | 2021-07-21 10:42 | Progress Note-Post Operative ---
Post-Operative Progess Note Surgeon (s)/Pediatric Oncologist (s) Surgeon FRANKLIN LATHAM DO Pediatric Oncologist: Kristin Pre-Operative Diagnosis Incarcerated [facility], site marked Post-Operative Diagnosis Same plus adhesions and large cord lipoma Procedure & Operative Findings Date of Procedure 07/21/21 Procedure Performed/Findings 1) Laparoscopic Right inguinal Herniarraphy with mesh placement - Robotic 2) Excision of cord lipoma 3) Lysis of Adhesion with oversew of serosal tears After informed consent was obtained, the patient was brought to the operating room and placed on the operating table in a supine position. He was sterilely prepped and draped in a normal fashion. Local lidocaine was used to infiltrate the skin above the umbilicus. I made an incision with #11 blade, carried down to the skin into subcutaneous tissue and then deepened down the subcutaneous tissue with Bovie electrocautery down to the fascia. Fascia was incised with Bovie electrocautery and bluntly entered the abdomen, swept a finger around, placed 0 Vicryl [id number] suture and placed limited trocar port under direct visualization. Created pneumoperitoneum and immediately saw small bowel stuck at umbilical hernia mesh. Took a picture of this and then placed two 8 mm ports about 10 cm on either side of the midline port using a local lidocaine, 11 blade for stab incision and then advanced the robotic port under direct visualization. I then placed a 5mm port in the left lower quadrant in the normal fashion; injecting the skin with local lidocaine, stab incision with the #11 blade and VersaStep system all under direct visualization. I then used the scissors and started slowly taking the small bowel off the mesh, did take a piece of mesh with small bowel. It looked ok and then started the inguinal hernia. Once I had take this down then placed the patient in Trendelenburg and then placed the working instruments, the fenestrated bipolar and the scissors. Looked on the left side and did not see any signs of an inguinal hernia. I could see a indirect hernia defect on the right side. Next, I came across the peritoneum approximately 8 cm away from the hernia defect, going across laterally starting lateral about 17cm and cutting toward the median umbilical ligament. I then carefully dissected the visceral peritoneum away and down and then in the midline, went through the parietal side and dissected down to the pubic tubercle, dissecting this down carefully pushing the peritoneum away, I was able to then visualize the pubic tubercle and Geovanni's ligament. I went 2 cm posterior and at this point, we then had a critical view of the dissection, able to dissect 2 cm across the midline to the right side, 2 cm posterior to the Geovanni's ligament, able to then parietalize the vas deferens and spermatic vessels right at the groove between Geovanni's and iliac vein and able to dissect, make sure there was no peritoneum between those two, able to see the indirect hernia space, took a picture of this, looked at the femoral space (no hernia seen). Then I carefully teased out the hernia sac and could visualize the indirect hernia space. Next I looked on the cord and cord structures. There was a large cord lipoma that I was able to reduce and cut off. This was then removed throught the port to get it out of the peritoneal space. I could clearly see the inguinal canal and the indirect space. Next I carried the posterior lateral dissection all the way out and then placed a 12 x 17 Midwieght Bard 3DMax mesh. It laid in n icely, covered the hernia defect and the rest of the area. It was above the peritoneum, sutured it at the pubic tubercle with a 3-0 Vicryl suture and tied this off. This appeared to lay in very nicely. I then brought down the pneumoperitoneum to about 8 mmHg and then started closing the peritoneum. Started laterally and used a 2-0 V-lock barbed suture to start a running stitch to close the peritoneum. This was closed nicely, took a picture of the closure at this point, then removed both needles had switched to a suture driver trainer from the scissors. The patient was then placed back supine and undocked the robot. Able to put camera in lateral port and then grab the small bowel through supra-umbilical port to pull it out of the abdomen. Inspected it and did not see any holes. There were some serosal tears and closed these with 3-0 Vicryl pop-offs. Looked again, did not see anything and then pushed small bowel back into the abdomen. Quickly looked with camera again and intestine looked good, picture taken. Finally removed all ports under direct visualization, allowed pneumoperitoneum to escape and then closed the supraumbi lical incision, closing the fascia with 0 Vicryl suture previously placed. Copiously irrigated all incisions and then closed the two small 8 mm incisions and the 5mm incision with interrupted 4-0 undyed Monocryl subcuticular stitches and closed the supraumbilical incision with three interrupted undyed Monocryl subcuticular stitch. Area was cleaned and dried. Dermabond was placed. The patient tolerated the procedure. The sponge, instrument and needle counts were correct at the end of the case. Dr. Foster assisted during this surgery by making incisions, closing incisions, helping to identify anatomy and passing/retrieving suture and needles. Anesthesia Type GET Estimated Blood Loss Estimated blood loss (mL): scant Specimens/Packing Specimens Removed cord lipoma FRANKLIN LATHAM DO July 21, 2021 10:42
[2021-07-21] MEDS ORDERED: ACHD5005 PO (10:48)
--- NOTE | 2021-07-21 10:49 | Discharge Inst-Surgical ---
Discharge Inst-Surgical Depart Medication/Instructions New, Converted or Re-Newed RX: Transmitted to Pharmacy Patient Instructions Follow up Appt: Make appointment for 1 week. [phone] Instructions: No lifting greater than 20 pounds. No strenuous activity. May shower in 24 hours, no tub bath or soaking. Use incentive spirometer at home as directed. No Smoking Skin/Wound Care: May remove bandages in am. You need to leave the Dermabond on incision it will fall off on it's own. Symptoms to Report: Appetite Changes, Extremity Discoloration, Numbness/Tingling, Swelling Increased, Bleeding Excessive, Eyesight Changes, Pain Increased, Urine Color Change, Constipation(Persistent), Fever over 101 degree F, Pain/Pressure in chest, Urinating Difficulty, Cough Up/Vomit Blood, Heart Beat Irreg/Pounding, Pain/Pressure in jaw, Cramps in feet or legs, Lightheadedness, Pain/Pressure in shoulder, Diarrhea(Persistent), Memory Changes Suddenly, Questions/Concerns, Weight gain consecutive days, Dizziness/Fainting, Nausea/Vomiting, Shortness of Breath, Weight gain over 2 pounds If questions or concerns contact your physician Or seek help at emergency department. Activity Activity as Tolerated: Yes Activity Instructions: Avoid Stress to Incision Driving Instructions: No Driving/Refer to Dr. Henriquez Discharge Diet: No Restrictions Diet After 24 Hours: Clear Liquid if Nauseous If Any Problems/Questions/Issu: Contact Your Physician, Go to Emergency Room Skin/Wound Care Infection Signs and Symptoms: Increased Redness, Foul Odor of Wound, Increased Drainage, Skin Itchy or Has a Rash, Increased Swelling, Temperature Above 101 F Wound Care Comment: heating pad to shoulder or neck tonight for pain Bathing Instructions: Shower Stitches/Lacrosse/Dermabond Dis: Dermabond Ice Pack: Ice On and Off Site FRANKLIN LATHAM DO July 21, 2021 10:49
--- NOTE | 2021-07-21 13:26 | Anesthesia-General Post-Op ---
General Patient Condition Mental Status/LOC: Same as Preop Cardiovascular: Satisfactory Nausea/Vomiting: Absent Respiratory: Satisfactory Pain: Controlled Complications: Absent Post Op Complications Complications None Follow Up Care/Instructions Patient Instructions None needed. Anesthesia/Patient Condition Patient Condition Patient was seen this morning in [facility] after the procedure and he was doing well, no complaints, stable vital signs, no apparent adverse anesthesia problems. JAYE WARNER DO July 21, 2021 13:26
== END 2021-07-21 12:25 | disposition home or self-care (01) ==
LOC: SDC 06:30
PROVIDERS: ATTEND Surgery
DX: K40.30 Unilateral inguinal hernia, with obstruction, without gangrene, not specified as recurrent (principal); D17.6 Benign lipomatous neoplasm of spermatic cord; K66.0 Peritoneal adhesions (postprocedural) (postinfection); Z87.891 Personal history of nicotine dependence
CPT/HCPCS: 49650; 87081; 94664; C1781

== ENCOUNTER → 2021-10-06 | Outpatient (CLI) | payer MEDICARE, OTHER ==
[~2021-10-06] MED LIST changes: +ACHD5005 PO
--- NOTE | 2021-10-06 15:58 | Diagnostic Imaging Report ---
EXAMINATION: Cervical spine 2 or 3 views HISTORY: NECK PAIN COMPARISON: 07/16/2015 FINDINGS: There is multilevel cervical spondylosis. Multilevel disc height loss. Multilevel facet hypertrophy without perched facets. No acute fracture is seen. The prevertebral soft tissues are normal. The odontoid process is intact. IMPRESSION: Multilevel degenerative changes of the cervical spine without acute osseous abnormality. Dictated by: Dictated on workstation # [id number]
== END ==
LOC: RAD 13:53
PROVIDERS: ATTEND Physician Assistant
DX: M47.812 Spondylosis without myelopathy or radiculopathy, cervical region (principal)
CPT/HCPCS: 72040

== ENCOUNTER → 2022-01-18 | Outpatient (CLI) | payer MEDICARE, OTHER ==
--- NOTE | 2022-01-18 16:02 | Diagnostic Imaging Report ---
INDICATION: Right knee pain AP, oblique, and lateral views of the right knee are obtained. No fracture or acute bony abnormality is seen. There is chondrocalcinosis and mild medial and lateral joint space narrowing and mild patellofemoral spurring. IMPRESSION: Chondrocalcinosis and mild degenerative findings of the right knee with no acute appearing abnormality. Dictated by: Dictated on workstation # [id number]
== END ==
LOC: RAD 10:14
PROVIDERS: ATTEND Internal Medicine
DX: M17.11 Unilateral primary osteoarthritis, right knee (principal); M11.261 Other chondrocalcinosis, right knee
CPT/HCPCS: 73562

== ENCOUNTER → 2022-02-03 | Outpatient (CLI) | payer MEDICARE, OTHER ==
[~2022-02-03] VITALS: Ht 172.7 cm; Wt 92.0 kg
[~2022-02-03] MED LIST changes: +HYDR-3817 PO
== END ==
LOC: PREOP 11:21
PROVIDERS: ATTEND Surgery
DX: Z01.818 Encounter for other preprocedural examination (principal); K43.2 Incisional hernia without obstruction or gangrene

== ENCOUNTER 2022-02-04 13:41 | Day surgery (SDC) | payer MEDICARE, OTHER ==
--- NOTE | 2022-02-03 18:17 | HISTORY AND PHYSICAL ---
DATE OF SERVICE: 02/04/2022 ATTENDING PRIMARY CARE PHYSICIAN: Dr. Cirilo Dewitt. HISTORY OF PRESENT ILLNESS: The patient is an 86-year-old male known to us. We had seen him in 07/2017 where he had an episode of rectal bleeding. He had reported he had a similar episode in 2010. He had a colonoscopy in 2014, which did show sigmoid diverticulosis as well as a chronic stage II, external, internal hemorrhoids. The bleeding was significant and he was admitted to the hospital. The colonoscopy showed that he did have significant diverticulosis as well as a stage 2 hemorrhoids; however, no active bleeding identified. Since that time, he states that he has not had any more lower bleeding episodes. We have also done an umbilical hernia on him before in 2014. He said that he underwent a laparoscopic right inguinal hernia through the previous umbilical incision on 06/21/2021 by another surgeon. Since that time, he has developed an outpouching within the umbilical region and states that this has grown larger in size and upon examination, he does have a ventral abdominal incisional hernia, which is reducible; however, tender to palpation. He is otherwise eating well and having normal bowel movements. PAST MEDICAL HISTORY: Hypertension, hypercholesterolemia, gastroesophageal reflux disease, depression, gout. PAST SURGICAL HISTORY: Low back surgery 2002, open left inguinal hernia repair 1997, hemorrhoidectomy 1986, ulnar nerve transposition right elbow 2014, umbilical hernia repair 2014, laparoscopic right inguinal hernia repair with mesh 06/21/2021. ALLERGIES: VALIUM AND BACTRIM. MEDICATIONS: Lisinopril/hydrochlorothiazide 20/12.5 mg daily, Celexa 10 mg daily, omeprazole 20 mg daily, aspirin 81 mg daily, tamsulosin 0.4 mg daily, finasteride 5 mg daily, Lipitor 80 mg daily, allopurinol 100 mg daily. SOCIAL HISTORY: Previous smoker, quit in 1984, 30 pack years. Rare alcohol. FAMILY HISTORY: Mother, some form of a neoplasm of the groin. REVIEW OF SYSTEMS: A well-nourished male, currently in no acute distress. He is not experiencing any shortness of breath and difficulty breathing. No chest pain, palpitations or diaphoresis. No nausea, vomiting. No diarrhea, constipation. No red blood per rectum. No dark tarry stools. No fever or chills. No recent inadvertent weight loss. All other review of systems negative. PHYSICAL EXAMINATION: VITAL SIGNS: Temperature 97.5, blood pressure 130/60, 204.6 pounds at 5 feet 7 inches. CHEST: Clear. Good breath sounds bilaterally. HEART: Regular, no murmurs. EXTREMITIES: No lower extremity edema. Negative Homans sign. HEENT: No scleral icterus. No cervical lymphadenopathy. ABDOMEN: Soft, nondistended. There is a ventral abdominal incisional hernia in the umbilical region, which is reducible; however, tender to palpation. SKIN: Warm and dry. ASSESSMENT AND PLAN: An 86-year-old male with a reducible, symptomatic ventral abdominal incisional hernia. The natural history of these hernias were explained to the patient as well as the risks and benefits of surgery and he is in full understanding of this and would like to proceed with an open ventral abdominal incisional hernia repair with mesh, which we will schedule. Job ID: [id number] DocumentID: [id number] Dictated Date: 02/02/2022 16:53:54 Programmer Analyst Date: 02/02/2022 20:07:00 Dictated By: PAT BEAVER MD
[2022-02-04] VITALS (11 sets, daily range): BP systolic 121–140; BP diastolic 59–85
[~2022-02-04] VITALS: Ht 172.7 cm; Wt 92.0 kg
[~2022-02-04 13:41] MED LIST changes: -HYDR-3817 PO
[2022-02-04] MEDS: LACTATED RINGERS 1,000 ML IV PRN ×2 (14:30→17:49)
[2022-02-04] MEDS ORDERED: ceFAZolin INJECTION 2,000 MG in NS (IVPB) 50 ML IV ONE (14:30)
--- NOTE | 2022-02-04 14:52 | Progress Note-Pre Operative ---
Pre-Operative Progress Note Date of Available H&P: Feb 04, 2022 Date H&P Reviewed: Feb 04, 2022 Time H&P Reviewed: 14:30 History & Physical: No changes noted Pre-Operative Diagnosis: reducible ventral abd inc hernia PAT BEAVER MD Feb 04, 2022 14:52
[2022-02-04] MEDS ORDERED: HYDR-3817 PO ×2 (14:54)
--- NOTE | 2022-02-04 14:54 | Discharge Inst-Surgical ---
D/C Lap Instructions-SARANYA New, Converted, or Re-Newed RX: RX on Chart Follow Up Appt in 2 weeks Activity as tolerated No driving for 24 hours No driving while on pain medications Incentive Spirometry use every 2 hours while awake Regular Diet Symptoms to Report: Fever over 101 degree F, Nausea/Vomiting Infection Signs and Symptoms to report: Increased redness, Foul odor of wound, Increased drainage Bathing instructions: May shower Operative Area Clean/Dry; Keep incision clean/dry If any problems/questions: Contact your physician or go to Emergency Room PAT BEAVER MD Feb 04, 2022 14:54
[2022-02-04] MEDS ORDERED: morphine INJ 10 MG/ML 1ML (SYR OR VIAL) IVP PRN ×2 (15:00)
[2022-02-04] MEDS ORDERED: ONDANSETRON 4 MG/2 ML (SDV) Z0FRAN IVP PRN ×2 (15:00→18:00)
[2022-02-04] MEDS ORDERED: ACETAMINOPHEN 325 MG TABLET PO PRN (15:00)
[2022-02-04] MEDS ORDERED: oxyCODONE/APAP 5/325MG (PERCOCET 5) TABLET PO PRN (15:00)
[2022-02-04] MEDS ORDERED: ROCURONIUM 10 MG/ML 5 ML SYRINGE IV ONE (16:08)
[2022-02-04] MEDS ORDERED: SEVOFLURANE (ULTANE) 15 ML INHAL SOLN ONE ×2 (16:08→17:30)
[2022-02-04] MEDS ORDERED: LIDOCAINE PF 2% 5 ML (XYLOCAINE) VIAL ONE (16:08)
[2022-02-04] MEDS ORDERED: proPOfol 200 MG/20 ML (DIPRIVAN) VIAL IV ONE (16:08)
[2022-02-04] MEDS ORDERED: fentaNYL INJ 100 MCG/2 ML AMP ONE (16:08)
[2022-02-04] MEDS ORDERED: ONDANSETRON 4 MG/2 ML (SDV) Z0FRAN ONE (16:08)
--- NOTE | 2022-02-04 16:13 | Progress Note-Post Operative ---
Post-Operative Progess Note Surgeon (s)/Rotary Screen Printing Machine Operator (s) Surgeon PAT BEAVER MD Rotary Screen Printing Machine Operator: tayla sanabria ORDNANCE TRUCK INSTALLATION MECHANIC Pre-Operative Diagnosis reducible ventral abd inc hernia Post-Operative Diagnosis same Procedure & Operative Findings Date of Procedure 02/04/22 Procedure Performed/Findings ventral abdominal incisional hernia repair with mesh. Anesthesia Type get Estimated Blood Loss Estimated blood loss (mL): minimal Specimens/Packing Specimens Removed none PAT BEAVER MD Feb 04, 2022 16:13
[2022-02-04] MEDS ORDERED: BUP/EPI 0.25% 1:200,000 (MARCAINE) 30 ML VIAL ONE (16:27)
--- NOTE | 2022-02-04 17:50 | Anesthesia-General Post-Op ---
General Patient Condition Mental Status/LOC: Same as Preop Cardiovascular: Satisfactory Nausea/Vomiting: Absent Respiratory: Satisfactory Pain: Controlled Complications: Absent Post Op Complications Complications None Follow Up Care/Instructions Patient Instructions None needed. Anesthesia/Patient Condition Patient Condition Patient is doing well, no complaints, stable vital signs, no apparent adverse anesthesia problems. No complications reported per nursing. JHON FORDE CRNA Feb 04, 2022 17:50
[2022-02-04] MEDS ORDERED: fentaNYL INJ 100 MCG/2 ML AMP IVP ONE (18:00)
[2022-02-04] MEDS ORDERED: morphine INJ 10 MG/ML 1ML (SYR OR VIAL) IVP ONE (18:00)
[2022-02-04] MEDS ORDERED: MEPERIDINE (DEMEROL) INJ 50 MG/ML IVP ONE (18:00)
--- NOTE | 2022-02-04 18:26 | OPERATIVE REPORT ---
DATE OF SERVICE: 02/04/2022 ATTENDING PRIMARY CARE PHYSICIAN: Cirilo Dewitt MD PREOPERATIVE DIAGNOSIS: Symptomatic reducible ventral abdominal incisional hernia. POSTOPERATIVE DIAGNOSIS: Symptomatic reducible ventral abdominal incisional hernia. PROCEDURE: Open ventral abdominal incisional hernia repair with mesh. SURGEON: Pat Beaver MD METAL CUTTER: Wilian Barnes APRN ANESTHESIA: General endotracheal. ESTIMATED BLOOD LOSS: Minimal. FINDINGS: Symptomatic reducible ventral abdominal incisional hernia. DISPOSITION: The patient tolerated the procedure well. INDICATIONS: The patient is an 86-year-old male known to us. We had seen him for rectal bleeding and another episode in 2010. He had a colonoscopy and was found to have sigmoid diverticulosis as well as chronic stage II, external and internal hemorrhoids. We also had done an umbilical hernia on him in 2014. He states that he underwent a recent laparoscopic right inguinal hernia repair through the previous umbilical incision site on 06/21/2021 by another surgeon. Since that time, he has developed an outpouching within the umbilical region and states that this has grown larger in size and painful. Upon examination, he was found to have a ventral abdominal incisional hernia, which was reducible; however, tender to palpation. He is otherwise tolerating a regular diet and having normal bowel movements. DESCRIPTION OF PROCEDURE: The patient was brought to the operating room, laid supine on the table. After adequate IV anesthetic medications and general endotracheal intubation, the abdomen was prepped and draped in standard surgical fashion. 0.5% Marcaine was then used to anesthetize the overlying skin in the supraumbilical region and a vertical skin incision along the previous incision was made using a #15 blade. Subcutaneous tissue was then dissected down using electrocautery. The hernia sac was identified and completely dissected out using blunt dissection as well as Metzenbaum scissors and electrocautery. The hernia was just superior to the previous edge of the mesh. There were some adhesion tissue towards the anterior abdominal wall including small bowel, which was taken down using Metzenbaum scissors with visualization of good hemostasis. Once all of the adhesions were then taken down, a large 8.0 cm round coated polypropylene mesh was then placed in the defect and sutured transfascially to the mesh using interrupted 0 Prolene sutures. Good hemostasis was observed. The subcutaneous tissue was then reapproximated using 3-0 Vicryl interrupted suture and the skin was closed using 4-0 Monocryl running subcuticular suture. Wound was then cleaned and covered with Dermabond. The abdominal binder was placed and the patient was brought to the recovery room in stable condition. We will start IV and oral pain medication as well as clear liquid diet. Once he is tolerating clears and has good pain control with oral pain medications, ambulating well, we will discharge him home where he will be instructed to do no heavy lifting or exertion for the next 2 weeks as well as wear the abdominal binder, both day and night for the next 2 weeks as well. Job ID: [id number] DocumentID: [id number] Dictated Date: 02/04/2022 17:47:27 Supervisor Extruding Department Date: 02/04/2022 18:24:00 Dictated By: PAT BEAVER MD
== END 2022-02-04 19:40 ==
LOC: SDC 13:41
PROVIDERS: ATTEND Surgery
DX: K43.2 Incisional hernia without obstruction or gangrene (principal); Z87.891 Personal history of nicotine dependence; Z86.73 Personal history of transient ischemic attack (TIA), and cerebral infarction without residual deficits
CPT/HCPCS: 49560; 49568; 87081; C1781